=== PATIENT | male | born 1980 | race Caucasian/White ===

== ENCOUNTER 2022-07-28 20:55 | Inpatient (IN) | payer OTHER, SELFPAY ==
[2022-07-28 21:45] VITALS: BMI 32.3
--- NOTE | 2022-07-28 22:37 | PC.ADMIT ---
Pt is a 42years old male admitted from [facility] for IPLOC after a pt was seen for SI with a plan to cut his wrist. Pt is alert and oriented x4, VSS, covid negative, tox screen positive for THC and methadone. Pt is homeless, depressed and hopeless. He has a history of poly substance use. Pt appears disheveled, calm and cooperative, quite but pleasant. Pt reports that he has been sober for the last six months. impulse, insight and judgment is poor. Speech is normal with regular rhythm, tone and corwin. Pt is able to make needs known and reports that he needs help with residential placement and further care. Pt has no established PCP, no therapist on file. Pt explains he has not been able to connect to providers and is fighting the urge to remain sober. Admission orders obtained.
[2022-07-28] MEDS: OLANZapine 5 MG TABLET PO (23:30)
[2022-07-28] MEDS: Nicotine Polacrilex 2 MG GUM 4 MG BUCCAL (23:30)
[2022-07-28] MEDS: QUEtiapine Fumarate 200 MG TABLET PO (23:31)
[2022-07-28] MEDS: hydrOXYzine HCL 50 MG TABLET PO (23:31)
[2022-07-29 07:00] VITALS: BMI 32.5
[2022-07-29 09:15] VITALS: BP 123/68; PULSE 88; RESP 16; TEMP 36.5; O2SAT 97
[2022-07-29 09:30] LABS: Estimated Average Glucose 117 mg/dL; Hemoglobin A1c % 5.7 %
[2022-07-29] MEDS: Gabapentin 300 MG CAPSULE PO ×2 (09:37→10:14)
[2022-07-29] MEDS: Sertraline HCL 100 MG TABLET PO (09:38)
[2022-07-29] MEDS: Magnesium Hydrox/Alum Hydrox 30 ML ORAL.SUSP PO (09:58)
[2022-07-29 10:04] LABS: Alanine Aminotransferase 79 U/L (0-40); Albumin Level 3.7 g/dL (3.5-5.0); Alkaline Phosphatase 96 U/L (39-117); Aspartate Amino Transferase 47 U/L (5-37); Bilirubin Direct 0.2 mg/dL (0.0-0.5); Bilirubin Total 0.9 mg/dL (0.0-1.0); Cholesterol 193 mg/dL; HDL Cholesterol 41 mg/dL; LDL Cholesterol Calculated 110 mg/dl; Total Protein 6.3 g/dL (6.5-8.0); Triglycerides 214 mg/dL
[2022-07-29] MEDS: methADONE HCl 20 MG/2 ML ORAL.CONC 110 MG PO (10:14)
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
[2022-07-29] MEDS: Calcium Carbonate 750 MG TAB.CHEW PO ×2 (12:30→19:42)
--- NOTE | 2022-07-29 12:56 | PC.NURSE ---
Pt signed 3 day up on Thursday 08/03. , DEJA, UR aware.
[2022-07-29] MEDS: Gabapentin 300 MG CAPSULE 600 MG PO ×2 (14:46→19:42)
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
[2022-07-29] MEDS: hydrOXYzine HCL 50 MG TABLET PO (16:11)
[2022-07-29] MEDS: QUEtiapine Fumarate 25 MG TABLET PO (16:11)
[2022-07-29 19:40] VITALS: BP 136/87; PULSE 103
[2022-07-29] MEDS: QUEtiapine Fumarate 200 MG TABLET PO (19:42)
[2022-07-29] MEDS: Melatonin 3 MG TABLET 9 MG PO (19:43)
[2022-07-30] MEDS: Gabapentin 300 MG CAPSULE 600 MG PO ×3 (08:43→19:05)
[2022-07-30] MEDS: Sertraline HCL 100 MG TABLET PO (08:43)
[2022-07-30] MEDS: methADONE HCl 20 MG/2 ML ORAL.CONC 110 MG PO (08:43)
[2022-07-30 09:14] VITALS: BP 134/71; PULSE 63; RESP 16; TEMP 36; O2SAT 92
[2022-07-30] MEDS: hydrOXYzine HCL 50 MG TABLET PO ×3 (09:22→19:06)
[2022-07-30] MEDS: QUEtiapine Fumarate 25 MG TABLET PO (09:22)
--- NOTE | 2022-07-30 09:50 | P.PNPSI_ITS ---
Subjective Subjective Date of Service: 07/30/22 Reason For Visit: Depressive Disorder Interim History: Patient; discussed in teams Patient reports ?that he is? good? and does not need anything; feels medications are good.? He put in a 3 day and is looking to discharge but wants to get miguel ointment on the books which team agrees is important given his history of limited follow-up. Attending Groups: No Mental Status Exam Mental Status Exam Narrative: Pt is alert and oriented; behavior is cooperative, friendly and calm; patient is not in distress; dressed in casual attire with unkempt hair but adequate hygiene; mood is described as good and affect congruent; eye contact appropriate; Speech is normal rate, volume and prosody and not pressured; no psychomotor agitation/retardation present; thought process is organized and goal directed; Thought content is on tx; otherwise pertinent to relevant topics and without any delusional content, paranoid ideations or grandiosity; denies any SI/HI. There is no evidence of perceptual disturbance. Patients insight and judgment are intact. Diagnostics Vital Signs (24Hr): Vital Signs - 24 hr 07/29/22 19:40 07/30/22 09:14 Temperature 96.8 F Pulse Rate 103 H 63 Respiratory Rate 16 Blood Pressure 136/87 134/71 Pulse Oximetry 92 Oxygen Delivery Method Room Air BMI result Body Mass Index 32.5 Labs Labs: Laboratory Results - last 48 hr 07/29/22 07/29/22 08:38 08:38 Estimat Average Glucose 117 Hemoglobin A1c % 5.7 Total Bilirubin 0.9 Direct Bilirubin 0.2 AST 47 H ALT 79 H Alkaline Phosphatase 96 Total Protein 6.3 L Albumin 3.7 Triglycerides 214 Cholesterol 193 LDL Cholesterol, Calc 110 HDL Cholesterol 41 Medications Medications Current Medications Acetaminophen (Acetaminophen 325 Mg Tablet) 650 mg PO Q6H PRN PRN Reason: Headache/Pain Mild Scale (1-3) Al Hydroxide/Mg Hydroxide (Magnesium Hydrox/Alum Hydrox 30 Ml Oral.Susp) 30 ml PO Q6H PRN PRN Reason: Heartburn/Nausea Last Admin: 07/29/22 09:58 Dose: 30 ml Calcium Carbonate (Calcium Carbonate 750 Mg Tab.Chew) 750 mg PO Q6H PRN PRN Reason: Heartburn Last Admin: 07/29/22 19:42 Dose: 750 mg Gabapentin (Gabapentin 300 Mg Capsule) 600 mg PO TID JOANA Last Admin: 07/30/22 08:43 Dose: 600 mg Hydroxyzine HCl (Hydroxyzine Hcl 50 Mg Tablet) 50 mg PO Q6H PRN PRN Reason: Anxiety Last Admin: 07/30/22 09:22 Dose: 50 mg Magnesium Hydroxide (Milk Of Magnesia 30 Ml Oral.Susp) 30 ml PO DAILY PRN PRN Reason: Constipation Melatonin (Melatonin 3 Mg Tablet) 9 mg PO BEDTIME [facility] Last Admin: 07/29/22 19:43 Dose: 9 mg Methadone HCl (Methadone Hcl 20 Mg/2 Ml Oral.Conc) 110 mg PO DAILY [facility] Last Admin: 07/30/22 08:43 Dose: 110 mg Nicotine Polacrilex (Nicotine Polacrilex 2 Mg Gum) 4 mg BUCCAL Q2H PRN PRN Reason: Nicotine Cravings Last Admin: 07/28/22 23:30 Dose: 4 mg Olanzapine (Olanzapine 5 Mg Tablet) 5 mg PO TID PRN PRN Reason: agitation Last Admin: 07/28/22 23:30 Dose: 5 mg Quetiapine Fumarate (Quetiapine Fumarate 200 Mg Tablet) 200 mg PO BEDTIME [facility] Last Admin: 07/29/22 19:42 Dose: 200 mg Quetiapine Fumarate (Quetiapine Fumarate 25 Mg Tablet) 25 mg PO DAILY PRN PRN Reason: Agitation Last Admin: 07/30/22 09:22 Dose: 25 mg Sertraline HCl (Sertraline Hcl 100 Mg Tablet) 100 mg PO DAILY [facility] Last Admin: 07/30/22 08:43 Dose: 100 mg Trazodone HCl (Trazodone Hcl 50 Mg Tablet) 50 mg PO BEDTIME MRX1 PRN PRN Reason: Insomnia Allergies Allergies Allergy/AdvReac Type Severity Reaction Status Date / Time tramadol [TRAMADOL] Allergy Unknown HIVES, Unverified 03/13/20 15:32 ITCHY ibuprofen [From MOTRIN] AdvReac Unknown STOMACH Unverified 03/13/20 15:32 UPSET, ITCHY,DIFFICULTY BREATHING. Assessment & Plan Assessment & Plan (1) MDD (major depressive disorder), recurrent episode, moderate: Status: Acute Code(s): F33.1 - Major depressive disorder, recurrent, moderate (2) PTSD (post-traumatic stress disorder): Status: Acute Code(s): F43.10 - Post-traumatic stress disorder, unspecified (3) Cocaine use disorder in remission: Status: Acute Code(s): F14.91 - Cocaine use, unspecified, in remission Plan Pt is a 42 yo male w/ hx of MDD, ptsd, substance abuse who presents for SI after being discharged from [facility] Jun/Jul 2022 for being irritable. He says day he was discharged he had thoughts which just came on, but denies intent/plans.? -pt says he's feeling better; feels Zoloft 100mg has worked well and does not feel need to increase; wants to remain on home regimen; says he will follow up with outpt services this time 2/3 Patient mood remains improved and no SI.? Does not want medication changes feeling there adequate doses.? Three day notice placed.? Given his history of poor follow-up which results in frequent admissions, will remain to get appointments in place plan: 3day q15min checks continue home med regimen Patient educated on: diagnosis and medication risk/benefits Informed Consent: understands Reason for contiued inpatient stay Substantial Risk for: stable for discharge Time Spent With Patient Time: Total time managing care of this patient today ____ minutes.
[2022-07-30] MEDS: Calcium Carbonate 750 MG TAB.CHEW PO (12:30)
[2022-07-30] MEDS: QUEtiapine Fumarate 200 MG TABLET PO (19:06)
[2022-07-30] MEDS: Melatonin 3 MG TABLET 9 MG PO (19:18)
[2022-07-30 19:56] VITALS: BP 118/84; PULSE 96; RESP 16; TEMP 35.9; O2SAT 98
[2022-07-31] MEDS: Sertraline HCL 100 MG TABLET PO (08:26)
[2022-07-31] MEDS: methADONE HCl 20 MG/2 ML ORAL.CONC 110 MG PO (08:26)
[2022-07-31] MEDS: Gabapentin 300 MG CAPSULE 600 MG PO ×3 (08:26→19:04)
[2022-07-31] MEDS: Calcium Carbonate 750 MG TAB.CHEW PO ×2 (08:52→13:41)
[2022-07-31 08:56] VITALS: BP 129/70; PULSE 62; RESP 16; TEMP 36.2; O2SAT 90
[2022-07-31] MEDS: hydrOXYzine HCL 50 MG TABLET PO ×2 (11:29→19:05)
[2022-07-31] MEDS: QUEtiapine Fumarate 25 MG TABLET PO (11:29)
--- NOTE | 2022-07-31 16:59 | HO.PSYCHPN ---
Subjective Subjective Date of Service: 07/31/22 Reason For Visit: Depressive Disorder Subjective Notes: 3 Day Interim History: met with patient. Chart reviewed. Discussed with Nursing. Three-day notice in place. Adherent with medications. Overall patient reports feeling improved mood being back on medications. Has been living with his sister and niece and reports his environment as being challenging at times as he believes his niece is disrespectful. Talked at length about his 6 children that range in age from 6 years old through 25 and lack of relationships with them. Reported wanting to focus on himself and his own well-being. Sleep energy and appetite okay. No medication concerns. Medication Compliance: Yes Side effects from medications: No Attending Groups: Yes Review of Systems Acute medical concerns: No Review of Systems Review of Systems Yes all other systems are reviewed and are negative Mental Status Exam Mental Status Exam Narrative: Pleasant. Engaged. Organized. Euthymic. No SI. No HI. No agitation. No psychosis. Insight and judgment okay Diagnostics Vital Signs (24Hr): Vital Signs - 24 hr 07/30/22 19:56 07/31/22 08:56 Temperature 96.7 F L 97.2 F Pulse Rate 96 62 Respiratory Rate 16 16 Blood Pressure 118/84 129/70 Pulse Oximetry 98 90 L Oxygen Delivery Method Room Air Room Air BMI result Body Mass Index 32.5 Medications Medications Current Medications Acetaminophen (Acetaminophen 325 Mg Tablet) 650 mg PO Q6H PRN PRN Reason: Headache/Pain Mild Scale (1-3) Al Hydroxide/Mg Hydroxide (Magnesium Hydrox/Alum Hydrox 30 Ml Oral.Susp) 30 ml PO Q6H PRN PRN Reason: Heartburn/Nausea Calcium Carbonate (Calcium Carbonate 750 Mg Tab.Chew) 750 mg PO Q2H PRN PRN Reason: Heartburn Last Admin: 07/31/22 13:41 Dose: 750 mg Gabapentin (Gabapentin 300 Mg Capsule) 600 mg PO TID JOANA Last Admin: 07/31/22 14:13 Dose: 600 mg Hydroxyzine HCl (Hydroxyzine Hcl 50 Mg Tablet) 50 mg PO Q6H PRN PRN Reason: Anxiety Last Admin: 07/31/22 11:29 Dose: 50 mg Magnesium Hydroxide (Milk Of Magnesia 30 Ml Oral.Susp) 30 ml PO DAILY PRN PRN Reason: Constipation Melatonin (Melatonin 3 Mg Tablet) 9 mg PO BEDTIME [facility] Last Admin: 07/30/22 19:18 Dose: 9 mg Methadone HCl (Methadone Hcl 20 Mg/2 Ml Oral.Conc) 110 mg PO DAILY [facility] Last Admin: 07/31/22 08:26 Dose: 110 mg Nicotine Polacrilex (Nicotine Polacrilex 2 Mg Gum) 4 mg BUCCAL Q2H PRN PRN Reason: Nicotine Cravings Last Admin: 07/28/22 23:30 Dose: 4 mg Olanzapine (Olanzapine 5 Mg Tablet) 5 mg PO TID PRN PRN Reason: agitation Last Admin: 07/28/22 23:30 Dose: 5 mg Quetiapine Fumarate (Quetiapine Fumarate 200 Mg Tablet) 200 mg PO BEDTIME JOANA Last Admin: 07/30/22 19:06 Dose: 200 mg Quetiapine Fumarate (Quetiapine Fumarate 25 Mg Tablet) 25 mg PO DAILY PRN PRN Reason: Agitation Last Admin: 07/31/22 11:29 Dose: 25 mg Sertraline HCl (Sertraline Hcl 100 Mg Tablet) 100 mg PO DAILY [facility] Last Admin: 07/31/22 08:26 Dose: 100 mg Trazodone HCl (Trazodone Hcl 50 Mg Tablet) 50 mg PO BEDTIME MRX1 PRN PRN Reason: Insomnia Allergies Allergies Allergy/AdvReac Type Severity Reaction Status Date / Time tramadol [TRAMADOL] Allergy Unknown HIVES, Unverified 03/13/20 15:32 ITCHY ibuprofen [From MOTRIN] AdvReac Unknown STOMACH Unverified 03/13/20 15:32 UPSET, ITCHY,DIFFICULTY BREATHING. Assessment & Plan Assessment & Plan (1) MDD (major depressive disorder), recurrent episode, moderate: Status: Acute Code(s): F33.1 - Major depressive disorder, recurrent, moderate (2) PTSD (post-traumatic stress disorder): Status: Acute Code(s): F43.10 - Post-traumatic stress disorder, unspecified (3) Cocaine use disorder in remission: Status: Acute Code(s): F14.91 - Cocaine use, unspecified, in remission Plan Pt is a 42 yo male w/ hx of MDD, ptsd, substance abuse who presents for SI after being discharged from [facility] Jun/Jul 2022 for being irritable. He says day he was discharged he had thoughts which just came on, but denies intent/plans.? -pt says he's feeling better; feels Zoloft 100mg has worked well and does not feel need to increase; wants to remain on home regimen; says he will follow up with outpt services this time 2/ Patient mood remains improved and no SI.? Does not want medication changes feeling there adequate doses.? Three day notice placed.? Given his history of poor follow-up which results in frequent admissions, will remain to get appointments in place 07/31/2022: No changes to current treatment plan. Three-day notice in place which expires 08/03/2022 plan: 3day q15min checks continue home med regimen Reason for contiued inpatient stay Substantial Risk for: harm to self Time Spent With Patient Time: Total time managing care of this patient today ____ minutes.
[2022-07-31 19:00] VITALS: BP 152/89; PULSE 101; TEMP 36.2
[2022-07-31] MEDS: QUEtiapine Fumarate 200 MG TABLET PO (19:05)
[2022-07-31] MEDS: Melatonin 3 MG TABLET 9 MG PO (19:05)
[2022-08-01] MEDS: methADONE HCl 20 MG/2 ML ORAL.CONC 110 MG PO (08:41)
[2022-08-01] MEDS: Gabapentin 300 MG CAPSULE 600 MG PO ×3 (08:41→19:09)
[2022-08-01] MEDS: Sertraline HCL 100 MG TABLET PO (08:41)
[2022-08-01 08:46] VITALS: BP 123/71; PULSE 77; RESP 16; TEMP 37.1; O2SAT 94
[2022-08-01] MEDS: hydrOXYzine HCL 50 MG TABLET PO ×2 (08:49→17:32)
[2022-08-01] MEDS: QUEtiapine Fumarate 25 MG TABLET PO (08:49)
[2022-08-01] MEDS: Acetaminophen 325 MG TABLET 650 MG PO ×2 (08:49→17:32)
--- NOTE | 2022-08-01 13:05 | HO.PSYCHPN ---
Subjective Subjective Date of Service: 08/01/22 Reason For Visit: Depressive Disorder Interim History: Three-day notice in place. Adherent with medications. Continues to report feeling positive. No depression. Sleep good. No medication concerns. Does report having hand and feet swelling. Reports this has been present for a long time and will follow up with primary care provider after discharge. Reports there has been no acute changes or worsening. No shortness of breath. Reports previously being with [facility] and looks forward to returning there. Otherwise remains eager for discharge. Wants to continue with mental health follow-up care in the community. Reports he will stay with his sister. Feels well cared for here. Medication Compliance: Yes Side effects from medications: No Attending Groups: Intermittent Review of Systems Acute medical concerns: No Review of Systems Review of Systems Nothing acute Mental Status Exam Mental Status Exam Narrative: Pleasant. Engaged. Organized. Euthymic. No SI. No HI. No agitation. No psychosis. Insight and judgment okay Diagnostics Vital Signs (24Hr): Vital Signs - 24 hr 07/31/22 19:00 08/01/22 08:46 Temperature 97.2 F 98.7 F Pulse Rate 101 H 77 Respiratory Rate 16 Blood Pressure 152/89 H 123/71 Pulse Oximetry 94 Oxygen Delivery Method Room Air BMI result Body Mass Index 32.5 Medications Medications Current Medications Acetaminophen (Acetaminophen 325 Mg Tablet) 650 mg PO Q6H PRN PRN Reason: Headache/Pain Mild Scale (1-3) Last Admin: 08/01/22 08:49 Dose: 650 mg Al Hydroxide/Mg Hydroxide (Magnesium Hydrox/Alum Hydrox 30 Ml Oral.Susp) 30 ml PO Q6H PRN PRN Reason: Heartburn/Nausea Calcium Carbonate (Calcium Carbonate 750 Mg Tab.Chew) 750 mg PO Q2H PRN PRN Reason: Heartburn Last Admin: 07/31/22 13:41 Dose: 750 mg Gabapentin (Gabapentin 300 Mg Capsule) 600 mg PO TID JOANA Last Admin: 08/01/22 08:41 Dose: 600 mg Hydroxyzine HCl (Hydroxyzine Hcl 50 Mg Tablet) 50 mg PO Q6H PRN PRN Reason: Anxiety Last Admin: 08/01/22 08:49 Dose: 50 mg Magnesium Hydroxide (Milk Of Magnesia 30 Ml Oral.Susp) 30 ml PO DAILY PRN PRN Reason: Constipation Melatonin (Melatonin 3 Mg Tablet) 9 mg PO BEDTIME JOANA Last Admin: 07/31/22 19:05 Dose: 9 mg Methadone HCl (Methadone Hcl 20 Mg/2 Ml Oral.Conc) 110 mg PO DAILY [facility] Last Admin: 08/01/22 08:41 Dose: 110 mg Nicotine Polacrilex (Nicotine Polacrilex 2 Mg Gum) 4 mg BUCCAL Q2H PRN PRN Reason: Nicotine Cravings Last Admin: 07/28/22 23:30 Dose: 4 mg Olanzapine (Olanzapine 5 Mg Tablet) 5 mg PO TID PRN PRN Reason: agitation Last Admin: 07/28/22 23:30 Dose: 5 mg Quetiapine Fumarate (Quetiapine Fumarate 200 Mg Tablet) 200 mg PO BEDTIME [facility] Last Admin: 07/31/22 19:05 Dose: 200 mg Quetiapine Fumarate (Quetiapine Fumarate 25 Mg Tablet) 25 mg PO DAILY PRN PRN Reason: Agitation Last Admin: 08/01/22 08:49 Dose: 25 mg Sertraline HCl (Sertraline Hcl 100 Mg Tablet) 100 mg PO DAILY [facility] Last Admin: 08/01/22 08:41 Dose: 100 mg Trazodone HCl (Trazodone Hcl 50 Mg Tablet) 50 mg PO BEDTIME MRX1 PRN PRN Reason: Insomnia Allergies Allergies Allergy/AdvReac Type Severity Reaction Status Date / Time tramadol [TRAMADOL] Allergy Unknown HIVES, Unverified 03/13/20 15:32 ITCHY ibuprofen [From MOTRIN] AdvReac Unknown STOMACH Unverified 03/13/20 15:32 UPSET, ITCHY,DIFFICULTY BREATHING. Assessment & Plan Assessment & Plan (1) MDD (major depressive disorder), recurrent episode, moderate: Status: Acute Code(s): F33.1 - Major depressive disorder, recurrent, moderate (2) PTSD (post-traumatic stress disorder): Status: Acute Code(s): F43.10 - Post-traumatic stress disorder, unspecified (3) Cocaine use disorder in remission: Status: Acute Code(s): F14.91 - Cocaine use, unspecified, in remission Plan Pt is a 42 yo male w/ hx of MDD, ptsd, substance abuse who presents for SI after being discharged from [facility] Jun/Jul 2022 for being irritable. He says day he was discharged he had thoughts which just came on, but denies intent/plans.? -pt says he's feeling better; feels Zoloft 100mg has worked well and does not feel need to increase; wants to remain on home regimen; says he will follow up with outpt services this time 2/3 Patient mood remains improved and no SI.? Does not want medication changes feeling there adequate doses.? Three day notice placed.? Given his history of poor follow-up which results in frequent admissions, will remain to get appointments in place 08/01/2022: No changes to current treatment plan. Three-day notice in place which expires 08/03/2022 plan: 3day q15min checks continue home med regimen Reason for contiued inpatient stay Substantial Risk for: harm to self Time Spent With Patient Time: Total time managing care of this patient today ____ minutes.
[2022-08-01] MEDS: OLANZapine 5 MG TABLET PO (17:32)
[2022-08-01 17:35] VITALS: BP 147/89; PULSE 83; TEMP 35.7
[2022-08-01] MEDS: Melatonin 3 MG TABLET 9 MG PO (19:08)
[2022-08-01] MEDS: QUEtiapine Fumarate 200 MG TABLET PO (19:09)
[2022-08-01] MEDS: Nicotine Polacrilex 2 MG GUM 4 MG BUCCAL (19:10)
[2022-08-02 08:37] LABS: Lithium < 0.10 mmol/L (0.60-1.20)
[2022-08-02 08:55] LABS: TSH reflex Free T4 3.35 uIU/mL (0.32-4.0)
[2022-08-02] MEDS: Gabapentin 300 MG CAPSULE 600 MG PO (09:09)
[2022-08-02] MEDS: Sertraline HCL 100 MG TABLET PO (09:10)
[2022-08-02] MEDS: methADONE HCl 20 MG/2 ML ORAL.CONC 110 MG PO (09:13)
[2022-08-02 09:14] VITALS: BP 119/67; PULSE 88; RESP 18; TEMP 36.4; O2SAT 93
[2022-08-02] MEDS: hydrOXYzine HCL 50 MG TABLET PO (09:39)
[2022-08-02] MEDS: QUEtiapine Fumarate 25 MG TABLET PO (09:39)
--- NOTE | 2022-08-02 10:13 | PM.PSYDC ---
DS: Providers Provider Date of Service: 08/02/22 Date of admission: 07/28/22 20:55 Date of discharge: 08/02/22 Primary care physician: Unknown Physician Attending physician on admission: Steve Cobb Consults: 07/28/22 21:50 Consult to Hospitalist Routine Consulting Provider: Hospitalist Reason For Exam: admission physical Attending physician on discharge: Steve Cobb DS: Diagnosis Discharge Diagnosis (1) MDD (major depressive disorder), recurrent episode, moderate: Status: Acute (2) PTSD (post-traumatic stress disorder): Status: Acute (3) Cocaine use disorder in remission: Status: Acute DS: Medications Discharge Medications Home Medications: Home Medications Medication Instructions Recorded Confirmed melatonin 3 mg tablet 1 tab PO BEDTIME 07/28/22 07/28/22 gabapentin 600 mg tablet 600 mg PO TID 07/29/22 07/29/22 hydroxyzine HCl 50 mg tablet 50 mg PO TID PRN Anxiety 07/29/22 07/29/22 methadone 10 mg/5 mL oral solution 111 mg PO DAILY 07/29/22 07/29/22 quetiapine 200 mg tablet (Seroquel) 200 mg PO BEDTIME 07/29/22 07/29/22 quetiapine 25 mg tablet (Seroquel) 25 mg PO DAILY PRN Agitation 07/29/22 07/29/22 sertraline 100 mg tablet 100 mg PO DAILY 07/29/22 07/29/22 Mental Status Exam Mental Status Exam Narrative: Pt is alert and oriented; behavior is cooperative, friendly and calm; patient is not in distress; dressed in casual attire with unkempt hair but adequate hygiene; mood is described as good and affect congruent; eye contact appropriate; Speech is normal rate, volume and prosody and not pressured; no psychomotor agitation/retardation present; thought process is organized and goal directed; Thought content is on tx; otherwise pertinent to relevant topics and without any delusional content, paranoid ideations or grandiosity; denies any SI/HI. There is no evidence of perceptual disturbance. Patients insight and judgment are intact. Data Data Completed and Pending Completed studies during hospitalization [Text1]: 07/29/22 07/29/22 08/02/22 08:38 08:38 07:46 Estimat Average Glucose 117 Hemoglobin A1c % 5.7 Total Bilirubin 0.9 Direct Bilirubin 0.2 AST 47 H ALT 79 H Alkaline Phosphatase 96 Total Protein 6.3 L Albumin 3.7 Triglycerides 214 Cholesterol 193 LDL Cholesterol, Calc 110 HDL Cholesterol 41 TSH 3.35 [place] 08/02/22 07:46 Estimat Average Glucose Hemoglobin A1c % Total Bilirubin Direct Bilirubin AST ALT Alkaline Phosphatase Total Protein Albumin Triglycerides Cholesterol LDL Cholesterol, Calc HDL Cholesterol TSH [place] < 0.10 L DS: Summary Hospital Course Hospital Course: Pt is a 42 yo male w/ hx of MDD, ptsd, substance abuse who presents for SI after being discharged from [facility] Jun/Jul 2022 for being irritable. He says day he was discharged he had thoughts which just came on, but denies intent/plans.? On admission, pt says he's feeling better and that the suicidal thought was just a brief thought and has since resolved. He feels Zoloft 100mg has worked well and does not feel need to increase; wants to remain on home regimen. Patient shared that he has poor follow-up with outpatient providers any knows that is a problem for him; happens as he runs out of medications and then gets depressed and ends up going to an inpatient unit where he gets a refill and and repeats the same cycle. Patient reflects and he says for poor follow-up is due to a combination of troubles with transportation, feeling better at the time and not wanting to be inconvenienced. Patient says that he knows this needs to stop and does not want to keep coming to the hospital so is grateful that team will help set up with aftercare. Patient remained in good behavioral and impulse control throughout his time in the unit. He did not attend groups, though socialized with select peers. Continued to deny any SI and reported good mood, feeling stable and ready for discharge. Patient placed a 3 day notice. He was not in imminent risk for harm to self or others and request for discharge honored. Patient has appointments set up and he was discharged home to his sister's. Time spent discussing smoking cessation with patient: 3 to 10 minutes Status at Discharge Functional status at discharge: independent ambulation Overall status at discharge: patient is back to baseline Time Spent with Patient Time attestation: Total time managing care of this patient today ____ minutes. Time spent: Less than 30 minutes Discharge Plan Discharge Anticipated Discharge Date/Time: 08/02/22 13:00 Patient Disposition: Home, Self-Care Discharge Diagnosis: MDD, recurrent, moderate, in full remission Referrals: [facility] [Other] - 1 Week (Referred to [facility] ) Therapy Intake: Sharmaine Talavera ([facility]) [Other] - 08/06/22 11:00 am (Appointment is at the office; please arrive 15 minutes early to complete paperwork. ) Psychiatrist: Leatha Everett ([facility]) [Other] - 08/30/22 10:00 am (Telehealth- Dr. Fish will call your phone at the time of appointment ) Psychiatrist: Leatha Everett ([facility]) [Other] - 09/27/22 9:00 am (Telehealth- Dr. Fish will call your phone at the time of appointment ) Physician,Josesito Cao [Primary Care Provider] - 1 Week Discharge Medications: Continued melatonin 3 mg tablet 1 tab PO BEDTIME methadone 10 mg/5 mL Solution 111 mg PO DAILY hydroxyzine HCl 50 mg Tablet 50 mg PO TID PRN (Reason: Anxiety) quetiapine [Seroquel] 25 mg Tablet 25 mg PO DAILY PRN (Reason: Agitation) gabapentin 600 mg Tablet 600 mg PO TID sertraline 100 mg Tablet 100 mg PO DAILY quetiapine [Seroquel] 200 mg Tablet 200 mg PO BEDTIME Discharge Orders: Discharge Order (Routine); Ordered 08/02/22 Ordered By: Steve Cobb Diet: Regular diet Activity on Discharge: As tolerated Stand Alone Forms: Patient Portal Discharge page, Community Support Care Plan Goals: Maintain mood and safe behaviors Take medications as prescribed Continue to pursue sobriety Practice coping skills Continue with outpatient providers and reach out to them as needed Health Concerns: Mood stability and behaviors Plan of Treatment: Follow up with your PCP, psychiatric provider and other outpatient providers regarding above concerns Take medications as prescribed Assessment: Risk assessment at time of discharge:? Patient was interviewed prior to discharge and found to be fully oriented and without any SI or HI. Patient has insight and demonstrates good judgment in terms of wanting to pursue treatment. Patient is not in imminent risk of harm to self or others and has a safety plan that includes presenting to the closest ER or calling 911 if feeling unsafe.? Patient has been observed closely by nursing and unit staff throughout admission; patient has not engaged in any behaviors that suggest dangerousness to self or others and has demonstrated appropriate behaviors and impulse control Discharge Date/Time: 08/02/22 14:00
[2022-08-02] MEDS: Naloxone HCl Nasal TAKE HOME 4 MG SPRAY NOSTRILALT (13:02)
== END 2022-08-02 14:00 | disposition home or self-care (01) | DRG 751 ==
PROVIDERS: Admitting Provider Psychiatry & Neurology Psychiatry; Visit Provider Psychiatry & Neurology Psychiatry
DX: F33.1 Major depressive disorder, recurrent, moderate (principal); R45.851 Suicidal ideations; F43.10 Post-traumatic stress disorder, unspecified; F17.210 Nicotine dependence, cigarettes, uncomplicated; F11.20 Opioid dependence, uncomplicated; F14.10 Cocaine abuse, uncomplicated; Z71.6 Tobacco abuse counseling; Z88.5 Allergy status to narcotic agent; Z88.6 Allergy status to analgesic agent; Z79.899 Other long term (current) drug therapy
CPT/HCPCS: 36415; 80061; 80076; 80178; 83036; 84443

== ENCOUNTER 2022-12-28 13:22 | Inpatient (IN) | payer OTHER, SELFPAY ==
[2022-12-28] MEDS: hydrOXYzine HCL 50 MG TABLET PO (14:51)
[2022-12-28] MEDS: Gabapentin 400 MG CAPSULE 800 MG PO ×2 (14:51→21:10)
[2022-12-28 15:06] VITALS: BP 161/88; PULSE 71; RESP 18; TEMP 36.4; O2SAT 96
--- NOTE | 2022-12-28 15:19 | PC.ADMIT ---
Nursing admission note: 42 year old male DX: Unspecified depressive disorder, opiate use disorder, Stimulant use disorder. Patient referred for admission by CARE team. Patient presented to [facility] ED with compliant of suicidal ideation, recent use of opiate and self harming behavior (cutting). Patient signed conditional voluntary for admission. Engaged easily with fair eye contact. Calm and cooperative with admission process. Speech normal rate, tone, corwin. Patient reports depressed mood, affect congruent. Continues with intermittent suicidal ideation, denies at this time, reports he will inform staff if feelings intensify. Patient reports precipitant is being kicked out of sisters home. Patients thoughts were clear, relevant and organized. Denies perceptual disturbances at this time. Denies A/V hallucinations, no overt psychosis or expressed delusions. Reports weight loss of approx 20 lbs in 4-6 weeks. States sleep is poor without medications, gets approx 3 hours/night. Denies acute medical problems, wears reading glasses, not with patient. COVID negative. Superficial cuts to R arm, no sx of infection. Allergy to Tramadol, IBU. TOX screen positive for opiate, methadone, Fentanyl, amphetamine, benzo, cocaine and cannabis. Reports last use of heroin approx 2-3 days ago. No reported withdrawal sx. Patient oriented to unit, placed on unit safety checks. See nursing assessment/crisis eval for complete details.
[2022-12-28 15:36] VITALS: BMI 31.0
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
[2022-12-28] MEDS: Prazosin HCL 1 MG CAPSULE 3 MG PO (21:10)
[2022-12-28] MEDS: QUEtiapine Fumarate 200 MG TABLET PO (21:11)
[2022-12-28] MEDS: Mirtazapine 15 MG TABLET PO (21:11)
[2022-12-28 22:38] VITALS: BP 155/92; PULSE 74; RESP 16; TEMP 36.8; O2SAT 99
--- NOTE | 2022-12-29 06:39 | HE.PHANOTE ---
Re: methadone verification last dose 120 mg, 12/26/22 at [facility] verified by [facility]
[2022-12-29 08:50] VITALS: BP 134/82; PULSE 54; RESP 16; TEMP 36.6; O2SAT 97
[2022-12-29] MEDS: Gabapentin 400 MG CAPSULE 800 MG PO ×3 (08:51→19:53)
[2022-12-29] MEDS: methADONE HCl 20 MG/2 ML ORAL.CONC 120 MG PO (08:52)
[2022-12-29 09:21] LABS: Alanine Aminotransferase 40 U/L (0-40); Albumin Level 3.8 g/dL (3.5-5.0); Alkaline Phosphatase 96 U/L (39-117); Anion Gap 11 (12-20); Aspartate Amino Transferase 27 U/L (5-37); Bilirubin Total 0.6 mg/dL (0.0-1.0); Blood Urea Nitrogen 7 mg/dL (9-16); Calcium 9.6 mg/dL (8.4-10.2); Carbon Dioxide 31 mmol/L (22-29); Chloride 106 mmol/L (96-108); Cholesterol 131 mg/dL; Estimated Glomerular Filt Rate > 60; Glucose Fasting 95 mg/dL (60-99); HDL Cholesterol 34 mg/dL; LDL Cholesterol Calculated 69 mg/dl; Sodium 144 mmol/L (135-145); Triglycerides 140 mg/dL
[2022-12-29 09:41] LABS: Free T4 (Free Thyroxine) 0.81 ng/dL (0.71-1.85); Thyroid Stimulating Hormone 1.79 uIU/mL (0.32-4.0)
[2022-12-29] MEDS: Nicotine Polacrilex 2 MG GUM 4 MG BUCCAL ×2 (13:20→18:01)
[2022-12-29] MEDS: hydrOXYzine HCL 50 MG TABLET PO (18:02)
--- NOTE | 2022-12-29 18:15 | HO.PSYADMNOT ---
HPI Date of Service: 12/29/22 Chief Complaint: Unspec Depressive D/O Opioid Use D/O Severe Etc Sources of Information: patient interviewed, chart reviewed and crisis/core team assessment reviewed HPI Subjective Notes: Chávez Warning and Conditional Voluntary Narrative: Patient is a 42-year-old male with history of depression, PTSD, opioid dependence on methadone who presents for depression with SI and the face of recent homelessness. Patient said he was doing fairly well for the past 4 months, sober and in a good mood, working. However, he lives with his sister who was not satisfied with the amount of rent to his pain and demanded more and subsequently kicked him out for not pain. Patient was homeless, got depressed and felt emotionally wounded that his own sister would for some onto the streets. Patient felt suicidal, vaguely reports he intentionally tried to overdose with very substances and subsequently self presented for help. Patient reports he has continued with his medications except has been off to the both Zoloft and Seroquel which were restarted. Past Psychiatric History: multiple psych admissions Medical Evaluation Reviewed: Yes FORMERLY [facility], 1928–1983 Medical History (Updated 12/29/22 @ 18:21 by Steve Cobb MD) Cigarette smoker Cocaine use disorder in remission MDD (major depressive disorder), recurrent episode, moderate Opioid dependence Polysubstance abuse PTSD (post-traumatic stress disorder) Family History: deferred Social History: Currently homeless; was living with sister Substance History: Opioid dependence; polysubstance abuse Trauma History: +hx for trauma; does not disclose Diagnostics Vital Signs (24Hr): Vital Signs - 24 hr 12/28/22 22:38 12/29/22 08:50 Temperature 98.2 F 97.8 F Pulse Rate 74 54 Respiratory Rate 16 16 Blood Pressure 155/92 H 134/82 Pulse Oximetry 99 97 Oxygen Delivery Method Room Air Room Air BMI result Body Mass Index 31.0 Labs 12/29/22 08:34 Labs: Laboratory Results - last 48 hr 12/29/22 12/29/22 12/29/22 08:34 08:34 08:34 Sodium 144 Potassium 4.0 Chloride 106 Carbon Dioxide 31 H Anion Gap 11 L BUN 7 L Creatinine 1.08 Estim Creat Clear Calc 89.0 Estimated GFR > 60 Fasting Glucose 95 Calcium 9.6 Total Bilirubin 0.6 AST 27 ALT 40 Alkaline Phosphatase 96 Total Protein 7.0 Albumin 3.8 Triglycerides 140 Cholesterol 131 LDL Cholesterol, Calc 69 HDL Cholesterol 34 Vitamin B12 469 Folate 15.3 TSH 1.79 Free T4 0.81 Hep Bs Antigen Negative Hep Bs Antibody NONREACTIVE Hep B Core Total Ab Nonreactive Hepatitis C Ab (EIA) Reactive H Meds/Allergies Meds Home Medications Medication Instructions Recorded Confirmed Type melatonin 3 mg tablet 3 tab PO BEDTIME 07/28/22 12/28/22 History gabapentin 600 mg tablet 600 mg PO TID 07/29/22 12/28/22 History hydroxyzine HCl 50 mg tablet 50 mg PO TID PRN Anxiety 07/29/22 12/28/22 History methadone 10 mg/5 mL oral solution 120 mg PO DAILY 07/29/22 12/29/22 History quetiapine 25 mg tablet (Seroquel) 25 mg PO DAILY PRN Agitation 07/29/22 12/28/22 History sertraline 100 mg tablet 100 mg PO DAILY 07/29/22 12/28/22 History mirtazapine 15 mg tablet 15 mg PO BEDTIME 12/28/22 12/28/22 History quetiapine 200 mg tablet 200 mg PO BEDTIME 12/28/22 12/28/22 History Allergies Allergies Allergy/AdvReac Type Severity Reaction Status Date / Time tramadol [TRAMADOL] Allergy Intermediate HIVES, Verified 12/29/22 11:26 ITCHY ibuprofen [From MOTRIN] AdvReac Intermediate STOMACH Verified 12/29/22 11:26 UPSET, ITCHY,DIFFICULTY BREATHING. Mental Status Exam Mental Status Exam Narrative: Pt is alert and oriented; behavior is cooperative, calm; patient is not in distress; dressed in casual attire with, disheveled; mood is described as depressed and affect congruent; eye contact appropriate; Speech is normal rate, volume and prosody and not pressured; psychomotor retardation present; thought process is organized and goal directed; Thought content is on being emotionally hurt by sister; otherwise pertinent to relevant topics and without any delusional content, paranoid ideations or grandiosity; denies any SI/HI. There is no evidence of perceptual disturbance. Patients insight and judgment impaired Assessment & Plan Assessment & Plan (1) MDD (major depressive disorder), recurrent episode, moderate: Status: Acute Code(s): F33.1 - Major depressive disorder, recurrent, moderate (2) PTSD (post-traumatic stress disorder): Status: Acute Code(s): F43.10 - Post-traumatic stress disorder, unspecified (3) Opioid dependence: Status: Acute Code(s): F11.20 - Opioid dependence, uncomplicated (4) Polysubstance abuse: Status: Acute Code(s): F19.10 - Other psychoactive substance abuse, uncomplicated Plan Patient is a 42-year-old male with history of depression, PTSD, opioid dependence on methadone who presents for depression with SI and the face of recent homelessness. Patient said he was doing fairly well for the past 4 months, sober and in a good mood, working and doing overall well on current regimen. Patient's return or depression seems to be situational so will continue medication regimen Plan: CV Q 15 minute checks Continue home medication regimen; will restart Zoloft and Seroquel Labs: Hep C ab positive. Viral Load ordered If positive, will need outpt GI referral for treatment. Patient educated on: diagnosis and medication risk/benefits Informed Consent: understands Reason for continued inpatient stay Substantial Risk for: rapid decompensation Statement Statement: I have reviewed the history and physical and performed a pertinent examination on my patient. No changes have occurred unless specified. If the History and Physical was not performed prior to admission, the Hospitalist's service will be consulted for completing the admission physical. Time Spent With Patient Time: Total time managing care of this patient today ____ minutes.
[2022-12-29 19:50] VITALS: BP 146/81; PULSE 52; TEMP 36.5
[2022-12-29] MEDS: QUEtiapine Fumarate 200 MG TABLET PO (19:53)
[2022-12-29] MEDS: Prazosin HCL 1 MG CAPSULE 3 MG PO (19:54)
[2022-12-29] MEDS: Mirtazapine 15 MG TABLET PO (19:54)
[2022-12-29] MEDS: Melatonin 3 MG TABLET 9 MG PO (19:59)
[2022-12-30] MEDS: methADONE HCl 20 MG/2 ML ORAL.CONC 120 MG PO (08:24)
[2022-12-30] MEDS: Gabapentin 400 MG CAPSULE 800 MG PO ×3 (08:24→20:14)
[2022-12-30 08:33] VITALS: BP 152/92; PULSE 52; RESP 14; TEMP 36.1; O2SAT 98
--- NOTE | 2022-12-30 10:12 | HO.PSYCHPN ---
Subjective Subjective Date of Service: 12/30/22 Reason For Visit: Unspec Depressive D/O Opioid Use D/O Severe Etc Interim History: Met with patient; discussed with team Patient remains mostly isolating staying in bed. He says he still depressed and still has suicidal thoughts. Patient is not uncooperative but not really engaged. Discussed behavioral activation and patient agrees that he needs to attend to ADLs better. No medication side effects. Patient talked about aftercare possibly a sober house or program and will discuss with social work. Mental Status Exam Mental Status Exam Narrative: Pt is alert and oriented; behavior is isolative, not un-cooperative but not really engaged, calm; patient is not in distress; dressed in hospital attire with, disheveled, malodorous; mood is described as depressed and affect congruent; eye contact appropriate; Speech is normal rate, volume and prosody and not pressured; psychomotor retardation present; thought process is organized and goal directed; Thought content is on being emotionally hurt by sister; otherwise pertinent to relevant topics and without any delusional content, paranoid ideations or grandiosity; intermittent SI/no HI. There is no evidence of perceptual disturbance. Patients insight and judgment impaired Diagnostics Vital Signs (24Hr): Vital Signs - 24 hr 12/29/22 19:50 12/30/22 08:33 Temperature 97.7 F 96.9 F Pulse Rate 52 52 Respiratory Rate 14 Blood Pressure 146/81 H 152/92 H Pulse Oximetry 98 Oxygen Delivery Method Room Air BMI result Body Mass Index 31.0 Labs 12/29/22 08:34 Labs: Laboratory Results - last 48 hr 12/29/22 12/29/22 12/29/22 08:34 08:34 08:34 Sodium 144 Potassium 4.0 Chloride 106 Carbon Dioxide 31 H Anion Gap 11 L BUN 7 L Creatinine 1.08 Estim Creat Clear Calc 89.0 Estimated GFR > 60 Fasting Glucose 95 Calcium 9.6 Total Bilirubin 0.6 AST 27 ALT 40 Alkaline Phosphatase 96 Total Protein 7.0 Albumin 3.8 Triglycerides 140 Cholesterol 131 LDL Cholesterol, Calc 69 HDL Cholesterol 34 Vitamin B12 469 Folate 15.3 TSH 1.79 Free T4 0.81 Hep Bs Antigen Negative Hep Bs Antibody NONREACTIVE Hep B Core Total Ab Nonreactive Hepatitis C Ab (EIA) Reactive H Medications Medications Current Medications Acetaminophen (Acetaminophen 325 Mg Tablet) 650 mg PO Q6H PRN PRN Reason: Headache/Pain Mild Scale (1-3) Last Admin: 12/29/22 18:02 Dose: 650 mg Al Hydroxide/Mg Hydroxide (Magnesium Hydrox/Alum Hydrox 30 Ml Oral.Susp) 30 ml PO Q6H PRN PRN Reason: Heartburn/Nausea Gabapentin (Gabapentin 400 Mg Capsule) 800 mg PO TID JOANA Last Admin: 12/30/22 08:24 Dose: 800 mg Hydroxyzine HCl (Hydroxyzine Hcl 50 Mg Tablet) 50 mg PO Q6H PRN PRN Reason: Anxiety Last Admin: 12/29/22 18:02 Dose: 50 mg Magnesium Hydroxide (Milk Of Magnesia 30 Ml Oral.Susp) 30 ml PO DAILY PRN PRN Reason: Constipation Melatonin (Melatonin 3 Mg Tablet) 9 mg PO BEDTIME PRN PRN Reason: Insomnia Last Admin: 12/29/22 19:59 Dose: 9 mg Methadone HCl (Methadone Hcl 20 Mg/2 Ml Oral.Conc) 120 mg PO DAILY JOANA Last Admin: 12/30/22 08:24 Dose: 120 mg Mirtazapine (Mirtazapine 15 Mg Tablet) 15 mg PO BEDTIME JOANA Last Admin: 12/29/22 19:54 Dose: 15 mg Nicotine Polacrilex (Nicotine Polacrilex 2 Mg Gum) 4 mg BUCCAL Q2H PRN PRN Reason: Nicotine Cravings Last Admin: 12/29/22 18:01 Dose: 4 mg Prazosin HCl (Prazosin Hcl 1 Mg Capsule) 3 mg PO BEDTIME JOANA; Protocol Last Admin: 12/29/22 19:54 Dose: 3 mg Propranolol HCl (Propranolol Hcl 10 Mg Tablet) 10 mg PO DAILY [facility]; Protocol Last Admin: 12/30/22 08:23 Dose: Not Given Quetiapine Fumarate (Quetiapine Fumarate 200 Mg Tablet) 200 mg PO BEDTIME JOANA Last Admin: 12/29/22 19:53 Dose: 200 mg Sertraline HCl (Sertraline Hcl 25 Mg Tablet) 75 mg PO DAILY JOANA Last Admin: 12/30/22 08:23 Dose: 75 mg Trazodone HCl (Trazodone Hcl 50 Mg Tablet) 50 mg PO BEDTIME MRX1 PRN PRN Reason: Insomnia Allergies Allergies Allergy/AdvReac Type Severity Reaction Status Date / Time tramadol [TRAMADOL] Allergy Intermediate HIVES, Verified 12/29/22 11:26 ITCHY ibuprofen [From MOTRIN] AdvReac Intermediate STOMACH Verified 12/29/22 11:26 UPSET, ITCHY,DIFFICULTY BREATHING. Assessment & Plan Assessment & Plan (1) MDD (major depressive disorder), recurrent episode, moderate: Status: Acute Code(s): F33.1 - Major depressive disorder, recurrent, moderate (2) PTSD (post-traumatic stress disorder): Status: Acute Code(s): F43.10 - Post-traumatic stress disorder, unspecified (3) Opioid dependence: Status: Acute Code(s): F11.20 - Opioid dependence, uncomplicated (4) Polysubstance abuse: Status: Acute Code(s): F19.10 - Other psychoactive substance abuse, uncomplicated Plan Patient is a 42-year-old male with history of depression, PTSD, opioid dependence on methadone who presents for depression with SI and the face of recent homelessness. Patient said he was doing fairly well for the past 4 months, sober and in a good mood, working and doing overall well on current regimen. Patient's return or depression seems to be situational so will continue medication regimen Hospital course: 12/30 patient remains depressed with intermittent SI. Mostly isolating. Agrees to start attending to ADLs and trying to interact. Continue treatment plan; will titrate Zoloft soon Plan: CV Q 15 minute checks Continue home medication regimen; continue Zoloft 75 mg daily Continue Seroquel 200 mg q.h.s. Labs: Hep C ab positive. Viral Load ordered If positive, will need outpt GI referral for treatment. Patient educated on: diagnosis, medication risk/benefits and therapeutic strategies Informed Consent: understands Reason for continued inpatient stay Substantial Risk for: rapid decompensation Time Spent With Patient Time: Total time managing care of this patient today ____ minutes.
[2022-12-30 13:01] VITALS: BP 141/79; PULSE 72
[2022-12-30] MEDS: Propranolol HCL 10 MG TABLET PO (13:02)
[2022-12-30 14:48] LABS: HCV Log PCR 6.68 Log IU/mL (NOT DETECTED)
[2022-12-30 19:45] VITALS: BP 174/91; PULSE 52; RESP 18; TEMP 36.9; O2SAT 97
[2022-12-30] MEDS: Prazosin HCL 1 MG CAPSULE 3 MG PO (20:14)
[2022-12-30] MEDS: QUEtiapine Fumarate 200 MG TABLET PO (20:16)
[2022-12-30] MEDS: Melatonin 3 MG TABLET 9 MG PO (20:16)
[2022-12-30] MEDS: Mirtazapine 15 MG TABLET PO (20:17)
[2022-12-30 21:36] VITALS: BP 139/86; PULSE 64; RESP 17
[2022-12-31 08:15] VITALS: BP 146/90; PULSE 63; RESP 16; TEMP 36.2; O2SAT 94
[2022-12-31] MEDS: Propranolol HCL 10 MG TABLET PO (08:26)
[2022-12-31] MEDS: Gabapentin 400 MG CAPSULE 800 MG PO ×3 (08:26→19:50)
[2022-12-31] MEDS: methADONE HCl 20 MG/2 ML ORAL.CONC 120 MG PO (08:26)
--- NOTE | 2022-12-31 09:34 | HO.PSYCHPN ---
Subjective Subjective Date of Service: 12/31/22 Reason For Visit: Unspec Depressive D/O Opioid Use D/O Severe Etc Interim History: met with patient; discussed with team Patient reports he is feeling in a better mood today. No SI. Says I am not suicidal... Sometimes if I have thoughts of will think about suicide but it goes away.. Patient still angry at sister but looking forward to getting into a program. Had intake today which he is feeling good about. Agrees to increase Zoloft. Patient dressed in casual clothes and interacting in the milieu with brighter affect. Patient talked about the need to remain stable so he can get back into his kids life Mental Status Exam Mental Status Exam Narrative: Pt is alert and oriented; behavior is calm, friendly and cooperative: patient is not in distress; dressed in casual attire with, unkempt but adequate hygiene; mood is described as little better and affect congruent; eye contact appropriate; Speech is normal rate, volume and prosody and not pressured; no psychomotor retardation present; thought process is organized and goal directed; Thought content is on being emotionally hurt by sister but also on future plans and staying stable; otherwise pertinent to relevant topics and without any delusional content, paranoid ideations or grandiosity; intermittent SI/no HI. There is no evidence of perceptual disturbance. Patients insight and judgment fair Diagnostics Vital Signs (24Hr): Vital Signs - 24 hr 12/30/22 13:01 12/30/22 19:45 12/30/22 21:36 Temperature 98.5 F Pulse Rate 72 52 64 Respiratory Rate 18 17 Blood Pressure 141/79 H 174/91 H 139/86 Pulse Oximetry 97 Oxygen Delivery Method Room Air 12/31/22 08:15 Temperature 97.2 F Pulse Rate 63 Respiratory Rate 16 Blood Pressure 146/90 H Pulse Oximetry 94 Oxygen Delivery Method Room Air BMI result Body Mass Index 31.0 Labs 12/29/22 08:34 Labs: Laboratory Results - last 48 hr 12/29/22 12/29/22 12/29/22 08:34 08:34 08:34 Vitamin B12 469 Folate 15.3 TSH 1.79 Free T4 0.81 Hep Bs Antigen Negative Hep Bs Antibody NONREACTIVE Hep B Core Total Ab Nonreactive Hepatitis C Ab (EIA) Reactive H Hep C Viral Load Hep C Viral Load Log 12/29/22 11:37 Vitamin B12 Folate TSH Free T4 Hep Bs Antigen Hep Bs Antibody Hep B Core Total Ab Hepatitis C Ab (EIA) Hep C Viral Load [id number] H Hep C Viral Load Log 6.68 H Medications Medications Current Medications Acetaminophen (Acetaminophen 325 Mg Tablet) 650 mg PO Q6H PRN PRN Reason: Headache/Pain Mild Scale (1-3) Last Admin: 12/30/22 20:17 Dose: 650 mg Al Hydroxide/Mg Hydroxide (Magnesium Hydrox/Alum Hydrox 30 Ml Oral.Susp) 30 ml PO Q6H PRN PRN Reason: Heartburn/Nausea Gabapentin (Gabapentin 400 Mg Capsule) 800 mg PO TID JOANA Last Admin: 12/31/22 08:26 Dose: 800 mg Hydroxyzine HCl (Hydroxyzine Hcl 50 Mg Tablet) 50 mg PO Q6H PRN PRN Reason: Anxiety Last Admin: 12/29/22 18:02 Dose: 50 mg Magnesium Hydroxide (Milk Of Magnesia 30 Ml Oral.Susp) 30 ml PO DAILY PRN PRN Reason: Constipation Melatonin (Melatonin 3 Mg Tablet) 9 mg PO BEDTIME PRN PRN Reason: Insomnia Last Admin: 12/30/22 20:16 Dose: 9 mg Methadone HCl (Methadone Hcl 20 Mg/2 Ml Oral.Conc) 120 mg PO DAILY JOANA Last Admin: 12/31/22 08:26 Dose: 120 mg Mirtazapine (Mirtazapine 15 Mg Tablet) 15 mg PO BEDTIME JOANA Last Admin: 12/30/22 20:17 Dose: 15 mg Nicotine Polacrilex (Nicotine Polacrilex 2 Mg Gum) 4 mg BUCCAL Q2H PRN PRN Reason: Nicotine Cravings Last Admin: 12/29/22 18:01 Dose: 4 mg Prazosin HCl (Prazosin Hcl 1 Mg Capsule) 3 mg PO BEDTIME JOANA; Protocol Last Admin: 12/30/22 20:14 Dose: 3 mg Propranolol HCl (Propranolol Hcl 10 Mg Tablet) 10 mg PO DAILY JOANA; Protocol Last Admin: 12/31/22 08:26 Dose: 10 mg Quetiapine Fumarate (Quetiapine Fumarate 200 Mg Tablet) 200 mg PO BEDTIME JOANA Last Admin: 12/30/22 20:16 Dose: 200 mg Sertraline HCl (Sertraline Hcl 25 Mg Tablet) 75 mg PO DAILY JOANA Last Admin: 12/31/22 09:05 Dose: 75 mg Trazodone HCl (Trazodone Hcl 50 Mg Tablet) 50 mg PO BEDTIME MRX1 PRN PRN Reason: Insomnia Allergies Allergies Allergy/AdvReac Type Severity Reaction Status Date / Time tramadol [TRAMADOL] Allergy Intermediate HIVES, Verified 12/29/22 11:26 ITCHY ibuprofen [From MOTRIN] AdvReac Intermediate STOMACH Verified 12/29/22 11:26 UPSET, ITCHY,DIFFICULTY BREATHING. Assessment & Plan Assessment & Plan (1) MDD (major depressive disorder), recurrent episode, moderate: Status: Acute Code(s): F33.1 - Major depressive disorder, recurrent, moderate (2) PTSD (post-traumatic stress disorder): Status: Acute Code(s): F43.10 - Post-traumatic stress disorder, unspecified (3) Opioid dependence: Status: Acute Code(s): F11.20 - Opioid dependence, uncomplicated (4) Polysubstance abuse: Status: Acute Code(s): F19.10 - Other psychoactive substance abuse, uncomplicated Plan Patient is a 42-year-old male with history of depression, PTSD, opioid dependence on methadone who presents for depression with SI and the face of recent homelessness. Patient said he was doing fairly well for the past 4 months, sober and in a good mood, working and doing overall well on current regimen. Patient's return or depression seems to be situational so will continue medication regimen Hospital course: 12/30 patient remains depressed with intermittent SI. Mostly isolating. Agrees to start attending to ADLs and trying to interact. Continue treatment plan; will titrate Zoloft soon 12/31 mood improved and affect brighter. Future oriented and had intake today for program. Agrees to increase Zoloft. No SI Plan: CV Q 15 minute checks Continue home medication regimen; Will increase to Zoloft 100 mg daily Continue Seroquel 200 mg q.h.s. Labs: Hep C ab positive. Viral Load ordered If positive, will need outpt GI referral for treatment. Patient educated on: diagnosis, medication risk/benefits, substance abuse and therapeutic strategies Informed Consent: understands Reason for continued inpatient stay Substantial Risk for: stable for discharge Time Spent With Patient Time: Total time managing care of this patient today ____ minutes.
[2022-12-31] MEDS: Nicotine Polacrilex 2 MG GUM 4 MG BUCCAL ×2 (14:35→19:53)
[2022-12-31 18:00] VITALS: BP 157/84; PULSE 72; RESP 18; TEMP 37.1; O2SAT 98
[2022-12-31] MEDS: Prazosin HCL 1 MG CAPSULE 3 MG PO (19:49)
[2022-12-31] MEDS: QUEtiapine Fumarate 200 MG TABLET PO (19:50)
[2022-12-31] MEDS: hydrOXYzine HCL 50 MG TABLET PO (19:50)
[2022-12-31] MEDS: Melatonin 3 MG TABLET 9 MG PO (19:50)
[2022-12-31] MEDS: Mirtazapine 15 MG TABLET PO (19:50)
[2023-01-01] MEDS: methADONE HCl 20 MG/2 ML ORAL.CONC 120 MG PO (08:58)
[2023-01-01] MEDS: Gabapentin 400 MG CAPSULE 800 MG PO ×3 (08:59→20:44)
[2023-01-01 09:00] VITALS: BP 142/84; PULSE 66; RESP 16; TEMP 35.8; O2SAT 100
[2023-01-01] MEDS: Propranolol HCL 10 MG TABLET PO (09:00)
--- NOTE | 2023-01-01 10:09 | HO.PSYCHPN ---
Subjective Subjective Date of Service: 01/01/23 Reason For Visit: Unspec Depressive D/O Opioid Use D/O Severe Etc Subjective Notes: Conditional Voluntary Healthcare Proxy: No Guardianship: No Medical Problems Affecting Mental Status: No Interim History: Pt seen in his room, co depressed, anxious mood , but seems irritable and angry to staff- feels antidepressant is not working- denies further HI at this time= but would be suicidal if dc to no program he reports- night meds help him sleep but hard to get up in am- discussed this as typical s/e of night medications but did sleep better Medication Compliance: Yes Side effects from medications: Yes (am struggle to wake up , feels a bit like hangover by pt report) Attending Groups: Intermittent Review of Systems Acute medical concerns: No Medical Review of Systems: unchanged Mental Status Exam Mental Status Exam Patient Appearance: Disheveled and Unkempt Patient Orientation: Person, Place, Time and Situation Level of Consciousness: Awake Patient Behavior: Passive and Poor Eye Contact Mood Description: Depressed Affect Description: Labile Patient Cognition Impaired: No Ability to Follow Directions: Fair Speech Pattern: Clear Delusions: Not Present Thought Process: Intact Thought Content: negative for Evasive Depressive Symptoms: Increased Anxiety, Increased Irritability and Loss of Energy Abnormal Motor Activity Signs and Symptoms: Restlessness Judgement: Fair Diagnostics Vital Signs (24Hr): Vital Signs - 24 hr 12/31/22 18:00 01/01/23 09:00 Temperature 98.7 F 96.4 F L Pulse Rate 72 66 Respiratory Rate 18 16 Blood Pressure 157/84 H 142/84 H Pulse Oximetry 98 100 Oxygen Delivery Method Room Air Room Air BMI result Body Mass Index 31.0 Labs 12/29/22 08:34 Labs: Laboratory Results - last 48 hr 12/29/22 11:37 Hep C Viral Load [id number] H Hep C Viral Load Log 6.68 H Medications Medications Current Medications Acetaminophen (Acetaminophen 325 Mg Tablet) 650 mg PO Q6H PRN PRN Reason: Headache/Pain Mild Scale (1-3) Last Admin: 12/30/22 20:17 Dose: 650 mg Al Hydroxide/Mg Hydroxide (Magnesium Hydrox/Alum Hydrox 30 Ml Oral.Susp) 30 ml PO Q6H PRN PRN Reason: Heartburn/Nausea Gabapentin (Gabapentin 400 Mg Capsule) 800 mg PO TID [facility] Last Admin: 01/01/23 08:59 Dose: 800 mg Hydroxyzine HCl (Hydroxyzine Hcl 50 Mg Tablet) 50 mg PO Q6H PRN PRN Reason: Anxiety Last Admin: 12/31/22 19:50 Dose: 50 mg Magnesium Hydroxide (Milk Of Magnesia 30 Ml Oral.Susp) 30 ml PO DAILY PRN PRN Reason: Constipation Melatonin (Melatonin 3 Mg Tablet) 9 mg PO BEDTIME PRN PRN Reason: Insomnia Last Admin: 12/31/22 19:50 Dose: 9 mg Methadone HCl (Methadone Hcl 20 Mg/2 Ml Oral.Conc) 120 mg PO DAILY JOANA Last Admin: 01/01/23 08:58 Dose: 120 mg Mirtazapine (Mirtazapine 15 Mg Tablet) 15 mg PO BEDTIME JOANA Last Admin: 12/31/22 19:50 Dose: 15 mg Nicotine Polacrilex (Nicotine Polacrilex 2 Mg Gum) 4 mg BUCCAL Q2H PRN PRN Reason: Nicotine Cravings Last Admin: 12/31/22 19:53 Dose: 4 mg Prazosin HCl (Prazosin Hcl 1 Mg Capsule) 3 mg PO BEDTIME JOANA; Protocol Last Admin: 12/31/22 19:49 Dose: 3 mg Propranolol HCl (Propranolol Hcl 10 Mg Tablet) 10 mg PO DAILY JOANA; Protocol Last Admin: 01/01/23 09:00 Dose: 10 mg Quetiapine Fumarate (Quetiapine Fumarate 200 Mg Tablet) 200 mg PO BEDTIME JOANA Last Admin: 12/31/22 19:50 Dose: 200 mg Sertraline HCl (Sertraline Hcl 100 Mg Tablet) 100 mg PO DAILY JOANA Last Admin: 01/01/23 08:59 Dose: 100 mg Trazodone HCl (Trazodone Hcl 50 Mg Tablet) 50 mg PO BEDTIME MRX1 PRN PRN Reason: Insomnia Allergies Allergies Allergy/AdvReac Type Severity Reaction Status Date / Time tramadol [TRAMADOL] Allergy Intermediate HIVES, Verified 12/29/22 11:26 ITCHY ibuprofen [From MOTRIN] AdvReac Intermediate STOMACH Verified 12/29/22 11:26 UPSET, ITCHY,DIFFICULTY BREATHING. Assessment & Plan Assessment & Plan (1) MDD (major depressive disorder), recurrent episode, moderate: Status: Acute Code(s): F33.1 - Major depressive disorder, recurrent, moderate Assessment and Plan: 01/01 inc dat - (2) PTSD (post-traumatic stress disorder): Status: Acute Code(s): F43.10 - Post-traumatic stress disorder, unspecified (3) Opioid dependence: Status: Acute Code(s): F11.20 - Opioid dependence, uncomplicated (4) Polysubstance abuse: Status: Acute Code(s): F19.10 - Other psychoactive substance abuse, uncomplicated Plan Patient is a 42-year-old male with history of depression, PTSD, opioid dependence on methadone who presents for depression with SI and the face of recent homelessness. Patient said he was doing fairly well for the past 4 months, sober and in a good mood, working and doing overall well on current regimen. Patient's return or depression seems to be situational so will continue medication regimen Hospital course: 12/30 patient remains depressed with intermittent SI. Mostly isolating. Agrees to start attending to ADLs and trying to interact. Continue treatment plan; will titrate Zoloft soon 12/31 mood improved and affect brighter. Future oriented and had intake today for program. Agrees to increase Zoloft. No SI Plan: CV Q 15 minute checks Continue home medication regimen; Will increase to Zoloft 100 mg daily Continue Seroquel 200 mg q.h.s. Labs: Hep C ab positive. Viral Load ordered If positive, will need outpt GI referral for treatment. Patient educated on: medication risk/benefits Informed Consent: understands Reason for continued inpatient stay Substantial Risk for: harm to self and rapid decompensation Time Spent With Patient Time: Total time managing care of this patient today ____ minutes.
[2023-01-01] MEDS: Nicotine Polacrilex 2 MG GUM 4 MG BUCCAL ×2 (12:16→20:45)
[2023-01-01 18:00] VITALS: BP 155/89; PULSE 66; TEMP 36.1
[2023-01-01] MEDS: Melatonin 3 MG TABLET 9 MG PO (20:43)
[2023-01-01] MEDS: QUEtiapine Fumarate 200 MG TABLET PO (20:44)
[2023-01-01] MEDS: Mirtazapine 15 MG TABLET PO (20:44)
[2023-01-01] MEDS: hydrOXYzine HCL 50 MG TABLET PO (20:45)
[2023-01-01] MEDS: Prazosin HCL 1 MG CAPSULE 3 MG PO (20:46)
[2023-01-02 08:00] VITALS: BP 133/85; PULSE 73; RESP 16; TEMP 36.2; O2SAT 97
[2023-01-02] MEDS: methADONE HCl 20 MG/2 ML ORAL.CONC 120 MG PO (08:48)
[2023-01-02] MEDS: Propranolol HCL 10 MG TABLET PO (08:49)
[2023-01-02] MEDS: Sertraline HCL 50 MG TABLET 150 MG PO (08:49)
[2023-01-02] MEDS: Gabapentin 400 MG CAPSULE 800 MG PO ×3 (08:49→19:33)
--- NOTE | 2023-01-02 10:28 | HO.PSYCHPN ---
Subjective Subjective Date of Service: 01/02/23 Reason For Visit: Unspec Depressive D/O Opioid Use D/O Severe Etc Subjective Notes: Conditional Voluntary Healthcare Proxy: No Guardianship: No Medical Problems Affecting Mental Status: No Interim History: Pt reporting he is going to kill himself if he is discarged, not feeling ready to leave - Medication Compliance: Yes Side effects from medications: No Attending Groups: Intermittent Review of Systems Acute medical concerns: No Medical Review of Systems: unchanged Mental Status Exam Mental Status Exam Patient Appearance: Unkempt Patient Orientation: Person, Place, Time and Situation Level of Consciousness: Awake Patient Behavior: Talkative Behavior Comments: provokative re discharge saying he will kill himself if discharged - Mood Description: Calm Patient Cognition Impaired: No Ability to Follow Directions: Fair Speech Pattern: Clear Thought Process: Intact and Goal Oriented Thought Content: positive for Suicidal Ideation Depressive Symptoms: Thoughts of /Suicide Judgement: Fair (seems manipulative about saying something to not be discharged) Diagnostics Vital Signs (24Hr): Vital Signs - 24 hr 01/01/23 18:00 Temperature 97.0 F Pulse Rate 66 Blood Pressure 155/89 H BMI result Body Mass Index 31.0 Labs 12/29/22 08:34 Medications Medications Current Medications Acetaminophen (Acetaminophen 325 Mg Tablet) 650 mg PO Q6H PRN PRN Reason: Headache/Pain Mild Scale (1-3) Last Admin: 12/30/22 20:17 Dose: 650 mg Al Hydroxide/Mg Hydroxide (Magnesium Hydrox/Alum Hydrox 30 Ml Oral.Susp) 30 ml PO Q6H PRN PRN Reason: Heartburn/Nausea Gabapentin (Gabapentin 400 Mg Capsule) 800 mg PO TID [facility] Last Admin: 01/02/23 08:49 Dose: 800 mg Hydroxyzine HCl (Hydroxyzine Hcl 50 Mg Tablet) 50 mg PO Q6H PRN PRN Reason: Anxiety Last Admin: 01/01/23 20:45 Dose: 50 mg Magnesium Hydroxide (Milk Of Magnesia 30 Ml Oral.Susp) 30 ml PO DAILY PRN PRN Reason: Constipation Melatonin (Melatonin 3 Mg Tablet) 9 mg PO BEDTIME PRN PRN Reason: Insomnia Last Admin: 01/01/23 20:43 Dose: 9 mg Methadone HCl (Methadone Hcl 20 Mg/2 Ml Oral.Conc) 120 mg PO DAILY [facility] Last Admin: 01/02/23 08:48 Dose: 120 mg Mirtazapine (Mirtazapine 15 Mg Tablet) 15 mg PO BEDTIME [facility] Last Admin: 01/01/23 20:44 Dose: 15 mg Nicotine Polacrilex (Nicotine Polacrilex 2 Mg Gum) 4 mg BUCCAL Q2H PRN PRN Reason: Nicotine Cravings Last Admin: 01/01/23 20:45 Dose: 4 mg Prazosin HCl (Prazosin Hcl 1 Mg Capsule) 3 mg PO BEDTIME [facility]; Protocol Last Admin: 01/01/23 20:46 Dose: 3 mg Propranolol HCl (Propranolol Hcl 10 Mg Tablet) 10 mg PO DAILY [facility]; Protocol Last Admin: 01/02/23 08:49 Dose: 10 mg Quetiapine Fumarate (Quetiapine Fumarate 200 Mg Tablet) 200 mg PO BEDTIME [facility] Last Admin: 01/01/23 20:44 Dose: 200 mg Sertraline HCl (Sertraline Hcl 50 Mg Tablet) 150 mg PO DAILY [facility] Last Admin: 01/02/23 08:49 Dose: 150 mg Trazodone HCl (Trazodone Hcl 50 Mg Tablet) 50 mg PO BEDTIME MRX1 PRN PRN Reason: Insomnia Allergies Allergies Allergy/AdvReac Type Severity Reaction Status Date / Time tramadol [TRAMADOL] Allergy Intermediate HIVES, Verified 12/29/22 11:26 ITCHY ibuprofen [From MOTRIN] AdvReac Intermediate STOMACH Verified 12/29/22 11:26 UPSET, ITCHY,DIFFICULTY BREATHING. Assessment & Plan Assessment & Plan (1) MDD (major depressive disorder), recurrent episode, moderate: Status: Acute Code(s): F33.1 - Major depressive disorder, recurrent, moderate Assessment and Plan: 01/01 inc meghanoft - (2) PTSD (post-traumatic stress disorder): Status: Acute Code(s): F43.10 - Post-traumatic stress disorder, unspecified (3) Opioid dependence: Status: Acute Code(s): F11.20 - Opioid dependence, uncomplicated (4) Polysubstance abuse: Status: Acute Code(s): F19.10 - Other psychoactive substance abuse, uncomplicated Plan Patient is a 42-year-old male with history of depression, PTSD, opioid dependence on methadone who presents for depression with SI and the face of recent homelessness. Patient said he was doing fairly well for the past 4 months, sober and in a good mood, working and doing overall well on current regimen. Patient's return or depression seems to be situational so will continue medication regimen Hospital course: 12/30 patient remains depressed with intermittent SI. Mostly isolating. Agrees to start attending to ADLs and trying to interact. Continue treatment plan; will titrate Zoloft soon 12/31 mood improved and affect brighter. Future oriented and had intake today for program. Agrees to increase Zoloft. No SI Plan: CV Q 15 minute checks Continue home medication regimen; Will increase to Zoloft 100 mg daily Continue Seroquel 200 mg q.h.s. Labs: Hep C ab positive. Viral Load ordered If positive, will need outpt GI referral for treatment. Patient educated on: other Informed Consent: further education needed Reason for continued inpatient stay Substantial Risk for: harm to self and inability to function Time Spent With Patient Time: Total time managing care of this patient today ____ minutes.
[2023-01-02] MEDS: Nicotine Polacrilex 2 MG GUM 4 MG BUCCAL ×2 (11:26→14:27)
[2023-01-02 17:19] VITALS: BP 132/75; PULSE 66; RESP 16; TEMP 36.1; O2SAT 97
[2023-01-02] MEDS: Melatonin 3 MG TABLET 9 MG PO (19:29)
[2023-01-02] MEDS: QUEtiapine Fumarate 200 MG TABLET PO (19:31)
[2023-01-02] MEDS: hydrOXYzine HCL 50 MG TABLET PO (19:31)
[2023-01-02] MEDS: Prazosin HCL 1 MG CAPSULE 3 MG PO (19:32)
[2023-01-02] MEDS: Mirtazapine 15 MG TABLET PO (19:34)
[2023-01-03 09:00] VITALS: BP 119/69; PULSE 60; RESP 18; TEMP 36; O2SAT 98
[2023-01-03] MEDS: methADONE HCl 20 MG/2 ML ORAL.CONC 120 MG PO (09:54)
[2023-01-03] MEDS: Gabapentin 400 MG CAPSULE 800 MG PO ×3 (09:55→20:15)
[2023-01-03] MEDS: Sertraline HCL 50 MG TABLET 150 MG PO (09:56)
[2023-01-03] MEDS: Propranolol HCL 10 MG TABLET PO (09:56)
--- NOTE | 2023-01-03 10:41 | P.PNPSI_ITS ---
Subjective Subjective Date of Service: 01/03/23 Reason For Visit: Unspec Depressive D/O Opioid Use D/O Severe Etc Interim History: Met with patient; discussed with team; reviewed week and progress notes Patient said that he is doing well and mood is good. Denies any SI at all. He is looking for to discharge to a program which he is waiting for. Feels that medications are working well and helping. Denies any auditory hallucinations since coming to the hospital and getting on medication. Patient reports he is sleeping. Mental Status Exam Mental Status Exam Narrative: Pt is alert and oriented; behavior is calm, friendly and cooperative: patient is not in distress; dressed in casual attire with, unkempt but adequate hygiene; mood is described as good and affect congruent; eye contact appropriate; Speech is normal rate, volume and prosody and not pressured; no psychomotor retardation present; thought process is organized and goal directed; Thought content is on aftercare plans; otherwise pertinent to relevant topics and without any delusional content, paranoid ideations or grandiosity; no SI/no HI. There is no evidence of perceptual disturbance. Patients insight and judgment fair Diagnostics Vital Signs (24Hr): Vital Signs - 24 hr 01/02/23 17:19 01/03/23 09:00 Temperature 97.0 F 96.8 F Pulse Rate 66 60 Respiratory Rate 16 18 Blood Pressure 132/75 119/69 Pulse Oximetry 97 98 Oxygen Delivery Method Room Air Room Air BMI result Body Mass Index 31.0 Labs 12/29/22 08:34 Medications Medications Current Medications Acetaminophen (Acetaminophen 325 Mg Tablet) 650 mg PO Q6H PRN PRN Reason: Headache/Pain Mild Scale (1-3) Last Admin: 12/30/22 20:17 Dose: 650 mg Al Hydroxide/Mg Hydroxide (Magnesium Hydrox/Alum Hydrox 30 Ml Oral.Susp) 30 ml PO Q6H PRN PRN Reason: Heartburn/Nausea Gabapentin (Gabapentin 400 Mg Capsule) 800 mg PO TID [facility] Last Admin: 01/03/23 09:55 Dose: 800 mg Hydroxyzine HCl (Hydroxyzine Hcl 50 Mg Tablet) 50 mg PO Q6H PRN PRN Reason: Anxiety Last Admin: 01/02/23 19:31 Dose: 50 mg Magnesium Hydroxide (Milk Of Magnesia 30 Ml Oral.Susp) 30 ml PO DAILY PRN PRN Reason: Constipation Melatonin (Melatonin 3 Mg Tablet) 9 mg PO BEDTIME PRN PRN Reason: Insomnia Last Admin: 01/02/23 19:29 Dose: 9 mg Methadone HCl (Methadone Hcl 20 Mg/2 Ml Oral.Conc) 120 mg PO DAILY [facility] Last Admin: 01/03/23 09:54 Dose: 120 mg Mirtazapine (Mirtazapine 15 Mg Tablet) 15 mg PO BEDTIME [facility] Last Admin: 01/02/23 19:34 Dose: 15 mg Nicotine Polacrilex (Nicotine Polacrilex 2 Mg Gum) 4 mg BUCCAL Q2H PRN PRN Reason: Nicotine Cravings Last Admin: 01/02/23 14:27 Dose: 4 mg Prazosin HCl (Prazosin Hcl 1 Mg Capsule) 3 mg PO BEDTIME [facility]; Protocol Last Admin: 01/02/23 19:32 Dose: 3 mg Propranolol HCl (Propranolol Hcl 10 Mg Tablet) 10 mg PO DAILY [facility]; Protocol Last Admin: 01/03/23 09:56 Dose: 10 mg Quetiapine Fumarate (Quetiapine Fumarate 200 Mg Tablet) 200 mg PO BEDTIME [facility] Last Admin: 01/02/23 19:31 Dose: 200 mg Sertraline HCl (Sertraline Hcl 50 Mg Tablet) 150 mg PO DAILY [facility] Last Admin: 01/03/23 09:56 Dose: 150 mg Trazodone HCl (Trazodone Hcl 50 Mg Tablet) 50 mg PO BEDTIME MRX1 PRN PRN Reason: Insomnia Allergies Allergies Allergy/AdvReac Type Severity Reaction Status Date / Time tramadol [TRAMADOL] Allergy Intermediate HIVES, Verified 12/29/22 11:26 ITCHY ibuprofen [From MOTRIN] AdvReac Intermediate STOMACH Verified 12/29/22 11:26 UPSET, ITCHY,DIFFICULTY BREATHING. Assessment & Plan Assessment & Plan (1) MDD (major depressive disorder), recurrent episode, moderate: Status: Acute Code(s): F33.1 - Major depressive disorder, recurrent, moderate Assessment and Plan: 01/01 inc zoloft - (2) PTSD (post-traumatic stress disorder): Status: Acute Code(s): F43.10 - Post-traumatic stress disorder, unspecified (3) Opioid dependence: Status: Acute Code(s): F11.20 - Opioid dependence, uncomplicated (4) Polysubstance abuse: Status: Acute Code(s): F19.10 - Other psychoactive substance abuse, uncomplicated Plan Patient is a 42-year-old male with history of depression, PTSD, opioid dependence on methadone who presents for depression with SI and the face of recent homelessness. Patient said he was doing fairly well for the past 4 months, sober and in a good mood, working and doing overall well on current regimen. Patient's return or depression seems to be situational so will continue medication regimen Hospital course: 12/30 patient remains depressed with intermittent SI. Mostly isolating. Agrees to start attending to ADLs and trying to interact. Continue treatment plan; will titrate Zoloft soon 12/31 mood improved and affect brighter. Future oriented and had intake today for program. Agrees to increase Zoloft. No SI 01/03 patient reports doing well come mood is good and denies any SI; AH remains resolved. Patient is future oriented waiting to get into a program. NEEDS ID appt on discharge Plan: CV Q 15 minute checks Continue home medication regimen; Will increase to Zoloft 100 mg daily Continue Seroquel 200 mg q.h.s. Labs: Hep C ab positive. Viral Load positive, will need outpt GI referral for tr jasmyn. Patient educated on: diagnosis and medication risk/benefits Informed Consent: understands Reason for continued inpatient stay Substantial Risk for: stable for discharge Time Spent With Patient Time: Total time managing care of this patient today ____ minutes.
[2023-01-03] MEDS: Nicotine Polacrilex 2 MG GUM 4 MG BUCCAL (14:11)
[2023-01-03] MEDS: hydrOXYzine HCL 50 MG TABLET PO (17:09)
[2023-01-03 17:10] VITALS: BP 156/98; PULSE 79; RESP 16; TEMP 36.2; O2SAT 96
[2023-01-03] MEDS: QUEtiapine Fumarate 200 MG TABLET PO (20:14)
[2023-01-03] MEDS: Prazosin HCL 1 MG CAPSULE 3 MG PO (20:15)
[2023-01-03] MEDS: Mirtazapine 15 MG TABLET PO (20:15)
[2023-01-03] MEDS: Melatonin 3 MG TABLET 9 MG PO (20:16)
[2023-01-04 09:50] VITALS: BP 143/91; PULSE 73; RESP 18; TEMP 36.3; O2SAT 97
[2023-01-04] MEDS: methADONE HCl 20 MG/2 ML ORAL.CONC 120 MG PO (09:54)
[2023-01-04] MEDS: Sertraline HCL 50 MG TABLET 150 MG PO (09:56)
[2023-01-04] MEDS: Propranolol HCL 10 MG TABLET PO (09:56)
[2023-01-04] MEDS: Gabapentin 400 MG CAPSULE 800 MG PO ×3 (09:57→20:07)
--- NOTE | 2023-01-04 09:59 | P.PNPSI_ITS ---
Subjective Subjective Date of Service: 01/04/23 Reason For Visit: Unspec Depressive D/O Opioid Use D/O Severe Etc Interim History: briefly met with pt; discussed with team reports good mood, sleeping well; denies anxiety, depression, SI Mental Status Exam Mental Status Exam Narrative: Pt is alert and oriented; behavior is calm, friendly and cooperative: patient is not in distress; dressed in casual attire with, unkempt but adequate hygiene; mood is described as good and affect congruent; eye contact appropriate; Speech is normal rate, volume and prosody and not pressured; no psychomotor retardation present; thought process is organized and goal directed; Thought co ntent is on aftercare plans; otherwise pertinent to relevant topics and without any delusional content, paranoid ideations or grandiosity; no SI/no HI. There is no evidence of perceptual disturbance. Patients insight and judgment fair Diagnostics Vital Signs (24Hr): Vital Signs - 24 hr 01/03/23 17:10 Temperature 97.1 F Pulse Rate 79 Respiratory Rate 16 Blood Pressure 156/98 H Pulse Oximetry 96 Oxygen Delivery Method Room Air BMI result Body Mass Index 31.0 Labs 12/29/22 08:34 Medications Medications Current Medications Acetaminophen (Acetaminophen 325 Mg Tablet) 650 mg PO Q6H PRN PRN Reason: Headache/Pain Mild Scale (1-3) Last Admin: 12/30/22 20:17 Dose: 650 mg Al Hydroxide/Mg Hydroxide (Magnesium Hydrox/Alum Hydrox 30 Ml Oral.Susp) 30 ml PO Q6H PRN PRN Reason: Heartburn/Nausea Gabapentin (Gabapentin 400 Mg Capsule) 800 mg PO TID [facility] Last Admin: 01/04/23 09:57 Dose: 800 mg Hydroxyzine HCl (Hydroxyzine Hcl 50 Mg Tablet) 50 mg PO Q6H PRN PRN Reason: Anxiety Last Admin: 01/03/23 17:09 Dose: 50 mg Magnesium Hydroxide (Milk Of Magnesia 30 Ml Oral.Susp) 30 ml PO DAILY PRN PRN Reason: Constipation Melatonin (Melatonin 3 Mg Tablet) 9 mg PO BEDTIME PRN PRN Reason: Insomnia Last Admin: 01/03/23 20:16 Dose: 9 mg Methadone HCl (Methadone Hcl 20 Mg/2 Ml Oral.Conc) 120 mg PO DAILY [facility] Last Admin: 01/04/23 09:54 Dose: 120 mg Mirtazapine (Mirtazapine 15 Mg Tablet) 15 mg PO BEDTIME [facility] Last Admin: 01/03/23 20:15 Dose: 15 mg Nicotine Polacrilex (Nicotine Polacrilex 2 Mg Gum) 4 mg BUCCAL Q2H PRN PRN Reason: Nicotine Cravings Last Admin: 01/03/23 14:11 Dose: 4 mg Prazosin HCl (Prazosin Hcl 1 Mg Capsule) 3 mg PO BEDTIME [facility]; Protocol Last Admin: 01/03/23 20:15 Dose: 3 mg Propranolol HCl (Propranolol Hcl La 60 Mg Cap.Sa.24h) 60 mg PO DAILY [facility]; Protocol Quetiapine Fumarate (Quetiapine Fumarate 200 Mg Tablet) 200 mg PO BEDTIME [facility] Last Admin: 01/03/23 20:14 Dose: 200 mg Sertraline HCl (Sertraline Hcl 50 Mg Tablet) 150 mg PO DAILY [facility] Last Admin: 01/04/23 09:56 Dose: 150 mg Trazodone HCl (Trazodone Hcl 50 Mg Tablet) 50 mg PO BEDTIME MRX1 PRN PRN Reason: Insomnia Allergies Allergies Allergy/AdvReac Type Severity Reaction Status Date / Time tramadol [TRAMADOL] Allergy Intermediate HIVES, Verified 12/29/22 11:26 ITCHY ibuprofen [From MOTRIN] AdvReac Intermediate STOMACH Verified 12/29/22 11:26 UPSET, ITCHY,DIFFICULTY BREATHING. Assessment & Plan Assessment & Plan (1) MDD (major depressive disorder), recurrent episode, moderate: Status: Acute Code(s): F33.1 - Major depressive disorder, recurrent, moderate Assessment and Plan: 01/01 inc zoloft - (2) PTSD (post-traumatic stress disorder): Status: Acute Code(s): F43.10 - Post-traumatic stress disorder, unspecified (3) Opioid dependence: Status: Acute Code(s): F11.20 - Opioid dependence, uncomplicated (4) Polysubstance abuse: Status: Acute Code(s): F19.10 - Other psychoactive substance abuse, uncomplicated Plan Patient is a 42-year-old male with history of depression, PTSD, opioid dependence on methadone who presents for depression with SI and the face of recent homelessness. Patient said he was doing fairly well for the past 4 months, sober and in a good mood, working and doing overall well on current regimen. Patient's return or depression seems to be situational so will continue medication regimen Hospital course: 12/30 patient remains depressed with intermittent SI. Mostly isolating. Agrees to start attending to ADLs and trying to interact. Continue treatment plan; will titrate Zoloft soon 12/31 mood improved and affect brighter. Future oriented and had intake today for program. Agrees to increase Zoloft. No SI 01/03 patient reports doing well come mood is good and denies any SI; AH remains resolved. Patient is future oriented waiting to get into a program. 01/04 remains stable; Continue current tx plan NEEDS ID appt on discharge Plan: CV Q 15 minute checks Continue home medication regimen; Will increase to Zoloft 100 mg daily Continue Seroquel 200 mg q.h.s. Labs: Hep C ab positive. Viral Load positive, will need outpt GI referral for treatment. Patient educated on: diagnosis Informed Consent: understands Reason for continued inpatient stay Substantial Risk for: stable for discharge Time Spent With Patient Time: Total time managing care of this patient today ____ minutes.
[2023-01-04] MEDS: Propranolol HCL LA 60 MG CAP.SA.24H PO (10:01)
[2023-01-04] MEDS: Nicotine Polacrilex 2 MG GUM 4 MG BUCCAL ×2 (14:01→20:12)
[2023-01-04 18:00] VITALS: BP 136/77; PULSE 63; TEMP 36.2; O2SAT 96
[2023-01-04] MEDS: QUEtiapine Fumarate 200 MG TABLET PO (20:07)
[2023-01-04] MEDS: Prazosin HCL 1 MG CAPSULE 3 MG PO (20:08)
[2023-01-04] MEDS: Mirtazapine 15 MG TABLET PO (20:08)
[2023-01-04] MEDS: Melatonin 3 MG TABLET 9 MG PO (20:12)
[2023-01-05 09:00] VITALS: BP 141/87; PULSE 63; RESP 18; TEMP 36; O2SAT 100
[2023-01-05] MEDS: methADONE HCl 20 MG/2 ML ORAL.CONC 120 MG PO (09:01)
[2023-01-05] MEDS: Gabapentin 400 MG CAPSULE 800 MG PO ×3 (09:02→19:30)
[2023-01-05] MEDS: Sertraline HCL 50 MG TABLET 150 MG PO (09:02)
[2023-01-05] MEDS: Propranolol HCL LA 60 MG CAP.SA.24H PO (09:03)
--- NOTE | 2023-01-05 10:52 | HO.PSYCHPN ---
Subjective Subjective Date of Service: 01/05/23 Reason For Visit: Unspec Depressive D/O Opioid Use D/O Severe Etc Interim History: Met with patient discussed with team Patient last night feeling emotional and said he felt suicidal however it resolved on its own. Patient today discussed with verse writer and said he was just stressed out for the moment that he is doing better and that he is still feeling ready for discharge. Discussed medication management and patient was wondering if Wellbutrin would be a good medication for him, since another patient was talking about it; verse writer agreed to review med management and discuss further Mental Status Exam Mental Status Exam Narrative: Pt is alert and oriented; behavior is calm, friendly and cooperative: patient is not in distress; dressed in casual attire with, unkempt but adequate hygiene; mood is described as good and affect congruent; eye contact appropriate; Speech is normal rate, volume and prosody and not pressured; no psychomotor retardation present; thought process is organized and goal directed; Thought content is on aftercare plans; otherwise pertinent to relevant topics and without any delusional content, paranoid ideations or grandiosity; intermittent passive SI that quickly resolves on it's own; no HI. There is no evidence of perceptual disturbance. Patients insight and judgment fair Diagnostics Vital Signs (24Hr): Vital Signs - 24 hr 01/04/23 18:00 01/05/23 09:00 Temperature 97.2 F 96.8 F Pulse Rate 63 63 Respiratory Rate 18 Blood Pressure 136/77 141/87 H Pulse Oximetry 96 100 Oxygen Delivery Method Room Air Room Air BMI result Body Mass Index 31.0 Labs 12/29/22 08:34 Medications Medications Current Medications Acetaminophen (Acetaminophen 325 Mg Tablet) 650 mg PO Q6H PRN PRN Reason: Headache/Pain Mild Scale (1-3) Last Admin: 12/30/22 20:17 Dose: 650 mg Al Hydroxide/Mg Hydroxide (Magnesium Hydrox/Alum Hydrox 30 Ml Oral.Susp) 30 ml PO Q6H PRN PRN Reason: Heartburn/Nausea Gabapentin (Gabapentin 400 Mg Capsule) 800 mg PO TID [facility] Last Admin: 01/05/23 09:02 Dose: 800 mg Hydroxyzine HCl (Hydroxyzine Hcl 50 Mg Tablet) 50 mg PO Q6H PRN PRN Reason: Anxiety Last Admin: 01/03/23 17:09 Dose: 50 mg Magnesium Hydroxide (Milk Of Magnesia 30 Ml Oral.Susp) 30 ml PO DAILY PRN PRN Reason: Constipation Melatonin (Melatonin 3 Mg Tablet) 9 mg PO BEDTIME PRN PRN Reason: Insomnia Last Admin: 01/04/23 20:12 Dose: 9 mg Methadone HCl (Methadone Hcl 20 Mg/2 Ml Oral.Conc) 120 mg PO DAILY [facility] Last Admin: 01/05/23 09:01 Dose: 120 mg Mirtazapine (Mirtazapine 15 Mg Tablet) 15 mg PO BEDTIME [facility] Last Admin: 01/04/23 20:08 Dose: 15 mg Nicotine Polacrilex (Nicotine Polacrilex 2 Mg Gum) 4 mg BUCCAL Q2H PRN PRN Reason: Nicotine Cravings Last Admin: 01/04/23 20:12 Dose: 4 mg Prazosin HCl (Prazosin Hcl 1 Mg Capsule) 3 mg PO BEDTIME [facility]ANA; Protocol Last Admin: 01/04/23 20:08 Dose: 3 mg Propranolol HCl (Propranolol Hcl La 60 Mg Cap.Sa.24h) 60 mg PO DAILY [facility]; Protocol Last Admin: 01/05/23 09:03 Dose: 60 mg Quetiapine Fumarate (Quetiapine Fumarate 200 Mg Tablet) 200 mg PO BEDTIME [facility] Last Admin: 01/04/23 20:07 Dose: 200 mg Sertraline HCl (Sertraline Hcl 50 Mg Tablet) 150 mg PO DAILY [facility] Last Admin: 01/05/23 09:02 Dose: 150 mg Trazodone HCl (Trazodone Hcl 50 Mg Tablet) 50 mg PO BEDTIME MRX1 PRN PRN Reason: Insomnia Allergies Allergies Allergy/AdvReac Type Severity Reaction Status Date / Time tramadol [TRAMADOL] Allergy Intermediate HIVES, Verified 12/29/22 11:26 ITCHY ibuprofen [From MOTRIN] AdvReac Intermediate STOMACH Verified 12/29/22 11:26 UPSET, ITCHY,DIFFICULTY BREATHING. Assessment & Plan Assessment & Plan (1) MDD (major depressive disorder), recurrent episode, moderate: Status: Acute Code(s): F33.1 - Major depressive disorder, recurrent, moderate Assessment and Plan: 01/01 inc zoloft - (2) PTSD (post-traumatic stress disorder): Status: Acute Code(s): F43.10 - Post-traumatic stress disorder, unspecified (3) Opioid dependence: Status: Acute Code(s): F11.20 - Opioid dependence, uncomplicated (4) Polysubstance abuse: Status: Acute Code(s): F19.10 - Other psychoactive substance abuse, uncomplicated Plan Patient is a 42-year-old male with history of depression, PTSD, opioid dependence on methadone who presents for depression with SI and the face of recent homelessness. Patient said he was doing fairly well for the past 4 months, sober and in a good mood, working and doing overall well on current regimen. Patient's return or depression seems to be situational so will continue medication regimen Hospital course: 12/30 patient remains depressed with intermittent SI. Mostly isolating. Agrees to start attending to ADLs and trying to interact. Continue treatment plan; will titrate Zoloft soon 12/31 mood improved and affect brighter. Future oriented and had intake today for program. Agrees to increase Zoloft. No SI 01/03 patient reports doing well come mood is good and denies any SI; AH remains resolved. Patient is future oriented waiting to get into a program. 01/04 remains stable; Continue current tx plan 01/05 intermittently emotionally reactive however this is chronic for patient; momentary bouts of SI which quickly passed on its own also chronic. Patient says he has overall good and feeling ready for discharge. Asked about Wellbutrin; on further review seems that this medication could be too activating however patient might benefit from increase dose and Seroquel; will discuss; discussed Hep C results and pt appreciative of possibility of treatment. Plan: CV Q 15 minute checks Continue home medication regimen; Increased zoloft to 150mg daily Continue Seroquel 200 mg q.h.s. Labs: Hep C ab positive. Viral Load positive, will need outpt GI referral for treatment. Patient educated on: diagnosis and medication risk/benefits Informed Consent: understands Reason for continued inpatient stay Substantial Risk for: stable for discharge and med/psych decompensation Time Spent With Patient Time: Total time managing care of this patient today ____ minutes.
[2023-01-05] MEDS: hydrOXYzine HCL 50 MG TABLET PO (13:25)
[2023-01-05] MEDS: Nicotine Polacrilex 2 MG GUM 4 MG BUCCAL ×2 (13:26→19:33)
[2023-01-05] MEDS: QUEtiapine Fumarate 25 MG TABLET PO (17:46)
[2023-01-05 19:25] VITALS: BP 144/86; PULSE 65; TEMP 35.9
[2023-01-05] MEDS: Mirtazapine 15 MG TABLET PO (19:30)
[2023-01-05] MEDS: Prazosin HCL 1 MG CAPSULE 3 MG PO (19:30)
[2023-01-05] MEDS: Melatonin 3 MG TABLET 9 MG PO (19:32)
[2023-01-05] MEDS: QUEtiapine Fumarate 200 MG TABLET PO (19:32)
[2023-01-06 06:00] VITALS: BP 113/59; PULSE 61; RESP 18; O2SAT 96
[2023-01-06 07:00] VITALS: BMI 32.6
[2023-01-06] MEDS: Sertraline HCL 50 MG TABLET 150 MG PO (08:35)
[2023-01-06] MEDS: Propranolol HCL LA 60 MG CAP.SA.24H PO (08:35)
[2023-01-06] MEDS: methADONE HCl 20 MG/2 ML ORAL.CONC 120 MG PO (08:35)
[2023-01-06] MEDS: Gabapentin 400 MG CAPSULE 800 MG PO ×3 (08:35→20:12)
[2023-01-06] MEDS: QUEtiapine Fumarate 25 MG TABLET PO ×2 (09:10→14:04)
[2023-01-06] MEDS: Nicotine Polacrilex 2 MG GUM 4 MG BUCCAL ×2 (12:37→20:15)
[2023-01-06] MEDS: hydrOXYzine HCL 50 MG TABLET PO (12:37)
--- NOTE | 2023-01-06 17:15 | P.PNPSI_ITS ---
Subjective Subjective Date of Service: 01/06/23 Reason For Visit: Unspec Depressive D/O Opioid Use D/O Severe Etc Interim History: Met with patient; discussed with team Patient reports he is doing well says he is good and feeling ready for discharge. Patient was able to discuss his situation with his sister and is going to return living there. Discussed medication and patient feels that it would be helpful if Seroquel was increased at bedtime. No SI, no AVH Mental Status Exam Mental Status Exam Narrative: Pt is alert and oriented; behavior is calm, friendly and cooperative: patient is not in distress; dressed in casual attire with, unkempt but adequate hygiene; m ood is described as good and affect congruent; eye contact appropriate; Speech is normal rate, volume and prosody and not pressured; no psychomotor retardation present; thought process is organized and goal directed; Thought content is on aftercare plans; otherwise pertinent to relevant topics and without any delusional content, paranoid ideations or grandiosity; no SI; no HI. There is no evidence of perceptual disturbance denies any AVH. Patients insight and judgment fair Diagnostics Vital Signs (24Hr): Vital Signs - 24 hr 01/05/23 19:25 01/06/23 06:00 Temperature 96.6 F L Pulse Rate 65 61 Respiratory Rate 18 Blood Pressure 144/86 H 113/59 L Pulse Oximetry 96 Oxygen Delivery Method Room Air BMI result Body Mass Index 32.6 Labs 12/29/22 08:34 Medications Medications Current Medications Acetaminophen (Acetaminophen 325 Mg Tablet) 650 mg PO Q6H PRN PRN Reason: Headache/Pain Mild Scale (1-3) Last Admin: 12/30/22 20:17 Dose: 650 mg Al Hydroxide/Mg Hydroxide (Magnesium Hydrox/Alum Hydrox 30 Ml Oral.Susp) 30 ml PO Q6H PRN PRN Reason: Heartburn/Nausea Gabapentin (Gabapentin 400 Mg Capsule) 800 mg PO TID JOANA Last Admin: 01/06/23 14:04 Dose: 800 mg Hydroxyzine HCl (Hydroxyzine Hcl 50 Mg Tablet) 50 mg PO Q6H PRN PRN Reason: Anxiety Last Admin: 01/06/23 12:37 Dose: 50 mg Magnesium Hydroxide (Milk Of Magnesia 30 Ml Oral.Susp) 30 ml PO DAILY PRN PRN Reason: Constipation Melatonin (Melatonin 3 Mg Tablet) 9 mg PO BEDTIME PRN PRN Reason: Insomnia Last Admin: 01/05/23 19:32 Dose: 9 mg Methadone HCl (Methadone Hcl 20 Mg/2 Ml Oral.Conc) 120 mg PO DAILY JOANA Last Admin: 01/06/23 08:35 Dose: 120 mg Mirtazapine (Mirtazapine 15 Mg Tablet) 15 mg PO BEDTIME JOANA Last Admin: 01/05/23 19:30 Dose: 15 mg Nicotine Polacrilex (Nicotine Polacrilex 2 Mg Gum) 4 mg BUCCAL Q2H PRN PRN Reason: Nicotine Cravings Last Admin: 01/06/23 12:37 Dose: 4 mg Prazosin HCl (Prazosin Hcl 1 Mg Capsule) 3 mg PO BEDTIME JOANA; Protocol Last Admin: 01/05/23 19:30 Dose: 3 mg Propranolol HCl (Propranolol Hcl La 60 Mg Cap.Sa.24h) 60 mg PO DAILY JOANA; Protocol Last Admin: 01/06/23 08:35 Dose: 60 mg Quetiapine Fumarate (Quetiapine Fumarate 200 Mg Tablet) 200 mg PO BEDTIME JOANA Last Admin: 01/05/23 19:32 Dose: 200 mg Quetiapine Fumarate (Quetiapine Fumarate 25 Mg Tablet) 25 mg PO TID PRN PRN Reason: anxiety Last Admin: 01/06/23 14:04 Dose: 25 mg Sertraline HCl (Sertraline Hcl 50 Mg Tablet) 150 mg PO DAILY JOANA Last Admin: 01/06/23 08:35 Dose: 150 mg Trazodone HCl (Trazodone Hcl 50 Mg Tablet) 50 mg PO BEDTIME MRX1 PRN PRN Reason: Insomnia Allergies Allergies Allergy/AdvReac Type Severity Reaction Status Date / Time tramadol [TRAMADOL] Allergy Intermediate HIVES, Verified 12/29/22 11:26 ITCHY ibuprofen [From MOTRIN] AdvReac Intermediate STOMACH Verified 12/29/22 11:26 UPSET, ITCHY,DIFFICULTY BREATHING. Assessment & Plan Assessment & Plan (1) MDD (major depressive disorder), recurrent episode, moderate: Status: Acute Code(s): F33.1 - Major depressive disorder, recurrent, moderate Assessment and Plan: rule out Schizoaffective disorder (2) PTSD (post-traumatic stress disorder): Status: Acute Code(s): F43.10 - Post-traumatic stress disorder, unspecified (3) Opioid dependence: Status: Acute Code(s): F11.20 - Opioid dependence, uncomplicated (4) Polysubstance abuse: Status: Acute Code(s): F19.10 - Other psychoactive substance abuse, uncomplicated Plan Patient is a 42-year-old male with history of depression, PTSD, opioid dependence on methadone who presents for depression with SI and the face of recent homelessness. Patient said he was doing fairly well for the past 4 months, sober and in a good mood, working and doing overall well on current reg imen. Patient's return or depression seems to be situational so will continue medication regimen Hospital course: 12/30 patient remains depressed with intermittent SI. Mostly isolating. Agrees to start attending to ADLs and trying to interact. Continue treatment plan; will titrate Zoloft soon 12/31 mood improved and affect brighter. Future oriented and had intake today for program. Agrees to increase Zoloft. No SI 01/03 patient reports doing well come mood is good and denies any SI; AH remains resolved. Patient is future oriented waiting to get into a program. 01/04 remains stable; Continue current tx plan 01/05 intermittently emotionally reactive however this is chronic for patient; momentary bouts of SI which quickly passed on its own also chronic. Patient says he has overall good and feeling ready for discharge. Asked about Wellbutrin; on further review seems that this medication could be too activating however patient might benefit from increase dose and Seroquel; will discuss; discussed Hep C results and pt appreciative of possibility of treatment. 01/06 patient remains stable and appropriate for discharge to the community for continued treatment. Going back to live with this sisters. Asks for increase in Seroquel to which short story writer agrees. Patient is not in imminent risk for harm to self or others and request for discharge honored. Plan: CV Q 15 minute checks Continue home medication regimen; continue zoloft to 150mg daily Increase to Seroquel 300 mg q.h.s. Labs: Hep C ab positive. Viral Load positive, will need outpt GI referral for treatment. Patient educated on: diagnosis and medication risk/benefits Informed Consent: understands Reason for continued inpatient stay Substantial Risk for: stable for discharge Time Spent With Patient Time: Total time managing care of this patient today ____ minutes.
[2023-01-06 18:00] VITALS: BP 132/72; PULSE 69; TEMP 36.4; O2SAT 96
[2023-01-06] MEDS: Mirtazapine 15 MG TABLET PO (20:12)
[2023-01-06] MEDS: QUEtiapine Fumarate 300 MG TABLET PO (20:12)
[2023-01-06] MEDS: Prazosin HCL 1 MG CAPSULE 3 MG PO (20:13)
[2023-01-06] MEDS: Melatonin 3 MG TABLET 9 MG PO (20:15)
[2023-01-07 06:00] VITALS: BP 127/67; PULSE 60; RESP 18
[2023-01-07] MEDS: Gabapentin 400 MG CAPSULE 800 MG PO (08:26)
[2023-01-07] MEDS: Sertraline HCL 50 MG TABLET 150 MG PO (08:26)
[2023-01-07] MEDS: methADONE HCl 20 MG/2 ML ORAL.CONC 120 MG PO (08:26)
[2023-01-07] MEDS: Propranolol HCL LA 60 MG CAP.SA.24H PO (08:27)
--- NOTE | 2023-01-07 10:05 | P.DS_ITS ---
DS: Providers Provider Date of Service: 01/07/23 Date of admission: 12/28/22 13:22 Date of discharge: 01/07/23 Primary care physician: Denise Bueno NP Attending physician on admission: Steve Cobb Consults: 12/28/22 13:41 Consult to Hospitalist Routine Comment: Consulting Provider: Hospitalist Reason For Exam: OSH admission to Attending physician on discharge: Steve Cobb DS: Diagnosis Discharge Diagnosis (1) MDD (major depressive disorder), recurrent episode, moderate: Status: Acute (2) PTSD (post-traumatic stress disorder): Status: Acute (3) Opioid dependence: Status: Acute (4) Polysubstance abuse: Status: Resolved DS: Medications Discharge Medications Home Medications: Home Medications Medication Instructions Recorded Confirmed methadone 10 mg/5 mL oral solution 120 mg PO DAILY 07/29/22 12/29/22 Previous Rx's Medication Instructions Recorded gabapentin 400 mg capsule 800 mg PO TID 30 days #180 caps 01/07/23 hydroxyzine HCl 50 mg tablet 50 mg PO TID PRN Anxiety 30 days 01/07/23 #90 tabs melatonin 3 mg tablet 9 mg PO BEDTIME PRN sleep 30 days 01/07/23 #90 tabs mirtazapine 15 mg tablet 15 mg PO BEDTIME 30 days #30 tabs 01/07/23 nicotine (polacrilex) 4 mg gum 4 mg buccal Q2H 30 days #100 ea 01/07/23 prazosin 1 mg capsule 3 mg PO BEDTIME 30 days #90 caps 01/07/23 propranolol 60 mg capsule,24 60 mg PO DAILY 30 days #30 caps 01/07/23 hr,extended release quetiapine 25 mg tablet (Seroquel) 25 mg PO DAILY PRN Agitation 30 01/07/23 days #30 tabs quetiapine 300 mg tablet 300 mg PO BEDTIME 30 days #30 tabs 01/07/23 sertraline 100 mg tablet 150 mg PO DAILY 30 days #45 tabs 01/07/23 Mental Status Exam Mental Status Exam Narrative: Pt is alert and oriented; behavior is calm, friendly and cooperative: patient is not in distress; dressed in casual attire with, unkempt but adequate hygiene; mood is described as good and affect congruent; eye contact appropriate; Speech is normal rate, volume and prosody and not pressured; no psychomotor retardation present; thought process is organized and goal directed; Thought content is on aftercare plans; otherwise pertinent to relevant topics and without any delusional content, paranoid ideations or grandiosity; no SI; no HI. There is no evidence of perceptual disturbance denies any AVH. Patients insight and judgment fair DS: Summary Hospital Course Hospital Course: Patient is a 42-year-old male with history of depression, PTSD, opioid dependence on methadone who presents for depression with SI and the face of r ecent homelessness.? Patient said he was doing fairly well for the past 4 months, sober and in a good mood, working and doing overall well on current regimen.? Patient's return or depression seems to be situational so will continue medication regimen Hospital course: 12/30 patient remains depressed with intermittent SI.? Mostly isolating.? Agrees to start attending to ADLs and trying to interact.? Continue treatment plan; will titrate Zoloft soon 12/31 mood improved and affect brighter.? Future oriented and had intake today for program.? Agrees to increase Zoloft.? No SI 01/03 patient reports doing well come mood is good and denies any SI; AH remains resolved.? Patient is future oriented waiting to get into a program. 01/04 remains stable; Continue current tx plan 01/05 intermittently emotionally reactive however this is chronic for patient; momentary bouts of SI which quickly passed on its own also chronic.? Patient says he has overall good and feeling ready for discharge.? Asked about Well butrin; on further review seems that this medication could be too activating however patient might benefit from increase dose and Seroquel; discussed Hep C results and pt appreciative of possibility of treatment and agrees to follow-up with outpatient provider.. 01/06 patient remains stable and appropriate for discharge to the community for continued treatment. He reconciled with his sister and is going back to live with her.? Patient is at baseline. While he remains vulnerable to mood decompensation and relapse, this is a chronic struggle for patient which will not resolve with longer stay on inpatient unit. Patient is not in imminent risk for harm to self or others and request for discharge honored. Time spent discussing smoking cessation with patient: 3 to 10 minutes Status at Discharge Functional status at discharge: independent ambulation Overall status at discharge: patient is back to baseline Time Spent with Patient Time attestation: Total time managing care of this patient today ____ minutes. Time spent: Less than 30 minutes Discharge Plan Discharge Anticipated Discharge Date/Time: 01/07/23 11:30 Patient Disposition: Home, Self-Care Discharge Diagnosis: MDD, recurrent, severe with psychotic features, in full remission Referrals: [facility] Intake Stephanie Aponte [Other] - 01/10/23 9:30 am [facility] PCP dada Rosado [Other] - 01/28/23 2:00 pm [facility] [Other] - 3-5 Days (Stay in contact with [facility] for support with accessing social media campaign manager. ) [facility] [Other] - 3-5 Days [facility] Counselor Sydney [Other] - 01/10/23 Denise Bueno NP [Primary Care Provider] - 01/14/23 2:00 pm Yari Lora MD [Physician] - 01/10/23 11:30 am Discharge Medications: New nicotine (polacrilex) 4 mg gum 4 mg buccal Q2H 30 Days Qty: 100 0RF prazosin 1 mg Capsule 3 mg PO BEDTIME 30 Days Qty: 90 0RF Protocol: Hold for SBP< HOLD for SBP < : 90 propranolol 60 mg Capsule,Extended Release 24 Hr 60 mg PO DAILY 30 Days Qty: 30 0RF Protocol: Hold for SBP/HR < HOLD for SBP < : 90 HOLD for HR < : 60 gabapentin 400 mg Capsule 800 mg PO TID 30 Days Qty: 180 0RF Continued methadone 10 mg/5 mL Solution 120 mg PO DAILY quetiapine [Seroquel] 25 mg Tablet 25 mg PO DAILY PRN (Reason: Agitation) 30 Days Qty: 30 0RF hydroxyzine HCl 50 mg Tablet 50 mg PO TID PRN (Reason: Anxiety) 30 Days Qty: 90 0RF mirtazapine 15 mg tablet 15 mg PO BEDTIME 30 Days Qty: 30 0RF Changed quetiapine 300 mg tablet 300 mg PO BEDTIME 30 Days Qty: 30 0RF sertraline 100 mg Tablet 150 mg PO DAILY 30 Days Qty: 45 0RF melatonin 3 mg tablet 9 mg PO BEDTIME PRN (Reason: sleep) 30 Days Qty: 90 0RF Discontinued gabapentin 600 mg Tablet 600 mg PO TID Discharge Orders: Discharge Order (Routine); Ordered 01/07/23 Ordered By: Steve Cobb Diet: Regular diet Activity on Discharge: As tolerated Stand Alone Forms: Patient Portal Discharge page, Community Support Care Plan Goals: Maintain mood and safe behaviors Take medications as prescribed Continue to pursue sobriety Practice coping skills Continue with outpatient providers and reach out to them as needed Health Concerns: Mood stability and behaviors Sobriety Plan of Treatment: Follow up with your PCP, psychiatric provider and other outpatient providers regarding above concerns Take medications as prescribed Assessment: Risk assessment at time of discharge:? Patient was interviewed prior to d ischarge and found to be fully oriented and without any SI or HI. Patient has insight and demonstrates good judgment in terms of wanting to pursue treatment. Patient is not in imminent risk of harm to self or others and has a safety plan that includes presenting to the closest ER or calling 911 if feeling unsafe.? Patient has been observed closely by nursing and unit staff throughout admission; patient has not engaged in any behaviors that suggest dangerousness to self or others and has demonstrated appropriate behaviors and impulse control Discharge Date/Time: 01/07/23 11:37
[2023-01-07] MEDS: Naloxone HCl Nasal TAKE HOME 4 MG SPRAY 8 MG NOSTRILALT (10:08)
== END 2023-01-07 11:37 | disposition home or self-care (01) | DRG 751 ==
PROVIDERS: Physician Assistant; Psychiatry & Neurology Psychiatry; Admitting Provider Psychiatry & Neurology Psychiatry; PCP Nurse Practitioner Family; Visit Provider Psychiatry & Neurology Psychiatry
DX: F33.1 Major depressive disorder, recurrent, moderate (principal); R45.851 Suicidal ideations; F11.20 Opioid dependence, uncomplicated; F17.210 Nicotine dependence, cigarettes, uncomplicated; F43.10 Post-traumatic stress disorder, unspecified; F19.10 Other psychoactive substance abuse, uncomplicated; Z59.02 Unsheltered homelessness; Z71.6 Tobacco abuse counseling; Z79.899 Other long term (current) drug therapy
CPT/HCPCS: 36415; 80053; 80061; 82607; 82746; 84439; 84443; 86704; 86706; 86803; 87340; 87522

== ENCOUNTER → 2022-12-28 13:22 | Outpatient (BNV) | payer OTHER, SELFPAY | PROVIDERS: Admitting Provider Psychiatry & Neurology Psychiatry; PCP Nurse Practitioner Family; Visit Provider Psychiatry & Neurology Psychiatry | DX: F33.1 Major depressive disorder, recurrent, moderate (principal); F43.11 Post-traumatic stress disorder, acute; F11.20 Opioid dependence, uncomplicated; F19.10 Other psychoactive substance abuse, uncomplicated | CPT/HCPCS: 99232; 99233 ==

== ENCOUNTER 2023-12-08 20:29 | Outpatient (BNV) | payer OTHER, SELFPAY | END 2023-12-12 15:53 | PROVIDERS: Admitting Provider Psychiatry & Neurology Psychiatry; Visit Provider Internal Medicine Cardiovascular Disease | DX: I45.81 Long QT syndrome (principal) | CPT/HCPCS: 93010 ==

== ENCOUNTER 2023-12-08 20:29 | Inpatient (IN) | payer OTHER, SELFPAY ==
--- NOTE | ~2023-12-08 | XR_ITS ---
EXAMINATION: XR CHEST CLINICAL INFORMATION: Fever COMPARISON: Previous chest x-ray January 2019 TECHNIQUE: Frontal view of the chest was obtained. FINDINGS: The cardiac and mediastinal contours are stable. There is bronchial wall thickening and nodular opacities at the left lung base suggestive of bronchopneumonia. The right lung is clear. No pleural effusion or pneumothorax. XR/XR chest 1V IMPRESSION: Left base bronchopneumonia.
--- NOTE | ~2023-12-08 | CT_ITS ---
EXAMINATION: CT ABDOMEN AND PELVIS WITHOUT CONTRAST CLINICAL INFORMATION: Fever and abdominal pain. COMPARISON: CXR from 12/16/2023. TECHNIQUE: Multidetector volumetric imaging was performed from the superior aspect of the liver through the pubic symphysis. Sagittal and coronal reformatted images were obtained on the technologist's workstation. This CT examination was performed using dose optimization techniques as appropriate, variously including the following: *Automated exposure control *Adjustment of mA and/or kV according to patient size (this includes techniques or standardized protocols for targeted exams where dose is matched to indication/reason for exam; i.e. extremities or head) *Use of iterative reconstruction technique DLP: 574 mGy-cm FINDINGS: LUNG BASES: The patchy airspace and nodular opacities in the left lower lobe are consistent with bronchopneumonia. No pleural effusion. HEPATOBILIARY: Liver has normal size, shape, and attenuation. Gallbladder has a normal appearance. No dilated bile ducts. PANCREAS: No edema, pancreatic ductal dilatation or mass. SPLEEN: Normal. ADRENAL GLANDS: Normal. KIDNEYS AND URETERS: Kidneys have normal size and cortical thickness. No perinephric fluid collection, urolithiasis or hydroureteronephrosis. BLADDER: Normal. BOWEL AND PERITONEUM: Stomach and small bowel are unremarkable. No dilated loops. The appendix is normal. No overt colonic wall thickening or mesenteric fat stranding. No free fluid or pneumoperitoneum. ABDOMINAL WALL: Unremarkable. VASCULATURE: Normal for noncontrast examination. LYMPH NODES: No pathologic sized lymph nodes in the abdomen or pelvis. No inguinal lymphadenopathy. PELVIC VISCERA: Normal. MUSCULOSKELETAL: No acute or suspicious osseous abnormality. Mild narrowing of disc space and vacuum disc phenomenon at L5-S1. The somewhat serpiginous line of sclerosis in the right femoral head appears to demarcate a zone of osteonecrosis. No articular surface collapse. CT/CT abdomen pelvis wo IV con IMPRESSION: * Left lower lobe bronchopneumonia without pleural effusion. * No evidence of an infectious or inflammatory process in the abdomen or pelvis. 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 Query if there is any history of significant steroid use or other risk factor for development of osteonecrosis.
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
[2023-12-08 21:10] VITALS: BP 133/75; PULSE 68; TEMP 36.8
[2023-12-08] MEDS: Acetaminophen 325 MG TABLET 650 MG PO (23:24)
[2023-12-08] MEDS: traZODone HCL 50 MG TABLET PO (23:24)
[2023-12-08] MEDS: clonazePAM 0.5 MG TABLET PO (23:40)
[2023-12-08] MEDS: QUEtiapine Fumarate 100 MG TABLET PO (23:40)
[2023-12-08] MEDS: Gabapentin 300 MG CAPSULE 600 MG PO (23:40)
--- NOTE | 2023-12-09 04:18 | PC.ADMIT ---
A single, [place]araguan-speaking, male, aged 43 years was [facility] 12[facility] at 2100, after seeking help at [facility] on 12/06/23 for SI with plan to O/D on medications. Pt is known to [facility], and said was last admitted here about one year ago. UTOX was positive at [facility] for cocaine, opiates, fentanyl, and THC. Skin check done upon arrival with superficial healing lesions noted on abdomen. Pt stated I pick when I'm hot . Pt was cooperative with admission process. Pt expressed current SI w/o plan. Pt states can seek help from staff if needed. SI. Pt reports 10 or more previous attempts over years via O/D, jumping in front of vehicle and choking self. Pt says can seek out staff for help if needed. Pt rates anxiety 02/03, depression 04/05. Pt denies HI, AVH. Pt reports sleeping well with medications. Pt reports chronic lower back pain. Pt has no providers, reporting he did not follow up with referrals to [facility] after most recent discharge from [facility]. Pt is homeless. Pt uses [facility], [facility] and [facility], [facility] for Methadone. Pt has history of admissions for substance use. Pt reports he would like to discharge to sober house in [place] called [facility] . Pt was isolative to self during shift and went to bed after getting medications at . [id number] done, admission orders obtained. Treatment plan done, but needs to be signed. Pt resting in room on 15 minute safety checks.
[2023-12-09 08:00] VITALS: BP 109/71; PULSE 58; RESP 19; TEMP 36.9; O2SAT 95
[2023-12-09] MEDS: cloNIDine HCL 0.1 MG TABLET PO ×2 (09:29→17:00)
[2023-12-09] MEDS: Gabapentin 400 MG CAPSULE 800 MG PO ×3 (09:30→21:29)
[2023-12-09] MEDS: Cyclobenzaprine HCl 10 MG TABLET PO ×3 (09:30→21:29)
[2023-12-09] MEDS: Nicotine 21 MG PATCH.TD24 TRANSDERMA (09:30)
[2023-12-09] MEDS: DULoxetine HCl 20 MG CAPSULE.DR 40 MG PO (09:30)
[2023-12-09 10:04] LABS: Estimated Average Glucose 117 mg/dL; Hemoglobin A1c % 5.7 % (<6.0)
[2023-12-09 10:26] LABS: Cholesterol 154 mg/dL (<200); HDL Cholesterol 43 mg/dL (>40); LDL Cholesterol Calculated 72 mg/dL (<100); Triglycerides 196 mg/dL (<150)
--- NOTE | 2023-12-09 10:27 | HE.PHANOTE ---
[facility] called medical center to confirm methadone dosing, pt recieved 135 mg on 12/[address] [facility].
[2023-12-09 10:28] LABS: Free T4 (Free Thyroxine) 0.79 ng/dL (0.71-1.85); Thyroid Stimulating Hormone 4.71 uIU/mL (0.32-4.0)
[2023-12-09 10:43] LABS: Folate 12.6 ng/mL (> or = 4.0); Vitamin B12 345 pg/mL (200-900)
[2023-12-09] MEDS: methADONE HCl 20 MG/2 ML ORAL.CONC 135 MG PO (10:50)
[2023-12-09] MEDS: clonazePAM 0.5 MG TABLET PO ×2 (11:52→21:29)
--- NOTE | 2023-12-09 12:20 | HE.PHANOTE ---
METHADONE Methadone Dose verified at 135 mg per [facility] (Godwin FOSTER).. Last dosed on 12/08/23 at [facility] @8am.
--- NOTE | 2023-12-09 14:33 | P.CONHOSP_ITS ---
History of Present Illness Data of Consult Service Date: 12/09/23 Primary Care Provider: None Physician HPI Reason for consult: Admission H&P Pt is a 43-year-old male with a PMH significant for?polysubstance use disorder, untreated hepatitis-C, PTSD, and depression SI who is admitted to M3 psychiatry unit for increasing depression with SI with plan to overdose on medications. Patient has been feeling increasingly depressed secondary to homelessness, living in a halfway, and problems with and children. Medical consult for admission H&P. ?Patient is somnolent but arousabe, though declines a physical examination and full interview. Denies any acute medical complaints at this time. Reports has not sought outpatient treatment for hepatitis-C yet. Denies any other acute medical concerns. Review of [facility] ED documents reveals patient complained of having his foreskin stuck in front of head of his penis for the past year, though does not report any pain or difficulty with urination or sexual activity. Declined examination or treatment and [facility] ED. patient otherwise had no acute or chronic medical complaints while there. Labs reviewed, grossly unremarkable. Tox screen positive for methadone, fentanyl, and opiates. Review of Systems Review of Systems: Denies any acute medical complaints at this time [facility] Medical History Cigarette smoker Opioid dependence Polysubstance abuse Cocaine use disorder in remission PTSD (post-traumatic stress disorder) MDD (major depressive disorder), recurrent episode, moderate Social History Household Members: None Housing: Homeless Do you presently have visiting nurse or other home services: No Patient Tobacco Use Status: Current everyday Tobacco user Tobacco use type: Cigarette Cigarette Packs Per Day: 1 Cigarettes Per Day: 20.0 Years Smoked: 26 Smoked in Last 30 Days: Yes e-Cigarette/Vaping Use: Currently Using Frequency of e-Cigarette/Vaping Use: sometimes Patient Interested in Nicotine Replacement: Yes (Pt requests) Patient Given Instructions on How to Stop Smoking: Yes (Pt is considering quitting at this time) Date Education Initiated: 12/08/23 Second Hand Smoke Exposure: Yes Substance Use Type: Crack/Cocaine, Marijuana and Opiates Substance Use Frequency: Recent Binge Last Used Substance: Just Prior to Admission Currently Displaying Signs/Symptoms of Drug Intoxication Withdrawal: No Any prior treatment program specific to substance use: Yes (multiple) Have you been hit, kicked, punched, or otherwise hurt by someone within the past year? If so, by whom?: No Do you feel safe in your current relationship?: No Current Relationship Is there a partner from a previous relationship who is making you feel unsafe now?: No Are you made to feel afraid or neglected: No Spiritual Healthcare Practices: Worship Christianity Healthcare Practices: Worship Cultural Healthcare Practices: None Advance Directives: No Advance Directives Information Provided: No Do you have thoughts of harming others: None Do you have a plan to hurt others: No Plan Recently lost weight without trying: No Eating poorly because of decreased appetite: No Nutrition Risks: No Nutritional Risk and Difficulty chewing Poor oral hygiene: No (Pt has no teeth; no dentures) service: No Sexual orientation: Straight/Heterosexual Meds Allergies Allergy/AdvReac Type Severity Reaction Status Date / Time tramadol [TRAMADOL] Allergy Intermediate HIVES, Verified 12/29/22 11:26 ITCHY lactose Allergy Unknown Unknown Verified 12/08/23 16:22 ibuprofen [From MOTRIN] AdvReac Intermediate STOMACH Verified 12/29/22 11:26 UPSET, ITCHY,DIFFICULTY BREATHING. valium Allergy Severe pruritus Uncoded 12/08/23 16:22 Active Medications: Current Medications Acetaminophen (Acetaminophen 325 Mg Tablet) 650 mg PO Q6H PRN PRN Reason: Headache/Pain Mild Scale (1-3) Last Admin: 12/08/23 23:24 Dose: 650 mg Al Hydroxide/Mg Hydroxide (Magnesium Hydrox/Alum Hydrox 30 Ml Oral.Susp) 30 ml PO Q6H PRN PRN Reason: Heartburn/Nausea Clonazepam (Clonazepam 0.5 Mg Tablet) 0.5 mg PO BID PRN PRN Reason: Anxiety Last Admin: 12/09/23 11:52 Dose: 0.5 mg Clonidine HCl (Clonidine Hcl 0.1 Mg Tablet) 0.1 mg PO BID PRN; Protocol PRN Reason: anxiety Last Admin: 12/09/23 09:29 Dose: 0.1 mg Cyclobenzaprine HCl (Cyclobenzaprine Hcl 10 Mg Tablet) 10 mg PO TID JOANA Last Admin: 12/09/23 09:30 Dose: 10 mg Duloxetine HCl (Duloxetine Hcl 20 Mg Capsule.Dr) 40 mg PO DAILY [facility] Last Admin: 12/09/23 09:30 Dose: 40 mg Gabapentin (Gabapentin 400 Mg Capsule) 800 mg PO TID [facility] Last Admin: 12/09/23 09:30 Dose: 800 mg Hydroxyzine HCl (Hydroxyzine Hcl 50 Mg Tablet) 50 mg PO Q6H PRN PRN Reason: Anxiety Magnesium Hydroxide (Milk Of Magnesia 30 Ml Oral.Susp) 30 ml PO DAILY PRN PRN Reason: Constipation Methadone HCl (Methadone Hcl 20 Mg/2 Ml Oral.Conc) 135 mg PO DAILY [facility] Nicotine (Nicotine 21 Mg Patch.Td24) 21 mg TRANSDERMA DAILY [facility] Last Admin: 12/09/23 09:30 Dose: 21 mg Nicotine Polacrilex (Nicotine Polacrilex Lozenge 4 Mg Lozenge) 4 mg BUCCAL Q2H PRN PRN Reason: Nicotine Cravings Quetiapine Fumarate (Quetiapine Fumarate 50 Mg Tablet) 50 mg PO TID PRN PRN Reason: agitation Trazodone HCl (Trazodone Hcl 50 Mg Tablet) 50 mg PO BEDTIME MRX1 PRN PRN Reason: Insomnia Last Admin: 12/08/23 23:24 Dose: 50 mg Home Medications ?Medication ?Instructions ?Recorded ?Confirmed ?Last Taken ?Type methadone 10 mg/5 mL oral solution 135 mg PO DAILY 07/29/22 12/09/23 12/08/23 History clonidine 0.1 mg PO BID PRN Anxiety 12/09/23 12/09/23 Unknown History cyclobenzaprine 10 mg PO TID 12/09/23 12/09/23 Unknown History duloxetine 40 mg PO DAILY 12/09/23 12/09/23 Unknown History hydroxyzine pamoate 50 mg PO Q6H PRN Anxiety 12/09/23 12/09/23 Unknown History quetiapine 50 mg PO TID PRN Agitation 12/09/23 12/09/23 Unknown History trazodone 50 mg PO BEDTIME PRN Insomnia 12/09/23 12/09/23 Unknown History Physical Exam Vital Signs and Narrative: Vital Signs: Last Vital Signs Temp 98.4 F 12/09/23 08:00 Pulse 58 12/09/23 08:00 Resp 19 12/09/23 08:00 BP 109/71 12/09/23 08:00 Pulse Ox 95 12/09/23 08:00 O2 Del Method Room Air 12/09/23 08:00 BMI result Body Mass Index 30.0 Patient declines physical examination Results Labs Labs: Laboratory Results - last 24 hr 12/09/23 09:35 Estimat Average Glucose 117 Hemoglobin A1c % 5.7 Magnesium 2.0 Triglycerides 196 H Cholesterol 154 LDL Cholesterol, Calc 72 HDL Cholesterol 43 Vitamin B12 345 Folate 12.6 TSH 4.71 H Free T4 0.79 Assessment and Plan (1) Medical clearance for psychiatric admission: Status: Acute Plan Pt is a 43-year-old male with a PMH significant for?polysubstance use disorder, untreated hepatitis-C, PTSD, and depression SI who is admitted to M3 psychiatry unit for increasing depression with SI with plan to overdose on medications. Patient has been feeling increasingly depressed secondary to homelessness, julita ing in a halfway, and problems with and children. Medical consult for admission H&P. Mood disorder Plan as per Psychiatry Hepatitis-C Patient tested positive for hep C with a high viral load during last admission on 12/29/2022 Reports has not sought treatment Should follow-up outpatient for treatment which can last 8-12 weeks Patient should be reminded he can transmit this to anyone he has sexual relations or shares needles with Subclinical hypothyroidism TSH mildly elevated 4.71 with T4 WNL at 0.79 Outpatient follow-up for repeat labs in 3-6 months Polysubstance use disorder Plan as per Psychiatry Thank you for allowing us to participate in the care of this patient. Signing off at this time. Please re-consult if any acute complaints or issues arise.
[2023-12-09 16:59] VITALS: BP 136/75; PULSE 73; RESP 18
[2023-12-09] MEDS: hydrOXYzine HCL 50 MG TABLET PO (17:00)
--- NOTE | 2023-12-09 17:41 | P.HPPS_ITS ---
HPI Date of Service: 12/09/23 Chief Complaint: depression, si, opiate use d/o, cocaine use d/o Sources of Information: patient interviewed, chart reviewed and crisis/core team assessment reviewed HPI Subjective Notes: Chávez Warning and Conditional Voluntary Healthcare Proxy: No Guardianship: No Medical Problems Affecting Mental Status: No Narrative: 43 yo male, history of depression, anxiety, polysubstance use disorder, transfer from [facility] for SI with plan to overdose on medications. Hx of past attempts. Reports relapse on crack, heroin and increase in depressive sx due to homelessness. Currently living in [facility]. Denies current supports of family and friends, although sister is reachable and concerned. Pt reports being estranged from his family and having no supports, not wanting to interact with others. Reports sisters children broke his phone, were disrespectful, took his medications and kicked him out of the family home in October 2023. He reports he was told he was kicked out due to DCF telling sister he had to leave or the children would be taken, however, other siblings remain in the home. Pt would like a referral to [facility] in [place] as he has had success there and feels that it is best for him to leave the area and begin where he has had success in the past. Reports sleep is improved in hospital, appetite is variable, denies SI in hospital, feels safe here and no current AH/VH. Reports sx exacerbation when on the street. Past Psychiatric History: IP: Many he reports OP: N Methadone program Trials: several SA: hx Medical Evaluation Reviewed: Yes [facility] Medical History Cigarette smoker Opioid dependence Polysubstance abuse Cocaine use disorder in remission PTSD (post-traumatic stress disorder) MDD (major depressive disorder), recurrent episode, moderate Family History: deferred Social History: Currently homeless; was living with sister Born in [place], to in 1983. 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 in [facility]-their mother left him for his best friend SSI 7 years incarcerated Homeless x 3 years Substance History: Cocaine, heroin Trauma History: +hx for trauma; does not disclose Diagnostics Vital Signs (24Hr): Vital Signs - 24 hr 12/08/23 21:10 12/09/23 08:00 12/09/23 16:59 Temperature 98.3 F 98.4 F Pulse Rate 68 58 73 Respiratory Rate 19 18 Blood Pressure 133/75 109/71 136/75 Pulse Oximetry 95 Oxygen Delivery Method Room Air BMI result Body Mass Index 30.0 Labs Labs: Laboratory Results - last 48 hr 12/09/23 09:35 Estimat Average Glucose 117 Hemoglobin A1c % 5.7 Magnesium 2.0 Triglycerides 196 H Cholesterol 154 LDL Cholesterol, Calc 72 HDL Cholesterol 43 Vitamin B12 345 Folate 12.6 TSH 4.71 H Free T4 0.79 Toxicology-opiates,methadone,fentanyl,cocaine, cannabis Meds/Allergies Meds Home Medications ?Medication ?Instructions ?Recorded ?Confirmed ?Type methadone 10 mg/5 mL oral solution 135 mg PO DAILY 07/29/22 12/09/23 History clonidine 0.1 mg PO BID PRN Anxiety 12/09/23 12/09/23 History cyclobenzaprine 10 mg PO TID 12/09/23 12/09/23 History duloxetine 40 mg PO DAILY 12/09/23 12/09/23 History hydroxyzine pamoate 50 mg PO Q6H PRN Anxiety 12/09/23 12/09/23 History quetiapine 50 mg PO TID PRN Agitation 12/09/23 12/09/23 History trazodone 50 mg PO BEDTIME PRN Insomnia 12/09/23 12/09/23 History Allergies Allergies Allergy/AdvReac Type Severity Reaction Status Date / Time tramadol [TRAMADOL] Allergy Intermediate HIVES, Verified 12/29/22 11:26 ITCHY lactose Allergy Unknown Unknown Verified 12/08/23 16:22 ibuprofen [From MOTRIN] AdvReac Intermediate STOMACH Verified 12/29/22 11:26 UPSET, ITCHY,DIFFICULTY BREATHING. valium Allergy Severe pruritus Uncoded 12/08/23 16:22 Mental Status Exam Mental Status Exam Patient Appearance: Fatigued Patient Orientation: Person, Place, Time and Situation Level of Consciousness: Alert Patient Behavior: Appropriate, Talkative, Cooperative and Good Eye Contact Mood Description: Depressed Affect Description: Flat Patient Cognition Impaired: No Ability to Follow Directions: Good Speech Pattern: Spontaneous Speech Memory Description: Intact Hallucinations: None Delusions: Not Present Thought Process: Rumination Thought Content: positive for Circumstantial, positive for Perseveration and positive for Suicidal Ideation (denies) Depressive Symptoms: Increased Irritability, Hopelessness, Unhappiness, Increased Fatigue and Thoughts of /Suicide (denies) Judgement: Fair Assessment & Plan Assessment & Plan (1) MDD (major depressive disorder), recurrent episode, moderate: Status: Acute Code(s): F33.1 - Major depressive disorder, recurrent, moderate (2) PTSD (post-traumatic stress disorder): Status: Acute Code(s): F43.10 - Post-traumatic stress disorder, unspecified (3) Cocaine use disorder in remission: Status: Acute Code(s): F14.91 - Cocaine use, unspecified, in remission (4) Opioid dependence: Status: Acute Code(s): F11.20 - Opioid dependence, uncomplicated Plan 43 yo male, history of PTSD, major depression, polysubstance use disorder reporting SI with plan to overdose on medications. Plan: Pt asks for no medication changes at this time CSS referrals Diagnostics as needed. Collateral contacts Diagnostics Patient educated on: therapeutic strategies Informed Consent: understands Reason for continued inpatient stay Substantial Risk for: rapid decompensation Statement Statement: I have reviewed the history and physical and performed a pertinent examination on my patient. No changes have occurred unless specified. If the History and Physical was not performed prior to admission, the Hospitalist's service will be consulted for completing the admission physical. Time Spent With Patient Time: Total time managing care of this patient today ____ minutes.
[2023-12-09 21:22] VITALS: BP 113/74; PULSE 68; RESP 16; TEMP 36.8; O2SAT 100
[2023-12-09] MEDS: QUEtiapine Fumarate 50 MG TABLET PO (21:30)
[2023-12-10 08:00] VITALS: BP 132/75; PULSE 81; RESP 16; TEMP 36.4; O2SAT 96
[2023-12-10 08:31] LABS: Estimated Average Glucose 114 mg/dL; Hemoglobin A1c % 5.6 % (<6.0)
[2023-12-10 08:37] LABS: Cholesterol 148 mg/dL (<200); HDL Cholesterol 33 mg/dL (>40); LDL Cholesterol Calculated 61 mg/dL (<100); Triglycerides 270 mg/dL (<150)
[2023-12-10] MEDS: methADONE HCl 20 MG/2 ML ORAL.CONC 135 MG PO (08:40)
[2023-12-10] MEDS: Cyclobenzaprine HCl 10 MG TABLET PO ×3 (08:43→21:16)
[2023-12-10] MEDS: Gabapentin 400 MG CAPSULE 800 MG PO ×3 (08:43→21:16)
[2023-12-10] MEDS: DULoxetine HCl 20 MG CAPSULE.DR 40 MG PO (08:43)
[2023-12-10] MEDS: clonazePAM 0.5 MG TABLET PO ×2 (08:49→18:21)
[2023-12-10 08:52] LABS: Thyroid Stimulating Hormone 3.21 uIU/mL (0.32-4.0)
[2023-12-10 09:04] LABS: Folate 9.4 ng/mL (> or = 4.0); Vitamin B12 329 pg/mL (200-900)
--- NOTE | 2023-12-10 09:46 | HO.PSYCHPN ---
Subjective Subjective Date of Service: 12/10/23 Reason For Visit: depression, si, opiate use d/o, cocaine use d/o Interim History: met with patient; discussed with team pt says he's still depressed and with SI; he reports depression despite taking cymbalta as an outpt and agrees to having dose increased Mental Status Exam Mental Status Exam Narrative: Pt is alert and oriented; behavior is tired, cooperative, and calm; patient is not in distress; dressed in casual attire, tatooed arms, long hair, disheveled; mood is described as depressed and affect congruent; eye contact appropriate; Speech is normal rate, volume and prosody and not pressured; psychomotor retardation present; thought process is goal directed; Thought content is on depression; otherwise pertinent to relevant topics and without any delusional content, paranoid ideations or grandiosity; + for sI; no HI; There is no evidence of perceptual disturbance. Patients insight and judgment impaired. Diagnostics Vital Signs (24Hr): Vital Signs - 24 hr 12/09/23 16:59 12/09/23 21:22 12/10/23 08:00 Temperature 98.2 F 97.6 F Pulse Rate 73 68 81 Respiratory Rate 18 16 16 Blood Pressure 136/75 113/74 132/75 Pulse Oximetry 100 96 Oxygen Delivery Method Room Air Room Air BMI result Body Mass Index 30.0 Labs Labs: Laboratory Results - last 48 hr 12/09/23 12/10/23 09:35 07:57 Estimat Average Glucose 117 114 Hemoglobin A1c % 5.7 5.6 Magnesium 2.0 Triglycerides 196 H 270 H Cholesterol 154 148 LDL Cholesterol, Calc 72 61 HDL Cholesterol 43 33 L Vitamin B12 345 329 Folate 12.6 9.4 TSH 4.71 H 3.21 Free T4 0.79 Medications Medications Current Medications Acetaminophen (Acetaminophen 325 Mg Tablet) 650 mg PO Q6H PRN PRN Reason: Headache/Pain Mild Scale (1-3) Last Admin: 12/08/23 23:24 Dose: 650 mg Al Hydroxide/Mg Hydroxide (Magnesium Hydrox/Alum Hydrox 30 Ml Oral.Susp) 30 ml PO Q6H PRN PRN Reason: Heartburn/Nausea Clonazepam (Clonazepam 0.5 Mg Tablet) 0.5 mg PO BID PRN PRN Reason: Anxiety Last Admin: 12/10/23 08:49 Dose: 0.5 mg Clonidine HCl (Clonidine Hcl 0.1 Mg Tablet) 0.1 mg PO BID PRN; Protocol PRN Reason: anxiety Last Admin: 12/09/23 17:00 Dose: 0.1 mg Cyclobenzaprine HCl (Cyclobenzaprine Hcl 10 Mg Tablet) 10 mg PO TID [facility] Last Admin: 12/10/23 08:43 Dose: 10 mg Duloxetine HCl (Duloxetine Hcl 20 Mg Capsule.Dr) 40 mg PO DAILY [facility] Last Admin: 12/10/23 08:43 Dose: 40 mg Gabapentin (Gabapentin 400 Mg Capsule) 800 mg PO TID [facility] Last Admin: 12/10/23 08:43 Dose: 800 mg Hydroxyzine HCl (Hydroxyzine Hcl 50 Mg Tablet) 50 mg PO Q6H PRN PRN Reason: Anxiety Last Admin: 12/09/23 17:00 Dose: 50 mg Magnesium Hydroxide (Milk Of Magnesia 30 Ml Oral.Susp) 30 ml PO DAILY PRN PRN Reason: Constipation Methadone HCl (Methadone Hcl 20 Mg/2 Ml Oral.Conc) 135 mg PO DAILY [facility] Last Admin: 12/10/23 08:40 Dose: 135 mg Nicotine (Nicotine 21 Mg Patch.Td24) 21 mg TRANSDERMA DAILY [facility] Last Admin: 12/10/23 08:43 Dose: Not Given Nicotine Polacrilex (Nicotine Polacrilex Lozenge 4 Mg Lozenge) 4 mg BUCCAL Q2H PRN PRN Reason: Nicotine Cravings Quetiapine Fumarate (Quetiapine Fumarate 50 Mg Tablet) 50 mg PO TID PRN PRN Reason: agitation Last Admin: 12/09/23 21:30 Dose: 50 mg Trazodone HCl (Trazodone Hcl 50 Mg Tablet) 50 mg PO BEDTIME MRX1 PRN PRN Reason: Insomnia Last Admin: 12/08/23 23:24 Dose: 50 mg Allergies Allergies Allergy/AdvReac Type Severity Reaction Status Date / Time tramadol [TRAMADOL] Allergy Intermediate HIVES, Verified 12/29/22 11:26 ITCHY lactose Allergy Unknown Unknown Verified 12/08/23 16:22 ibuprofen [From MOTRIN] AdvReac Intermediate STOMACH Verified 12/29/22 11:26 UPSET, ITCHY,DIFFICULTY BREATHING. valium Allergy Severe pruritus Uncoded 12/08/23 16:22 Assessment & Plan Assessment & Plan (1) MDD (major depressive disorder), recurrent episode, moderate: Status: Acute Code(s): F33.1 - Major depressive disorder, recurrent, moderate (2) PTSD (post-traumatic stress disorder): Status: Acute Code(s): F43.10 - Post-traumatic stress disorder, unspecified (3) Cocaine use disorder in remission: Status: Acute Code(s): F14.91 - Cocaine use, unspecified, in remission (4) Opioid dependence: Status: Acute Code(s): F11.20 - Opioid dependence, uncomplicated Plan 43 yo male, history of PTSD, major depression, polysubstance use disorder reporting SI with plan to overdose on medications. Hospital course: 12/09 continued depression; agrees to increase Cymbalta which he taks as outpt Plan: CV q15min Increase Cymbalta to 60mg (was on 40mg but remained depressed) CSS referrals Diagnostics as needed. Collateral contacts Diagnostics Patient educated on: diagnosis and medication risk/benefits Informed Consent: understands Reason for continued inpatient stay Substantial Risk for: rapid decompensation Time Spent With Patient Time: Total time managing care of this patient today ____ minutes.
[2023-12-10 16:06] VITALS: BP 135/80; PULSE 90; RESP 16; TEMP 36; O2SAT 95
[2023-12-10] MEDS: Nicotine Polacrilex Lozenge 4 MG LOZENGE BUCCAL (18:23)
[2023-12-10 20:00] VITALS: BP 134/69; PULSE 82; RESP 18; TEMP 36.4; O2SAT 97
[2023-12-10] MEDS: hydrOXYzine HCL 50 MG TABLET PO (21:16)
[2023-12-10] MEDS: QUEtiapine Fumarate 50 MG TABLET PO (21:17)
[2023-12-11 08:00] VITALS: BP 158/92; PULSE 66; RESP 16; TEMP 36.7; O2SAT 98
[2023-12-11] MEDS: methADONE HCl 20 MG/2 ML ORAL.CONC 135 MG PO (08:11)
[2023-12-11] MEDS: DULoxetine HCl 60 MG CAPSULE.DR PO (08:14)
[2023-12-11] MEDS: Gabapentin 400 MG CAPSULE 800 MG PO ×3 (08:14→21:07)
[2023-12-11] MEDS: Cyclobenzaprine HCl 10 MG TABLET PO ×3 (08:14→21:08)
[2023-12-11] MEDS: Nicotine 21 MG PATCH.TD24 TRANSDERMA (08:15)
[2023-12-11] MEDS: clonazePAM 0.5 MG TABLET PO ×2 (08:21→13:50)
--- NOTE | 2023-12-11 10:28 | P.PNPSI_ITS ---
Subjective Subjective Date of Service: 12/11/23 Reason For Visit: depression, si, opiate use d/o, cocaine use d/o Interim History: met with patient; discussed with team pt says he's still suicidal, but remains vague. However, he is social in [place], talking, joking around with peers. No other complaints; tolerating increased Cymbalta Mental Status Exam Mental Status Exam Narrative: Pt is alert and oriented; behavior cooperative, and calm, friendly, jovial at times; patient is not in distress; dressed in casual attire, tatooed arms, long hair, disheveled; mood is described as depressed but affect bright, happy; eye contact appropriate; Speech is normal rate, volume and prosody and not pressured; psychomotor retardation present; thought process is goal directed; Thought content is on depression; otherwise pertinent to relevant topics and without any delusional content, paranoid ideations or grandiosity; reports + for sI; no HI; There is no evidence of perceptual disturbance. Patients insight and judgment impaired. Diagnostics Vital Signs (24Hr): Vital Signs - 24 hr 12/10/23 16:06 12/10/23 20:00 12/11/23 08:00 Temperature 96.8 F 97.5 F 98.1 F Pulse Rate 90 82 66 Respiratory Rate 16 18 16 Blood Pressure 135/80 134/69 158/92 H Pulse Oximetry 95 97 98 Oxygen Delivery Method Room Air Room Air Room Air BMI result Body Mass Index 30.0 Labs Labs: Laboratory Results - last 48 hr 12/09/23 12/10/23 09:35 07:57 Estimat Average Glucose 114 Hemoglobin A1c % 5.6 Triglycerides 270 H Cholesterol 148 LDL Cholesterol, Calc 61 HDL Cholesterol 33 L Vitamin B12 345 329 Folate 12.6 9.4 TSH 4.71 H 3.21 Free T4 0.79 Medications Medications Current Medications Acetaminophen (Acetaminophen 325 Mg Tablet) 650 mg PO Q6H PRN PRN Reason: Headache/Pain Mild Scale (1-3) Last Admin: 12/08/23 23:24 Dose: 650 mg Al Hydroxide/Mg Hydroxide (Magnesium Hydrox/Alum Hydrox 30 Ml Oral.Susp) 30 ml PO Q6H PRN PRN Reason: Heartburn/Nausea Clonazepam (Clonazepam 0.5 Mg Tablet) 0.5 mg PO BID PRN PRN Reason: Anxiety Last Admin: 12/11/23 08:21 Dose: 0.5 mg Clonidine HCl (Clonidine Hcl 0.1 Mg Tablet) 0.1 mg PO BID PRN; Protocol PRN Reason: anxiety Last Admin: 12/09/23 17:00 Dose: 0.1 mg Cyclobenzaprine HCl (Cyclobenzaprine Hcl 10 Mg Tablet) 10 mg PO TID [facility] Last Admin: 12/11/23 08:14 Dose: 10 mg Duloxetine HCl (Duloxetine Hcl 60 Mg Capsule.Dr) 60 mg PO DAILY [facility] Last Admin: 12/11/23 08:14 Dose: 60 mg Gabapentin (Gabapentin 400 Mg Capsule) 800 mg PO TID [facility] Last Admin: 12/11/23 08:14 Dose: 800 mg Hydroxyzine HCl (Hydroxyzine Hcl 50 Mg Tablet) 50 mg PO Q6H PRN PRN Reason: Anxiety Last Admin: 12/10/23 21:16 Dose: 50 mg Magnesium Hydroxide (Milk Of Magnesia 30 Ml Oral.Susp) 30 ml PO DAILY PRN PRN Reason: Constipation Methadone HCl (Methadone Hcl 20 Mg/2 Ml Oral.Conc) 135 mg PO DAILY [facility] Last Admin: 12/11/23 08:11 Dose: 135 mg Nicotine (Nicotine 21 Mg Patch.Td24) 21 mg TRANSDERMA DAILY [facility] Last Admin: 12/11/23 08:15 Dose: 21 mg Nicotine Polacrilex (Nicotine Polacrilex Lozenge 4 Mg Lozenge) 4 mg BUCCAL Q2H PRN PRN Reason: Nicotine Cravings Last Admin: 12/10/23 18:23 Dose: 4 mg Quetiapine Fumarate (Quetiapine Fumarate 50 Mg Tablet) 50 mg PO TID PRN PRN Reason: agitation Last Admin: 12/10/23 21:17 Dose: 50 mg Trazodone HCl (Trazodone Hcl 50 Mg Tablet) 50 mg PO BEDTIME MRX1 PRN PRN Reason: Insomnia Last Admin: 12/08/23 23:24 Dose: 50 mg Allergies Allergies Allergy/AdvReac Type Severity Reaction Status Date / Time tramadol [TRAMADOL] Allergy Intermediate HIVES, Verified 12/29/22 11:26 ITCHY ibuprofen [From MOTRIN] AdvReac Intermediate STOMACH Verified 12/29/22 11:26 UPSET, ITCHY,DIFFICULTY BREATHING. valium Allergy Severe pruritus Uncoded 12/08/23 16:22 Assessment & Plan Assessment & Plan (1) MDD (major depressive disorder), recurrent episode, moderate: Status: Acute Code(s): F33.1 - Major depressive disorder, recurrent, moderate (2) PTSD (post-traumatic stress disorder): Status: Acute Code(s): F43.10 - Post-traumatic stress disorder, unspecified (3) Cocaine use disorder in remission: Status: Acute Code(s): F14.91 - Cocaine use, unspecified, in remission (4) Opioid dependence: Status: Acute Code(s): F11.20 - Opioid dependence, uncomplicated Plan 43 yo male, history of PTSD, major depression, polysubstance use disorder reporting SI with plan to overdose on medications. Hospital course: 12/09 continued depression; agrees to increase Cymbalta which he taks as outpt 12/10 reports depression and SI but with incongruent presentation as he's pleasant, jovial, joking around with peers in [place] Plan: CV q15min Increase Cymbalta to 60mg (was on 40mg but remained depressed) CSS referrals Diagnostics as needed. Collateral contacts Diagnostics Patient educated on: diagnosis and medication risk/benefits Informed Consent: understands, does not understand and further education needed Reason for continued inpatient stay Substantial Risk for: rapid decompensation Time Spent With Patient Time: Total time managing care of this patient today ____ minutes.
[2023-12-11] MEDS: Nicotine Polacrilex 2 MG GUM 4 MG BUCCAL ×2 (16:30→21:14)
[2023-12-11 20:00] VITALS: BP 157/86; PULSE 72; RESP 17; TEMP 36.7; O2SAT 98
[2023-12-11] MEDS: QUEtiapine Fumarate 50 MG TABLET PO (21:07)
[2023-12-11] MEDS: cloNIDine HCL 0.1 MG TABLET PO (21:07)
[2023-12-11] MEDS: hydrOXYzine HCL 50 MG TABLET PO (21:08)
--- NOTE | 2023-12-12 | ECG_ITS ---
Test Reason : QTC Blood Pressure : / mmHG Vent. Rate : 058 BPM Atrial Rate : 058 BPM P-R Int : 124 ms QRS Dur : 088 ms QT Int : 458 ms P-R-T Axes : 049 065 057 degrees QTc Int : 449 ms Sinus bradycardia Otherwise normal ECG When compared with ECG of 24-MAY-2017 12:33, No significant change was found Referred By: Fang Arnold Electronically Signed By:Rodger Rivera
[2023-12-12 08:00] VITALS: BP 147/75; PULSE 61; RESP 18; TEMP 36.6; O2SAT 98
[2023-12-12] MEDS: clonazePAM 0.5 MG TABLET PO ×2 (08:59→16:37)
[2023-12-12] MEDS: Gabapentin 400 MG CAPSULE 800 MG PO ×3 (08:59→22:07)
[2023-12-12] MEDS: Cyclobenzaprine HCl 10 MG TABLET PO ×3 (08:59→22:07)
[2023-12-12] MEDS: DULoxetine HCl 60 MG CAPSULE.DR PO (08:59)
[2023-12-12] MEDS: Nicotine 21 MG PATCH.TD24 TRANSDERMA (09:00)
[2023-12-12] MEDS: methADONE HCl 20 MG/2 ML ORAL.CONC 135 MG PO (09:00)
[2023-12-12] MEDS: QUEtiapine Fumarate 50 MG TABLET PO ×2 (10:33→22:13)
[2023-12-12 11:15] VITALS: BP 116/67; PULSE 96; RESP 18; TEMP 36.9; O2SAT 95
--- NOTE | 2023-12-12 14:49 | HO.PSYCHPN ---
Subjective Subjective Date of Service: 12/12/23 Reason For Visit: depression, si, opiate use d/o, cocaine use d/o Subjective Notes: Conditional Voluntary Healthcare Proxy: No Guardianship: No Medical Problems Affecting Mental Status: No Interim History: Section 12 B to 12/13/23. Pt reports he continues to want to participate in treatment and signed a CV as a result. Team reports he is fixated on Klonopin dosing. They also report participation in an argument with peers over the weekend which turned into a fight with no contact made regarding cultural issues with one male and one female peer. Cymbalta increased over the weekend to 60 mg to address ongoing depression. EKG will be repeated as [facility] EKG indicated QTc 489 with prolongation. Pt continues with depressive sx, SI. Tolerating increase dosage of Cymbalta. Medication Compliance: Yes Side effects from medications: Yes (sedated today-?methadone, ?klonopin) Attending Groups: No Review of Systems Acute medical concerns: No Medical Review of Systems: unchanged Review of Systems Review of Systems Yes all other systems are reviewed and are negative (denies) Mental Status Exam Mental Status Exam Patient Appearance: Fatigued Patient Orientation: Person, Place, Time and Situation Level of Consciousness: Alert Patient Behavior: Talkative, Cooperative, Asleep, Sedated, Fatigued and Isolative Mood Description: Withdrawn and Flat Affect Description: Flat Patient Cognition Impaired: No Ability to Follow Directions: Good Speech Pattern: Appropriate, Spontaneous Speech, Coherent and Soft-Spoken Memory Description: Intact Hallucinations: None Delusions: Not Present Thought Process: Distracted Thought Content: positive for Suicidal Ideation Depressive Symptoms: Increased Fatigue and Thoughts of /Suicide Judgement: Good Diagnostics Vital Signs (24Hr): Vital Signs - 24 hr 12/11/23 20:00 12/12/23 08:00 Temperature 98.0 F 97.9 F Pulse Rate 72 61 Respiratory Rate 17 18 Blood Pressure 157/86 H 147/75 H Pulse Oximetry 98 98 Oxygen Delivery Method Room Air Room Air BMI result Body Mass Index 30.0 Medications Medications Current Medications Acetaminophen (Acetaminophen 325 Mg Tablet) 650 mg PO Q6H PRN PRN Reason: Headache/Pain Mild Scale (1-3) Last Admin: 12/08/23 23:24 Dose: 650 mg Al Hydroxide/Mg Hydroxide (Magnesium Hydrox/Alum Hydrox 30 Ml Oral.Susp) 30 ml PO Q6H PRN PRN Reason: Heartburn/Nausea Clonazepam (Clonazepam 0.5 Mg Tablet) 0.5 mg PO BID PRN PRN Reason: Anxiety Last Admin: 12/12/23 08:59 Dose: 0.5 mg Clonidine HCl (Clonidine Hcl 0.1 Mg Tablet) 0.1 mg PO BID PRN; Protocol PRN Reason: anxiety Last Admin: 12/11/23 21:07 Dose: 0.1 mg Cyclobenzaprine HCl (Cyclobenzaprine Hcl 10 Mg Tablet) 10 mg PO TID [facility] Last Admin: 12/12/23 08:59 Dose: 10 mg Duloxetine HCl (Duloxetine Hcl 60 Mg Capsule.Dr) 60 mg PO DAILY [facility] Last Admin: 12/12/23 08:59 Dose: 60 mg Gabapentin (Gabapentin 400 Mg Capsule) 800 mg PO TID [facility] Last Admin: 12/12/23 08:59 Dose: 800 mg Hydroxyzine HCl (Hydroxyzine Hcl 50 Mg Tablet) 50 mg PO Q6H PRN PRN Reason: Anxiety Last Admin: 12/11/23 21:08 Dose: 50 mg Magnesium Hydroxide (Milk Of Magnesia 30 Ml Oral.Susp) 30 ml PO DAILY PRN PRN Reason: Constipation Methadone HCl (Methadone Hcl 20 Mg/2 Ml Oral.Conc) 135 mg PO DAILY [facility] Last Admin: 12/12/23 09:00 Dose: 135 mg Nicotine (Nicotine 21 Mg Patch.Td24) 21 mg TRANSDERMA DAILY [facility] Last Admin: 12/12/23 09:00 Dose: 21 mg Nicotine Polacrilex (Nicotine Polacrilex 2 Mg Gum) 4 mg BUCCAL Q2H PRN PRN Reason: nicotine cravings Last Admin: 12/11/23 21:14 Dose: 4 mg Quetiapine Fumarate (Quetiapine Fumarate 50 Mg Tablet) 50 mg PO TID PRN PRN Reason: agitation Last Admin: 12/12/23 10:33 Dose: 50 mg Trazodone HCl (Trazodone Hcl 50 Mg Tablet) 50 mg PO BEDTIME MRX1 PRN PRN Reason: Insomnia Last Admin: 12/08/23 23:24 Dose: 50 mg Allergies Allergies Allergy/AdvReac Type Severity Reaction Status Date / Time tramadol [TRAMADOL] Allergy Intermediate HIVES, Verified 12/29/22 11:26 ITCHY ibuprofen [From MOTRIN] AdvReac Intermediate STOMACH Verified 12/29/22 11:26 UPSET, ITCHY,DIFFICULTY BREATHING. valium Allergy Severe pruritus Uncoded 12/08/23 16:22 Assessment & Plan Assessment & Plan (1) MDD (major depressive disorder), recurrent episode, moderate: Status: Acute Code(s): F33.1 - Major depressive disorder, recurrent, moderate (2) PTSD (post-traumatic stress disorder): Status: Acute Code(s): F43.10 - Post-traumatic stress disorder, unspecified (3) Cocaine use disorder in remission: Status: Acute Code(s): F14.91 - Cocaine use, unspecified, in remission (4) Opioid dependence: Status: Acute Code(s): F11.20 - Opioid dependence, uncomplicated Plan 43 yo male, history of PTSD, major depression, polysubstance use disorder reporting SI with plan to overdose on medications. Hospital course: 12/09 continued depression; agrees to increase Cymbalta which he taks as outpt 12/10 reports depression and SI but with incongruent presentation as he's pleasant, jovial, joking around with peers in [place] 12/11 repeat EKG, [employer] AP[employer]ICE QTc 489 with prolongation continue regime Plan: CV q15min Increase Cymbalta to 60mg (was on 40mg but remained depressed) [facility] referrals Diagnostics as needed. Collateral contacts Diagnostics Reason for continued inpatient stay Substantial Risk for: rapid decompensation Time Spent With Patient Time: Total time managing care of this patient today ____ minutes.
[2023-12-12] MEDS: Acetaminophen 325 MG TABLET 650 MG PO (16:37)
[2023-12-12] MEDS: Nicotine Polacrilex 2 MG GUM 4 MG BUCCAL (18:11)
[2023-12-12 20:00] VITALS: BP 117/63; PULSE 83; RESP 14; TEMP 37.1; O2SAT 95
[2023-12-12] MEDS: hydrOXYzine HCL 50 MG TABLET PO (23:25)
[2023-12-13 08:00] VITALS: BP 134/84; PULSE 99; RESP 18; TEMP 36.7; O2SAT 96
[2023-12-13] MEDS: Nicotine 21 MG PATCH.TD24 TRANSDERMA (08:26)
[2023-12-13] MEDS: clonazePAM 0.5 MG TABLET PO ×3 (08:26→21:09)
[2023-12-13] MEDS: Cyclobenzaprine HCl 10 MG TABLET PO ×3 (08:26→21:05)
[2023-12-13] MEDS: DULoxetine HCl 60 MG CAPSULE.DR PO (08:26)
[2023-12-13] MEDS: Gabapentin 400 MG CAPSULE 800 MG PO ×3 (08:26→21:05)
[2023-12-13] MEDS: methADONE HCl 20 MG/2 ML ORAL.CONC 135 MG PO (08:27)
[2023-12-13] MEDS: Nicotine Polacrilex 2 MG GUM 4 MG BUCCAL (08:31)
[2023-12-13 13:40] VITALS: BP 142/87; PULSE 73; RESP 18
[2023-12-13] MEDS: cloNIDine HCL 0.1 MG TABLET PO (13:41)
[2023-12-13] MEDS: hydrOXYzine HCL 50 MG TABLET PO (13:41)
[2023-12-13] MEDS: Divalproex Sodium 250 MG TABLET.DR PO ×2 (17:44→21:05)
--- NOTE | 2023-12-13 19:49 | HO.PSYCHPN ---
Subjective Subjective Date of Service: 12/13/23 Reason For Visit: depression, si, opiate use d/o, cocaine use d/o Subjective Notes: Conditional Voluntary Healthcare Proxy: No Guardianship: No Medical Problems Affecting Mental Status: No Interim History: Discussed anxiety mgt with pt. He is asking to increase Klonopin. Team reports an increase in prn usage. Discussed a trial of Valproate, low dose, tid to help with sx mgt. He agrees. Pt continues to ask for referral to CSS. Medication Compliance: Yes Side effects from medications: No Attending Groups: Intermittent Review of Systems Acute medical concerns: No Medical Review of Systems: unchanged Review of Systems Review of Systems chronic back pain from disc rupture. Mental Status Exam Mental Status Exam Patient Appearance: Fatigued Patient Orientation: Person, Place, Time and Situation Level of Consciousness: Alert Patient Behavior: Talkative, Cooperative, Asleep, Sedated, Fatigued and Isolative Mood Description: Withdrawn and Flat Affect Description: Flat Patient Cognition Impaired: No Ability to Follow Directions: Good Speech Pattern: Appropriate, Spontaneous Speech, Coherent and Soft-Spoken Memory Description: Intact Hallucinations: None Delusions: Not Present Thought Process: Distracted Thought Content: positive for Suicidal Ideation Depressive Symptoms: Increased Fatigue and Thoughts of /Suicide Judgement: Good Diagnostics Vital Signs (24Hr): Vital Signs - 24 hr 12/12/23 20:00 12/13/23 08:00 12/13/23 13:40 Temperature 98.7 F 98.0 F Pulse Rate 83 99 73 Respiratory Rate 14 18 18 Blood Pressure 117/63 134/84 142/87 H Pulse Oximetry 95 96 Oxygen Delivery Method Room Air Room Air BMI result Body Mass Index 30.0 Medications Medications Current Medications Acetaminophen (Acetaminophen 325 Mg Tablet) 650 mg PO Q6H PRN PRN Reason: Headache/Pain Mild Scale (1-3) Last Admin: 12/12/23 16:37 Dose: 650 mg Al Hydroxide/Mg Hydroxide (Magnesium Hydrox/Alum Hydrox 30 Ml Oral.Susp) 30 ml PO Q6H PRN PRN Reason: Heartburn/Nausea Clonazepam (Clonazepam 0.5 Mg Tablet) 0.5 mg PO BID PRN PRN Reason: Anxiety Last Admin: 12/13/23 15:08 Dose: 0.5 mg Clonidine HCl (Clonidine Hcl 0.1 Mg Tablet) 0.1 mg PO BID PRN; Protocol PRN Reason: anxiety Last Admin: 12/13/23 13:41 Dose: 0.1 mg Cyclobenzaprine HCl (Cyclobenzaprine Hcl 10 Mg Tablet) 10 mg PO TID [facility] Last Admin: 12/13/23 15:05 Dose: 10 mg Divalproex Sodium (Divalproex Sodium 250 Mg Tablet.Dr) 250 mg PO TID [facility] Last Admin: 12/13/23 17:44 Dose: 250 mg Duloxetine HCl (Duloxetine Hcl 60 Mg Capsule.Dr) 60 mg PO DAILY [facility] Last Admin: 12/13/23 08:26 Dose: 60 mg Gabapentin (Gabapentin 400 Mg Capsule) 800 mg PO TID [facility] Last Admin: 12/13/23 15:05 Dose: 800 mg Hydroxyzine HCl (Hydroxyzine Hcl 50 Mg Tablet) 50 mg PO Q6H PRN PRN Reason: Anxiety Last Admin: 12/13/23 13:41 Dose: 50 mg Magnesium Hydroxide (Milk Of Magnesia 30 Ml Oral.Susp) 30 ml PO DAILY PRN PRN Reason: Constipation Methadone HCl (Methadone Hcl 20 Mg/2 Ml Oral.Conc) 135 mg PO DAILY [facility] Last Admin: 12/13/23 08:27 Dose: 135 mg Nicotine (Nicotine 21 Mg Patch.Td24) 21 mg TRANSDERMA DAILY [facility] Last Admin: 12/13/23 08:26 Dose: 21 mg Nicotine Polacrilex (Nicotine Polacrilex 2 Mg Gum) 4 mg BUCCAL Q2H PRN PRN Reason: nicotine cravings Last Admin: 12/13/23 08:31 Dose: 4 mg Quetiapine Fumarate (Quetiapine Fumarate 50 Mg Tablet) 50 mg PO TID PRN PRN Reason: agitation Last Admin: 12/12/23 22:13 Dose: 50 mg Trazodone HCl (Trazodone Hcl 50 Mg Tablet) 50 mg PO BEDTIME MRX1 PRN PRN Reason: Insomnia Last Admin: 12/08/23 23:24 Dose: 50 mg Allergies Allergies Allergy/AdvReac Type Severity Reaction Status Date / Time tramadol [TRAMADOL] Allergy Intermediate HIVES, Verified 12/29/22 11:26 ITCHY ibuprofen [From MOTRIN] AdvReac Intermediate STOMACH Verified 12/29/22 11:26 UPSET, ITCHY,DIFFICULTY BREATHING. valium Allergy Severe pruritus Uncoded 12/08/23 16:22 Assessment & Plan Assessment & Plan (1) MDD (major depressive disorder), recurrent episode, moderate: Status: Acute Code(s): F33.1 - Major depressive disorder, recurrent, moderate (2) PTSD (post-traumatic stress disorder): Status: Acute Code(s): F43.10 - Post-traumatic stress disorder, unspecified (3) Cocaine use disorder in remission: Status: Acute Code(s): F14.91 - Cocaine use, unspecified, in remission (4) Opioid dependence: Status: Acute Code(s): F11.20 - Opioid dependence, uncomplicated Plan 43 yo male, history of PTSD, major depression, polysubstance use disorder reporting SI with plan to overdose on medications. Hospital course: 12/09 continued depression; agrees to increase Cymbalta which he taks as outpt 12/10 reports depression and SI but with incongruent presentation as he's pleasant, jovial, joking around with peers in [place] 12/11 repeat EKG, [employer] QTc 489 with prolongation continue regime 12/12 EKG QTc 449 Depakote 250 mg tid Plan: CV q15min Increase Cymbalta to 60mg (was on 40mg but remained depressed) [facility] referrals Diagnostics as needed. Collateral contacts Diagnostics Reason for continued inpatient stay Substantial Risk for: rapid decompensation and med/psych decompensation Time Spent With Patient Time: Total time managing care of this patient today ____ minutes.
[2023-12-13 20:00] VITALS: BP 133/79; PULSE 92; RESP 16; TEMP 36.6; O2SAT 98
[2023-12-13] MEDS: Acetaminophen 325 MG TABLET 650 MG PO (21:08)
[2023-12-13] MEDS: traZODone HCL 50 MG TABLET PO (21:12)
[2023-12-14 08:35] VITALS: BP 134/81; PULSE 75; RESP 18; TEMP 36.4; O2SAT 98
[2023-12-14] MEDS: methADONE HCl 20 MG/2 ML ORAL.CONC 135 MG PO (08:37)
[2023-12-14] MEDS: Gabapentin 400 MG CAPSULE 800 MG PO ×3 (08:38→20:30)
[2023-12-14] MEDS: DULoxetine HCl 60 MG CAPSULE.DR PO (08:38)
[2023-12-14] MEDS: Cyclobenzaprine HCl 10 MG TABLET PO ×3 (08:38→20:30)
[2023-12-14] MEDS: Divalproex Sodium 250 MG TABLET.DR PO ×3 (08:38→20:30)
[2023-12-14] MEDS: Nicotine 21 MG PATCH.TD24 TRANSDERMA (08:38)
[2023-12-14] MEDS: clonazePAM 0.5 MG TABLET PO ×2 (08:49→13:50)
--- NOTE | 2023-12-14 12:18 | P.PNPSI_ITS ---
Subjective Subjective Date of Service: 12/14/23 Reason For Visit: depression, si, opiate use d/o, cocaine use d/o Subjective Notes: Conditional Voluntary Healthcare Proxy: No Guardianship: No Medical Problems Affecting Mental Status: No Interim History: Reports ongoing anxiety/depression with initiation of Depakote. Will increase Klonopin from 0.5 mg bid to 1 mg bid. Continues to request help in [facility] placement in the [facility]. Believes he needs to leave the local area as it is not helpful in maintaining sobriety. Visable in milieu, engaged with peers. Medication Compliance: Yes Side effects from medications: No Attending Groups: Intermittent Review of Systems Acute medical concerns: No Medical Review of Systems: unchanged Review of Systems Review of Systems Chronic back pain secondary to disc rupture. Mental Status Exam Mental Status Exam Patient Appearance: Fatigued Patient Orientation: Person, Place, Time and Situation Level of Consciousness: Alert Patient Behavior: Talkative, Cooperative, Asleep, Sedated, Fatigued and Isolative Mood Description: Withdrawn and Flat Affect Description: Flat Patient Cognition Impaired: No Ability to Follow Directions: Good Speech Pattern: Appropriate, Spontaneous Speech, Coherent and Soft-Spoken Memory Description: Intact Hallucinations: None Delusions: Not Present Thought Process: Distracted Thought Content: positive for Suicidal Ideation Depressive Symptoms: Increased Fatigue and Thoughts of /Suicide Judgement: Good Diagnostics Vital Signs (24Hr): Vital Signs - 24 hr 12/13/23 13:40 12/13/23 20:00 12/14/23 08:35 Temperature 97.9 F 97.6 F Pulse Rate 73 92 75 Respiratory Rate 18 16 18 Blood Pressure 142/87 H 133/79 134/81 Pulse Oximetry 98 98 Oxygen Delivery Method Room Air Room Air BMI result Body Mass Index 30.0 Medications Medications Current Medications Acetaminophen (Acetaminophen 325 Mg Tablet) 650 mg PO Q6H PRN PRN Reason: Headache/Pain Mild Scale (1-3) Last Admin: 12/13/23 21:08 Dose: 650 mg Al Hydroxide/Mg Hydroxide (Magnesium Hydrox/Alum Hydrox 30 Ml Oral.Susp) 30 ml PO Q6H PRN PRN Reason: Heartburn/Nausea Clonazepam (Clonazepam 0.5 Mg Tablet) 0.5 mg PO BID PRN PRN Reason: Anxiety Last Admin: 12/14/23 08:49 Dose: 0.5 mg Clonidine HCl (Clonidine Hcl 0.1 Mg Tablet) 0.1 mg PO BID PRN; Protocol PRN Reason: anxiety Last Admin: 12/13/23 13:41 Dose: 0.1 mg Cyclobenzaprine HCl (Cyclobenzaprine Hcl 10 Mg Tablet) 10 mg PO TID [facility] Last Admin: 12/14/23 08:38 Dose: 10 mg Divalproex Sodium (Divalproex Sodium 250 Mg Tablet.Dr) 250 mg PO TID [facility] Last Admin: 12/14/23 08:38 Dose: 250 mg Duloxetine HCl (Duloxetine Hcl 60 Mg Capsule.Dr) 60 mg PO DAILY [facility] Last Admin: 12/14/23 08:38 Dose: 60 mg Gabapentin (Gabapentin 400 Mg Capsule) 800 mg PO TID [facility] Last Admin: 12/14/23 08:38 Dose: 800 mg Hydroxyzine HCl (Hydroxyzine Hcl 50 Mg Tablet) 50 mg PO Q6H PRN PRN Reason: Anxiety Last Admin: 12/13/23 13:41 Dose: 50 mg Magnesium Hydroxide (Milk Of Magnesia 30 Ml Oral.Susp) 30 ml PO DAILY PRN PRN Reason: Constipation Methadone HCl (Methadone Hcl 20 Mg/2 Ml Oral.Conc) 135 mg PO DAILY [facility] Last Admin: 12/14/23 08:37 Dose: 135 mg Nicotine (Nicotine 21 Mg Patch.Td24) 21 mg TRANSDERMA DAILY [facility] Last Admin: 12/14/23 08:38 Dose: 21 mg Nicotine Polacrilex (Nicotine Polacrilex 2 Mg Gum) 4 mg BUCCAL Q2H PRN PRN Reason: nicotine cravings Last Admin: 12/13/23 08:31 Dose: 4 mg Quetiapine Fumarate (Quetiapine Fumarate 50 Mg Tablet) 50 mg PO TID PRN PRN Reason: agitation Last Admin: 12/12/23 22:13 Dose: 50 mg Trazodone HCl (Trazodone Hcl 50 Mg Tablet) 50 mg PO BEDTIME MRX1 PRN PRN Reason: Insomnia Last Admin: 12/13/23 21:12 Dose: 50 mg Allergies Allergies Allergy/AdvReac Type Severity Reaction Status Date / Time tramadol [TRAMADOL] Allergy Intermediate HIVES, Verified 12/29/22 11:26 ITCHY ibuprofen [From MOTRIN] AdvReac Intermediate STOMACH Verified 12/29/22 11:26 UPSET, ITCHY,DIFFICULTY BREATHING. valium Allergy Severe pruritus Uncoded 12/08/23 16:22 Assessment & Plan Assessment & Plan (1) MDD (major depressive disorder), recurrent episode, moderate: Status: Acute Code(s): F33.1 - Major depressive disorder, recurrent, moderate (2) PTSD (post-traumatic stress disorder): Status: Acute Code(s): F43.10 - Post-traumatic stress disorder, unspecified (3) Cocaine use disorder in remission: Status: Acute Code(s): F14.91 - Cocaine use, unspecified, in remission (4) Opioid dependence: Status: Acute Code(s): F11.20 - Opioid dependence, uncomplicated Plan 43 yo male, history of PTSD, major depression, polysubstance use disorder reporting SI with plan to overdose on medications. Hospital course: 12/09 continued depression; agrees to increase Cymbalta which he taks as outpt 12/10 reports depression and SI but with incongruent presentation as he's pleasant, jovial, joking around with peers in [place] 12/11 repeat EKG, [employer] QTc 489 with prolongation continue regime 12/13 Increase Klonopin to 1 mg bid from 0.5 mg bid Plan: CV q15min Increase Cymbalta to 60mg (was on 40mg but remained depressed) [facility] referrals Diagnostics as needed. Collateral contacts Diagnostics Reason for continued inpatient stay Substantial Risk for: rapid decompensation Time Spent With Patient Time: Total time managing care of this patient today ____ minutes.
[2023-12-14 20:00] VITALS: BP 152/78; PULSE 86; RESP 18; TEMP 36.4; O2SAT 96
[2023-12-14] MEDS: clonazePAM 1 MG TABLET PO (20:36)
[2023-12-14] MEDS: Acetaminophen 325 MG TABLET 650 MG PO (20:36)
[2023-12-15 08:00] VITALS: BP 153/74; PULSE 106; RESP 16; TEMP 36.4; O2SAT 97
[2023-12-15] MEDS: Cyclobenzaprine HCl 10 MG TABLET PO ×3 (08:29→20:32)
[2023-12-15] MEDS: DULoxetine HCl 60 MG CAPSULE.DR PO (08:29)
[2023-12-15] MEDS: Divalproex Sodium 250 MG TABLET.DR PO ×3 (08:30→20:33)
[2023-12-15] MEDS: Gabapentin 400 MG CAPSULE 800 MG PO ×3 (08:30→20:33)
[2023-12-15] MEDS: clonazePAM 1 MG TABLET PO ×2 (08:34→15:21)
[2023-12-15] MEDS: methADONE HCl 20 MG/2 ML ORAL.CONC 135 MG PO (08:35)
[2023-12-15] MEDS: Nicotine 21 MG PATCH.TD24 TRANSDERMA (08:55)
[2023-12-15] MEDS: Nicotine Polacrilex 2 MG GUM 4 MG BUCCAL (08:57)
--- NOTE | 2023-12-15 09:51 | P.PNPSI_ITS ---
Subjective Subjective Date of Service: 12/15/23 Reason For Visit: depression, si, opiate use d/o, cocaine use d/o Subjective Notes: Conditional Voluntary Healthcare Proxy: No Guardianship: No Medical Problems Affecting Mental Status: No Interim History: Tolerating regime changes. Today, pt is on the phone, calling programs to apply for admission. Team has applications out as well for pt. Denies current SE or questions regarding his regime. Medication Compliance: Yes Side effects from medications: No Attending Groups: Intermittent Review of Systems Acute medical concerns: No Medical Review of Systems: unchanged Review of Systems Review of Systems Chronic back pain secondary to disc rupture. Mental Status Exam Mental Status Exam Patient Appearance: Appropriate Patient Orientation: Person, Place, Time and Situation Level of Consciousness: Alert Patient Behavior: Talkative and Cooperative Mood Description: Constricted and Anxious Affect Description: Flat Patient Cognition Impaired: No Ability to Follow Directions: Good Speech Pattern: Appropriate, Spontaneous Speech, Coherent and Soft-Spoken Memory Description: Intact Hallucinations: None Delusions: Not Present Thought Process: Rumination Thought Content: positive for Circumstantial and positive for Perseveration Depressive Symptoms: Increased Anxiety Judgement: Good Diagnostics Vital Signs (24Hr): Vital Signs - 24 hr 12/14/23 20:00 Temperature 97.5 F Pulse Rate 86 Respiratory Rate 18 Blood Pressure 152/78 H Pulse Oximetry 96 Oxygen Delivery Method Room Air BMI result Body Mass Index 30.0 Medications Medications Current Medications Acetaminophen (Acetaminophen 325 Mg Tablet) 650 mg PO Q6H PRN PRN Reason: Headache/Pain Mild Scale (1-3) Last Admin: 12/14/23 20:36 Dose: 650 mg Al Hydroxide/Mg Hydroxide (Magnesium Hydrox/Alum Hydrox 30 Ml Oral.Susp) 30 ml PO Q6H PRN PRN Reason: Heartburn/Nausea Clonazepam (Clonazepam 1 Mg Tablet) 1 mg PO BID PRN PRN Reason: Anxiety Last Admin: 12/15/23 08:34 Dose: 1 mg Clonidine HCl (Clonidine Hcl 0.1 Mg Tablet) 0.1 mg PO BID PRN; Protocol PRN Reason: anxiety Last Admin: 12/13/23 13:41 Dose: 0.1 mg Cyclobenzaprine HCl (Cyclobenzaprine Hcl 10 Mg Tablet) 10 mg PO TID JOANA Last Admin: 12/15/23 08:29 Dose: 10 mg Divalproex Sodium (Divalproex Sodium 250 Mg Tablet.Dr) 250 mg PO TID [facility] Last Admin: 12/15/23 08:30 Dose: 250 mg Duloxetine HCl (Duloxetine Hcl 60 Mg Capsule.Dr) 60 mg PO DAILY [facility] Last Admin: 12/15/23 08:29 Dose: 60 mg Gabapentin (Gabapentin 400 Mg Capsule) 800 mg PO TID [facility] Last Admin: 12/15/23 08:30 Dose: 800 mg Hydroxyzine HCl (Hydroxyzine Hcl 50 Mg Tablet) 50 mg PO Q6H PRN PRN Reason: Anxiety Last Admin: 12/13/23 13:41 Dose: 50 mg Magnesium Hydroxide (Milk Of Magnesia 30 Ml Oral.Susp) 30 ml PO DAILY PRN PRN Reason: Constipation Methadone HCl (Methadone Hcl 20 Mg/2 Ml Oral.Conc) 135 mg PO DAILY [facility] Last Admin: 12/15/23 08:35 Dose: 135 mg Nicotine (Nicotine 21 Mg Patch.Td24) 21 mg TRANSDERMA DAILY [facility] Last Admin: 12/15/23 08:55 Dose: 21 mg Nicotine Polacrilex (Nicotine Polacrilex 2 Mg Gum) 4 mg BUCCAL Q2H PRN PRN Reason: nicotine cravings Last Admin: 12/15/23 08:57 Dose: 4 mg Quetiapine Fumarate (Quetiapine Fumarate 50 Mg Tablet) 50 mg PO TID PRN PRN Reason: agitation Last Admin: 12/12/23 22:13 Dose: 50 mg Trazodone HCl (Trazodone Hcl 50 Mg Tablet) 50 mg PO BEDTIME MRX1 PRN PRN Reason: Insomnia Last Admin: 12/13/23 21:12 Dose: 50 mg Allergies Allergies Allergy/AdvReac Type Severity Reaction Status Date / Time tramadol [TRAMADOL] Allergy Intermediate HIVES, Verified 12/29/22 11:26 ITCHY ibuprofen [From MOTRIN] AdvReac Intermediate STOMACH Verified 12/29/22 11:26 UPSET, ITCHY,DIFFICULTY BREATHING. valium Allergy Severe pruritus Uncoded 12/08/23 16:22 Assessment & Plan Assessment & Plan (1) MDD (major depressive disorder), recurrent episode, moderate: Status: Acute Code(s): F33.1 - Major depressive disorder, recurrent, moderate (2) PTSD (post-traumatic stress disorder): Status: Acute Code(s): F43.10 - Post-traumatic stress disorder, unspecified (3) Cocaine use disorder in remission: Status: Acute Code(s): F14.91 - Cocaine use, unspecified, in remission (4) Opioid dependence: Status: Acute Code(s): F11.20 - Opioid dependence, uncomplicated Plan 43 yo male, history of PTSD, major depression, polysubstance use disorder reporting SI with plan to overdose on medications. Hospital course: 12/09 continued depression; agrees to increase Cymbalta which he taks as outpt 12/10 reports depression and SI but with incongruent presentation as he's pleasant, jovial, joking around with peers in [place] 12/11 repeat EKG, DEBIT [employer]ENT QTc 489 with prolongation continue regime 12/12 EKG QTc 449 Depakote 250 mg tid 12/14 Continue current regime Plan: CV q15min Increase Cymbalta to 60mg (was on 40mg but remained depressed) [facility] referrals Diagnostics as needed. Collateral contacts Diagnostics Informed Consent: understands Reason for continued inpatient stay Substantial Risk for: rapid decompensation Time Spent With Patient Time: Total time managing care of this patient today ____ minutes.
[2023-12-15 20:00] VITALS: BP 136/69; PULSE 71; RESP 16; TEMP 36.9; O2SAT 95
[2023-12-15] MEDS: QUEtiapine Fumarate 50 MG TABLET PO (20:37)
[2023-12-15] MEDS: traZODone HCL 50 MG TABLET PO (20:37)
[2023-12-16 08:00] VITALS: BP 148/93; PULSE 144; RESP 16; TEMP 40.3; O2SAT 88
[2023-12-16] MEDS: Acetaminophen 325 MG TABLET PO (08:29)
[2023-12-16 08:30] VITALS: BP 175/69; PULSE 153; RESP 16; TEMP 40.3
[2023-12-16 08:46] VITALS: TEMP 40.2
[2023-12-16 09:10] LABS: MANUAL DIFF FLAG NO
[2023-12-16 09:13] LABS: Basophils Percent Auto 0.3 % (0-2); Eosinophils Percent Auto 0.8 % (0-4); Hematocrit 36.9 % (42.0-52.0); Hemoglobin 12.1 g/dl (14.0-18.0); Imm Gran Abs Auto 0.01 X10*3/uL (0.00-0.03); Imm Gran Pct Auto 0.3 % (0.0-0.4); Lymphocytes Absolute Auto 0.6 X10*3/uL (1.2-4.9); Lymphocytes Percent Auto 15.6 % (20-40); Mean Corpuscular HGB Conc 32.8 g/dl (31.0-36.0); Mean Corpuscular Hemoglobin 27.9 pg (27.0-33.0); Mean Platelet Volume 10.3 fL (9.4-12.4); Monocytes Absolute Auto 0.1 X10*3/uL (0.1-1.2); Monocytes Percent Auto 2.6 % (2-11); Neutrophils Absolute Auto 3.2 x10*3/uL (2.0-8.3); Neutrophils Percent Auto 80.4 % (45-73); Platelet Count 157 X10*3/uL (160-400); Red Blood Count 4.34 X10*6/uL (4.60-5.80); Red Cell Distribution Width 13.4 % (11.0-16.0); White Blood Count 3.9 X10*3/uL (4.8-10.8)
[2023-12-16 09:15] LABS: Appearance Urine Clear; Color Urine Yellow; Glucose Urine UA Negative (Negative); Leukocyte Esterase Urine Large (3+) (Negative); Nitrite Urine Negative (Negative); PH 7.5 (5.0-9.0); UMIC TRIGGER UACC YES; Urine Blood Negative (Negative); Urine Ketones Negative (Negative); Urine Protein Negative (Neg-Trace)
[2023-12-16 09:17] LABS: Bacteria Urine None Seen (None Seen); Hyaline Casts Urine 0-2 /LPF (0-2); RBC Urine 0-2 /HPF (0-2); Squamous Epithelial Cell Urine 0-2 /HPF (0-2); UACC Culture Trigger YES
[2023-12-16 09:46] LABS: Alanine Aminotransferase 50 U/L (0-40); Albumin Level 3.9 g/dL (3.5-5.0); Alkaline Phosphatase 87 U/L (39-117); Anion Gap 15 (12-20); Aspartate Amino Transferase 35 U/L (5-37); Bilirubin Total 0.6 mg/dL (0.0-1.0); Blood Urea Nitrogen 10 mg/dL (9-16); Calcium 9.5 mg/dL (8.4-10.2); Carbon Dioxide 28 mmol/L (22-29); Chloride 101 mmol/L (96-108); Creatinine Clr Calc Pharmacy 95.7; Estimated Glomerular Filt Rate > 60; Glucose Random 116 mg/dL (60-115); Potassium 4.1 mmol/L (3.3-5.1); Sodium 140 mmol/L (135-145); Total Protein 7.1 g/dL (6.5-8.0)
[2023-12-16 10:39] LABS: Lactic Acid 4.8 mmol/L (0.5-2.0)
--- NOTE | 2023-12-16 11:20 | P.DS_ITS ---
DS: Providers Provider Date of Service: 12/16/23 Date of admission: 12/08/23 20:29 Date of discharge: 12/16/23 Primary care physician: Roberto Physician Admitting clinician: Fang Arnold Attending physician on admission: Grey Medina Consults: 12/09/23 08:32 Consult to Hospitalist Routine Comment: Consulting Provider: Hospitalist Reason For Exam: Transfer pt Attending physician on discharge: Grey Medina Discharging clinician: Fang Arnold DS: Diagnosis Discharge Diagnosis (1) MDD (major depressive disorder), recurrent episode, moderate: Status: Acute (2) PTSD (post-traumatic stress disorder): Status: Acute (3) Cocaine use disorder in remission: Status: Acute (4) Opioid dependence: Status: Acute DS: Medications Discharge Medications Home Medications: Previous Rx's ?Medication ?Instructions ?Recorded acetaminophen 325 mg tablet 650 mg (2 x 325 mg) PO Q6H PRN 12/16/23 Headache/Pain Mild Scale (1-3) #0 tabs azithromycin 500 mg intravenous 500 mg IV Q24H #10 ea 12/16/23 solution ceftriaxone 1 gram solution for 1 g IV Q24H #0 ea 12/16/23 injection clonazepam 1 mg tablet 1 mg PO BID PRN Anxiety #0 tabs 12/16/23 clonidine HCl 0.1 mg tablet 0.1 mg PO BID PRN anxiety #0 tabs 12/16/23 cyclobenzaprine 10 mg tablet 10 mg PO TID #0 tabs 12/16/23 duloxetine 60 mg capsule,delayed 60 mg PO DAILY #0 caps 12/16/23 release gabapentin 400 mg capsule 800 mg (2 x 400 mg) PO TID #0 caps 12/16/23 methadone 10 mg/mL oral 135 mg (13.5 mL) PO DAILY #30 mL 12/16/23 concentrate (Methadose) nicotine (polacrilex) 2 mg gum 4 mg buccal Q2H PRN nicotine 12/16/23 cravings #0 ea nicotine 21 mg/24 hr daily 21 mg transdermal DAILY #0 ea 12/16/23 transdermal patch trazodone 50 mg tablet 50 mg PO BEDTIME MRX1 PRN Insomnia 12/16/23 #0 tabs Mental Status Exam Mental Status Exam Patient Appearance: Fatigued Patient Orientation: Person, Place, Time and Situation Patient Behavior: Cooperative Mood Description: Withdrawn Affect Description: Withdrawn Patient Cognition Impaired: No Ability to Follow Directions: Fair Speech Pattern: Spontaneous Speech Memory Description: Episodic Impaired Depressive Symptoms: Increased Fatigue and Loss of Energy Judgement: Fair Data Data Completed and Pending Completed studies during hospitalization [Text1]: 12/10/23 12/16/23 12/16/23 07:57 08:25 08:54 WBC 3.9 L RBC 4.34 L Hgb 12.1 L Hct 36.9 L MCV 85.0 MCH 27.9 MCHC 32.8 RDW 13.4 Plt Count 157 L MPV 10.3 Immature Gran % (Auto) 0.3 Neut % (Auto) 80.4 H Lymph % (Auto) 15.6 L [place] % (Auto) 2.6 Eos % (Auto) 0.8 Baso % (Auto) 0.3 Lymph # (Auto) 0.6 L [place] # (Auto) 0.1 Eos # (Auto) 0.0 Baso # (Auto) 0.0 Abs Immat Gran (auto) 0.01 Absolute Neuts (auto) 3.2 Absolute Nucleated RBC 0.000 Nucleated RBC % (auto) 0.0 Sodium 140 Potassium 4.1 Chloride 101 Carbon Dioxide 28 Anion Gap 15 BUN 10 Creatinine 0.98 Estim Creat Clear Calc 95.7 Estimated GFR > 60 Random Glucose 116 H Estimat Average Glucose 114 Hemoglobin A1c % 5.6 Lactic Acid Calcium 9.5 Total Bilirubin 0.6 AST 35 ALT 50 H Alkaline Phosphatase 87 Total Protein 7.1 Albumin 3.9 Triglycerides 270 H Cholesterol 148 LDL Cholesterol, Calc 61 HDL Cholesterol 33 L Vitamin B12 329 Folate 9.4 TSH 3.21 Urine Color Urine Appearance Urine pH Ur Specific [place] Urine Protein Urine Glucose (UA) Urine Ketones Urine Blood Urine Nitrite Ur Leukocyte Esterase Urine RBC Urine WBC Ur Squamous Epith Cells Urine Bacteria Hyaline Casts Respiratory Panel [place] Pending Adenovirus (Rapid PCR) Pending B.pert (TEM-PCR) Pending B.parapertussis DNA PCR Pending C. pneumoniae DNA (PCR) Pending Coronavirus OC43 (PCR) Pending Coronavirus HKU1 (PCR) Pending Coronavirus 229E (PCR) Pending Coronavirus NL63 (PCR) Pending Human Metapneumovir PCR Pending Influenza A (RT-PCR) Pending Influenza B (RT-PCR) Pending M. pneumoniae (PCR) Pending Parainfluenza 1 (PCR) Pending Parainfluenza 2 (PCR) Pending Parainfluenza 3 (PCR) Pending Parainfluenza 4 (PCR) Pending RSV (PCR) Pending Entero/Rhino (PCR) Pending SARS-CoV-2 RNA (RT-PCR) Pending 12/16/23 12/16/23 12/16/23 09:01 10:09 10:09 WBC RBC Hgb Hct MCV MCH MCHC RDW Plt Count MPV Immature Gran % (Auto) Neut % (Auto) Lymph % (Auto) [place] % (Auto) Eos % (Auto) Baso % (Auto) Lymph # (Auto) [place] # (Auto) Eos # (Auto) Baso # (Auto) Abs Immat Gran (auto) Absolute Neuts (auto) Absolute Nucleated RBC Nucleated RBC % (auto) Sodium Potassium Chloride Carbon Dioxide Anion Gap BUN Creatinine Estim Creat Clear Calc Estimated GFR Random Glucose Estimat Average Glucose Hemoglobin A1c % Lactic Acid 4.8 H* Cancelled Calcium Total Bilirubin AST ALT Alkaline Phosphatase Total Protein Albumin Triglycerides Cholesterol LDL Cholesterol, Calc HDL Cholesterol Vitamin B12 Folate TSH Urine Color Yellow Urine Appearance Clear Urine pH 7.5 Ur Specific [place] 1.010 Urine Protein Negative Urine Glucose (UA) Negative Urine Ketones Negative Urine Blood Negative Urine Nitrite Negative Ur Leukocyte Esterase Large (3+) H Urine RBC 0-2 Urine WBC 11-20 H Ur Squamous Epith Cells 0-2 Urine Bacteria None Seen Hyaline Casts 0-2 Respiratory Panel [place] Adenovirus (Rapid PCR) B.pert (TEM-PCR) B.parapertussis DNA PCR C. pneumoniae DNA (PCR) Coronavirus OC43 (PCR) Coronavirus HKU1 (PCR) Coronavirus 229E (PCR) Coronavirus NL63 (PCR) Human Metapneumovir PCR Influenza A (RT-PCR) Influenza B (RT-PCR) M. pneumoniae (PCR) Parainfluenza 1 (PCR) Parainfluenza 2 (PCR) Parainfluenza 3 (PCR) Parainfluenza 4 (PCR) RSV (PCR) Entero/Rhino (PCR) SARS-CoV-2 RNA (RT-PCR) 12/16/23 Unknown Urine clean catch - Urine umanzor top Urine Culture - Pending 12/16/23 10:09 Blood - Venous Blood Culture - Pending 12/16/23 10:09 Blood - Venous Blood Culture - Pending Imaging Diagnostic Imaging Impressions Chest X-Ray 12/16/23 09:31 IMPRESSION: Left base bronchopneumonia. Abdomen/Pelvis CT 12/16/23 09:39 IMPRESSION: * Left lower lobe bronchopneumonia without pleural effusion. * No evidence of an infectious or inflammatory process in the abdomen or pelvis. 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 Query if there is any history of significant steroid use or other risk factor for development of osteonecrosis. DS: Summary Hospital Course Hospital Course: Admission to adult psychiatry for exacerbation of depression, SI, polysubstance use disorder. Pt in process with team of applications to CSS programs for ongoing care. Pt developed high fever, diagnosed with pneumonia, sepsis. He will discharge from psychiatry today and admit to medicine for further care. Time spent discussing smoking cessation with patient: 3 to 10 minutes Status at Discharge Functional status at discharge: wheelchair bound Overall status at discharge: patient is not back to baseline Time Spent with Patient Time attestation: Total time managing care of this patient today ____ minutes. Time spent: Greater than 30 minutes Discharge Plan Discharge Anticipated Discharge Date/Time: 12/16/23 11:10 Patient Disposition: Xfer Acute Care Hospital Discharge Diagnosis: PTSD Recurrent Major Depression Opiate Use Disorder Cocaine Use Disorder Referrals: [facility] [Other] - 1 Week (Referral to CSS program for substance use treatment ) [facility] [Other] - 1 Week (Referral to [facility] Program for substance use treatment ) [facility] [Other] - 1 Week (Referral to CSS Program for substance abuse treatment ) Physician,None [Primary Care Provider] - 1 Week Discharge Medications: New cyclobenzaprine 10 mg Tablet 10 mg PO TID Qty: 0 0RF clonidine HCl 0.1 mg Tablet 0.1 mg PO BID PRN (Reason: anxiety) Qty: 0 0RF Protocol: Hold for SBP< HOLD for SBP < : 90 acetaminophen 325 mg Tablet 650 mg PO Q6H PRN (Reason: Headache/Pain Mild Scale (1-3)) Qty: 0 0RF trazodone 50 mg Tablet 50 mg PO BEDTIME MRX1 PRN (Reason: Insomnia) Qty: 0 0RF nicotine (polacrilex) 2 mg Gum 4 mg buccal Q2H PRN (Reason: nicotine cravings) Qty: 0 0RF gabapentin 400 mg Capsule 800 mg PO TID Qty: 0 0RF clonazepam 1 mg Tablet 1 mg PO BID PRN (Reason: Anxiety) Qty: 0 0RF ceftriaxone 1 gram Recon Soln 1 g IV Q24H Qty: 0 0RF nicotine 21 mg/24 hr Patch 24 Hour 21 mg transdermal DAILY Qty: 0 0RF azithromycin 500 mg Recon Soln 500 mg IV Q24H Qty: 10 0RF methadone [Methadose] 10 mg/mL Concentrate 135 mg PO DAILY Qty: 30 0RF Rx Instructions: Partial Fill upon patient request. duloxetine 60 mg Capsule,Delayed Release(Dr/Ec) 60 mg PO DAILY Qty: 0 0RF Discontinued methadone 10 mg/5 mL Solution 135 mg PO DAILY Patient Comments: [address] [address] Verified with [employer] 12/09/23 AY 0816 nicotine (polacrilex) 4 mg gum 4 mg buccal Q2H 30 Days Qty: 100 0RF gabapentin 400 mg Capsule 800 mg PO TID 30 Days Qty: 180 0RF clonidine tablet 0.1 mg PO BID PRN (Reason: Anxiety) cyclobenzaprine tablet 10 mg PO TID duloxetine 40 mg PO DAILY hydroxyzine pamoate tablet 50 mg PO Q6H PRN (Reason: Anxiety) quetiapine tablet 50 mg PO TID PRN (Reason: Agitation) trazodone tablet 50 mg PO BEDTIME PRN (Reason: Insomnia) Rx Instructions: Maximum repeat X 1, 50 mg Discharge Orders: Discharge Order (Routine); Ordered 12/16/23 Ordered By: Fang Arnold Diet: Advance to usual diet Activity on Discharge: As tolerated Stand Alone Forms: Patient Portal Discharge page Print Language: Norwegian Care Plan Goals: Discharge from Psychiatry Admit to medicine Health Concerns: Sepsis Pneumonia Plan of Treatment: Discharge Assessment: Discharge from Psychiatry Admit to medicine
[2023-12-16 12:20] LABS: Reflex Lactate? Lactic Acid Added
[2023-12-16] MEDS: cefTRIAXone sodium 1 GM in 0.9 % Sodium Chloride 50 ML IV (12:36)
[2023-12-16] MEDS: Azithromycin 500 MG in 0.9 % Sodium Chloride 250 ML 125 MG IV (13:09)
[2023-12-16 13:38] VITALS: BP 115/61; PULSE 114; RESP 16; TEMP 38.8; O2SAT 94
[2023-12-16 13:45] LABS: ~Lactic Acid-LAB USE ONLY 4.5 mmol/L (0.5-2.0)
[2023-12-16 15:29] LABS: Reflex Lactate? 2 Y
[2023-12-16 15:34] LABS: COVID-19 Test Negative (Negative); IDNOW Serial# 08D9AD1C
--- NOTE | 2023-12-16 15:35 | PC.NURSE ---
per charge nurse, IV fluids stopped running at 3:35pm.
[2023-12-16 15:38] VITALS: BP 137/80; PULSE 99; RESP 20; TEMP 38.4; O2SAT 96
[2023-12-16 15:49] LABS: Adenovirus PCR Not Detected (Not Detect.); Bordetella parapertussis PCR Not Detected (Not Detect.); Bordetella pertussis PCR Not Detected (Not Detect.); Chlamydia pneumoniae PCR Not Detected (Not Detect.); Coronavirus 229E PCR Not Detected (Not Detect.); Coronavirus HKU1 PCR Not Detected (Not Detect.); Coronavirus NL63 PCR Not Detected (Not Detect.); Coronavirus OC43 PCR Not Detected (Not Detect.); Human metapneumovirus PCR Not Detected (Not Detect.); Influenza A PCR Not Detected (Not Detect.); Influenza B PCR Not Detected (Not Detect.); Mycoplasma pneumoniae PCR Not Detected (Not Detect.); Parainfluenza 1 PCR Not Detected (Not Detect.); Parainfluenza 2 PCR Not Detected (Not Detect.); Parainfluenza 3 PCR Not Detected (Not Detect.); Parainfluenza 4 PCR Not Detected (Not Detect.); RSV PCR Not Detected (Not Detect.); Rhino/Enterovirus PCR Not Detected (Not Detect.)
[2023-12-16 15:54] LABS: SARS-CoV-2 PCR Not Detected (Not Detect.)
[2023-12-16] MEDS: Cyclobenzaprine HCl 10 MG TABLET PO (16:06)
[2023-12-16] MEDS: Gabapentin 400 MG CAPSULE 800 MG PO (16:10)
[2023-12-16 16:16] LABS: ~Lactic Acid-LAB USE ONLY 3.7 mmol/L (0.5-2.0)
[2023-12-16 16:21] VITALS: BP 130/78; PULSE 119; RESP 16; TEMP 37.9; O2SAT 94
== END 2023-12-16 16:04 | disposition short-term general hospital (02) | DRG 751 ==
PROVIDERS: Hospitalist; Student in an Organized Health Care Education/Training Program; Admitting Provider Psychiatry & Neurology Psychiatry; Visit Provider Clinical Nurse Specialist Psychiatric/Mental Health, Adult
DX: F33.1 Major depressive disorder, recurrent, moderate (principal); J18.9 Pneumonia, unspecified organism; R45.851 Suicidal ideations; F43.10 Post-traumatic stress disorder, unspecified; F14.91 Cocaine use, unspecified, in remission; F11.20 Opioid dependence, uncomplicated; F17.210 Nicotine dependence, cigarettes, uncomplicated; B19.20 Unspecified viral hepatitis C without hepatic coma; Z71.6 Tobacco abuse counseling; F19.90 Other psychoactive substance use, unspecified, uncomplicated; E03.8 Other specified hypothyroidism; Z20.822 Contact with and (suspected) exposure to COVID-19; Z59.02 Unsheltered homelessness; Z79.899 Other long term (current) drug therapy
CPT/HCPCS: 36415; 71045; 74176; 80053; 80061; 81001; 82607; 82746; 83036; 83605; 83735; 84439; 84443; 85025; 87040; 87086; 87633; 87635; 93005; J0456; J0696

== ENCOUNTER → 2023-12-08 20:29 | Outpatient (BNV) | payer OTHER, SELFPAY | PROVIDERS: Admitting Provider Psychiatry & Neurology Psychiatry; Visit Provider Student in an Organized Health Care Education/Training Program | DX: Z00.8 Encounter for other general examination (principal) | CPT/HCPCS: 99222 ==

== ENCOUNTER → 2023-12-08 20:29 | Outpatient (BNV) | payer OTHER, SELFPAY | PROVIDERS: Admitting Provider Psychiatry & Neurology Psychiatry; Visit Provider Psychiatry & Neurology Psychiatry | DX: F33.1 Major depressive disorder, recurrent, moderate (principal); F11.20 Opioid dependence, uncomplicated; F43.11 Post-traumatic stress disorder, acute; F14.91 Cocaine use, unspecified, in remission | CPT/HCPCS: 90792; 99231; 99232; 99238 ==

== ENCOUNTER 2023-12-16 16:06 | Outpatient (BNV) | payer OTHER, SELFPAY | END 2023-12-16 18:42 | PROVIDERS: Admitting Provider Student in an Organized Health Care Education/Training Program; Visit Provider Internal Medicine Cardiovascular Disease | DX: I45.81 Long QT syndrome (principal) | CPT/HCPCS: 93010 ==

== ENCOUNTER 2023-12-16 16:06 | Inpatient (IN) | payer OTHER, SELFPAY ==
--- NOTE | 2023-12-16 | ECG_ITS ---
Test Reason : Baseline, sepsis, palpitations Blood Pressure : / mmHG Vent. Rate : 103 BPM Atrial Rate : 103 BPM P-R Int : 112 ms QRS Dur : 084 ms QT Int : 394 ms P-R-T Axes : 046 070 032 degrees QTc Int : 516 ms Sinus tachycardia Otherwise normal ECG When compared with ECG of 12-DEC-2023 15:53, Vent. rate has increased BY 45 BPM QT has lengthened Referred By: Josette Cedeno Electronically Signed By:Rodger Rivera
--- NOTE | 2023-12-16 12:27 | P.HPHOSP_ITS ---
History of Present Illness Date of Service: 12/16/23 Chief Complaint: Fever, weakness A 43 years old male with PMH of substance use disorder, untreated hepatitis-C, PTSD among others who preseted with depression with SI requring admitting to M3 for management. He has been doing fairly ok, still has a sitter in his room for suicidal risk. He has been feeling increasingly depressed secondary to homelessness, living in a care home, and problems with and children. Today a consult was called for fever of 105. the patient was sitting at the edge of his bed on room air looking mildly anxious. reported few episodes of cough but No chest pain, palpitations, SOB, nausea, vomiting, diarrhea or urinary symptoms. Blood, chemistry, UA and CXR, CT Abdomen were ordered. blood work showed LA of 4.7. Found to have RLL Pneumonia with blood work showing signs of severe sepsis. admitted to medical floor for further management. Review of Systems Review of Systems: having fever, chills or weakness No chest pain, palpitation No shortness of breath but has some coughing No abdominal pain, nausea or vomiting No urinary symptoms No any rash or wounds PMFSH Medical History Cigarette smoker Opioid dependence Polysubstance abuse Cocaine use disorder in remission PTSD (post-traumatic stress disorder) MDD (major depressive disorder), recurrent episode, moderate Social History Household Members: None Housing: Homeless Do you presently have visiting nurse or other home services: No Patient Tobacco Use Status: Current everyday Tobacco user Tobacco use type: Cigarette Cigarette Packs Per Day: 1 Cigarettes Per Day: 20.0 Years Smoked: 26 e-Cigarette/Vaping Use: Currently Using Second Hand Smoke Exposure: Yes Substance Use Type: Crack/Cocaine, Marijuana and Opiates Advance Directives: No Advance Directives on File: Yes service: No Sexual orientation: Straight/Heterosexual Meds Allergies Allergy/AdvReac Type Severity Reaction Status Date / Time tramadol [TRAMADOL] Allergy Intermediate HIVES, Verified 12/29/22 11:26 ITCHY ibuprofen [From MOTRIN] AdvReac Intermediate STOMACH Verified 12/29/22 11:26 UPSET, ITCHY,DIFFICULTY BREATHING. valium Allergy Severe pruritus Uncoded 12/08/23 16:22 Active Medications: Current Medications Acetaminophen (Acetaminophen 325 Mg Tablet) 650 mg PO Q6H PRN PRN Reason: Pain, Mild (Pain Scale 1-3), fever or headache Calcium Carbonate (Calcium Carbonate 750 Mg Tab.Chew) 750 mg PO Q4H PRN PRN Reason: Heartburn Enoxaparin Sodium (Enoxaparin Sodium 40 Mg/0.4 Ml Syringe) 40 mg SUBCUT Q24H [facility] Azithromycin 500 mg/ Sodium (Chloride) 250 mls @ 125 mls/hr IV Q24H JOANA Ceftriaxone Sodium 1 gm/ (Sodium Chloride) 50 mls @ 100 mls/hr IV Q24H JOANA Ibuprofen (Ibuprofen 400 Mg Tablet) 400 mg PO Q6H PRN PRN Reason: Fever or Pain, Mild (Pain Scale 1-3) Magnesium Hydroxide (Milk Of Magnesia 30 Ml Oral.Susp) 30 ml PO DAILY PRN PRN Reason: Constipation Melatonin (Melatonin 3 Mg Tablet) 6 mg PO BEDTIME PRN PRN Reason: Insomnia Nicotine Polacrilex (Nicotine Polacrilex 2 Mg Gum) 2 mg BUCCAL Q2H PRN PRN Reason: Nicotine Cravings Ondansetron HCl (Ondansetron Hcl 4 Mg/2 Ml Vial) 4 mg IVPUSH Q8H PRN PRN Reason: Nausea and Vomiting Sodium Chloride (0.9 % Sodium Chloride Flush 3 Ml Syringe) 3 ml IVFLUSH QSHIFT [facility] Physical Exam Const: Other: Constitutional : Awake, interactive, not in distress Neck : Normal inspection, Supple Cardiovascular : RRR, no JVP, no lower extremity edema Respiratory : good bilateral air entry, no crackles, wheezes or rhonchi Gastrointestinal: soft, lax, Normal bowel sounds, Non tender Skin : Warm, Dry Neurological : Alert & oriented x3, No focal deficit Assessment and Plan (1) Opioid dependence: Status: Acute (2) MDD (major depressive disorder), recurrent episode, moderate: Status: Acute (3) Severe sepsis: Status: Acute (4) Pneumonia: Status: Acute Plan A 43 years old male with PMH of substance use disorder, untreated hepatitis-C, PTSD among others who preseted with depression with SI requring admitting to M3 for management. Severe sepsis secondary to LLL Pneumonia sepsis focused exam done around 1530 Pending blood cultures Start IV Abx 12/15 Resp panel Lactic acidosis likely related to severe sepsis 30 cc\kg given NS repeat and keep on IVF Depression with SI keep sitter bedside continue Cymbalta , Gabapentin Psych team consult Hepatitis C, untreated chronic infection, will need outpatient follow up Subclinical hypothyroidism TSH mildly elevated 4.71 with T4 WNL at 0.79 Outpatient follow-up for repeat labs in 3-6 months Polysubstance use disorder Plan as per Psychiatry DVT PPx Lovenox The patient will likely need 2 overnight hospital stay for treatment of Quality Stroke Does the patient have a stroke diagnosis?: No VTE Prior VTE?: No VTE Risk Level:: Medical - moderate - high VTE Device Contraindication: Treatment Not Indicated VTE Drug Contraindication: N/A - Med Ordered
--- NOTE | 2023-12-16 12:58 | PHA.MEDREC ---
Pharmacy Consult ? Medication Reconciliation Pharmacy has completed the medication reconciliation. Confirmed meds with discharge packet list from Psych Unit.
--- NOTE | 2023-12-16 15:07 | HE.PHANOTE ---
Re Methadone Pt transferred from M[facility]
[2023-12-16 16:43] VITALS: BP 131/64; PULSE 108; RESP 14; TEMP 37.5; O2SAT 97
[2023-12-16 16:51] VITALS: BMI 34.1
[2023-12-16] MEDS: methADONE HCl 20 MG/2 ML ORAL.CONC 135 MG PO (17:20)
[2023-12-16] MEDS: clonazePAM 1 MG TABLET PO (17:20)
[2023-12-16] MEDS: 0.9 % Sodium Chloride Flush 3 ML SYRINGE IVFLUSH (17:21)
[2023-12-16] MEDS: Lactated Ringers 1,000 ML 100 ML IVCONT (17:28)
--- NOTE | 2023-12-16 18:42 | ECG_ITS ---
Test Reason : F U QTc prolongation Blood Pressure : / mmHG Vent. Rate : 072 BPM Atrial Rate : 072 BPM P-R Int : 112 ms QRS Dur : 082 ms QT Int : 424 ms P-R-T Axes : 028 060 025 degrees QTc Int : 464 ms Normal sinus rhythm Normal ECG When compared with ECG of 16-DEC-2023 18:42, QT has shortened Referred By: Josette Cedeno Electronically Signed By:Rodger Rivera
[2023-12-16 19:50] VITALS: BP 122/69; PULSE 94; RESP 15; TEMP 36.6; O2SAT 93
[2023-12-16] MEDS: Cyclobenzaprine HCl 10 MG TABLET PO (21:09)
[2023-12-16] MEDS: Gabapentin 400 MG CAPSULE 800 MG PO (21:10)
[2023-12-17] MEDS: traZODone HCL 50 MG TABLET PO (00:10)
[2023-12-17] MEDS: Lactated Ringers 1,000 ML 100 ML IVCONT ×2 (02:40→13:55)
[2023-12-17 04:00] VITALS: BP 109/60; PULSE 77; RESP 18; TEMP 36.2; O2SAT 95
[2023-12-17] MEDS: Ketorolac Tromethamine 15 MG/ML VIAL IVPUSH (05:20)
--- NOTE | 2023-12-17 05:23 | PC.NURSE ---
pt c/o of 10/10 back and lung pain.states tylenol does not help and he is allergic to motrin. notified and toradol 15mg IV x1 ordered.
[2023-12-17 06:57] VITALS: BP 108/62; PULSE 78; RESP 16; TEMP 36.6; O2SAT 94
[2023-12-17 06:57] LABS: MANUAL DIFF FLAG NO
[2023-12-17 07:01] LABS: Basophils Percent Auto 0.3 % (0-2); Eosinophils Absolute Auto 0.1 X10*3/uL (0.0-0.4); Eosinophils Percent Auto 1.1 % (0-4); Hematocrit 29.7 % (42.0-52.0); Hemoglobin 9.4 g/dl (14.0-18.0); Imm Gran Abs Auto 0.05 X10*3/uL (0.00-0.03); Imm Gran Pct Auto 0.6 % (0.0-0.4); Lymphocytes Absolute Auto 1.8 X10*3/uL (1.2-4.9); Lymphocytes Percent Auto 20.3 % (20-40); Mean Corpuscular HGB Conc 31.6 g/dl (31.0-36.0); Mean Corpuscular Hemoglobin 27.3 pg (27.0-33.0); Mean Corpuscular Volume 86.3 fL (80.0-98.0); Mean Platelet Volume 10.5 fL (9.4-12.4); Monocytes Absolute Auto 0.5 X10*3/uL (0.1-1.2); Monocytes Percent Auto 5.8 % (2-11); Neutrophils Absolute Auto 6.5 x10*3/uL (2.0-8.3); Neutrophils Percent Auto 71.9 % (45-73); Platelet Count 146 X10*3/uL (160-400); Red Blood Count 3.44 X10*6/uL (4.60-5.80); Red Cell Distribution Width 14.2 % (11.0-16.0)
[2023-12-17 07:38] LABS: Anion Gap 12 (12-20); Blood Urea Nitrogen 9 mg/dL (9-16); Calcium 8.5 mg/dL (8.4-10.2); Carbon Dioxide 27 mmol/L (22-29); Chloride 104 mmol/L (96-108); Creatinine Clr Calc Pharmacy 117.4; Estimated Glomerular Filt Rate > 60; Glucose Random 142 mg/dL (60-115); Potassium 3.3 mmol/L (3.3-5.1); Sodium 140 mmol/L (135-145)
[2023-12-17] MEDS: Cyclobenzaprine HCl 10 MG TABLET PO ×2 (08:26→14:40)
[2023-12-17] MEDS: DULoxetine HCl 60 MG CAPSULE.DR PO (08:27)
[2023-12-17] MEDS: clonazePAM 1 MG TABLET PO ×2 (08:27→21:15)
[2023-12-17] MEDS: Gabapentin 400 MG CAPSULE 800 MG PO ×3 (08:27→21:15)
[2023-12-17] MEDS: Nicotine 21 MG PATCH.TD24 TRANSDERMA (08:28)
[2023-12-17] MEDS: methADONE HCl 20 MG/2 ML ORAL.CONC 135 MG PO (08:31)
[2023-12-17 08:41] LABS: Lactic Acid 2.3 mmol/L (0.5-2.0)
[2023-12-17 10:23] LABS: Reflex Lactate? Lactic Acid Added
[2023-12-17] MEDS: 0.9 % Sodium Chloride 1,000 ML 999 ML IV (10:23)
[2023-12-17] MEDS: cefTRIAXone sodium 1 GM in 0.9 % Sodium Chloride 50 ML IV (11:17)
--- NOTE | 2023-12-17 11:27 | HO.PM.IMPN ---
Subjective Subjective Date of Service: 12/17/23 Interval History: Seen and evaluated this morning Still feeling weak and fatigued denies fever or chills no other events Review of Systems Review of Systems: Yes all other systems are reviewed and are negative Physical Exam Vital Signs: Vital Signs: Last Vital Signs Temp 98 F 12/17/23 06:57 Pulse 78 12/17/23 06:57 Resp 16 12/17/23 06:57 BP 108/62 12/17/23 06:57 Pulse Ox 94 12/17/23 06:57 O2 Del Method Room Air 12/17/23 06:57 BMI result Body Mass Index 34.1 Const: Other: Constitutional : Awake, interactive, not in distress Neck : Normal inspection, Supple Cardiovascular : RRR, no JVP, no lower extremity edema Respiratory : good bilateral air entry, basal fine crackles LLL, wheezes or rhonchi Gastrointestinal: soft, lax, Normal bowel sounds, Non tender Skin : Warm, Dry Neurological : Alert & oriented x3, No focal deficit Objective Data Active Medications Acetaminophen (Acetaminophen 325 Mg Tablet) 650 mg PO Q6H PRN PRN Reason: Pain, Mild (Pain Scale 1-3), fever or headache Calcium Carbonate (Calcium Carbonate 750 Mg Tab.Chew) 750 mg PO Q4H PRN PRN Reason: Heartburn Clonazepam (Clonazepam 1 Mg Tablet) 1 mg PO BID PRN PRN Reason: Anxiety Last Admin: 12/17/23 08:27 Dose: 1 mg Documented By: ANITA Clonidine HCl (Clonidine Hcl 0.1 Mg Tablet) 0.1 mg PO BID PRN; Protocol PRN Reason: anxiety Cyclobenzaprine HCl (Cyclobenzaprine Hcl 10 Mg Tablet) 10 mg PO TID [facility] Last Admin: 12/17/23 08:26 Dose: 10 mg Documented By: ANITA Duloxetine HCl (Duloxetine Hcl 60 Mg Capsule.) 60 mg PO DAILY [facility] Last Admin: 12/17/23 08:27 Dose: 60 mg Documented By: ANITA Enoxaparin Sodium (Enoxaparin Sodium 40 Mg/0.4 Ml Syringe) 40 mg SUBCUT Q24H [facility] Last Admin: 12/16/23 17:46 Dose: Not Given Documented By: ANITA Non-Admin Reason: Patient Refused Gabapentin (Gabapentin 400 Mg Capsule) 800 mg PO TID [facility] Last Admin: 12/17/23 08:27 Dose: 800 mg Documented By: ANITA Azithromycin 500 mg/ Sodium (Chloride) 250 mls @ 125 mls/hr IV Q24H [facility] Ceftriaxone Sodium 1 gm/ (Sodium Chloride) 50 mls @ 100 mls/hr IV Q24H [facility] Last Admin: 12/17/23 11:17 Dose: 100 mls/hr Documented By: ANITA Lactated Ringer's (Lr) 1,000 mls @ 100 mls/hr IVCONT .Q10H [facility] Last Admin: 12/17/23 02:40 Dose: 100 mls/hr Documented By: ADELINA Ibuprofen (Ibuprofen 400 Mg Tablet) 400 mg PO Q6H PRN PRN Reason: Fever or Pain, Mild (Pain Scale 1-3) Magnesium Hydroxide (Milk Of Magnesia 30 Ml Oral.Susp) 30 ml PO DAILY PRN PRN Reason: Constipation Melatonin (Melatonin 3 Mg Tablet) 6 mg PO BEDTIME PRN PRN Reason: Insomnia Methadone HCl (Methadone Hcl 20 Mg/2 Ml Oral.Conc) 135 mg PO DAILY [facility] Last Admin: 12/17/23 08:31 Dose: 135 mg Documented By: ANITA Nicotine (Nicotine 21 Mg Patch.Td24) 21 mg TRANSDERMA DAILY [facility] Last Admin: 12/17/23 08:28 Dose: 21 mg Documented By: ANITA Nicotine Polacrilex (Nicotine Polacrilex 2 Mg Gum) 2 mg BUCCAL Q2H PRN PRN Reason: Nicotine Cravings Nicotine Polacrilex (Nicotine Polacrilex 2 Mg Gum) 4 mg BUCCAL Q2H PRN PRN Reason: nicotine cravings Ondansetron HCl (Ondansetron Hcl 4 Mg/2 Ml Vial) 4 mg IVPUSH Q8H PRN PRN Reason: Nausea and Vomiting Sodium Chloride (0.9 % Sodium Chloride Flush 3 Ml Syringe) 3 ml IVFLUSH QSHIFT [facility] Last Admin: 12/17/23 08:32 Dose: Not Given Documented By: ANITA Non-Admin Reason: IV Running Trazodone HCl (Trazodone Hcl 50 Mg Tablet) 50 mg PO BEDTIME MRX1 PRN PRN Reason: Insomnia Last Admin: 12/17/23 00:10 Dose: 50 mg Documented By: IZABELM Labs 12/17/23 05:57 12/17/23 05:57 Labs: Laboratory Results - last 24 hr 12/17/23 12/17/23 05:57 08:20 MCV 86.3 MCH 27.3 MCHC 31.6 RDW 14.2 Plt Count 146 L MPV 10.5 Immature Gran % (Auto) 0.6 H Neut % (Auto) 71.9 Lymph % (Auto) 20.3 [place] % (Auto) 5.8 Eos % (Auto) 1.1 Baso % (Auto) 0.3 Lymph # (Auto) 1.8 [place] # (Auto) 0.5 Eos # (Auto) 0.1 Baso # (Auto) 0.0 Abs Immat Gran (auto) 0.05 H Absolute Neuts (auto) 6.5 Absolute Nucleated RBC 0.000 Nucleated RBC % (auto) 0.0 Anion Gap 12 Estim Creat Clear Calc 117.4 Estimated GFR > 60 Random Glucose 142 H Lactic Acid 2.3 H* Calcium 8.5 D Assessment and Plan (1) Pneumonia: Status: Acute (2) Severe sepsis: Status: Acute (3) Lactic acidosis: Status: Acute Plan A 43 years old male with PMH of substance use disorder, untreated hepatitis-C, PTSD among others who preseted with depression with SI requring admitting to [facility] for management. Severe sepsis secondary to LLL Pneumonia improving Resp panel negative Pending blood cultures Start IV Abx 12/15 acute Lactic acidosis likely related to severe sepsis remains elevated today at 2.3 30 cc\kg given NS, to give extra Bolus keep on IVF and recheck Depression with SI keep sitter bedside continue Cymbalta , Gabapentin Psych team consult Hepatitis C, untreated chronic infection, will need outpatient follow up Subclinical hypothyroidism TSH mildly elevated 4.71 with T4 WNL at 0.79 Outpatient follow-up for repeat labs in 3-6 months Polysubstance use disorder Plan as per Psychiatry DVT PPx Lovenox The patient will likely need overnight hospital stay for treatment of severe sepsis 2/2 pneumonia pending final blood cultures Quality Stroke Does the patient have a stroke diagnosis?: No VTE Prior VTE?: No VTE Risk Level:: Medical - moderate - high VTE Device Contraindication: Treatment Not Indicated VTE Drug Contraindication: N/A - Med Ordered
[2023-12-17 11:36] LABS: ~Lactic Acid-LAB USE ONLY 1.7 mmol/L (0.5-2.0)
[2023-12-17] MEDS: Azithromycin 500 MG in 0.9 % Sodium Chloride 250 ML 125 MG IV (11:51)
[2023-12-17 14:46] VITALS: BP 128/74
--- NOTE | 2023-12-17 14:56 | PM.PSYCN ---
History of Present Illness Date of Service: 12/17/23 Chief Complaint: sepsis,Pneumonia Reason for Consult: ? need for sitter and continued psych treatment Requesting physician: Josette Cedeno Discussed with referring provider: Yes Sources of Information: patient interviewed and chart reviewed HPI Past Psychiatric History: IP: Many he reports OP: N Methadone program Trials: several SA: hx sepsis and pneumonia prolonged qtc Personal & Social History: Pt hoping his mom comes to visi t plans to go back to [facility] when he is done with medical care- [facility] Medical History Cigarette smoker Opioid dependence Polysubstance abuse Cocaine use disorder in remission PTSD (post-traumatic stress disorder) MDD (major depressive disorder), recurrent episode, moderate Family History: deferred Social History: Currently homeless; was living with sister Born in [place], to in 1983. 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 in [facility]-their mother left him for his best friend SSI 7 years incarcerated Homeless x 3 years Trauma History: +hx for trauma; does not disclose Diagnostics Vital Signs (24Hr): Vital Signs - 24 hr 12/16/23 16:43 12/16/23 19:50 12/17/23 04:00 Temperature 99.5 F 98 F 97.2 F Pulse Rate 108 H 94 77 Respiratory Rate 14 15 18 Blood Pressure 131/64 122/69 109/60 Pulse Oximetry 97 93 95 Oxygen Delivery Method Room Air Room Air Room Air 12/17/23 06:57 12/17/23 14:46 Temperature 98 F Pulse Rate 78 Respiratory Rate 16 Blood Pressure 108/62 128/74 Pulse Oximetry 94 Oxygen Delivery Method Room Air BMI result Body Mass Index 34.1 Labs 12/17/23 05:57 12/17/23 05:57 Labs: Laboratory Results - last 48 hr 12/17/23 12/17/23 12/17/23 05:57 08:20 11:10 WBC 9.0 RBC 3.44 L D Hgb 9.4 L D Hct 29.7 L MCV 86.3 MCH 27.3 MCHC 31.6 RDW 14.2 Plt Count 146 L MPV 10.5 Immature Gran % (Auto) 0.6 H Neut % (Auto) 71.9 Lymph % (Auto) 20.3 [place] % (Auto) 5.8 Eos % (Auto) 1.1 Baso % (Auto) 0.3 Lymph # (Auto) 1.8 [place] # (Auto) 0.5 Eos # (Auto) 0.1 Baso # (Auto) 0.0 Abs Immat Gran (auto) 0.05 H Absolute Neuts (auto) 6.5 Absolute Nucleated RBC 0.000 Nucleated RBC % (auto) 0.0 Sodium 140 Potassium 3.3 Chloride 104 Carbon Dioxide 27 Anion Gap 12 BUN 9 Creatinine 0.85 Estim Creat Clear Calc 117.4 Estimated GFR > 60 Random Glucose 142 H Lactic Acid 2.3 H* Lactic Acid F/U @ 2Hr 1.7 Calcium 8.5 D Mental Status Exam Mental Status Exam Patient Appearance: Unkempt Patient Orientation: Person, Place, Time and Situation Level of Consciousness: Awake Patient Behavior: Appropriate and Passive Mood Description: Apprehensive Affect Description: Labile (mild) Patient Cognition Impaired: No Ability to Follow Directions: Fair Speech Pattern: Clear Hallucinations: None Thought Process: Intact Thought Content: positive for Goal Oriented Depressive Symptoms: Increased Anxiety, Muscle Tension, Increased Irritability and Thoughts of /Suicide Judgement: Fair Medications Medications Current Medications Acetaminophen (Acetaminophen 325 Mg Tablet) 650 mg PO Q6H PRN PRN Reason: Pain, Mild (Pain Scale 1-3), fever or headache Calcium Carbonate (Calcium Carbonate 750 Mg Tab.Chew) 750 mg PO Q4H PRN PRN Reason: Heartburn Clonazepam (Clonazepam 1 Mg Tablet) 1 mg PO BID PRN PRN Reason: Anxiety Last Admin: 12/17/23 08:27 Dose: 1 mg Clonidine HCl (Clonidine Hcl 0.1 Mg Tablet) 0.1 mg PO BID PRN; Protocol PRN Reason: anxiety Cyclobenzaprine HCl (Cyclobenzaprine Hcl 10 Mg Tablet) 10 mg PO TID [facility] Last Admin: 12/17/23 14:40 Dose: 10 mg Duloxetine HCl (Duloxetine Hcl 60 Mg Capsule.) 60 mg PO DAILY [facility] Last Admin: 12/17/23 08:27 Dose: 60 mg Enoxaparin Sodium (Enoxaparin Sodium 40 Mg/0.4 Ml Syringe) 40 mg SUBCUT Q24H [facility] Last Admin: 12/17/23 13:56 Dose: Not Given Gabapentin (Gabapentin 400 Mg Capsule) 800 mg PO TID [facility] Last Admin: 12/17/23 14:41 Dose: 800 mg Azithromycin 500 mg/ Sodium (Chloride) 250 mls @ 125 mls/hr IV Q24H [facility] Last Infusion: 12/17/23 13:51 Dose: Infused Ceftriaxone Sodium 1 gm/ (Sodium Chloride) 50 mls @ 100 mls/hr IV Q24H [facility] Last Infusion: 12/17/23 11:49 Dose: Infused Lactated Ringer's (Lr) 1,000 mls @ 100 mls/hr IVCONT .Q10H [facility] Last Admin: 12/17/23 13:55 Dose: 100 mls/hr Ibuprofen (Ibuprofen 400 Mg Tablet) 400 mg PO Q6H PRN PRN Reason: Fever or Pain, Mild (Pain Scale 1-3) Magnesium Hydroxide (Milk Of Magnesia 30 Ml Oral.Susp) 30 ml PO DAILY PRN PRN Reason: Constipation Melatonin (Melatonin 3 Mg Tablet) 6 mg PO BEDTIME PRN PRN Reason: Insomnia Methadone HCl (Methadone Hcl 20 Mg/2 Ml Oral.Conc) 135 mg PO DAILY [facility] Last Admin: 12/17/23 08:31 Dose: 135 mg Nicotine (Nicotine 21 Mg Patch.Td24) 21 mg TRANSDERMA DAILY [facility] Last Admin: 12/17/23 08:28 Dose: 21 mg Nicotine Polacrilex (Nicotine Polacrilex 2 Mg Gum) 2 mg BUCCAL Q2H PRN PRN Reason: Nicotine Cravings Nicotine Polacrilex (Nicotine Polacrilex 2 Mg Gum) 4 mg BUCCAL Q2H PRN PRN Reason: nicotine cravings Ondansetron HCl (Ondansetron Hcl 4 Mg/2 Ml Vial) 4 mg IVPUSH Q8H PRN PRN Reason: Nausea and Vomiting Sodium Chloride (0.9 % Sodium Chloride Flush 3 Ml Syringe) 3 ml IVFLUSH QSHIFT [facility] Last Admin: 12/17/23 08:32 Dose: Not Given Trazodone HCl (Trazodone Hcl 50 Mg Tablet) 50 mg PO BEDTIME MRX1 PRN PRN Reason: Insomnia Last Admin: 12/17/23 00:10 Dose: 50 mg Allergies Allergies Allergy/AdvReac Type Severity Reaction Status Date / Time tramadol [TRAMADOL] Allergy Intermediate HIVES, Verified 12/29/22 11:26 ITCHY ibuprofen [From MOTRIN] AdvReac Intermediate STOMACH Verified 12/29/22 11:26 UPSET, ITCHY,DIFFICULTY BREATHING. valium Allergy Severe pruritus Uncoded 12/08/23 16:22 Assessment & Plan Assessment & Plan (1) Pneumonia: Status: Acute Code(s): J18.9 - Pneumonia, unspecified organism (2) Severe sepsis: Status: Acute Code(s): A41.9 - Sepsis, unspecified organism; R65.20 - Severe sepsis without septic shock (3) Opioid dependence: Status: Acute Code(s): F11.20 - Opioid dependence, uncomplicated (4) MDD (major depressive disorder), recurrent episode, moderate: Status: Acute Code(s): F33.1 - Major depressive disorder, recurrent, moderate Plan continue psych meds that don't affect qtc evaluate other meds that might prolong it- asked Carrie Kimball about ? methadone dose and qtc though patient is also asking for pain meds for his side back pain from pneumonia?! Total time managing care of this patient today ____ minutes. Patient educated on: medication risk/benefits and medical condition Informed Consent: understands and further education needed (re pain meds)
[2023-12-17 15:53] VITALS: BP 121/74; PULSE 70; RESP 18; TEMP 36.2; O2SAT 93
[2023-12-17 20:49] VITALS: BP 139/86; PULSE 70; RESP 18; TEMP 36.3; O2SAT 95
[2023-12-17] MEDS: Morphine Sulfate 4 MG/ML CARTRIDGE 3 MG IVPUSH (22:03)
[2023-12-18] MEDS: Melatonin 3 MG TABLET 6 MG PO (01:21)
[2023-12-18 04:00] VITALS: BP 139/86; PULSE 70; RESP 18; TEMP 36.3; O2SAT 95
[2023-12-18 06:03] LABS: Hematocrit 31.2 % (42.0-52.0); Mean Corpuscular HGB Conc 32.1 g/dl (31.0-36.0); Mean Corpuscular Hemoglobin 27.8 pg (27.0-33.0); Mean Corpuscular Volume 86.7 fL (80.0-98.0); Platelet Count 159 X10*3/uL (160-400); White Blood Count 5.9 X10*3/uL (4.8-10.8)
[2023-12-18 06:24] LABS: Anion Gap 11 (12-20); Blood Urea Nitrogen 9 mg/dL (9-16); Calcium 8.7 mg/dL (8.4-10.2); Carbon Dioxide 29 mmol/L (22-29); Chloride 106 mmol/L (96-108); Creatinine Clr Calc Pharmacy 118.8; Estimated Glomerular Filt Rate > 60; Glucose Random 91 mg/dL (60-115); Potassium 4.1 mmol/L (3.3-5.1); Sodium 142 mmol/L (135-145)
[2023-12-18 07:36] VITALS: BP 146/74; PULSE 90; RESP 14; TEMP 36; O2SAT 94
[2023-12-18] MEDS: Nicotine 21 MG PATCH.TD24 TRANSDERMA ×2 (08:36→08:37)
[2023-12-18] MEDS: 0.9 % Sodium Chloride Flush 3 ML SYRINGE IVFLUSH ×3 (08:37→19:54)
[2023-12-18] MEDS: Gabapentin 400 MG CAPSULE 800 MG PO ×3 (08:38→19:50)
[2023-12-18] MEDS: DULoxetine HCl 60 MG CAPSULE.DR PO (08:38)
[2023-12-18] MEDS: methADONE HCl 20 MG/2 ML ORAL.CONC 135 MG PO (08:44)
[2023-12-18] MEDS: clonazePAM 1 MG TABLET PO ×2 (08:45→19:50)
[2023-12-18] MEDS: Lactulose 20 GM/30 ML SOLUTION 30 GM PO ×3 (10:44→19:50)
[2023-12-18] MEDS: Ibuprofen 400 MG TABLET PO (10:44)
[2023-12-18] MEDS: Docusate Sodium 100 MG CAPSULE PO ×2 (10:44→14:33)
--- NOTE | 2023-12-18 10:45 | HO.PM.IMPN ---
Subjective Subjective Date of Service: 12/18/23 Interval History: Seen and evaluated this morning Still feeling weak Constipated denies fever or chills no other events Review of Systems Review of Systems: Yes all other systems are reviewed and are negative Physical Exam Vital Signs: Vital Signs: Last Vital Signs Temp 96.8 F 12/18/23 07:36 Pulse 90 12/18/23 07:36 Resp 14 12/18/23 07:36 BP 146/74 H 12/18/23 07:36 Pulse Ox 94 12/18/23 07:36 O2 Del Method Room Air 12/18/23 07:36 BMI result Body Mass Index 34.1 Const: Other: Constitutional : Awake, interactive, not in distress Neck : Normal inspection, Supple Cardiovascular : RRR, no JVP, no lower extremity edema Respiratory : good bilateral air entry, basal fine crackles LLL, no wheezes or rhonchi Gastrointestinal: soft, lax, Normal bowel sounds, Non tender Skin : Warm, Dry Neurological : Alert & oriented x3, No focal deficit Objective Data Active Medications Acetaminophen (Acetaminophen 325 Mg Tablet) 650 mg PO Q6H PRN PRN Reason: Pain, Mild (Pain Scale 1-3), fever or headache Calcium Carbonate (Calcium Carbonate 750 Mg Tab.Chew) 750 mg PO Q4H PRN PRN Reason: Heartburn Clonazepam (Clonazepam 1 Mg Tablet) 1 mg PO BID PRN PRN Reason: Anxiety Last Admin: 12/18/23 08:45 Dose: 1 mg Documented By: ANITA Clonidine HCl (Clonidine Hcl 0.1 Mg Tablet) 0.1 mg PO BID PRN; Protocol PRN Reason: anxiety Docusate Sodium (Docusate Sodium 100 Mg Capsule) 100 mg PO BID [facility] Last Admin: 12/18/23 10:44 Dose: 100 mg Documented By: ANITA Duloxetine HCl (Duloxetine Hcl 60 Mg Capsule.Dr) 60 mg PO DAILY [facility] Last Admin: 12/18/23 08:38 Dose: 60 mg Documented By: ANITA Enoxaparin Sodium (Enoxaparin Sodium 40 Mg/0.4 Ml Syringe) 40 mg SUBCUT Q24H [facility] Last Admin: 12/17/23 13:56 Dose: Not Given Documented By: ANITA Non-Admin Reason: Patient Refused Gabapentin (Gabapentin 400 Mg Capsule) 800 mg PO TID [facility] Last Admin: 12/18/23 08:38 Dose: 800 mg Documented By: ANITA Ceftriaxone Sodium 1 gm/ (Sodium Chloride) 50 mls @ 100 mls/hr IV Q24H [facility] Last Infusion: 12/17/23 11:49 Dose: Infused Documented By: ANITA Doxycycline Hyclate 100 mg/ (Sodium Chloride) 250 mls @ 166.67 mls/hr IV Q12H [facility] Ibuprofen (Ibuprofen 400 Mg Tablet) 400 mg PO Q6H PRN PRN Reason: Fever or Pain, Mild (Pain Scale 1-3) Last Admin: 12/18/23 10:44 Dose: 400 mg Documented By: ANITA Lactulose (Lactulose 20 Gm/30 Ml Solution) 30 gm PO TID [facility] Last Admin: 12/18/23 10:44 Dose: 30 gm Documented By: ANITA Magnesium Hydroxide (Milk Of Magnesia 30 Ml Oral.Susp) 30 ml PO DAILY PRN PRN Reason: Constipation Melatonin (Melatonin 3 Mg Tablet) 6 mg PO BEDTIME PRN PRN Reason: Insomnia Last Admin: 12/18/23 01:21 Dose: 6 mg Documented By: KARIS Methadone HCl (Methadone Hcl 20 Mg/2 Ml Oral.Conc) 135 mg PO DAILY [facility] Last Admin: 12/18/23 08:44 Dose: 135 mg Documented By: ANITA Nicotine (Nicotine 21 Mg Patch.Td24) 21 mg TRANSDERMA DAILY [facility] Last Admin: 12/18/23 08:37 Dose: 21 mg Documented By: ANITA Nicotine Polacrilex (Nicotine Polacrilex 2 Mg Gum) 2 mg BUCCAL Q2H PRN PRN Reason: Nicotine Cravings Nicotine Polacrilex (Nicotine Polacrilex 2 Mg Gum) 4 mg BUCCAL Q2H PRN PRN Reason: nicotine cravings Ondansetron HCl (Ondansetron Hcl 4 Mg/2 Ml Vial) 4 mg IVPUSH Q8H PRN PRN Reason: Nausea and Vomiting Sodium Chloride (0.9 % Sodium Chloride Flush 3 Ml Syringe) 3 ml IVFLUSH QSHIFT [facility] Last Admin: 12/18/23 08:37 Dose: 3 ml Documented By: ANITA Labs 12/18/23 05:43 12/18/23 05:43 Labs: Laboratory Results - last 24 hr 12/17/23 12/18/23 11:10 05:43 MCV 86.7 MCH 27.8 MCHC 32.1 RDW 14.0 Plt Count 159 L MPV 10.0 Absolute Nucleated RBC 0.000 Nucleated RBC % (auto) 0.0 Anion Gap 11 L Estim Creat Clear Calc 118.8 Estimated GFR > 60 Random Glucose 91 Lactic Acid F/U @ 2Hr 1.7 Calcium 8.7 Assessment and Plan (1) Lactic acidosis: Status: Acute (2) Pneumonia: Status: Acute (3) Severe sepsis: Status: Acute (4) Opioid dependence: Status: Acute Plan A 43 years old male with PMH of substance use disorder, untreated hepatitis-C, PTSD among others who preseted with depression with SI requring admitting to [facility] for management. Severe sepsis secondary to LLL Pneumonia improving Resp panel negative Pending blood cultures continue IV Doxycycline and Ceftriaxone 12/15 Prolonged QTc avoid meds that might prolong it repeat EKG looks better acute Lactic acidosis resolved Depression with SI keep sitter bedside continue Cymbalta , Gabapentin Psych team input appreciated Hepatitis C, untreated chronic infection, will need outpatient follow up Subclinical hypothyroidism TSH mildly elevated 4.71 with T4 WNL at 0.79 Outpatient follow-up for repeat labs in 3-6 months Polysubstance use disorder continue Methadone DVT PPx Lovenox The patient will likely need overnight hospital stay for treatment of severe sepsis 2/2 pneumonia pending final blood cultures Quality Stroke Does the patient have a stroke diagnosis?: No VTE Prior VTE?: No VTE Risk Level:: Medical - moderate - high VTE Device Contraindication: Treatment Not Indicated VTE Drug Contraindication: N/A - Med Ordered
[2023-12-18] MEDS: cefTRIAXone sodium 1 GM in 0.9 % Sodium Chloride 50 ML IV (10:48)
[2023-12-18] MEDS: Doxycycline Hyclate 100 MG in 0.9 % Sodium Chloride 250 ML 166.67 MG IV ×2 (11:15→22:59)
--- NOTE | 2023-12-18 14:25 | MHC.CM.PN ---
CM ATTEMPTED TO SEE PT YESTERDAY AND AGAIN TODAY, PT TOO LETHARGIC TO PARTICIPATE IN ASSESSMENT CM WILL REVISIT
[2023-12-18 15:48] VITALS: BP 148/91; PULSE 85; RESP 20; TEMP 36.6; O2SAT 94
[2023-12-18 19:36] VITALS: BP 137/82; PULSE 87; RESP 14; TEMP 37.2; O2SAT 94
[2023-12-19] MEDS: Acetaminophen 325 MG TABLET 975 MG PO
[2023-12-19 00:01] VITALS: BP 140/94
[2023-12-19] MEDS: cloNIDine HCL 0.1 MG TABLET PO ×2 (00:01→15:33)
[2023-12-19 03:04] VITALS: BP 130/62; PULSE 70; RESP 18; TEMP 36.5; O2SAT 97
--- NOTE | 2023-12-19 03:07 | PC.NURSE ---
Pt seen on bed alert and oriented, c/o lower back pain, offered Tylenol and refused at first, family came to visit, became more anxious after family left and asked for med for his back pain, Dr. Ocampo was notified, prn Clonidine given, prn Tylenol dose was increased to 975 mg po, offered and given to pt, pt slept after, woke up and went to the bathroom later and resumed sleep.
[2023-12-19 07:13] VITALS: BP 160/95; PULSE 70; RESP 18; TEMP 36.3; O2SAT 95
[2023-12-19] MEDS: Gabapentin 400 MG CAPSULE 800 MG PO ×3 (08:22→20:05)
[2023-12-19] MEDS: DULoxetine HCl 60 MG CAPSULE.DR PO (08:22)
[2023-12-19] MEDS: Nicotine 21 MG PATCH.TD24 TRANSDERMA (08:23)
[2023-12-19] MEDS: 0.9 % Sodium Chloride Flush 3 ML SYRINGE IVFLUSH (08:24)
[2023-12-19] MEDS: methADONE HCl 20 MG/2 ML ORAL.CONC 135 MG PO (08:24)
[2023-12-19] MEDS: clonazePAM 1 MG TABLET PO ×2 (08:31→20:10)
--- NOTE | 2023-12-19 09:33 | MHC.CM.PN ---
Addendum entered by Nathaly Jay RN 12/19/23 09:37: No PCP. G brochure provided. Patient completed HCP naming HCA's: 1) sister Erin, 2) mother Shoshana. Original Note: Patient currently homeless and [facility]. Functionally independent [employer], now using a cane. Methadone through [facility] in [place]. Was admitted to I/P psych for SI. Still endorsing SI w/ 1:1 sitter @ bedside. DP: Patient's goal is to return to I/P psych when medically cleared, will need CARE team eval.
[2023-12-19] MEDS: cefuroxime axetiL 500 MG TABLET PO ×2 (12:26→20:05)
[2023-12-19] MEDS: Doxycycline Monohydrate 100 MG CAPSULE PO ×2 (12:26→20:05)
--- NOTE | 2023-12-19 12:29 | PC.NURSE ---
Pt IV leaking. Dr Dean notified, antibiotics changed to po.
--- NOTE | 2023-12-19 14:08 | P.DS_ITS ---
DS: Providers Provider Date of admission: 12/16/23 16:06 Primary care physician: Unknown Physician Consults: 12/16/23 14:57 Consult for Sitter Routine Reason for consultation: suicidal risk Consult to Psychiatry Routine Consulting Provider: Psych Covering Reason for consultation: continue management for depression and SI. 12/19/23 11:19 Consult to Care Team Routine Comment: Reason for consultation: SI, medically ready for discharge DS: Diagnosis Discharge Diagnosis (1) Lactic acidosis: Status: Acute (2) Pneumonia: Status: Acute (3) Severe sepsis: Status: Acute (4) Opioid dependence: Status: Acute Physical Exam Vital Signs: Vital Signs: Last Vital Signs Temp 97.3 F 12/19/23 07:13 Pulse 70 12/19/23 07:13 Resp 18 12/19/23 07:13 BP 160/95 H 12/19/23 07:13 Pulse Ox 95 12/19/23 07:13 O2 Del Method Room Air 12/19/23 07:13 BMI result Body Mass Index 34.1 Discharge Plan Discharge Referrals: Physician,Unknown J [Primary Care Provider] - 1 Week Discharge Medications: No Action cyclobenzaprine 10 mg Tablet 10 mg PO TID Qty: 0 0RF clonidine HCl 0.1 mg Tablet 0.1 mg PO BID PRN (Reason: anxiety) Qty: 0 0RF Protocol: Hold for SBP< HOLD for SBP < : 90 acetaminophen 325 mg Tablet 650 mg PO Q6H PRN (Reason: Headache/Pain Mild Scale (1-3)) Qty: 0 0RF trazodone 50 mg Tablet 50 mg PO BEDTIME MRX1 PRN (Reason: Insomnia) Qty: 0 0RF nicotine (polacrilex) 2 mg Gum 4 mg buccal Q2H PRN (Reason: nicotine cravings) Qty: 0 0RF gabapentin 400 mg Capsule 800 mg PO TID Qty: 0 0RF clonazepam 1 mg Tablet 1 mg PO BID PRN (Reason: Anxiety) Qty: 0 0RF ceftriaxone 1 gram Recon Soln 1 g IV Q24H Qty: 0 0RF nicotine 21 mg/24 hr Patch 24 Hour 21 mg transdermal DAILY Qty: 0 0RF azithromycin 500 mg Recon Soln 500 mg IV Q24H Qty: 10 0RF methadone [Methadose] 10 mg/mL Concentrate 135 mg PO DAILY Qty: 30 0RF Rx Instructions: Partial Fill upon patient request. duloxetine 60 mg Capsule,Delayed Release(Dr/Ec) 60 mg PO DAILY Qty: 0 0RF Print Language: Bengali
--- NOTE | 2023-12-19 14:13 | HO.PM.IMPN ---
Subjective Subjective Date of Service: 12/19/23 Interval History: Has no sob, +SI Physical Exam Vital Signs: Vital Signs: Last Vital Signs Temp 97.3 F 12/19/23 07:13 Pulse 70 12/19/23 07:13 Resp 18 12/19/23 07:13 BP 160/95 H 12/19/23 07:13 Pulse Ox 95 12/19/23 07:13 O2 Del Method Room Air 12/19/23 07:13 BMI result Body Mass Index 34.1 Const: Other: Constitutional : Awake, interactive, not in distress Neck : Normal inspection, Supple Cardiovascular : RRR, no JVP, no lower extremity edema Respiratory : good bilateral air entry, basal fine crackles LLL, no wheezes or rhonchi Gastrointestinal: soft, lax, Normal bowel sounds, Non tender Skin : Warm, Dry Neurological : Alert & oriented x3, No focal deficit Objective Data Active Medications Acetaminophen (Acetaminophen 325 Mg Tablet) 975 mg PO Q6H PRN PRN Reason: Pain, Mild (Pain Scale 1-3), fever or headache Last Admin: 12/19/23 00:00 Dose: 975 mg Documented By: LESLIE Calcium Carbonate (Calcium Carbonate 750 Mg Tab.Chew) 750 mg PO Q4H PRN PRN Reason: Heartburn Cefuroxime Axetil (Cefuroxime Axetil 500 Mg Tablet) 500 mg PO BID [facility] Last Admin: 12/19/23 12:26 Dose: 500 mg Documented By: SOLO Clonazepam (Clonazepam 1 Mg Tablet) 1 mg PO BID PRN PRN Reason: Anxiety Last Admin: 12/19/23 08:31 Dose: 1 mg Documented By: SOLO Clonidine HCl (Clonidine Hcl 0.1 Mg Tablet) 0.1 mg PO BID PRN; Protocol PRN Reason: anxiety Last Admin: 12/19/23 00:01 Dose: 0.1 mg Documented By: LESLIE Docusate Sodium (Docusate Sodium 100 Mg Capsule) 100 mg PO BID [facility] Last Admin: 12/19/23 08:26 Dose: Not Given Documented By: SOLO Non-Admin Reason: multiple loose stools Doxycycline Monohydrate (Doxycycline Monohydrate 100 Mg Capsule) 100 mg PO BID [facility] Last Admin: 12/19/23 12:26 Dose: 100 mg Documented By: SOLO Duloxetine HCl (Duloxetine Hcl 60 Mg Capsule.Dr) 60 mg PO DAILY [facility] Last Admin: 12/19/23 08:22 Dose: 60 mg Documented By: SOLO Enoxaparin Sodium (Enoxaparin Sodium 40 Mg/0.4 Ml Syringe) 40 mg SUBCUT Q24H [facility] Last Admin: 12/19/23 12:29 Dose: Not Given Documented By: SOLO Non-Admin Reason: Patient Refused Gabapentin (Gabapentin 400 Mg Capsule) 800 mg PO TID [facility] Last Admin: 12/19/23 08:22 Dose: 800 mg Documented By: SOLO Ibuprofen (Ibuprofen 400 Mg Tablet) 400 mg PO Q6H PRN PRN Reason: Fever or Pain, Mild (Pain Scale 1-3) Last Admin: 12/18/23 10:44 Dose: 400 mg Documented By: ANITA Lactulose (Lactulose 20 Gm/30 Ml Solution) 30 gm PO TID [facility] Last Admin: 12/19/23 08:25 Dose: Not Given Documented By: SOLO Non-Admin Reason: multiple loose stools Magnesium Hydroxide (Milk Of Magnesia 30 Ml Oral.Susp) 30 ml PO DAILY PRN PRN Reason: Constipation Melatonin (Melatonin 3 Mg Tablet) 6 mg PO BEDTIME PRN PRN Reason: Insomnia Last Admin: 12/18/23 01:21 Dose: 6 mg Documented By: KARIS Methadone HCl (Methadone Hcl 20 Mg/2 Ml Oral.Conc) 135 mg PO DAILY [facility] Last Admin: 12/19/23 08:24 Dose: 135 mg Documented By: SOLO Nicotine (Nicotine 21 Mg Patch.Td24) 21 mg TRANSDERMA DAILY [facility] Last Admin: 12/18/23 08:37 Dose: 21 mg Documented By: ANITA Nicotine Polacrilex (Nicotine Polacrilex 2 Mg Gum) 2 mg BUCCAL Q2H PRN PRN Reason: Nicotine Cravings Nicotine Polacrilex (Nicotine Polacrilex 2 Mg Gum) 4 mg BUCCAL Q2H PRN PRN Reason: nicotine cravings Ondansetron HCl (Ondansetron Hcl 4 Mg/2 Ml Vial) 4 mg IVPUSH Q8H PRN PRN Reason: Nausea and Vomiting Sodium Chloride (0.9 % Sodium Chloride Flush 3 Ml Syringe) 3 ml IVFLUSH QSHIFT [facility] Last Admin: 12/19/23 08:24 Dose: 3 ml Documented By: SOLO Labs 12/18/23 05:43 12/18/23 05:43 Assessment and Plan (1) Lactic acidosis: Status: Acute (2) Pneumonia: Status: Acute (3) Severe sepsis: Status: Acute (4) Opioid dependence: Status: Acute Plan A 43 years old male with PMH of substance use disorder, untreated hepatitis-C, PTSD among others who preseted with depression with SI requring admitting to [facility] for management. Severe sepsis secondary to LLL Pneumonia improving Resp panel negative Pending blood cultures Change to PO Ceftin and Doxycyline Prolonged QTc avoid meds that might prolong it repeat EKG looks better acute Lactic acidosis resolved Depression with SI keep sitter bedside continue Cymbalta , Gabapentin CARE recommends inpatient Psych upon discharge Hepatitis C, untreated chronic infection, will need outpatient follow up Subclinical hypothyroidism TSH mildly elevated 4.71 with T4 WNL at 0.79 Outpatient follow-up for repeat labs in 3-6 months Polysubstance use disorder continue Methadone Paraphymosis--urology follow up DVT PPx Lovenox The patient will likely need overnight hospital stay for treatment of severe sepsis 2/2 pneumonia pending final blood cultures Quality Stroke Does the patient have a stroke diagnosis?: No VTE Prior VTE?: No VTE Risk Level:: Medical - moderate - high VTE Device Contraindication: Treatment Not Indicated VTE Drug Contraindication: N/A - Med Ordered
[2023-12-19 15:10] VITALS: BP 141/89; PULSE 80; RESP 18; TEMP 36.2; O2SAT 93
[2023-12-19 20:00] VITALS: BP 136/79; PULSE 77; RESP 18; TEMP 36.4; O2SAT 95
[2023-12-19] MEDS: Docusate Sodium 100 MG CAPSULE PO (20:05)
[2023-12-19] MEDS: Lactulose 20 GM/30 ML SOLUTION 30 GM PO (20:06)
[2023-12-19] MEDS: Melatonin 3 MG TABLET 6 MG PO (20:13)
[2023-12-20 03:49] VITALS: BP 120/76; PULSE 75; RESP 18; TEMP 36.3; O2SAT 93
[2023-12-20 07:16] VITALS: BP 158/96; PULSE 66; RESP 16; TEMP 36.4; O2SAT 93
[2023-12-20] MEDS: Doxycycline Monohydrate 100 MG CAPSULE PO (07:51)
[2023-12-20] MEDS: cefuroxime axetiL 500 MG TABLET PO (07:51)
[2023-12-20] MEDS: DULoxetine HCl 60 MG CAPSULE.DR PO (07:51)
[2023-12-20] MEDS: clonazePAM 1 MG TABLET PO (07:51)
[2023-12-20] MEDS: methADONE HCl 20 MG/2 ML ORAL.CONC 135 MG PO (07:51)
[2023-12-20] MEDS: Nicotine 21 MG PATCH.TD24 TRANSDERMA (07:51)
[2023-12-20] MEDS: Gabapentin 400 MG CAPSULE 800 MG PO ×2 (07:51→13:48)
--- NOTE | 2023-12-20 11:47 | P.PNIM_ITS ---
Subjective Subjective Date of Service: 12/20/23 Interval History: No SOB, still has SI Physical Exam 2 Vital Signs: Vital Signs: Last Vital Signs Temp 97.6 F 12/20/23 07:16 Pulse 66 12/20/23 07:16 Resp 16 12/20/23 07:16 BP 158/96 H 12/20/23 07:16 Pulse Ox 93 12/20/23 07:16 O2 Del Method Room Air 12/20/23 07:16 BMI result Body Mass Index 34.1 Objective Data Active Medications Acetaminophen (Acetaminophen 325 Mg Tablet) 975 mg PO Q6H PRN PRN Reason: Pain, Mild (Pain Scale 1-3), fever or headache Last Admin: 12/19/23 00:00 Dose: 975 mg Documented By: CASTILM Calcium Carbonate (Calcium Carbonate 750 Mg Tab.Chew) 750 mg PO Q4H PRN PRN Reason: Heartburn Cefuroxime Axetil (Cefuroxime Axetil 500 Mg Tablet) 500 mg PO BID [facility] Last Admin: 12/20/23 07:51 Dose: 500 mg Documented By: AAMIR Clonazepam (Clonazepam 1 Mg Tablet) 1 mg PO BID PRN PRN Reason: Anxiety Last Admin: 12/20/23 07:51 Dose: 1 mg Documented By: AAMIR Clonidine HCl (Clonidine Hcl 0.1 Mg Tablet) 0.1 mg PO BID PRN; Protocol PRN Reason: anxiety Last Admin: 12/19/23 15:33 Dose: 0.1 mg Documented By: SOLO Docusate Sodium (Docusate Sodium 100 Mg Capsule) 100 mg PO BID [facility] Last Admin: 12/20/23 07:43 Dose: Not Given Documented By: COTEMA Non-Admin Reason: Patient Refused Doxycycline Monohydrate (Doxycycline Monohydrate 100 Mg Capsule) 100 mg PO BID [facility] Last Admin: 12/20/23 07:51 Dose: 100 mg Documented By: AAMIR Duloxetine HCl (Duloxetine Hcl 60 Mg Capsule.) 60 mg PO DAILY [facility] Last Admin: 12/20/23 07:51 Dose: 60 mg Documented By: AAMIR Enoxaparin Sodium (Enoxaparin Sodium 40 Mg/0.4 Ml Syringe) 40 mg SUBCUT Q24H [facility] Last Admin: 12/20/23 11:09 Dose: Not Given Documented By: HO.COTEMA Non-Admin Reason: Patient Refused Gabapentin (Gabapentin 400 Mg Capsule) 800 mg PO TID [facility] Last Admin: 12/20/23 07:51 Dose: 800 mg Documented By: COTEMA Ibuprofen (Ibuprofen 400 Mg Tablet) 400 mg PO Q6H PRN PRN Reason: Fever or Pain, Mild (Pain Scale 1-3) Last Admin: 12/18/23 10:44 Dose: 400 mg Documented By: GRAZIC Lactulose (Lactulose 20 Gm/30 Ml Solution) 30 gm PO TID [facility] Last Admin: 12/20/23 07:44 Dose: Not Given Documented By: COTEMA Non-Admin Reason: Patient Refused Magnesium Hydroxide (Milk Of Magnesia 30 Ml Oral.Susp) 30 ml PO DAILY PRN PRN Reason: Constipation Melatonin (Melatonin 3 Mg Tablet) 6 mg PO BEDTIME PRN PRN Reason: Insomnia Last Admin: 12/19/23 20:13 Dose: 6 mg Documented By: VAISHALI Methadone HCl (Methadone Hcl 20 Mg/2 Ml Oral.Conc) 135 mg PO DAILY [facility] Last Admin: 12/20/23 07:51 Dose: 135 mg Documented By: COTEMA Nicotine (Nicotine 21 Mg Patch.Td24) 21 mg TRANSDERMA DAILY [facility] Last Admin: 12/20/23 07:51 Dose: 21 mg Documented By: COTEMA Nicotine Polacrilex (Nicotine Polacrilex 2 Mg Gum) 2 mg BUCCAL Q2H PRN PRN Reason: Nicotine Cravings Nicotine Polacrilex (Nicotine Polacrilex 2 Mg Gum) 4 mg BUCCAL Q2H PRN PRN Reason: nicotine cravings Ondansetron HCl (Ondansetron Hcl 4 Mg/2 Ml Vial) 4 mg IVPUSH Q8H PRN PRN Reason: Nausea and Vomiting Sodium Chloride (0.9 % Sodium Chloride Flush 3 Ml Syringe) 3 ml IVFLUSH QSHIFT [facility] Last Admin: 12/20/23 07:44 Dose: Not Given Documented By: COTEMA Non-Admin Reason: No Access Labs 12/18/23 05:43 12/18/23 05:43 Assessment and Plan (1) Lactic acidosis: Status: Acute (2) Pneumonia: Status: Acute (3) Severe sepsis: Status: Acute (4) Opioid dependence: Status: Acute Plan 43 years old male with PMH of substance use disorder, untreated hepatitis-C, PTSD among others who preseted with depression with SI requring admitting to [facility] for management. Severe sepsis secondary to LLL Pneumonia, sepsis resolved. Complete PO antibiotics Prolonged QTc avoid meds that might prolong it repeat EKG looks better acute Lactic acidosis resolved Depression with SI keep sitter bedside continue Cymbalta , Gabapentin CARE recommends inpatient Psych upon discharge Hepatitis C, untreated chronic infection, will need outpatient follow up Subclinical hypothyroidism TSH mildly elevated 4.71 with T4 WNL at 0.79 Outpatient follow-up for repeat labs in 3-6 months Polysubstance use disorder continue Methadone Paraphymosis--urology follow up DVT PPx Lovenox need for inpatient: SI needs inpatient Psych Quality Stroke Does the patient have a stroke diagnosis?: No VTE Prior VTE?: No VTE Risk Level:: Medical - moderate - high VTE Device Contraindication: Treatment Not Indicated VTE Drug Contraindication: N/A - Med Ordered
--- NOTE | 2023-12-20 12:30 | P.DS_ITS ---
DS: Providers Provider Date of Service: 12/20/23 Date of admission: 12/16/23 16:06 Primary care physician: None Physician Consults: 12/16/23 14:57 Consult for Sitter Routine Reason for consultation: suicidal risk Consult to Psychiatry Routine Consulting Provider: Venecia Covering Reason for consultation: continue management for depression and SI. 12/19/23 11:19 Consult to Care Team Routine Comment: Reason for consultation: SI, medically ready for discharge DS: Diagnosis Discharge Diagnosis (1) Lactic acidosis: Status: Acute (2) Pneumonia: Status: Acute (3) Severe sepsis: Status: Acute (4) Opioid dependence: Status: Acute DS: Summary Hospital Course Hospital Course: admission hpi Chief Complaint: Fever, weakness A 43 years old male with PMH of substance use disorder, untreated hepatitis-C, PTSD among others who preseted with depression with SI requring admitting to for management. He has been doing fairly ok, still has a sitter in his room for suicidal risk. He has been feeling increasingly depressed secondary to homelessness, living in a skilled nursing, and problems with and children. Today a consult was called for fever of 105. the patient was sitting at the edge of his bed on room air looking mildly anxious. reported few episodes of cough but No chest pain, palpitations, SOB, nausea, vomiting, diarrhea or urinary symptoms. Blood, chemistry, UA and CXR, CT Abdomen were ordered. blood work showed LA of 4.7. Found to have RLL Pneumonia with blood work showing signs of severe sepsis. admitted to medical floor for further management. Hospital course: Patient was been treated on Psych chamorro for depression with suicidal thought and developped fever weakness and work up revealed sepsis due to pneumonia and as such he was transfered to medical surgical floor for IV antibiotics. He was treated with IV ceftriaxone and Doxycline and with good response and after 3 days, the antibiotics changed to oral Doxycyline and Cefuroxime and will treat him for a total of 7 days. He is now afebrile, breathing comfortably on room air. He has no fever and WBC is within normal. He still endorses suicidal ideation and therefore he will return to the Psych chamorro to complete treatment for depression with SI. hospital course: The patient was being treated on the psych chamorro for depression with suicidal thoughts and developed fever and weakness. A workup revealed sepsis due to pneumonia, leading to his transfer to the medical-surgical floor for IV antibiotics. He received IV ceftriaxone and doxycycline with a good response. After 3 days, the antibiotics were switched to oral doxycycline and cefuroxime f or a total of 7 days of treatment. He is now afebrile, breathing comfortably on room air, with no fever and a normal WBC count. He still endorses suicidal ideation and will return to the psych [facility] to continue treatment for depression with suicidal ideation. Time Attestation Discharge Coordination Time (in mins): 45 Quality: Safe Use of Opioids Does Pt have an Active Cancer Diagnosis on the Problem List?: No Quality: Stroke Does the patient have a stroke diagnosis?: No Physical Exam Vital Signs: Vital Signs: Last Vital Signs Temp 97.6 F 12/20/23 07:16 Pulse 66 12/20/23 07:16 Resp 16 12/20/23 07:16 BP 158/96 H 12/20/23 07:16 Pulse Ox 93 12/20/23 07:16 O2 Del Method Room Air 12/20/23 07:16 BMI result Body Mass Index 34.1 General: AO X 3, no acute distress Resp: CTA bilateral CVS: S1,S2,RRR GI: +BS, NT, no distention Skin: No rash Neuro: motor grossly intact Psych: appropriate affect Discharge Plan Discharge Anticipated Discharge Date/Time: 12/20/23 12:23 Patient Disposition: Xfer Psychiatric Hosp Discharge Diagnosis: Sepsis due to pneumonia Referrals: Physician,Unknown J [Physician] - 1 Week Discharge Medications: New doxycycline monohydrate 100 mg Capsule 100 mg PO BID Qty: 6 0RF cefuroxime axetil 500 mg Tablet 500 mg PO BID Qty: 6 0RF Continued clonidine HCl 0.1 mg Tablet 0.1 mg PO BID PRN (Reason: anxiety) Qty: 0 0RF Protocol: Hold for SBP< HOLD for SBP < : 90 acetaminophen 325 mg Tablet 650 mg PO Q6H PRN (Reason: Headache/Pain Mild Scale (1-3)) Qty: 0 0RF trazodone 50 mg Tablet 50 mg PO BEDTIME MRX1 PRN (Reason: Insomnia) Qty: 0 0RF nicotine (polacrilex) 2 mg Gum 4 mg buccal Q2H PRN (Reason: nicotine cravings) Qty: 0 0RF gabapentin 400 mg Capsule 800 mg PO TID Qty: 0 0RF clonazepam 1 mg Tablet 1 mg PO BID PRN (Reason: Anxiety) Qty: 0 0RF nicotine 21 mg/24 hr Patch 24 Hour 21 mg transdermal DAILY Qty: 0 0RF methadone [Methadose] 10 mg/mL Concentrate 135 mg PO DAILY Qty: 30 0RF Rx Instructions: Partial Fill upon patient request. duloxetine 60 mg Capsule,Delayed Release(Dr/Ec) 60 mg PO DAILY Qty: 0 0RF Discontinued cyclobenzaprine 10 mg Tablet 10 mg PO TID Qty: 0 0RF ceftriaxone 1 gram Recon Soln 1 g IV Q24H Qty: 0 0RF azithromycin 500 mg Recon Soln 500 mg IV Q24H Qty: 10 0RF Discharge Orders: Discharge Order (Routine); Ordered 12/20/23 Ordered By: Yvan Dean Diet: Advance to usual diet Activity on Discharge: As tolerated Stand Alone Forms: Patient Portal Discharge page Print Language: Guinean Care Plan Goals: Recovery from pneumonia and treatment for depression and prevent self harm Health Concerns: Depression with suicidal ideation Sepsis with pneumonia Plan of Treatment: To inpatient Psych treatment for depression with suicidal ideation complete antibiotics therapy for pneumonia Discharge Date/Time: 12/20/23 15:39
--- NOTE | 2023-12-20 12:37 | MHC.CM.PN ---
Per MD patient medically cleared for dc to inpatient psych and will transfer to [facility] today. RN aware.
[2023-12-20 13:43] VITALS: BP 158/96
[2023-12-20] MEDS: cloNIDine HCL 0.1 MG TABLET PO (13:43)
[2023-12-20] MEDS: Ibuprofen 400 MG TABLET PO (13:47)
[2023-12-20 15:40] VITALS: BP 153/70; PULSE 71; RESP 18; TEMP 36; O2SAT 96
== END 2023-12-20 15:39 | DRG 720 ==
PROVIDERS: Admitting Provider Student in an Organized Health Care Education/Training Program; Visit Provider Internal Medicine
DX: A41.9 Sepsis, unspecified organism (principal); J18.9 Pneumonia, unspecified organism; R45.851 Suicidal ideations; F33.1 Major depressive disorder, recurrent, moderate; F17.210 Nicotine dependence, cigarettes, uncomplicated; R94.31 Abnormal electrocardiogram [ECG] [EKG]; N47.2 Paraphimosis; R65.20 Severe sepsis without septic shock; F19.10 Other psychoactive substance abuse, uncomplicated; E03.8 Other specified hypothyroidism; B19.20 Unspecified viral hepatitis C without hepatic coma; F43.10 Post-traumatic stress disorder, unspecified; F11.20 Opioid dependence, uncomplicated; Z71.6 Tobacco abuse counseling; Z59.02 Unsheltered homelessness; Z79.899 Other long term (current) drug therapy
CPT/HCPCS: 36415; 80048; 83605; 85025; 85027; 93005; J0456; J0696; J1885; J2270; J7120; S9485

== ENCOUNTER → 2023-12-16 16:06 | Outpatient (BNV) | payer OTHER, SELFPAY | PROVIDERS: Admitting Provider Student in an Organized Health Care Education/Training Program; Visit Provider Student in an Organized Health Care Education/Training Program | DX: J18.9 Pneumonia, unspecified organism (principal); A41.9 Sepsis, unspecified organism; R65.20 Severe sepsis without septic shock; E87.20 Acidosis, unspecified; F11.20 Opioid dependence, uncomplicated | CPT/HCPCS: 99223; 99232; 99239 ==

== ENCOUNTER 2023-12-20 16:12 | Inpatient (IN) | payer OTHER, SELFPAY ==
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
--- NOTE | 2023-12-20 16:28 | HE.PHANOTE ---
RE: methadone patient transferred from [facility]; 135mg daily
[2023-12-20 17:26] VITALS: BP 120/75; PULSE 103; RESP 18; TEMP 36.4; O2SAT 95
[2023-12-20 17:27] VITALS: BMI 32.3
[2023-12-20] MEDS: clonazePAM 1 MG TABLET PO ×2 (17:30→20:50)
--- NOTE | 2023-12-20 17:32 | PC.ADMIT ---
Riccardo arrived to the unit at [address], [place] [employer] met with him, he signed Conditional Voluntary. Sharps check done by communications writer and male MHC, skin appears intact. Riccardo had been transferred from to [address] for sepsis and pneumonia. Upon approach Riccardo is calm and pleasant, reports feeling A little dizzy and unsteady, currently utilizing walker, considered a high fall risk. Riccardo reports endorsing 7/10 anxiety, 10/10 depression, he reports visual hallucinations stated Last night in the bathroom I saw my father, he reports I feel like he's watching me or looking for food, and smiled, he reports getting goosebumps. When asked if he had any thoughts of wanting to hurt self stated Yes, when asked if he had a plan stated No, they're just thoughts, when asked if he would seek out staff if urge to hurt self occurred stated Yes. VS obtained, he states I just want to feel better. Riccardo is currently on 15 minute checks.
[2023-12-20 20:00] VITALS: BP 128/63; PULSE 88; RESP 16; TEMP 36.1; O2SAT 96
[2023-12-20] MEDS: Gabapentin 400 MG CAPSULE 800 MG PO (20:48)
[2023-12-20] MEDS: Doxycycline Monohydrate 100 MG CAPSULE PO (20:48)
[2023-12-20] MEDS: cefuroxime axetiL 500 MG TABLET PO (20:49)
[2023-12-20] MEDS: traZODone HCL 50 MG TABLET PO (22:49)
[2023-12-21] MEDS: Acetaminophen 325 MG TABLET 650 MG PO (02:25)
[2023-12-21] MEDS: traZODone HCL 50 MG TABLET PO ×2 (02:25→20:04)
[2023-12-21] MEDS: hydrOXYzine HCL 25 MG TABLET PO ×2 (02:25→19:06)
[2023-12-21] MEDS: clonazePAM 1 MG TABLET PO ×4 (02:29→19:05)
[2023-12-21 07:45] VITALS: BP 138/85; PULSE 119; RESP 16; TEMP 36.4; O2SAT 94
[2023-12-21] MEDS: methADONE HCl 20 MG/2 ML ORAL.CONC 135 MG PO (08:09)
[2023-12-21] MEDS: cefuroxime axetiL 500 MG TABLET PO ×2 (08:10→20:04)
[2023-12-21] MEDS: Nicotine 21 MG PATCH.TD24 TRANSDERMA (08:10)
[2023-12-21] MEDS: Gabapentin 400 MG CAPSULE 800 MG PO ×3 (08:10→20:04)
[2023-12-21] MEDS: Doxycycline Monohydrate 100 MG CAPSULE PO ×2 (08:10→20:04)
[2023-12-21] MEDS: DULoxetine HCl 60 MG CAPSULE.DR PO (08:10)
--- NOTE | 2023-12-21 09:37 | PC.NURSE ---
Pt reported to this resume writer that he is feeling dizzy, nausea, seeing stars . VSS. Reported to Dr. Cobb via [facility]. He stated to keep an eye on the patient and see if he continues to complain of these ailments.
--- NOTE | 2023-12-21 15:39 | HO.PSYADMNOT ---
HPI Date of Service: 12/21/23 Chief Complaint: depression Sources of Information: patient interviewed, chart reviewed and crisis/core team assessment reviewed HPI Subjective Notes: Chávez Warning and Conditional Voluntary Healthcare Proxy: No Guardianship: No Medical Problems Affecting Mental Status: No Narrative: 43 yo male, initially admitted 12/09/23 - 12/16/23 for SI, depression,PTSD, anxiety, cocaine, opiate use disorder. Pt was working with the team on depressive sx, safety planning and transition to CSS with the nursing home goal of admission to [facility] when he developed a high fever and URI sx. Pt was admitted to medicine with pneumonia, sepsis, treated and returned 12/19 to continue psychiatric treatment and addiction referral. Pt reports ongoing SI. He reports wanting to work with the team on CSS placement and work toward his nursing home goal of admission to [facility] in [place]. Past Psychiatric History: IP: Many he reports OP: [facility] Methadone program Trials: several SA: hx Medical Evaluation Reviewed: Yes [facility] Medical History (Updated 12/22/23 @ 16:12 by Fang Arnold APRN) Opioid use disorder, severe, on maintenance therapy Opioid use disorder, moderate, in sustained remission, dependence Cigarette smoker Opioid dependence Polysubstance abuse Cocaine use disorder in remission PTSD (post-traumatic stress disorder) MDD (major depressive disorder), recurrent episode, moderate Family History: deferred Social History: Currently homeless; was living with sister Born in [place], to in 1983. 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 in [facility]-their mother left him for his best friend SSI 7 years incarcerated Homeless x 3 years Substance History: cocaine, heroin prior to admission 12/08 Trauma History: +hx for trauma; does not disclose Diagnostics Vital Signs (24Hr): Vital Signs - 24 hr 12/20/23 17:26 12/20/23 20:00 12/21/23 07:45 Temperature 97.6 F 96.9 F 97.6 F Pulse Rate 103 H 88 119 H Respiratory Rate 18 16 16 Blood Pressure 120/75 128/63 138/85 Pulse Oximetry 95 96 94 Oxygen Delivery Method Room Air Room Air Room Air BMI result Body Mass Index 32.3 Meds/Allergies Allergies Allergies Allergy/AdvReac Type Severity Reaction Status Date / Time tramadol [TRAMADOL] Allergy Intermediate HIVES, Verified 12/29/22 11:26 ITCHY valium Allergy Severe pruritus Uncoded 12/08/23 16:22 Mental Status Exam Mental Status Exam Patient Appearance: Appropriate Patient Orientation: Person, Place, Time and Situation Level of Consciousness: Alert Patient Behavior: Talkative and Good Eye Contact Mood Description: Depressed, Anxious and Apprehensive Affect Description: Anxious Patient Cognition Impaired: No Ability to Follow Directions: Good Speech Pattern: Spontaneous Speech Memory Description: Intact Hallucinations: None Delusions: Not Present Thought Process: Distracted Thought Content: positive for Perseveration and positive for Suicidal Ideation Depressive Symptoms: Increased Anxiety and Thoughts of /Suicide Judgement: Fair Assessment & Plan Assessment & Plan (1) MDD (major depressive disorder), recurrent episode, moderate: Status: Acute Code(s): F33.1 - Major depressive disorder, recurrent, moderate (2) Cocaine use disorder in remission: Status: Acute Code(s): F14.91 - Cocaine use, unspecified, in remission (3) PTSD (post-traumatic stress disorder): Status: Acute Code(s): F43.10 - Post-traumatic stress disorder, unspecified (4) Opioid use disorder, severe, on maintenance therapy: Status: Acute Code(s): F11.20 - Opioid dependence, uncomplicated Plan 43 yo male, history of depression, SI, anxiety, PTSD, cocaine use, opiate use (on Methadone), originally admitted 12/08-12/15 for treatment. 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 He developed URI sx, high fever and was found to have pneumonia with sepsis. He was transferred to medicine and returned 12/19 to continue working on his depression, anxiety, and CSS admission. He continues to report SI upon admission, with plans. Plan: Continue current regime. Klonopin 1 mg tid prn anxiety Continue Methadone, Cymbalta, Gabapentin Continue original treatment plan in search for CSS- Team has applied to [facility] and [facility] Patient educated on: medication risk/benefits and therapeutic strategies Informed Consent: understands Reason for continued inpatient stay Substantial Risk for: rapid decompensation Statement Statement: I have reviewed the history and physical and performed a pertinent examination on my patient. No changes have occurred unless specified. If the History and Physical was not performed prior to admission, the Hospitalist's service will be consulted for completing the admission physical. Time Spent With Patient Time: Total time managing care of this patient today ____ minutes.
[2023-12-21] MEDS: Nicotine Polacrilex 2 MG GUM 4 MG BUCCAL (19:05)
[2023-12-21 20:00] VITALS: BP 152/68; PULSE 94; RESP 18; TEMP 36.9; O2SAT 98
[2023-12-21 20:04] VITALS: BP 130/81
[2023-12-21] MEDS: cloNIDine HCL 0.1 MG TABLET PO (20:04)
[2023-12-22] MEDS: clonazePAM 1 MG TABLET PO ×3 (03:30→13:25)
[2023-12-22 08:19] VITALS: BP 118/73; PULSE 102; RESP 16; TEMP 36.4; O2SAT 96
[2023-12-22] MEDS: Nicotine 21 MG PATCH.TD24 TRANSDERMA (08:22)
[2023-12-22] MEDS: DULoxetine HCl 60 MG CAPSULE.DR PO (08:22)
[2023-12-22] MEDS: Gabapentin 400 MG CAPSULE 800 MG PO ×3 (08:22→20:50)
[2023-12-22] MEDS: cefuroxime axetiL 500 MG TABLET PO ×2 (08:22→20:48)
[2023-12-22] MEDS: Doxycycline Monohydrate 100 MG CAPSULE PO ×2 (08:22→20:49)
[2023-12-22] MEDS: methADONE HCl 20 MG/2 ML ORAL.CONC 135 MG PO (08:23)
--- NOTE | 2023-12-22 15:40 | HO.PSYCHPN ---
Subjective Subjective Date of Service: 12/22/23 Reason For Visit: depression Subjective Notes: Conditional Voluntary Healthcare Proxy: No Guardianship: No Medical Problems Affecting Mental Status: No Interim History: Pt reports he is feeling stronger. Reports sleep is intact He was using a cane, this was transitioned to a walker today per unit policy Reports he is calling for out patient services, states he has a med appt with N on 01/26. Finds klonopin helpful and wants to increase. Discussed klonopin, addictive potential, risk of use with methadone, out pt often declining Rx-he will consider these points and will continue to discuss other options. Medication Compliance: Yes Side effects from medications: No Attending Groups: No Review of Systems Acute medical concerns: No Medical Review of Systems: unchanged Review of Systems Review of Systems Reports feeling improved today. Mental Status Exam Mental Status Exam Patient Appearance: Appropriate Patient Orientation: Person, Place, Time and Situation Level of Consciousness: Alert Patient Behavior: Talkative and Good Eye Contact Mood Description: Depressed, Anxious and Apprehensive Affect Description: Anxious Patient Cognition Impaired: No Ability to Follow Directions: Good Speech Pattern: Spontaneous Speech Memory Description: Intact Hallucinations: None Delusions: Not Present Thought Process: Distracted Thought Content: positive for Perseveration and positive for Suicidal Ideation Depressive Symptoms: Increased Anxiety and Thoughts of /Suicide Judgement: Fair Diagnostics Vital Signs (24Hr): Vital Signs - 24 hr 12/21/23 20:00 12/21/23 20:04 12/22/23 08:19 Temperature 98.4 F 97.5 F Pulse Rate 94 102 H Respiratory Rate 18 16 Blood Pressure 152/68 H 130/81 118/73 Pulse Oximetry 98 96 Oxygen Delivery Method Room Air Room Air BMI result Body Mass Index 32.3 Medications Medications Current Medications Acetaminophen (Acetaminophen 325 Mg Tablet) 650 mg PO Q6H PRN PRN Reason: Headache/Pain Mild Scale (1-3) Last Admin: 12/21/23 02:25 Dose: 650 mg Al Hydroxide/Mg Hydroxide (Magnesium Hydrox/Alum Hydrox 30 Ml Oral.Susp) 30 ml PO Q6H PRN PRN Reason: Heartburn/Nausea Cefuroxime Axetil (Cefuroxime Axetil 500 Mg Tablet) 500 mg PO Q12H JOANA Stop: 12/23/23 20:59 Last Admin: 12/22/23 08:22 Dose: 500 mg Clonazepam (Clonazepam 1 Mg Tablet) 1 mg PO TID PRN PRN Reason: Severe anxiety Last Admin: 12/22/23 13:25 Dose: 1 mg Clonidine HCl (Clonidine Hcl 0.1 Mg Tablet) 0.1 mg PO BID PRN; Protocol PRN Reason: anxiety Last Admin: 12/21/23 20:04 Dose: 0.1 mg Doxycycline Monohydrate (Doxycycline Monohydrate 100 Mg Capsule) 100 mg PO Q12H [facility] Stop: 12/23/23 20:59 Last Admin: 12/22/23 08:22 Dose: 100 mg Duloxetine HCl (Duloxetine Hcl 60 Mg Capsule.Dr) 60 mg PO DAILY [facility] Last Admin: 12/22/23 08:22 Dose: 60 mg Gabapentin (Gabapentin 400 Mg Capsule) 800 mg PO TID [facility] Last Admin: 12/22/23 14:46 Dose: 800 mg Hydroxyzine HCl (Hydroxyzine Hcl 25 Mg Tablet) 25 mg PO Q6H PRN PRN Reason: Anxiety Last Admin: 12/21/23 19:06 Dose: 25 mg Magnesium Hydroxide (Milk Of Magnesia 30 Ml Oral.Susp) 30 ml PO DAILY PRN PRN Reason: Constipation Methadone HCl (Methadone Hcl 20 Mg/2 Ml Oral.Conc) 135 mg PO DAILY [facility] Last Admin: 12/22/23 08:23 Dose: 135 mg Nicotine (Nicotine 21 Mg Patch.Td24) 21 mg TRANSDERMA DAILY [facility] Last Admin: 12/22/23 08:22 Dose: 21 mg Nicotine Polacrilex (Nicotine Polacrilex 2 Mg Gum) 4 mg BUCCAL Q2H PRN PRN Reason: Nicotine Cravings Last Admin: 12/21/23 19:05 Dose: 4 mg Trazodone HCl (Trazodone Hcl 50 Mg Tablet) 50 mg PO BEDTIME MRX1 PRN PRN Reason: Insomnia Last Admin: 12/21/23 20:04 Dose: 50 mg Allergies Allergies Allergy/AdvReac Type Severity Reaction Status Date / Time tramadol [TRAMADOL] Allergy Intermediate HIVES, Verified 12/29/22 11:26 ITCHY valium Allergy Severe pruritus Uncoded 12/08/23 16:22 Assessment & Plan Assessment & Plan (1) Opioid use disorder, severe, on maintenance therapy: Status: Acute Code(s): F11.20 - Opioid dependence, uncomplicated (2) MDD (major depressive disorder), recurrent episode, moderate: Status: Acute Code(s): F33.1 - Major depressive disorder, recurrent, moderate (3) PTSD (post-traumatic stress disorder): Status: Acute Code(s): F43.10 - Post-traumatic stress disorder, unspecified (4) Cocaine use disorder in remission: Status: Acute Code(s): F14.91 - Cocaine use, unspecified, in remission Plan 12/22/23- Continue tx Informed Consent: understands Reason for continued inpatient stay Substantial Risk for: rapid decompensation Time Spent With Patient Time: Total time managing care of this patient today ____ minutes.
[2023-12-22 20:45] VITALS: BP 162/74; PULSE 84; TEMP 36.5; O2SAT 95
[2023-12-22] MEDS: traZODone HCL 50 MG TABLET PO (20:49)
[2023-12-22] MEDS: hydrOXYzine HCL 25 MG TABLET PO (20:49)
[2023-12-22] MEDS: Acetaminophen 325 MG TABLET 650 MG PO (20:49)
[2023-12-22] MEDS: cloNIDine HCL 0.1 MG TABLET PO (20:50)
--- NOTE | 2023-12-23 01:00 | PC.NURSE ---
Pt signed 3-day notice with staff this evening, 12/22/23. 3-day is up Tuesday12/27/23.
[2023-12-23 07:55] VITALS: BP 127/77; PULSE 89; RESP 16; TEMP 36.4; O2SAT 94
[2023-12-23] MEDS: cefuroxime axetiL 500 MG TABLET PO (08:09)
[2023-12-23] MEDS: Gabapentin 400 MG CAPSULE 800 MG PO ×3 (08:09→20:01)
[2023-12-23] MEDS: Nicotine 21 MG PATCH.TD24 TRANSDERMA (08:10)
[2023-12-23] MEDS: DULoxetine HCl 60 MG CAPSULE.DR PO (08:10)
[2023-12-23] MEDS: clonazePAM 1 MG TABLET PO ×4 (08:10→20:02)
[2023-12-23] MEDS: Doxycycline Monohydrate 100 MG CAPSULE PO (08:10)
[2023-12-23] MEDS: methADONE HCl 20 MG/2 ML ORAL.CONC 135 MG PO (08:10)
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
[2023-12-23 20:00] VITALS: BP 140/77; PULSE 86; RESP 18; TEMP 36.3; O2SAT 96
[2023-12-23] MEDS: Acetaminophen 325 MG TABLET 650 MG PO (20:02)
[2023-12-23] MEDS: traZODone HCL 50 MG TABLET PO (20:09)
[2023-12-24] MEDS: clonazePAM 1 MG TABLET PO ×2 (07:00→16:19)
[2023-12-24] MEDS: Acetaminophen 325 MG TABLET 650 MG PO ×2 (07:01→20:14)
[2023-12-24] MEDS: Nicotine Polacrilex 2 MG GUM 4 MG BUCCAL ×2 (07:01→20:13)
[2023-12-24 08:14] VITALS: BP 132/83; PULSE 116; RESP 16; TEMP -12.5; TEMP 9.5; O2SAT 96
[2023-12-24] MEDS: DULoxetine HCl 60 MG CAPSULE.DR PO (08:45)
[2023-12-24] MEDS: Gabapentin 400 MG CAPSULE 800 MG PO ×3 (08:45→20:13)
[2023-12-24] MEDS: methADONE HCl 20 MG/2 ML ORAL.CONC 135 MG PO (08:46)
[2023-12-24] MEDS: Nicotine 21 MG PATCH.TD24 TRANSDERMA (09:17)
--- NOTE | 2023-12-24 10:05 | HO.PSYCHPN ---
Subjective Subjective Date of Service: 12/24/23 Reason For Visit: depression Interim History: Patient reports he is feeling better. He says his stay has been helpful. He denies any side effects with medications. He denies SI/HI/AVH. Review of Systems Review of Systems Reports feeling improved today. Yes all other systems are reviewed and are negative Mental Status Exam Mental Status Exam Patient Appearance: Appropriate Patient Orientation: Person, Place, Time and Situation Level of Consciousness: Alert Patient Behavior: Talkative and Good Eye Contact Mood Description: Depressed, Anxious and Apprehensive Affect Description: Anxious Patient Cognition Impaired: No Ability to Follow Directions: Good Speech Pattern: Spontaneous Speech Memory Description: Intact Judgement: Good Diagnostics Vital Signs (24Hr): Vital Signs - 24 hr 12/23/23 20:00 12/24/23 08:14 Temperature 97.3 F 9.5 F L Pulse Rate 86 116 H Respiratory Rate 18 16 Blood Pressure 140/77 H 132/83 Pulse Oximetry 96 96 Oxygen Delivery Method Room Air Room Air BMI result Body Mass Index 32.3 Medications Medications Current Medications Acetaminophen (Acetaminophen 325 Mg Tablet) 650 mg PO Q6H PRN PRN Reason: Headache/Pain Mild Scale (1-3) Last Admin: 12/24/23 07:01 Dose: 650 mg Al Hydroxide/Mg Hydroxide (Magnesium Hydrox/Alum Hydrox 30 Ml Oral.Susp) 30 ml PO Q6H PRN PRN Reason: Heartburn/Nausea Clonazepam (Clonazepam 1 Mg Tablet) 1 mg PO TID PRN PRN Reason: Severe anxiety Last Admin: 12/24/23 07:00 Dose: 1 mg Clonidine HCl (Clonidine Hcl 0.1 Mg Tablet) 0.1 mg PO BID PRN; Protocol PRN Reason: anxiety Last Admin: 12/22/23 20:50 Dose: 0.1 mg Duloxetine HCl (Duloxetine Hcl 60 Mg Capsule.Dr) 60 mg PO DAILY [facility] Last Admin: 12/24/23 08:45 Dose: 60 mg Gabapentin (Gabapentin 400 Mg Capsule) 800 mg PO TID [facility] Last Admin: 12/24/23 08:45 Dose: 800 mg Hydroxyzine HCl (Hydroxyzine Hcl 25 Mg Tablet) 25 mg PO Q6H PRN PRN Reason: Anxiety Last Admin: 12/22/23 20:49 Dose: 25 mg Magnesium Hydroxide (Milk Of Magnesia 30 Ml Oral.Susp) 30 ml PO DAILY PRN PRN Reason: Constipation Methadone HCl (Methadone Hcl 20 Mg/2 Ml Oral.Conc) 135 mg PO DAILY [facility] Last Admin: 12/24/23 08:46 Dose: 135 mg Nicotine (Nicotine 21 Mg Patch.Td24) 21 mg TRANSDERMA DAILY [facility] Last Admin: 12/24/23 09:17 Dose: 21 mg Nicotine Polacrilex (Nicotine Polacrilex 2 Mg Gum) 4 mg BUCCAL Q2H PRN PRN Reason: Nicotine Cravings Last Admin: 12/24/23 07:01 Dose: 4 mg Trazodone HCl (Trazodone Hcl 50 Mg Tablet) 50 mg PO BEDTIME MRX1 PRN PRN Reason: Insomnia Last Admin: 12/23/23 20:09 Dose: 50 mg Allergies Allergies Allergy/AdvReac Type Severity Reaction Status Date / Time tramadol [TRAMADOL] Allergy Intermediate HIVES, Verified 12/29/22 11:26 ITCHY valium Allergy Severe pruritus Uncoded 12/08/23 16:22 Assessment & Plan Assessment & Plan (1) Opioid use disorder, severe, on maintenance therapy: Status: Acute Code(s): F11.20 - Opioid dependence, uncomplicated (2) MDD (major depressive disorder), recurrent episode, moderate: Status: Acute Code(s): F33.1 - Major depressive disorder, recurrent, moderate (3) PTSD (post-traumatic stress disorder): Status: Acute Code(s): F43.10 - Post-traumatic stress disorder, unspecified (4) Cocaine use disorder in remission: Status: Inactive Code(s): F14.91 - Cocaine use, unspecified, in remission Plan 12/22/23- Continue tx 12/23/23- Continue tx 12/23: continue current management and treatment plan. Reason for continued inpatient stay Substantial Risk for: inability to function and rapid decompensation Time Spent With Patient Time: Total time managing care of this patient today ____ minutes.
[2023-12-24] MEDS: hydrOXYzine HCL 25 MG TABLET PO (19:10)
[2023-12-24] MEDS: cloNIDine HCL 0.1 MG TABLET PO (20:13)
[2023-12-24] MEDS: traZODone HCL 50 MG TABLET PO (20:14)
[2023-12-24 20:30] VITALS: BP 128/84; PULSE 119; RESP 16; TEMP 37.7; O2SAT 93
[2023-12-25] MEDS: clonazePAM 1 MG TABLET PO ×3 (00:17→20:29)
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
[2023-12-25] MEDS: Acetaminophen 325 MG TABLET 975 MG PO (00:58)
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
[2023-12-25] MEDS: oxyCODONE HCl Immed Release 5 MG TABLET PO ×4 (06:24→22:32)
[2023-12-25 08:00] VITALS: BP 121/70; PULSE 91; RESP 18; TEMP 36.4; O2SAT 95
[2023-12-25] MEDS: methADONE HCl 20 MG/2 ML ORAL.CONC 135 MG PO (08:10)
[2023-12-25] MEDS: Gabapentin 400 MG CAPSULE 800 MG PO ×3 (08:10→20:28)
[2023-12-25] MEDS: Acetaminophen 325 MG TABLET 650 MG PO ×2 (08:11→15:03)
[2023-12-25] MEDS: DULoxetine HCl 60 MG CAPSULE.DR PO (08:11)
[2023-12-25] MEDS: Nicotine 21 MG PATCH.TD24 TRANSDERMA (08:13)
--- NOTE | 2023-12-25 08:20 | PC.NURSE ---
Pt reported a pain level of 6. This nurse provided Tylenol and texted Dr Somers/Dr. Floyd via [employer].
[2023-12-25] MEDS: Nicotine Polacrilex 2 MG GUM 4 MG BUCCAL ×2 (09:30→20:28)
[2023-12-25] MEDS: hydrOXYzine HCL 25 MG TABLET PO ×2 (12:46→20:28)
[2023-12-25 15:03] VITALS: BP 117/71
[2023-12-25] MEDS: cloNIDine HCL 0.1 MG TABLET PO (15:03)
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
[2023-12-25 20:15] VITALS: BP 140/98; PULSE 90; RESP 16; TEMP 36.9; O2SAT 98
[2023-12-25] MEDS: traZODone HCL 50 MG TABLET PO (20:28)
[2023-12-25] MEDS: prednisoLONE Acetate 1 % Oph Susp 5 ML DRPBTL 1 DROP EYE-LEFT (20:51)
[2023-12-25] MEDS: Atropine Sulfate 1 % Ophth Sol 2 ML BOTTLE 1 DROP EYE-LEFT (20:55)
[2023-12-25] MEDS: Lidocaine HCl 1 % 20 ML VIAL INTRADERMA (23:15)
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
[2023-12-26] MEDS: oxyCODONE HCl Immed Release 5 MG TABLET PO ×4 (04:46→20:59)
--- NOTE | 2023-12-26 05:38 | PM.EVENT ---
Event Note Date of Service: 12/26/23 Event Note: 10:00 PM - Assisted Dr. Antunez with left earlobe hematoma drainage to avoid cauliflower ear. Riccardo tolerated procedure well and received 1 dose of oxycodone 5 mg PO after the procedure to help with pain. Bandage was placed and will need to be removed in 1 week/7 days. Please note that patient's left eye pupil is dilated because he is receiving atropine ophthalmic drops. Time Spent With Patient Time: Total time managing care of this patient today ____ minutes.
[2023-12-26] MEDS: Acetaminophen 325 MG TABLET 975 MG PO ×2 (06:24→17:20)
[2023-12-26] MEDS: clonazePAM 1 MG TABLET PO ×3 (06:25→21:00)
[2023-12-26 08:00] VITALS: BP 119/71; PULSE 94; RESP 18; TEMP 36.4; O2SAT 94
[2023-12-26] MEDS: Gabapentin 400 MG CAPSULE 800 MG PO ×3 (08:20→20:59)
[2023-12-26] MEDS: DULoxetine HCl 60 MG CAPSULE.DR PO (08:20)
[2023-12-26] MEDS: Nicotine 21 MG PATCH.TD24 TRANSDERMA (08:22)
[2023-12-26] MEDS: methADONE HCl 20 MG/2 ML ORAL.CONC 135 MG PO (08:23)
[2023-12-26] MEDS: Atropine Sulfate 1 % Ophth Sol 2 ML BOTTLE 1 DROP EYE-LEFT ×2 (08:27→21:01)
[2023-12-26] MEDS: prednisoLONE Acetate 1 % Oph Susp 5 ML DRPBTL 1 DROP EYE-LEFT ×4 (08:27→21:01)
[2023-12-26 11:20] VITALS: BP 112/71; PULSE 91; RESP 16; TEMP 36.9; O2SAT 95
--- NOTE | 2023-12-26 11:21 | PC.NURSE ---
At approximately 1115, patient became unsteady on feet and began c/o of head pain. Pt also appeared sedated. VSS. Pt able to express orientation x 4. Pt requested to go to bed at this time. Pt requesting pain medication. notified.
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
[2023-12-26 20:00] VITALS: BP 131/83; PULSE 88; RESP 20; TEMP 36.5; O2SAT 100
[2023-12-26] MEDS: traZODone HCL 50 MG TABLET PO (20:59)
[2023-12-27] MEDS: Acetaminophen 325 MG TABLET 650 MG PO ×2 (01:20→07:27)
[2023-12-27] MEDS: oxyCODONE HCl Immed Release 5 MG TABLET PO ×2 (01:21→07:28)
[2023-12-27] MEDS: traZODone HCL 50 MG TABLET PO (01:23)
[2023-12-27] MEDS: clonazePAM 1 MG TABLET PO (04:32)
[2023-12-27 07:49] VITALS: BP 123/80; PULSE 126; RESP 14; TEMP 36.6; O2SAT 95
[2023-12-27] MEDS: methADONE HCl 20 MG/2 ML ORAL.CONC 135 MG PO (08:35)
[2023-12-27] MEDS: Nicotine 21 MG PATCH.TD24 TRANSDERMA (08:37)
[2023-12-27] MEDS: DULoxetine HCl 60 MG CAPSULE.DR PO (08:38)
[2023-12-27] MEDS: Atropine Sulfate 1 % Ophth Sol 2 ML BOTTLE 1 DROP EYE-LEFT (08:39)
[2023-12-27] MEDS: prednisoLONE Acetate 1 % Oph Susp 5 ML DRPBTL 1 DROP EYE-LEFT (08:39)
[2023-12-27] MEDS: Gabapentin 400 MG CAPSULE 800 MG PO (08:39)
[2023-12-27] MEDS: Nicotine Polacrilex 2 MG GUM 4 MG BUCCAL (09:52)
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
== END 2023-12-27 10:43 | disposition home or self-care (01) | DRG 751 ==
LOC: HO.PM5 12-23 12:06 → HO.PADLT16 12-24 19:31
PROVIDERS: Admitting Provider Clinical Nurse Specialist Psychiatric/Mental Health, Adult; Visit Provider Clinical Nurse Specialist Psychiatric/Mental Health, Adult
DX: F33.1 Major depressive disorder, recurrent, moderate (principal); F11.20 Opioid dependence, uncomplicated; S02.40FA Zygomatic fracture, left side, initial encounter for closed fracture; Y04.2XXA Assault by strike against or bumped into by another person, initial encounter; S00.432A Contusion of left ear, initial encounter; F17.210 Nicotine dependence, cigarettes, uncomplicated; Z71.6 Tobacco abuse counseling; F19.10 Other psychoactive substance abuse, uncomplicated; F43.10 Post-traumatic stress disorder, unspecified; Z79.899 Other long term (current) drug therapy
CPT/HCPCS: 70450; 70480; 70486; 72125

== ENCOUNTER → 2023-12-20 16:12 | Outpatient (BNV) | payer OTHER, SELFPAY | PROVIDERS: Admitting Provider Clinical Nurse Specialist Psychiatric/Mental Health, Adult; Visit Provider Psychiatry & Neurology Psychiatry | DX: F33.1 Major depressive disorder, recurrent, moderate (principal); F11.20 Opioid dependence, uncomplicated; F43.11 Post-traumatic stress disorder, acute | CPT/HCPCS: 99232; 99238 ==

== ENCOUNTER → 2023-12-20 16:12 | Outpatient (BNV) | payer OTHER, SELFPAY | PROVIDERS: Admitting Provider Clinical Nurse Specialist Psychiatric/Mental Health, Adult; Visit Provider Clinical Nurse Specialist Psychiatric/Mental Health, Adult | DX: F33.1 Major depressive disorder, recurrent, moderate (principal); F11.20 Opioid dependence, uncomplicated; F43.11 Post-traumatic stress disorder, acute; F14.91 Cocaine use, unspecified, in remission | CPT/HCPCS: 90792; 99231; 99232 ==

== ENCOUNTER 2025-01-07 04:51 | Inpatient (IN) | payer OTHER, SELFPAY ==
--- OUTSIDE RECORDS SUMMARY | 2025-01-03 19:56 | XMS_ITS | Encounter Summary ---
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 [facility] WBC 4.7(L) 4.8 - 10.8 K/mcL LAB HEMETOLOGY METHOD 01/03/2025 9:07 PM [facility] RBC 4.10(L) 4.50 - 5.50 M/mcL LAB HEMETOLOGY METHOD [facility]/03[facility] Hemoglobin 11.6(L) 13.5 - 17.5 g/dL LAB HEMETOLOGY METHOD 01/03/2025 9:07 PM [facility] Hematocrit 35.4(L) 42.0 - 54.0 % LAB HEMETOLOGY METHOD 01/03/2025 9:07 PM [facility] MCV 86.6 79.0 - 98.0 FL LAB HEMETOLOGY METHOD 01/03/2025 9[facility] MCH 28.4 27.0 - 32.0 pcg LAB HEMETOLOGY METHOD 01/03/2025 9:07 PM [facility] MCHC 32.8 32.0 - 37.0 g/dL LAB HEMETOLOGY METHOD 01/03/2025 9:07 PM [facility] RDW 13.0 11.0 - 15.0 % LAB HEMETOLOGY METHOD 01/03/2025 9:07 PM [facility] Platelets 214 130 - 400 K/mcL LAB HEMETOLOGY METHOD 01/03/2025 9:07 PM [facility] MPV 10.2 7.0 - 11.0 FL LAB HEMETOLOGY METHOD 01/03/2025 9:07 PM [facility] NRBC 0.0 <1.0 % LAB HEMETOLOGY METHOD 01/03/2025 9:07 PM [facility] NRBC Absolute 0.00 <0.10 K/mcL LAB HEMETOLOGY METHOD 01/03/2025 9:07 PM [facility] Neutrophils Relative 48.0 % LAB HEMETOLOGY METHOD 01/03/2025 9:07 PM [facility] Lymphocytes Relative 42.0 % LAB HEMETOLOGY METHOD 01/03/2025 9:07 PM [facility] Monocytes Relative 8.1 % LAB HEMETOLOGY METHOD 01/03/2025 9:07 PM [facility] Eosinophils Relative 1.1 % LAB HEMETOLOGY METHOD 01/03/2025 9:07 PM [facility] Basophils Relative 0.4 % LAB HEMETOLOGY METHOD 01/03/2025 9:07 PM [facility] Immature Granulocytes Relative 0.4 % LAB HEMETOLOGY METHOD 01/03/2025 9:07 PM EDT [facility] Neutrophils Absolute 2.25 1.50 - 7.00 K/mcL LAB HEMETOLOGY METHOD 01/03/2025 9:07 PM EDT [facility] Lymphocytes Absolute 1.97 1.00 - 5.00 K/mcL LAB HEMETOLOGY METHOD 01/03/2025 9:07 PM EDT [facility] Monocytes Absolute 0.38 0.20 - 1.00 K/mcL LAB HEMETOLOGY METHOD 01/03/2025 9:07 PM EDT [facility] Eosinophils Absolute 0.05 0.00 - 0.50 K/mcL LAB HEMETOLOGY METHOD 01/03/2025 9:07 PM EDT [facility] Basophils Absolute 0.02 0.00 - 0.20 K/mcL LAB HEMETOLOGY METHOD 01/03/2025 9:07 PM EDT [facility] Immature Granulocytes Absolute 0.02 0.00 - 0.03 K/mcL LAB HEMETOLOGY METHOD 01/03/2025 9:07 PM EDT [facility] Blood Venous blood specimen / Unknown Venipuncture / Unknown 01/03/2025 8:23 PM EDT 01/03/2025 8:57 PM EDT us Scot Malvin Mao MD LAB BLOOD ORDERABLES Final Resu lt [facility] [address] [place] [address], * (ABNORMAL) Salicylate level (01/03/2025 8:23 PM EDT) Salicylate Level <1.7(L) 2.0 - 29.0 mg/dL LAB CHEMISTRY METHOD 01/03/2025 9:29 PM EDT [facility] Blood Venous blood specimen / Unknown Venipuncture / Unknown 01/03/2025 8:23 PM EDT 01/03/2025 8:57 PM EDT us Yann Mao MD LAB BLOOD ORDERABLES Final Resu lt Performing Organization Address [facility] Co de Phone Number [facility] [address] [place] [address], [place] [phone] * (ABNORMAL) Acetaminophen level (01/03/2025 8:23 PM EDT) Acetaminophen Level <2.0(L) 10.0 - 30.0 mcg/mL LAB CHEMISTRY METHOD 01/03/2025 9:29 PM EDT [facility] Blood Venous blood specimen / Unknown Venipuncture / Unknown 01/03/2025 8:23 PM EDT 01/03/2025 8:57 PM EDT us aYnn Mao MD LAB BLOOD ORDERABLES Final Resu lt Performing Organization Address [facility] Co de Phone Number [facility] [address] [place] [address], [place] [phone] * Ethanol (01/03/2025 8:23 PM EDT) Ethanol Level <3 0 - 10 mg/dL LAB CHEMISTRY METHOD 01/03/2025 9:29 PM EDT [facility] Blood Venous blood specimen / Unknown Venipuncture / Unknown 01/03/2025 8:23 PM EDT 01/03/2025 8:57 PM EDT us Yann Mao MD LAB BLOOD ORDERABLES Final Resu lt Performing Organization Address City/[facility] Co de Phone Number [facility] [address] [place] [address], [place] [phone] * (ABNORMAL) Comprehensive metabolic panel (01/03/2025 8:23 PM EDT) Sodium 142 133 - 145 mmol/L LAB CHEMISTRY METHOD 01/03/2025 9:32 PM [facility] Potassium 3.2(L) 3.5 - 5.5 mmol/L LAB CHEMISTRY METHOD 01/03/2025 9:32 PM [facility] Chloride 108 96 - 110 mmol/L LAB CHEMISTRY METHOD 01/03/2025 9:32 PM [facility] CO2 28 21 - 32 mmol/L LAB CHEMISTRY METHOD 01/03/2025 9:32 PM [facility] Anion Gap 6 3 - 11 LAB CHEMISTRY METHOD 01/03/2025 9:32 PM [facility] Glucose 88 70 - 100 mg/dL LAB CHEMISTRY METHOD 01/03/2025 9:32 PM [facility] BUN 17 5 - 25 mg/dL LAB CHEMISTRY METHOD 01/03/2025 9:32 PM [facility] Creatinine 1.36(H) 0.70 - 1.30 mg/dL LAB CHEMISTRY METHOD 01/03/2025 9:32 PM [facility] eGFR 66 >=60 mL/min/1. 73m2 LAB CHEMISTRY METHOD 01/03/2025 9:32 PM [facility] Comment:Calculation based on the Chronic Kidney Disease Epidemiology Collaboration (CKD-EPI) equation refit without adjustment for race. BUN/Creatinine Ratio 12.5 LAB CHEMISTRY METHOD 01/03/2025 9:32 PM [facility] Calcium 8.9 8.5 - 10.5 mg/dL LAB CHEMISTRY METHOD 01/03/2025 9:32 PM [facility] AST (SGOT) 26 10 - 42 unit/L LAB CHEMISTRY METHOD 01/03/2025 9:32 PM [facility] ALT (SGPT) 30 10 - 60 unit/L LAB CHEMISTRY METHOD 01/03/2025 9:32 PM [facility] Alkaline Phosphatase 72 42 - 121 unit/L LAB CHEMISTRY METHOD 01/03/2025 9:32 PM EDT [facility] Total Protein 7.0 6.0 - 8.0 g/dL LAB CHEMISTRY METHOD 01/03/2025 9:32 PM EDT [facility] Albumin 4.0 3.2 - 5.0 g/dL LAB CHEMISTRY METHOD 01/03/2025 9:32 PM EDT [facility] Total Bilirubin 0.8 0.0 - 1.4 mg/dL LAB CHEMISTRY METHOD 01/03/2025 9:32 PM EDT [facility] Blood Venous blood specimen / Unknown Venipuncture / Unknown 01/03/2025 8:23 PM EDT 01/03/2025 8:57 PM EDT us Yann Mao MD LAB BLOOD ORDERABLES Final Resu lt Performing Organization Address City/[facility]/ZIP Co de Phone Number [facility] [address] [place] [address], [place] [phone] * ECG 12 lead (01/03/2025 8:06 PM EDT) Ventricular Rate ECG 68 BPM GEMUSE Atrial Rate 68 BPM GEMUSE P-R Interval 132 ms GEMUSE QRS Duration 90 ms GEMUSE Q-T Interval 438 ms GEMUSE QTc 465 ms GEMUSE P Wave [place] 52 degrees GEMUSE R [place] 55 degrees GEMUSE T [place] 20 degrees GEMUSE ECG Interpretation Normal sinus rhythm Borderline QT interval When compared with ECG of 10-DEC-2024 15:26, Vent. rate has increased BY 23 BPM Confirmed by Beverley ANTHONY YUFENG ([id number]) on 01/05/2025 9:35:34 AM GEMUSE 01/03/2025 8:06 PM EDT 01/05/2025 9:35 AM EDT us Yann Mao MD ECG ORDERABLES Final Result Performing Organization Address City/[facility]/ZIP Co de Phone Number GEMUSE documented in this encounter Visit Diagnoses Diagnosis Polysubstance abuse ([facility] V24, [facility] V28)- Primary Other, mixed, or unspecified nondependent drug abuse, unspecified Suicide gesture, initial encounter ([facility] V24, [facility] V28) documented in this encounter Administered Medications Inactive Administered Medications - up to 3 most recent administrations Medication Order MAR Action Action Date Dose Rate Site acetaminophen (TYLENOL) tablet 1,000 mg 1,000 mg, oral, Once, On Tue01/04/25 at 0406, For 1 dose Given 01/04/2025 4:27 AM EDT 1,000 mg benztropine (COGENTIN) tablet 0.5 mg 0.5 mg, oral, 2 times daily, First dose on Tue01/04/25 at 09 Given 01/04/2025 10:00 AM EDT 0.5 mg budesonide (PULMICORT) 1 mg/2 mL nebulizer solution 1 mg 1 mg, nebulization, Daily, First dose on Tue01/04/25 at 0907, Rinse mouth with water after use to reduce aftertaste and incidence of candidiasis. Do not swallow. Therapeutic substitution for ADVAIR DISKUS 250/50 is budesonide neb daily and formoterol neb twice daily. formoterol (PERFOROMIST) 20 mcg/2 mL nebulizer solution 20 mcg 20 mcg, nebulization, 2 times daily, First dose on Tue01/04/25 at 0907, Therapeutic substitution for ADVAIR DISKUS 250/50 is budesonide neb daily and formoterol neb twice daily. gabapentin (NEURONTIN) capsule 800 mg 800 mg, oral, 3 times daily, First dose on Tue01/04/25 at 0907 Given 01/04/2025 10:00 AM EDT 800 mg methadone (DOLOPHINE) tablet 20 mg 20 mg, oral, Daily, First dose on Tue01/04/25 at 0912 Given 01/04/2025 9:59 AM EDT 20 mg methadone (METHADOSE) dispersible tablet 160 mg 160 mg, oral, Daily, First dose on Tue01/04/25 at 0912, Disperse total dose in ~120 mL of water, orange juice, or other acidic fruit beverage prior to administration; if insoluble excipients remain and do not entirely dissolve, add a small amount of liquid to cup and administer remaining mixture. Do not chew or swallow tablet before dispersing in liquid. Given 01/04/2025 9:58 AM EDT 160 mg potassium chloride (KLOR-CON M20) CR tablet 40 mEq 40 mEq, oral, Once, On Tue01/04/25 at 0825, For 1 dose, Tablet may be swallowed whole (do not crush/chew/suck on) OR broken in half and each half swallowed separately OR dissolved (whole tablet) in ~4 ounces of water (allow ~2 minutes to dissolve, stir well and administer immediately). Given 01/04/2025 9:06 AM EDT 40 mEq risperiDONE (RisperDAL) tablet 2 mg 2 mg, oral, 2 times daily, First dose on Tue01/04/25 at 0907 Given 01/04/2025 10:00 AM EDT 2 mg sodium chloride 0.9 % bolus 1,000 mL 1,000 mL, intravenous, at 1,000 mL/hr, Administer over 1 Hours, Once, On Tue01/04/25 at 0204, For 1 dose New Bag 01/04/2025 2:08 AM EDT 1,000 mL 1000 mL/hr documented in this encounter Historical Medications * This list may reflect changes made after this encounter. benztropine (COGENTIN) 0.5 mg tablet Take 1 tablet (0.5 mg total) by mouth 2 (two) times a day. mirtazapine (REMERON) 15 mg tablet Take 1 tablet (15 mg total) by mouth at bedtime. gabapentin (NEURONTIN) 400 mg capsule Take 2 capsules (800 mg total) by mouth 3 (three) times a day. potassium chloride (MICRO-K) 10 mEq CR capsule Take 2 capsules (20 mEq total) by mouth 1 (one) time each day. risperiDONE (RisperDAL) 2 mg tablet Take 1 tablet (2 mg total) by mouth 2 (two) times a day. prazosin (MINIPRESS) 2 mg capsule Take 1 capsule (2 mg total) by mouth at bedtime. hydrOXYzine HCL (ATARAX) 50 mg tablet Take 1 tablet (50 mg total) by mouth 3 (three) times a day if needed for itching. added in this encounter Active and Recently Administered Medications Times are shown in EDT. Scheduled Medication Order 01/02/2025 01/03/2025 01/04/2025 acetaminophen (TYLENOL) tablet 1,000 mg (COMPLETED) 1,000 mg, oral, Once, On Tue01/04/25 at 0406, For 1 dose 0427 (Given - Provid er: Oneil Bryant RN) benztropine (COGENTIN) tablet 0.5 mg 0.5 mg, oral, 2 times daily, First dose on Tue01/04/25 at 0907 1000 (Given - Provid er: JOE Harris) budesonide (PULMICORT) 1 mg/2 mL nebulizer solution 1 mg(Linked Group 1) 1 mg, nebulization, Daily, First dose on Tue01/04/25 at 0907, Rinse mouth with water after use to reduce aftertaste and incidence of candidiasis. Do not swallow. Therapeutic substitution for ADVAIR DISKUS 250/50 is budesonide neb daily and formoterol neb twice daily. 1104 (Not Given - Pr ovider: Tomasa Correia, [employer]OUNDATION D[employer]LL OPERATOR HELPER - Reason: Other - Comment: NEXT SCHEDULED) formoterol (PERFOROMIST) 20 mcg/2 mL nebulizer solution 20 mcg(Linked Group 1) 20 mcg, nebulization, 2 times daily, First dose on Tue01/04/25 at 0907, Therapeutic substitution for ADVAIR DISKUS 250/50 is budesonide neb daily and formoterol neb twice daily. 1105 (Not Given - Pr ovider: Tomasa Correia, FOUNDATION DRILL OPERATOR HELPER - Reason: Other - Comment: NEXT SCHEDULED) gabapentin (NEURONTIN) capsule 800 mg 800 mg, oral, 3 times daily, First dose on Tue01/04/25 at 0907 1000 (Given - Provid er: JOE Harris)1400 (Canceled Entry - Provider: Automatic Discharge Provider - Comment: Automatically canceled at discontinue of medication order) methadone (DOLOPHINE) tablet 20 mg(Linked Group 2) 20 mg, oral, Daily, First dose on Tue01/04/25 at 0912 0959 (Given - Provid er: JOE Harris) methadone (METHADOSE) dispersible tablet 160 mg(Linked Group 2) 160 mg, oral, Daily, First dose on Tue01/04/25 at 0912, Disperse total dose in ~120 mL of water, orange juice, or other acidic fruit beverage prior to administration; if insoluble excipients remain and do not entirely dissolve, add a small amount of liquid to cup and administer remaining mixture. Do not chew or swallow tablet before dispersing in liquid. 0958 (Given - Provid er: JOE Harris) mirtazapine (REMERON) tablet 15 mg 15 mg, oral, Nightly, First dose on Tue01/04/25 at 2100 potassium chloride (KLOR-CON M20) CR tablet 40 mEq (CANCELED) 40 mEq, oral, Once, On Tue01/04/25 at 0825, For 1 dose, Tablet may be swallowed whole (do not crush/chew/suck on) OR broken in half and each half swallowed separately OR dissolved (whole tablet) in ~4 ounces of water (allow ~2 minutes to dissolve, stir well and administer immediately). 09 (Given - Provid er: JOE Harris) potassium chloride (KLOR-CON) packet 20 mEq 20 mEq, oral, Daily, First dose on Tue01/04/25 at 0907, Dissolve each packet in 4 ounces of water = 5 mEq per 1 oz fluid. 0955 (Not Given - Pr ovider: JOE Harris - Reason: Other - Comment: Per MD John patient does not need 20 mEq since patient recieved 40 mEq tablets today) prazosin (MINIPRESS) capsule 2 mg 2 mg, oral, Nightly, First dose on Tue01/04/25 at 2100 risperiDONE (RisperDAL) tablet 2 mg 2 mg, oral, 2 times daily, First dose on Tue01/04/25 at 0907 1000 (Given - Provid er: JOE Harris) sodium chloride 0.9 % bolus 1,000 mL (COMPLETED) 1,000 mL, intravenous, at 1,000 mL/hr, Administer over 1 Hours, Once, On Tue01/04/25 at 0204, For 1 dose 0208 (New Bag - Prov ider: Oneil Bryant RN)0336 (Stopped - Provider: Oneil Bryant RN) PRN Medication Order 01/02/2025 01/03/2025 01/04/2025 hydrOXYzine HCL (ATARAX) tablet 50 mg 50 mg, oral, 3 times daily PRN, itching, Starting on Tue01/04/25 at 0906 Linked Groups Order Group 1: budesonide (PULMICORT) 1 mg/2 mL nebulizer solution 1 mgJump to med 1 mg, nebulization, Daily, First dose on Tue01/04/25 at 0907, Rinse mouth with water after use to reduce aftertaste and incidence of candidiasis. Do not swallow. Therapeutic substitution for ADVAIR DISKUS 250/50 is budesonide neb daily and formoterol neb twice daily. And formoterol (PERFOROMIST) 20 mcg/2 mL nebulizer solution 20 mcgJump to med 20 mcg, nebulization, 2 times daily, First dose on Tue01/04/25 at 0907, Therapeutic substitution for ADVAIR DISKUS 250/50 is budesonide neb daily and formoterol neb twice daily. Group 2: methadone (METHADOSE) dispersible tablet 160 mgJump to med 160 mg, oral, Daily, First dose on Tue01/04/25 at 0912, Disperse total dose in ~120 mL of water, orange juice, or other acidic fruit beverage prior to administration; if insoluble excipients remain and do not entirely dissolve, add a small amount of liquid to cup and administer remaining mixture. Do not chew or swallow tablet before dispersing in liquid. And methadone (DOLOPHINE) tablet 20 mgJump to med 20 mg, oral, Daily, First dose on Tue01/04/25 at 0912 documented in this encounter Orders Medications Ordered That David ht Not Have Been Administered Count Last Ordered Date First Ordered Date budesonide (PULMICORT) 1 mg/ 2 mL nebulizer solution 1 mg 1 01/04/2025 formoterol (PERFOROMIST) 20 mcg/2 mL nebulizer solution 20 mcg 1 01/04/2025 hydrOXYzine HCL (ATARAX) tablet 50 mg 1 04/2025 methadone (DOLOPHINE) tablet 180 mg 1 01/04 mirtazapine (REMERON) tablet 15 mg 1 2024 potassium chloride (KLOR-CON ) packet 20 mEq 1 01/04/2025 prazosin (MINIPRESS) capsule 2 mg 1 025 Consult Count Last Ordered Date First Orde red Date IP CONSULT TO BIOCHEMISTRY TEACHER 01/04/2025 documented in this encounter Care Teams Manager Massage Department Relationship Specialty Start Date End Date Physician, No Pcp PCP - General 05/19/24 documented as of this encounter
[2025-01-07] VITALS (10 sets, daily range): BP systolic 91–166; BP diastolic 53–91; PULSE 51–99; RESP 11–18; TEMP 36.3–37.2; O2SAT 4–98; BMI 27.6; BMI 26.4
--- NOTE | ~2025-01-07 | CT_ITS ---
EXAMINATION: CT HEAD WITHOUT IV CONTRAST HISTORY: AMS. TECHNIQUE: Unenhanced helical CT of the head was performed per standard departmental protocol. Coronal and sagittal reformats of the head were also evaluated. One or more of the following techniques was used for dose reduction: Automated exposure control, adjustment of the mA and/or kV according to patient size, use of iterative reconstruction technique. DLP: 1359 mGy-cm COMPARISON: Comparison is made with the prior examination dated 12/24/2023. FINDINGS: BRAIN: The brain parenchyma is unremarkable. There is normal umanzor/white differentiation. The ventricular system is normal in size and configuration. There is no mass effect or midline shift. No intra- or extra-axial fluid collections are identified. SINUSES: There is mild mucosal thickening in the sphenoid and ethmoid sinuses. The mastoid air cells and middle ear cavities are well pneumatized. ORBITS: The visualized orbits are unremarkable. BONES/SOFT TISSUES: The extracranial soft tissues are unremarkable. The calvarium is intact. No suspicious lytic or sclerotic lesions. CT/CT head/brain wo IV con IMPRESSION: No acute intracranial abnormality. Electronically signed by: Tab Berry MD 01/07/2025 09:00 AM EDT RP
--- NOTE | 2025-01-07 05:06 | ECG_ITS ---
Test Reason : ETOH WITHDRAWAL Blood Pressure : */* mmHG Vent. Rate : 85 BPM Atrial Rate : 85 BPM P-R Int : 118 ms QRS Dur : 82 ms QT Int : 388 ms P-R-T Axes : 51 53 32 degrees QTcB Int : 461 ms Normal sinus rhythm Normal ECG When compared with ECG of 17-Dec-2023 15:46, No significant change was found Referred By: Generic ED Physician Electronically Signed By: YVES VELASQUEZ
[2025-01-07 05:25] LABS: Appearance Urine Clear; Glucose Urine UA Negative (Negative); PH 7.0 (5.0-9.0); Specific Gravity - Urine 1.010 (1.005-1.025); UMIC TRIGGER UACC YES
[2025-01-07 05:28] LABS: Hematocrit 36.3 % (42.0-52.0); Hemoglobin 12.2 g/dl (14.0-18.0); Imm Gran Abs Auto 0.01 X10*3/uL (0.00-0.03); Imm Gran Pct Auto 0.3 % (0.0-0.4); Lymphocytes Absolute Auto 1.7 X10*3/uL (1.2-4.9); MANUAL DIFF FLAG NO; Mean Corpuscular HGB Conc 33.6 g/dl (31.0-36.0); Mean Corpuscular Hemoglobin 28.6 pg (27.0-33.0); Mean Corpuscular Volume 85.2 fL (80.0-98.0); NRBC Abs Auto 0.000 X10*3/uL (0.0-0.012); NRBC Pct Auto 0.0 /100WBC (0.0-0.2); Platelet Count 168 X10*3/uL (160-400); Red Blood Count 4.26 X10*6/uL (4.60-5.80); White Blood Count 3.9 X10*3/uL (4.8-10.8)
[2025-01-07 05:30] LABS: UACC Culture Trigger YES
[2025-01-07 05:38] LABS: Cannabinoid Screen Urine Not Detected (Not Detect)
[2025-01-07 05:42] LABS: Alanine Aminotransferase 27 U/L (0-40); Albumin Level 4.3 g/dL (3.5-5.0); Alkaline Phosphatase 78 U/L (39-117); Anion Gap 13 (12-20); Aspartate Amino Transferase 24 U/L (5-37); Blood Urea Nitrogen 13 mg/dL (9-16); Calcium 9.1 mg/dL (8.4-10.2); Carbon Dioxide 28 mmol/L (22-29); Chloride 106 mmol/L (96-108); Creatinine Clr Calc Pharmacy 74.5; Estimated Glomerular Filt Rate > 60; Potassium 4.2 mmol/L (3.3-5.1); Sodium 143 mmol/L (135-145); Total Protein 7.2 g/dL (6.5-8.0)
--- NOTE | 2025-01-07 06:12 | PC.NURSE ---
Pt attempting to leave. Pt confused and having visual hallucinations. it desktop support technician attempted to stop patient from leaving and patient became violent and combative. Security called. Restraints placed per order and medication administered per AUG.
--- NOTE | 2025-01-07 06:41 | ED_ITS ---
HPI - Alcohol General Chief Complaint: ETOH/Substance Use Stated Complaint: ETOH/ HALUCINATIONS Time Seen by Provider: 01/07/25 05:25 Source: EMS, RN notes reviewed and other ([facility] records) Mode of arrival: EMS Limitations: altered mental status History of Present Illness ED Provider: Dr. Thalia Sutton HPI narrative: 44-year-old male with history of polysubstance use, depression and bipolar disorder presenting with reported alcohol withdrawal from [facility] where he is currently being treated for severe depression, decompensated bipolar disorder with psychotic features. Patient was admitted at [facility] on the . Reported last dose of any substance including alcohol was on 01/03/2025. According to his paperwork, he drinks approximately 6 sleeves of nips a day as well as 4 beers a day. Patient is unable to confirm any of this information due to altered mental status. He has been reported to have visual and auditory hallucinations, responding to internal stimuli throughout his hospitalization at [facility]. No response to oral Ativan which has been given throughout the last 24 hours. Patient now becoming more combative and altered. Upon arrival to the ER, patient is calm but extremely altered. Unable to really give me any information. MD complaint: alcohol withdrawal Last drink: Days (ago) (3) Related Data Previous Rx's ?Medication ?Instructions ?Recorded methadone 10 mg/mL oral 135 mg (13.5 mL) PO DAILY #3 0 mL 12/16/23 concentrate (Methadose) acetaminophen 325 mg tablet 650 mg (2 x 325 mg) PO Q6H PRN 12/27/23 Headache/Pain Mild Scale (1-3) #120 tabs atropine 1 % eye drops 1 drp ophthalmic-Left BID #2 0 mL 12/27/23 clonazepam 1 mg tablet 1 mg PO BID PRN Anxiety #14 tabs 12/27/23 clonidine HCl 0.1 mg tablet 0.1 mg PO BID PRN anxiety #15 tabs 12/27/23 duloxetine 60 mg capsule,delayed 60 mg PO DAILY #30 ca ps 12/27/23 release gabapentin 400 mg capsule 800 mg (2 x 400 mg) PO TID # 90 caps 12/27/23 naloxone 4 mg/actuation nasal 4 mg intranasal Q2M PRN opioid 12/27/23 spray (Narcan) overdose #2 ea nicotine (polacrilex) 2 mg gum 4 mg buccal Q2H PRN Vincent otine 12/27/23 Cravings #30 ea nicotine 21 mg/24 hr daily 21 mg transdermal DAILY #30 ea 12/27/23 transdermal patch oxycodone 5 mg tablet 5 mg PO Q4H PRN Pain, Severe (Pain 12/27/23 Scale 7-10) #10 tabs prednisolone acetate 1 % eye 1 drp ophthalmic-Left QID #20 mL 12/27/23 drops,suspension Allergies Allergy/AdvReac Type Severity Reaction Status Date / Time tramadol (TRAMADOL) Allergy Intermediate HIVES, Verified 01/07/25 04:57 ITCHY ibuprofen Allergy Unknown Verified 01/07/25 04:57 valium Allergy Severe pruritus Uncoded 01/07/25 04:57 Review of Systems 2 Review of Systems: Yes Unobtainable due to mental status PMFSH Past Medical History Source: unable to obtain (Altered mental status), old records reviewed, nursing notes reviewed and other ([facility] records reviewed) Medical History Medical clearance for psychiatric admission Opioid use disorder, severe, on maintenance therapy Opioid use disorder, moderate, in sustained remission, dependence Cigarette smoker Opioid dependence Polysubstance abuse Cocaine use disorder in remission PTSD (post-traumatic stress disorder) MDD (major depressive disorder), recurrent episode, moderate Social History Social History Household Members: None Household Members Other:: [facility] Housing: Homeless Do you presently have visiting nurse or other home services: No Alcohol intake: former Comment: 1:1 sitter Patient Tobacco Use Status: Current everyday Tobacco user Tobacco use type: Cigarette Cigarette Packs Per Day: 1 Cigarettes Per Day: 20.0 Years Smoked: Many Smoked in Last 30 Days: Yes e-Cigarette/Vaping Use: Currently Using Second Hand Smoke Exposure: Yes Use of substances other than those prescribed or required for medical reasons: Unknown Substance Use Type: Crack/Cocaine and Heroin Do you have a plan to hurt others: No Plan service: No Sexual orientation: Straight/Heterosexual Physical Exam ED Vital Signs: Vital Signs - 24 hr 01/07/25 04:54 01/07/25 06:35 Temperature 98.3 F Pulse Rate 90 85 Respiratory Rate 18 12 Blood Pressure 132/91 H 118/73 Pulse Oximetry 96 96 Oxygen Delivery Method Room Air Room Air BMI result Body Mass Index 27.6 GENERAL: Anxious, agitated, confused, GCS 14. SKIN: Normal skin color for ethnicity, warm, dry, no rash, no crepitus, no petechiae, no blistering. HEENT: Normocephalic, atraumatic, no stridor, posterior oropharynx nonerythematous, poor quileute dentition, dry mucous membranes, EOMI. NECK: Soft, supple, full ROM, midline structures nontender, no step-offs, no deformities, no lymphadenopathy. CHEST: Heart regular rhythm, no murmurs, symmetric chest rise and fall, no crepitus. PULMONARY: Clear to auscultation bilaterally, no labored breathing, no wheezes/rhales/rhonchi. ABDOMINAL: Soft, nondistended, nontender, positive bowel sounds in all quadrants. : Deferred. MUSCULOSKELETAL: Normal tone, full range of motion, no deformities, no peripheral edema. NEURO: Alert and oriented to person, CN II through XII intact, no ophthalmoplegia, equal strength and sensation bilateral upper and lower extremities, no focal neurologic deficits. PSYCHIATRIC: Anxious affect, agitated, tangential speech, responding to internal stimuli, poor eye contact and psychomotor agitation. Medical Decision Making Medical Decision Making MDM Narrative: Patient presents today with a chief complaint of altered mental status. Differential diagnosis for AMS is incredibly broad and includes infection, intracranial process such as hemorrhage, stroke or mass, electrolyte abnormality, hypercarbia, hypoxia, toxic encephalopathy, alcohol withdrawal including Wernicke's encephalopathy/DTs, among many others. Broad-based workup was initiated to further evaluate the etiology of patient's symptoms based on the above exam and history. 05:25 informed by RN that the patient is starting to go into withdrawal, CIWA of 12. Medicated with Ativan IV. 5:45 a.m. patient is becoming agitated, requiring chemical and physical restraints at this time. He aggressively attacked nursing when they attempted to redirect him. Was placed in four-point restraints, given intravenous Versed. 7:00 a.m. He is still unable to talk to me. He is responding to internal stimuli and unable to make eye contact. I do not see any evidence of ophthalmoplegia however, concern for DTs at this point. We will initiate phenobarbital protocol, head CT to evaluate for intracranial process and admit for alcohol withdrawal. He has been medicated with thiamine 200 mg IV. Remains hemodynamically stable. No seizure activity. Admitted in guarded condition. Differential Diagnosis Differential Diagnoses: The differential diagnosis associated with the presentation includes (As above) Admission/Observation Consideration of admission/observation: Escalation of care including admission/observation considered Consult Healthcare Provider Management of the patient was discussed with: Hospitalist Lab Data [facility] Lab Attestation statement: I reviewed the patient's lab results. 01/07/25 05:20 01/07/25 05:20 Labs: Lab Results 01/07/25 01/07/25 Range/Units 05:18 05:20 WBC 3.9 L (4.8-10.8) X10*3/uL RBC 4.26 L (4.60-5.80) X10*6/uL Hgb 12.2 L D (14.0-18.0) g/dl Hct 36.3 L (42.0-52.0) % MCV 85.2 (80.0-98.0) fL MCH 28.6 (27.0-33.0) pg MCHC 33.6 (31.0-36.0) g/dl RDW 12.7 (11.0-16.0) % Plt Count 168 (160-400) X10*3/uL MPV 9.4 (9.4-12.4) fL Immature Gran % (Auto) 0.3 (0.0-0.4) % Neut % (Auto) 46.3 (45-73) % Lymph % (Auto) 43.6 H (20-40) % [place] % (Auto) 7.0 (2-11) % Eos % (Auto) 2.3 (0-4) % Baso % (Auto) 0.5 (0-2) % Lymph # (Auto) 1.7 (1.2-4.9) X10*3/uL [place] # (Auto) 0.3 (0.1-1.2) X10*3/uL Eos # (Auto) 0.1 (0.0-0.4) X10*3/uL Baso # (Auto) 0.0 (0.0-0.2) X10*3/uL Abs Immat Gran (auto) 0.01 (0.00-0.03) X10*3/uL Absolute Neuts (auto) 1.8 L (2.0-8.3) x10*3/uL Absolute Nucleated RBC 0.000 (0.0-0.012) X10*3/uL Nucleated RBC % (auto) 0.0 (0.0-0.2) /100WBC Sodium 143 (135-145) mmol/L Potassium 4.2 (3.3-5.1) mmol/L Chloride 106 (96-108) mmol/L Carbon Dioxide 28 (22-29) mmol/L Anion Gap 13 (12-20) BUN 13 (9-16) mg/dL Creatinine 1.24 (0.5-1.4) mg/dL Estim Creat Clear Calc 74.5 Estimated GFR > 60 Random Glucose 113 (60-115) mg/dL Calcium 9.1 (8.4-10.2) mg/dL Total Bilirubin 0.4 (0.0-1.0) mg/dL AST 24 (5-37) U/L ALT 27 (0-40) U/L Alkaline Phosphatase 78 (39-117) U/L Total Protein 7.2 (6.5-8.0) g/dL Albumin 4.3 (3.5-5.0) g/dL Urine Color Yellow Urine Appearance Clear Urine pH 7.0 (5.0-9.0) Ur Specific [place] 1.010 (1.005-1.025) Urine Protein Negative (Neg-Trace) mg/dL Urine Glucose (UA) Negative (Negative) mg/dL Urine Ketones Negative (Negative) mg/dL Urine Blood Negative (Negative) Urine Nitrite Negative (Negative) Ur Leukocyte Esterase Small (1+) H (Negative) Urine RBC 0-2 (0-2) /HPF Urine WBC 6-10 H (0-5) /HPF Ur Squamous Epith Cells 0-2 (0-2) /HPF Urine Bacteria None Seen (None Seen) Hyaline Casts 0-2 (0-2) /LPF Urine Opiates Screen Not Detected (Not Detect) Ur Buprenorphine Scrn Not Detected (Not Detect) ng/mL Ur Oxycodone Screen Not Detected (Not Detect) ng/mL Urine Methadone Screen Positive H (Not Detect) ng/mL Urine Fentanyl Screen Not Detected (Not Detect) Ur Barbiturates Screen Not Detected (Not Detect) Ur Phencyclidine Scrn Not Detected (Not Detect) Ur Amphetamines Screen Not Detected (Not Detect) U Benzodiazepines Scrn Not Detected (Not Detect) Urine Cocaine Screen Not Detected (Not Detect) U Marijuana (THC) Screen Not Detected (Not Detect) Ethyl Alcohol < 10 mg/dL Independent Interpretation I performed an independent interpretation of an: EKG Interpretation: My independent interpretation of the ECG reveals normal sinus rhythm with rate of 85, normal axis, normal intervals, no ST elevations or depressions to suggest ischemic changes, no previous for comparison Independent Historian Clinical information obtained from an independent historian. History obtained from or confirmed by: EMS and Other ([facility] paperwork) External Record Review External record reviewed: Outpatient record and Prior outpatient labs Chronic Conditions Patient?s care impacted by: Other (Polysubstance use, alcohol abuse, bipolar disorder with psychotic features) Social Determinants Patient?s care significantly limited by Social Determinants of Health including: Inadequate housing, Problems related to primary support group and Problems related to employment Medications Administered Discontinued Medications Generic Name Dose Route Start Last Admin Trade Name Freq PRN Reason Stop Dose Admin Lorazepam 2 mg 01/07/25 05:25 01/07/25 05:58 Lorazepam 2 Mg/Ml Vial IVPUSH 01/07/25 05:26 Not Given ONCE ONE Midazolam HCl 5 mg 01/07/25 05:44 01/07/25 05:47 Midazolam Hcl 5 Mg/Ml Vial IVPUSH 01/07/25 05:45 5 mg ONCE ONE Administration Discharge Plan Discharge Clinical Impression: Alcohol withdrawal delirium, Bipolar disorder with psychotic features Patient Disposition: Admitted As Inpatient Print Language: Occitan
[2025-01-07 07:30] LABS: Magnesium 2.0 mg/dL (1.6-2.6)
[2025-01-07] MEDS: PHENobarbitaL sodium 130 MG/ML IM ONCE 306 MG IM (07:45)
--- NOTE | 2025-01-07 07:53 | PC.NURSE ---
Phenobarb. IM admin. per orders; pt tolerated well; pt slightly restless but directible; vss; both leg restraints removed as a trial; pt remaining calm currently; sitter in place for pt and staff safety
--- NOTE | 2025-01-07 08:31 | PC.NURSE ---
All restraints are off at this time; pt gv IM Haldol per orders for residual agitation and pt now sleeping; vss; SR per tele; sitter in place
--- NOTE | 2025-01-07 09:28 | PM.IMHP ---
History of Present Illness Date of Service: 01/07/25 Chief Complaint: ams 44M PMH bipolar disorder with psychosis, polysubstance dependence (opiate, cocaine, etoh) presented from [facility] inpatient psychiatry with AMS. patient was admitted to [facility] 01/04/25 for suicide attempt on gabapentin followed by manic behaviour/psychosis. on 01/07/25 behvious and mental status worsened, felt to be component of etoh withdrawal as patient reported to drink 6 sleeves of nips daily and had some response to benzodiazepenes. in ED CIWA 22, patient is aware of the agitated confused, eventually responded well to phenobarbital, Ativan, Versed, Haldol. CT head negative, no significant lab abnormalities, EKG unremarkable. Review of Systems Review of Systems: Yes all other systems are reviewed and are negative [facility] Medical History Medical clearance for psychiatric admission Opioid use disorder, severe, on maintenance therapy Opioid use disorder, moderate, in sustained remission, dependence Cigarette smoker Opioid dependence Polysubstance abuse Cocaine use disorder in remission PTSD (post-traumatic stress disorder) MDD (major depressive disorder), recurrent episode, moderate Social History Household Members: None Household Members Other:: [facility] Housing: Homeless Do you presently have visiting nurse or other home services: No Alcohol intake: former Comment: 1:1 sitter Patient Tobacco Use Status: Current everyday Tobacco user Tobacco use type: Cigarette Cigarette Packs Per Day: 1 Cigarettes Per Day: 20.0 Years Smoked: Many Smoked in Last 30 Days: Yes e-Cigarette/Vaping Use: Currently Using Second Hand Smoke Exposure: Yes Use of substances other than those prescribed or required for medical reasons: Unknown Substance Use Type: Crack/Cocaine and Heroin Advance Directives: Yes Advance Directives on File: Yes Advance Directives Date on File: 12/28/23 Do you have a plan to hurt others: No Plan service: No Sexual orientation: Straight/Heterosexual Meds Allergies Allergy/AdvReac Type Severity Reaction Status Date / Time tramadol (TRAMADOL) Allergy Intermediate HIVES, Verified 01/07/25 04:57 ITCHY ibuprofen Allergy Unknown Verified 01/07/25 04:57 valium Allergy Severe pruritus Uncoded 01/07/25 04:57 Active Medications: Current Medications Acetaminophen (Acetaminophen 325 Mg Tablet) 650 mg PO Q6H PRN PRN Reason: Pain, Mild 1-3,fever,headache Calcium Carbonate (Calcium Carbonate 750 Mg Tab.Chew) 750 mg PO Q4H PRN PRN Reason: Heartburn Magnesium Hydroxide (Milk Of Magnesia 30 Ml Oral.Susp) 30 ml PO DAILY PRN PRN Reason: Constipation Melatonin (Melatonin 3 Mg Tablet) 6 mg PO BEDTIME PRN PRN Reason: Insomnia Pharmacy Consult (Consult Rx Etoh Phenob Im/Po) 1 each MISCELLANE ONCE PRN; Protocol PRN Reason: Consult order Phenobarbital (Phenobarbital 15 Mg Tablet) 45 mg PO BID [facility] Stop: 01/09/25 09:01 Phenobarbital (Phenobarbital 30 Mg Tablet) 30 mg PO BID [facility] Stop: 01/11/25 09:01 Phenobarbital (Phenobarbital 30 Mg Tablet) 30 mg PO BEDTIME JOANA Stop: 01/12/25 21:01 Phenobarbital Sodium (Phenobarbital Sodium 130 Mg/Ml Vial Im Q3hx2) 230 mg IM Q3H JOANA Stop: 01/07/25 13:31 Sodium Chloride (0.9 % Sodium Chloride Flush 3 Ml Syringe) 3 ml IVFLUSH QSHIFT [facility] Home Medications ?Medication ?Instructions ?Recorded ?Confirmed ?Last Taken ?Type benztropine 0.5 mg tablet 0.5 mg PO Q12H 01/07/25 Unknown History hydroxyzine pamoate 50 mg capsule 50 mg PO TID PRN Anxiety/Itching 01/07/25 01/07/25 Unknown History mirtazapine 15 mg tablet 15 mg PO BEDTIME 01/07/25 Unknown History potassium chloride 10 mEq 20 meq PO DAILY 01/07/25 Unknown History tablet,extended release Physical Exam Vital Signs and Narrative: Vital Signs: Last Vital Signs Temp 99.0 F 01/07/25 08:28 Pulse 79 01/07/25 08:28 Resp 15 01/07/25 08:28 BP 139/91 H 01/07/25 08:28 Pulse Ox 95 01/07/25 08:28 O2 Del Method Room Air 01/07/25 08:28 BMI result Body Mass Index 27.6 General: Obtunded (post sedatives) Resp: CTA bilateral, no accessory muscles used CVS: S1,S2,RRR GI: soft, non tender, non distended Results Labs 01/07/25 05:20 01/07/25 05:20 Labs: Laboratory Results - last 24 hr 01/07/25 01/07/25 05:18 05:20 MCV 85.2 MCH 28.6 MCHC 33.6 RDW 12.7 Plt Count 168 MPV 9.4 Immature Gran % (Auto) 0.3 Neut % (Auto) 46.3 Lymph % (Auto) 43.[address] [place] % (Auto) 7.0 Eos % (Auto) 2.3 Baso % (Auto) 0.5 Lymph # (Auto) 1.7 [place] # (Auto) 0.3 Eos # (Auto) 0.1 Baso # (Auto) 0.0 Abs Immat Gran (auto) 0.01 Absolute Neuts (auto) 1.8 L Absolute Nucleated RBC 0.000 Nucleated RBC % (auto) 0.0 Anion Gap 13 Estim Creat Clear Calc 74.5 Estimated GFR > 60 Random Glucose 113 Calcium 9.1 Magnesium 2.0 Total Bilirubin 0.4 AST 24 ALT 27 Alkaline Phosphatase 78 Total Protein 7.2 Albumin 4.3 Urine Color Yellow Urine Appearance Clear Urine pH 7.0 Ur Specific [place] 1.010 Urine Protein Negative Urine Glucose (UA) Negative Urine Ketones Negative Urine Blood Negative Urine Nitrite Negative Ur Leukocyte Esterase Small (1+) H Urine RBC 0-2 Urine WBC 6-10 H Ur Squamous Epith Cells 0-2 Urine Bacteria None Seen Hyaline Casts 0-2 Urine Opiates Screen Not Detected Ur Buprenorphine Scrn Not Detected Ur Oxycodone Screen Not Detected Urine Methadone Screen Positive H Urine Fentanyl Screen Not Detected Ur Barbiturates Screen Not Detected Ur Phencyclidine Scrn Not Detected Ur Amphetamines Screen Not Detected U Benzodiazepines Scrn Not Detected Urine Cocaine Screen Not Detected U Marijuana (THC) Screen Not Detected Ethyl Alcohol < 10 Imaging Radiologist's Impressions: Impressions Head CT 01/07/25 07:14 IMPRESSION: No acute intracranial abnormality. Electronically signed by: Tab Berry MD 01/07/2025 09:00 AM EDT RP Assessment and Plan (1) Alcohol withdrawal delirium: Status: Acute Plan 44M PMH bipolar disorder with psychosis, polysubstance dependence (opiate, cocaine, etoh) presented from [facility] inpatient psychiatry with AMS Acute metabolic encephalopathy due to alcohol dependence with withdrawal and withdrawal delirium Phenobarb, CIWA, addiction eval, monitor LFTs and electrolytes Bipolar disorder with acute psychosis Restart antipsychotics If no improvement may need psychiatry input Polysubstance dependence Uses opiates-has been on methadone Cocaine Alcohol Addiction eval DVT prophylaxis Lovenox Full Code Quality Stroke Does the patient have a stroke diagnosis?: No VTE Prior VTE?: No VTE Risk Level:: Medical - moderate - high VTE Device Contraindication: Treatment Not Indicated VTE Drug Contraindication: N/A - Med Ordered
--- OUTSIDE RECORDS SUMMARY | 2025-01-07 09:44 | XMS_ITS | Clinical Summary ---
Author Organization [employer] Address [address] [place] [address] [address] [place] [address] Care Team Providers Care Hot Dip Galvanizer Name Role Phone Unavailable Primary Care Provider Unavailabl e Allergies Active Allergy Reactions Criticality Noted Date Comments Ibuprofen Shortness of breath,Itching High 01/14/20 23 + stomach upset Tramadol Hives 01/13/2023 Medications gabapentin (Neurontin) 400 MG capsule Take 2 capsules by mouth 3 times daily Active nicotine polacrilex (Nicorette) 4 MG gum Chew 1 piece of gum every 2 hours as needed Active prazosin (Minipress) 1 MG capsule Take 3 capsules by mouth every day at bedtime Active propranolol (Inderal) 60 MG tablet Take 1 tablet by mouth daily Active hydrOXYzine HCl (Atarax) 50 MG tablet Take 1 tablet by mouth 3 times daily as needed Active mirtazapine (Remeron) 15 MG tablet Take 1 tablet by mouth every day at bedtime Active QUEtiapine (SEROquel) 25 MG tablet Take 1 tablet by mouth daily as needed for agitation Active melatonin 3 MG tablet Take 1 tablet by mouth every day at bedtime Active QUEtiapine (SEROquel) 300 MG tablet Take 1 tablet by mouth every day at bedtime Active sertraline (Zoloft) 100 MG tablet Take 1 & 1/2 tablets (150mg) by mouth daily Active methadone (Dolophine) 10 MG/5ML solution Take 120mg by mouth daily Active Immunizations Immunization Administration Dates Next Due TD (adult), 2 Lf tetanus tox oid, preservative free, adsorbed 01/30/2020 Social History Tobacco Use Types Packs/Day Years Used Date Smoking Tobacco: Never Assessed Sex and Gender Information Value Date Recorded Sex Assigned at Male 01/11/2023 4:10 PM EDT Legal Sex Male 9:45 AM EDT Gender Identity Male 01/11/2023 4:10 PM EDT Sexual Orientation Not on file Plan of Treatment Health Maintenance Due Date Last Done Comments Depression Screening 1980 HIV Screening 1980 Lipid Panel 1980 SDOH Screening 1980 Disability Screening 1980 Alcohol/Substance Use Screening 1992 Tobacco Screening 1992 Family Planning (PISQ) 1995 HPV Vaccines (1 - Male 3-dos e series) 1995 Hepatitis C Screening 1998 Hepatitis B Vaccines (1 of 3 - 19+ 3-dose series) 1999 Pneumococcal Vaccine: Pediat rics (0 to 5 Years) and At-Risk Patients (6 to 49) Years (1 of 2 - PCV) 1999 DTaP/Tdap/Td Vaccines (1 - Tdap) 01/31/2020 01/30/20 20 COVID-19 Vaccine (1 - 2023-2 5 season) 2024 Influenza Vaccine (#1) 2025 Zoster Vaccines (1 of 2) 2030 RSV Patients and Pa tients Aged 60 years or older (1 - 1-dose 75+ series) 2055 HIB Vaccines Aged Out No longer eligi ble based on patient's age to complete this topic Hepatitis A Vaccines Aged Out No long er eligible based on patient's age to complete this topic IPV Vaccines Aged Out No longer eligi ble based on patient's age to complete this topic Meningococcal B Vaccine Aged Out No l onger eligible based on patient's age to complete this topic Meningococcal Vaccine Aged Out No melanie nimisha eligible based on patient's age to complete this topic RSV under 20 months Aged Out No longe r eligible based on patient's age to complete this topic Rotavirus Vaccines Aged Out No longer eligible based on patient's age to complete this topic Insurance STANDARD
--- OUTSIDE RECORDS SUMMARY | 2025-01-07 09:44 | XMS_ITS | Patient Health Record ---
Author Organization [facility] Address [address], [place] [id number] Care Team Providers Care [place] Name Role Phone Michelle Evangelista Primary Care Provider [phone] Reason For Referral No Information Plan Of Treatment No Information Insurance Providers Payer Name Payer Address Payer Phone Subscriber Number Group Number Insured Name Patient Relationship to Insured Coverage Start Date Coverage End Date [place] Medicaid C3 [address] [place], [place] [id number] Riccardo Ward Self - patient is the insured 2
[2025-01-07] MEDS: Thiamine HCL 200 MG in 0.9 % Sodium Chloride 100 ML 204 MG IV (10:16)
--- NOTE | 2025-01-07 11:25 | PC.NURSE ---
Pt remains sleeping soundly; wakes to physical stimuli; vss; 2nd phenobarb. inj. held at this time secondary to sedation per Dr Winston; sitter remains in place; awaiting bed for admission
--- NOTE | 2025-01-07 12:04 | PHA.MEDREC ---
Pharmacy Consult ? Medication Reconciliation Pharmacy has completed the medication reconciliation. Spoke to Will RN at [facility] ([phone]) via phone and he gave me patient's current list of medications.
[2025-01-07] MEDS: PHENobarbitaL sodium 130 MG/ML VIAL IM Q3Hx2 230 MG IM (12:54)
--- NOTE | 2025-01-07 12:58 | PC.NURSE ---
Pt awake, confused to date/location/situation; pt tearful/apologetic; vss; 2nd dose of phenobarb. IM gv; pt tolerated well; sitter in place; awaiting bed for admisson
--- NOTE | 2025-01-07 15:02 | PC.NURSE ---
Dr Ladd made aware of pt's BP 91/53 with MAP 65 at rest after 2nd phenobarb. dose; pt wakes to voice; vss otherwise
--- NOTE | 2025-01-07 15:41 | PC.NURSE ---
Pt remains sedate from 2nd phenobarb. IM; 3rd dose held as well as PO meds per Dr Ladd at this time
[2025-01-07] MEDS: 0.9 % Sodium Chloride Flush 3 ML SYRINGE IVFLUSH ×2 (16:30→20:13)
[2025-01-07] MEDS: Nicotine 21 MG PATCH.TD24 TRANSDERMA (18:25)
--- NOTE | 2025-01-08 | ECG_ITS ---
Test Reason : rhythm Blood Pressure : */* mmHG Vent. Rate : 67 BPM Atrial Rate : 67 BPM P-R Int : 132 ms QRS Dur : 80 ms QT Int : 434 ms P-R-T Axes : 51 70 38 degrees QTcB Int : 458 ms Normal sinus rhythm Normal ECG When compared with ECG of 07-Jan-2025 05:27, No significant change was found Referred By: Genet Stewart Electronically Signed By: YVES VELASQUEZ
[2025-01-08 03:24] VITALS: BP 116/65; PULSE 50; RESP 16; TEMP 36.6; O2SAT 95
[2025-01-08 07:09] VITALS: BP 136/86; PULSE 84; RESP 17; TEMP 36.1; O2SAT 99
[2025-01-08 07:40] LABS: Hematocrit 37.5 % (42.0-52.0); Hemoglobin 12.2 g/dl (14.0-18.0); Mean Corpuscular HGB Conc 32.5 g/dl (31.0-36.0); Mean Corpuscular Hemoglobin 27.9 pg (27.0-33.0); Mean Corpuscular Volume 85.6 fL (80.0-98.0); NRBC Abs Auto 0.000 X10*3/uL (0.0-0.012); NRBC Pct Auto 0.0 /100WBC (0.0-0.2); Platelet Count 142 X10*3/uL (160-400); Red Blood Count 4.38 X10*6/uL (4.60-5.80); White Blood Count 3.5 X10*3/uL (4.8-10.8)
[2025-01-08 07:57] LABS: Anion Gap 12 (12-20); Blood Urea Nitrogen 14 mg/dL (9-16); Calcium 8.9 mg/dL (8.4-10.2); Carbon Dioxide 29 mmol/L (22-29); Chloride 105 mmol/L (96-108); Creatinine Clr Calc Pharmacy 77.3; Estimated Glomerular Filt Rate > 60; Magnesium 2.0 mg/dL (1.6-2.6); Potassium 3.6 mmol/L (3.3-5.1); Sodium 142 mmol/L (135-145)
[2025-01-08] MEDS: 0.9 % Sodium Chloride Flush 3 ML SYRINGE IVFLUSH ×2 (08:24→16:09)
--- NOTE | 2025-01-08 09:28 | HE.PHANOTE ---
Re Methadone Received verification from nursing. Pt gets 180mg from [facility] [place], last got a dose on 01/06/25.
--- NOTE | 2025-01-08 09:30 | HO.PM.IMPN ---
Subjective Subjective Date of Service: 01/08/25 Interval History: anxious, agitated, nausea Physical Exam Vital Signs: Vital Signs: Last Vital Signs Temp 96.9 F 01/08/25 07:09 Pulse 84 01/08/25 07:09 Resp 17 01/08/25 07:09 BP 136/86 01/08/25 07:09 Pulse Ox 99 01/08/25 07:09 O2 Del Method Room Air 01/08/25 07:09 BMI result Body Mass Index 26.4 General: AO X 1,in distress Resp: CTA bilateral, no accessory muscles used CVS: S1,S2,RRR GI: soft, non tender, non distended Neuro: motor grossly intact, alert, tremor Psych: poor insight, confused Objective Data Active Medications Acetaminophen (Acetaminophen 325 Mg Tablet) 650 mg PO Q6H PRN PRN Reason: Pain, Mild 1-3,fever,headache Last Admin: 01/08/25 03:58 Dose: 650 mg Documented By: CJ Albuterol Sulfate (Albuterol Sulfate 90 Mcg 8 Gm Inhaler) 2 puff INHALE Q4H PRN PRN Reason: Wheezing Benztropine Mesylate (Benztropine Mesylate 0.5 Mg Tablet) 0.5 mg PO Q12H [facility] Last Admin: 01/07/25 23:31 Dose: 0.5 mg Documented By: CJ Calcium Carbonate (Calcium Carbonate 750 Mg Tab.Chew) 750 mg PO Q4H PRN PRN Reason: Heartburn Docusate Sodium (Docusate Sodium 100 Mg Capsule) 100 mg PO BID PRN PRN Reason: Constipation Folic Acid (Folic Acid 1 Mg Tablet) 1 mg PO DAILY [facility] Last Admin: 01/08/25 08:24 Dose: 1 mg Documented By: DARIAN Gabapentin (Gabapentin 300 Mg Capsule) 300 mg PO TID [facility] Last Admin: 01/08/25 08:24 Dose: 300 mg Documented By: DARIAN Hydroxyzine HCl (Hydroxyzine Hcl 50 Mg Tablet) 50 mg PO Q4H PRN PRN Reason: Anxiety/Itching Last Admin: 01/08/25 08:23 Dose: 50 mg Documented By: DARIAN Magnesium Hydroxide (Milk Of Magnesia 30 Ml Oral.Susp) 30 ml PO DAILY PRN PRN Reason: Constipation Melatonin (Melatonin 3 Mg Tablet) 6 mg PO BEDTIME PRN PRN Reason: Insomnia Mirtazapine (Mirtazapine 15 Mg Tablet) 15 mg PO BEDTIME [facility] Last Admin: 01/07/25 20:13 Dose: 15 mg Documented By: CJ Multivitamins/Vitamin C (Multivitamin Tablet) 1 tab PO DAILY [facility] Last Admin: 01/08/25 08:24 Dose: 1 tab Documented By: DARIAN Nicotine (Nicotine 21 Mg Patch.Td24) 21 mg TRANSDERMA DAILY PRN PRN Reason: Smoking Cessation Last Admin: 01/07/25 18:25 Dose: 21 mg Documented By: AMBER Nicotine Polacrilex (Nicotine Polacrilex 2 Mg Gum) 2 mg BUCCAL Q2H PRN PRN Reason: Nicotine Cravings Ondansetron HCl (Ondansetron Hcl 4 Mg/2 Ml Vial) 4 mg IVPUSH Q6H PRN PRN Reason: Nausea Pharmacy Consult (Consult Rx Etoh Phenob Im/Po) 1 each MISCELLANE ONCE PRN; Protocol PRN Reason: Consult order Phenobarbital (Phenobarbital 15 Mg Tablet) 45 mg PO BID [facility] Stop: 01/09/25 09:01 Last Admin: 01/08/25 08:24 Dose: 45 mg Documented By: DARIAN Phenobarbital (Phenobarbital 30 Mg Tablet) 30 mg PO BID [facility] Stop: 01/11/25 09:01 Phenobarbital (Phenobarbital 30 Mg Tablet) 30 mg PO BEDTIME [facility] Stop: 01/12/25 21:01 Prazosin HCl (Prazosin Hcl 1 Mg Capsule) 2 mg PO BEDTIME [facility]; Protocol Last Admin: 01/07/25 20:13 Dose: 2 mg Documented By: CJ Risperidone (Risperidone 2 Mg Tablet) 2 mg PO Q12H [facility] Last Admin: 01/07/25 23:31 Dose: 2 mg Documented By: CJ Senna (Sennosides 8.6 Mg Tablet) 17.2 mg PO DAILY PRN PRN Reason: Constipation Sodium Chloride (0.9 % Sodium Chloride Flush 3 Ml Syringe) 3 ml IVFLUSH QSHIFT [facility] Last Admin: 01/08/25 08:24 Dose: 3 ml Documented By: DARIAN Thiamine HCl (Thiamine Hcl 100 Mg Tablet) 100 mg PO DAILY [facility] Last Admin: 01/08/25 08:24 Dose: 100 mg Documented By: DARIAN Labs 01/08/25 07:18 01/08/25 07:18 Labs: Laboratory Results - last 24 hr 01/08/25 07:18 MCV 85.6 MCH 27.9 MCHC 32.5 RDW 12.6 Plt Count 142 L MPV 10.7 Absolute Nucleated RBC 0.000 Nucleated RBC % (auto) 0.0 Anion Gap 12 Estim Creat Clear Calc 77.3 Estimated GFR > 60 Random Glucose 105 Calcium 8.9 Magnesium 2.0 Microbiology Microbiology Results: Microbiology 01/07/25 05:18 Urine Culture - Final Urine clean catch - Clean Catch Midstream No growth. Assessment and Plan (1) Alcohol withdrawal delirium: Status: Acute Plan 44M PMH bipolar disorder with psychosis, polysubstance dependence (opiate, cocaine, etoh) presented from [facility] inpatient psychiatry with AMS Acute metabolic encephalopathy due to alcohol dependence with withdrawal and withdrawal delirium Phenobarb, CIWA, addiction eval, Bipolar disorder with acute psychosis Restart antipsychotics psych eval to treat psychosis component Polysubstance dependence Uses opiates-has been on methadone Cocaine Alcohol Addiction eval DVT prophylaxis Lovenox Full Code reason for continued hospitalization:withdrawal Quality Stroke Does the patient have a stroke diagnosis?: No VTE Prior VTE?: No VTE Risk Level:: Medical - moderate - high VTE Device Contraindication: Treatment Not Indicated VTE Drug Contraindication: N/A - Med Ordered
--- NOTE | 2025-01-08 09:48 | MHC.RECOVRN ---
Spoke to Sanjeev in the pharmacy to inquire about methadone verification/order. Sanjeev reports the methadone has just been verified. Last pearson reported is 180mg 01/06/25 at [facility]. Pharmacy reports they awaiting the MD to enter order for Methadone,
--- NOTE | 2025-01-08 11:02 | MHC.CLN ---
CONSULT HT 5' 6 WT 74.3KG (01/07/25) PREVIOUS WT 88KG (12/20/23) PT WITH 16% NONSIGNIFICANT WT LOSS X 1 YEAR, HOWEVER PT WITH HX COCAINE AND OPIOD ABUSE WHICH MAY BE CONTRIBUTOR TO WT LOSS PT REMAINS OVER WT FOR HT REGULAR DIET IN PLACE MONITOR PO INTAKE CLOSELY IF PO INTAKE <25% X3 DAYS, RECOMMEND ADDING NUTRITION SUPPLEMENTS
[2025-01-08 11:06] VITALS: BP 145/84; PULSE 81; RESP 18; TEMP 36.5; O2SAT 98
[2025-01-08] MEDS: methADONE HCl 20 MG/2 ML ORAL.CONC 180 MG PO (11:48)
--- NOTE | 2025-01-08 13:30 | MHC.CM.PN ---
Addendum entered by Jackie Gusman RN 01/08/25 13:37: MMTP AT [facility] Original Note: EMR REVIEWED, PT W/AMS/ETOH/ACUTE PSYCHOSIS FROM [facility] WHERE HE WAS SENT FROM [facility] W/SI AND OD ON MEDS, CM MET W/PT WHO IS A&O TO PERSON AND PLACE, PT DOES NOT KNOW WHY HE IS HERE OR WHAT HAPPENED PRIOR TO ADMIT, PER HOSPITALIST PT WILL NEED PSYCH/CARE TEAM, PT IS OPEN TO RETURN TO [facility]. PT VERIFIES HE LIVES W/HIS SISTER MEY ARAGON [phone] [place] [address], TASK SENT TO REGISTRATION. CM WILL READRESS HCP PRIOR TO DC WHEN PT IS MENTAL STATUS IS IMPROVED.
--- NOTE | 2025-01-08 15:01 | P.CNPS_ITS ---
History of Present Illness Date of Service: 01/08/25 Chief Complaint: ETOH Withdrawal Reason for Consult: Bipolar with acute psychosis and recent suicide attempt Requesting physician: Aamir Ladd Discussed with referring provider: Yes Sources of Information: patient interviewed and chart reviewed HPI Narrative: Patient is a 44 year old male with hx of bipolar disorder with psychosis, polysubstance dependence (opiate, cocaine, etoh) presented from [facility] inpatient psychiatry with AMS and admitted medically. Psychiatric consult placed for: Bipolar with acute psychosis and recent suicide attempt. During psychiatric assessment, pt present alert, oriented to person and place. Confused. Patient stated, I feel lost and confused . Patient reports he went to [facility] d/t feeling suicidal but did not go into detail. Pt reports he has not taken his psychiatric medications in over 5 months. He reports daily alcohol use; stating he drinks pints daily for the last 7 days. Patient reports he does not have outpatient psychiatric providers but goes to [facility] clinic for methadone. denies SI/HI/VH/AH at this time. Patient did not make any delusional statements during assessment. Patient reports his current regimen helps with his depression and voices . Past Psychiatric History: hx of multiple inpatient psychiatric hospitalizations. OP: [facility] Methadone clinic Medical Evaluation Reviewed: Yes [facility] Medical History Medical clearance for psychiatric admission Opioid use disorder, severe, on maintenance therapy Opioid use disorder, moderate, in sustained remission, dependence Cigarette smoker Opioid dependence Polysubstance abuse Cocaine use disorder in remission PTSD (post-traumatic stress disorder) MDD (major depressive disorder), recurrent episode, moderate Family History: deferred Social History: Currently homeless; was living with sister Substance History: hx of opioid and alcohol use. Trauma History: +hx for trauma; does not disclose Diagnostics Vital Signs (24Hr): Vital Signs - 24 hr 01/07/25 16:00 01/07/25 19:37 01/07/25 23:29 Temperature 98.2 F 98.3 F 97.5 F Pulse Rate 65 68 51 Respiratory Rate 16 16 16 Blood Pressure 121/82 133/84 118/64 Pulse Oximetry 95 96 98 Oxygen Delivery Method Room Air Room Air Room Air 01/08/25 03:24 01/08/25 07:09 01/08/25 11:06 Temperature 97.9 F 96.9 F 97.7 F Pulse Rate 50 84 81 Respiratory Rate 16 17 18 Blood Pressure 116/65 136/86 145/84 H Pulse Oximetry 95 99 98 Oxygen Delivery Method Room Air Room Air Room Air BMI result Body Mass Index 26.4 Labs 01/08/25 07:18 01/08/25 07:18 Labs: Laboratory Results - last 48 hr 01/07/25 01/07/25 01/08/25 05:18 05:20 07:18 WBC 3.9 L 3.5 L RBC 4.26 L 4.38 L Hgb 12.2 L D 12.2 L Hct 36.3 L 37.5 L MCV 85.2 85.6 MCH 28.6 27.9 MCHC 33.6 32.5 RDW 12.7 12.6 Plt Count 168 142 L MPV 9.4 10.7 Immature Gran % (Auto) 0.3 Neut % (Auto) 46.3 Lymph % (Auto) 43.6 H [place] % (Auto) 7.0 Eos % (Auto) 2.3 Baso % (Auto) 0.5 Lymph # (Auto) 1.7 [place] # (Auto) 0.3 Eos # (Auto) 0.1 Baso # (Auto) 0.0 Abs Immat Gran (auto) 0.01 Absolute Neuts (auto) 1.8 L Absolute Nucleated RBC 0.000 0.000 Nucleated RBC % (auto) 0.0 0.0 Sodium 143 142 Potassium 4.2 3.6 Chloride 106 105 Carbon Dioxide 28 29 Anion Gap 13 12 BUN 13 14 Creatinine 1.24 1.10 Estim Creat Clear Calc 74.5 77.3 Estimated GFR > 60 > 60 Random Glucose 113 105 Calcium 9.1 8.9 Magnesium 2.0 2.0 Total Bilirubin 0.4 AST 24 ALT 27 Alkaline Phosphatase 78 Total Protein 7.2 Albumin 4.3 Urine Color Yellow Urine Appearance Clear Urine pH 7.0 Ur Specific [place] 1.010 Urine Protein Negative Urine Glucose (UA) Negative Urine Ketones Negative Urine Blood Negative Urine Nitrite Negative Ur Leukocyte Esterase Small (1+) H Urine RBC 0-2 Urine WBC 6-10 H Ur Squamous Epith Cells 0-2 Urine Bacteria None Seen Hyaline Casts 0-2 Urine Opiates Screen Not Detected Ur Buprenorphine Scrn Not Detected Ur Oxycodone Screen Not Detected Urine Methadone Screen Positive H Urine Fentanyl Screen Not Detected Ur Barbiturates Screen Not Detected Ur Phencyclidine Scrn Not Detected Ur Amphetamines Screen Not Detected U Benzodiazepines Scrn Not Detected Urine Cocaine Screen Not Detected U Marijuana (THC) Screen Not Detected Ethyl Alcohol < 10 Imaging Radiology Impressions: ITS Impressions Head CT 01/07/25 07:14 IMPRESSION: No acute intracranial abnormality. Electronically signed by: Tab Berry MD 01/07/2025 09:00 AM EDT RP Mental Status Exam Mental Status Exam Patient Appearance: Appropriate Patient Orientation: Person and Place Level of Consciousness: Awake Patient Behavior: Cooperative Mood Description: Calm Affect Description: Calm Ability to Follow Directions: Good Speech Pattern: Mumbled Hallucinations: None Delusions: Not Present Thought Process: Confusion Thought Content: positive for Slowed Thinking Medications Medications Current Medications Acetaminophen (Acetaminophen 325 Mg Tablet) 650 mg PO Q6H PRN PRN Reason: Pain, Mild 1-3,fever,headache Last Admin: 01/08/25 03:58 Dose: 650 mg Albuterol Sulfate (Albuterol Sulfate 90 Mcg 8 Gm Inhaler) 2 puff INHALE Q4H PRN PRN Reason: Wheezing Benztropine Mesylate (Benztropine Mesylate 0.5 Mg Tablet) 0.5 mg PO Q12H [facility] Last Admin: 01/08/25 11:09 Dose: 0.5 mg Calcium Carbonate (Calcium Carbonate 750 Mg Tab.Chew) 750 mg PO Q4H PRN PRN Reason: Heartburn Docusate Sodium (Docusate Sodium 100 Mg Capsule) 100 mg PO BID PRN PRN Reason: Constipation Folic Acid (Folic Acid 1 Mg Tablet) 1 mg PO DAILY [facility] Last Admin: 01/08/25 08:24 Dose: 1 mg Gabapentin (Gabapentin 300 Mg Capsule) 300 mg PO TID [facility] Last Admin: 01/08/25 08:24 Dose: 300 mg Hydroxyzine HCl (Hydroxyzine Hcl 50 Mg Tablet) 50 mg PO Q4H PRN PRN Reason: Anxiety/Itching Last Admin: 01/08/25 08:23 Dose: 50 mg Magnesium Hydroxide (Milk Of Magnesia 30 Ml Oral.Susp) 30 ml PO DAILY PRN PRN Reason: Constipation Melatonin (Melatonin 3 Mg Tablet) 6 mg PO BEDTIME PRN PRN Reason: Insomnia Methadone HCl (Methadone Hcl 20 Mg/2 Ml Oral.Conc) 180 mg PO DAILY [facility] Last Admin: 01/08/25 11:48 Dose: 180 mg Mirtazapine (Mirtazapine 15 Mg Tablet) 15 mg PO BEDTIME [facility] Last Admin: 01/07/25 20:13 Dose: 15 mg Multivitamins/Vitamin C (Multivitamin Tablet) 1 tab PO DAILY [facility] Last Admin: 01/08/25 08:24 Dose: 1 tab Nicotine (Nicotine 21 Mg Patch.Td24) 21 mg TRANSDERMA DAILY PRN PRN Reason: Smoking Cessation Last Admin: 01/07/25 18:25 Dose: 21 mg Nicotine Polacrilex (Nicotine Polacrilex 2 Mg Gum) 2 mg BUCCAL Q2H PRN PRN Reason: Nicotine Cravings Ondansetron HCl (Ondansetron Hcl 4 Mg/2 Ml Vial) 4 mg IVPUSH Q6H PRN PRN Reason: Nausea Last Admin: 01/08/25 11:09 Dose: 4 mg Pharmacy Consult (Consult Rx Etoh Phenob Im/Po) 1 each MISCELLANE ONCE PRN; Protocol PRN Reason: Consult order Phenobarbital (Phenobarbital 15 Mg Tablet) 45 mg PO BID [facility] Stop: 01/09/25 09:01 Last Admin: 01/08/25 08:24 Dose: 45 mg Phenobarbital (Phenobarbital 30 Mg Tablet) 30 mg PO BID [facility] Stop: 01/11/25 09:01 Phenobarbital (Phenobarbital 30 Mg Tablet) 30 mg PO BEDTIME [facility] Stop: 01/12/25 21:01 Prazosin HCl (Prazosin Hcl 1 Mg Capsule) 2 mg PO BEDTIME [facility]; Protocol Last Admin: 01/07/25 20:13 Dose: 2 mg Risperidone (Risperidone 2 Mg Tablet) 2 mg PO Q12H [facility] Last Admin: 01/08/25 11:09 Dose: 2 mg Senna (Sennosides 8.6 Mg Tablet) 17.2 mg PO DAILY PRN PRN Reason: Constipation Sodium Chloride (0.9 % Sodium Chloride Flush 3 Ml Syringe) 3 ml IVFLUSH QSHIFT [facility] Last Admin: 01/08/25 08:24 Dose: 3 ml Thiamine HCl (Thiamine Hcl 100 Mg Tablet) 100 mg PO DAILY [facility] Last Admin: 01/08/25 08:24 Dose: 100 mg Allergies Allergies Allergy/AdvReac Type Severity Reaction Status Date / Time tramadol (TRAMADOL) Allergy Intermediate HIVES, Verified 01/07/25 04:57 ITCHY ibuprofen Allergy Unknown Verified 01/07/25 04:57 valium Allergy Severe pruritus Uncoded 01/07/25 04:57 Assessment & Plan Assessment & Plan (1) Bipolar disorder with psychotic features: Status: Acute Code(s): F31.9 - Bipolar disorder, unspecified Plan Recommendations: -Continue home psychiatric medications -Continue with alcohol detox -Add Zyprexa 5mg PO Q4HR PRN for agitation/psychosis -Reconsult if needed. Total time managing care of this patient today _30___ minutes. Patient educated on: medication risk/benefits
[2025-01-08 15:43] VITALS: BP 133/71; PULSE 79; RESP 16; TEMP 36.6; O2SAT 96
--- NOTE | 2025-01-08 16:44 | HO.ADDICT_ITS ---
History of Present Illness Date of Service: 01/08/25 Chief Complaint: ETOH Withdrawal Reason for Consult: AUD--withdrawal delirium Sources of Information: patient interviewed and chart reviewed HPI Narrative: Patient is a 44 year old male with history of Bipolar disorder, OUD, and AUD. Presented to [facility] ED via ambulance from [facility] for concerns of DTs. Chart reviewed. Admission H&P from reviewed and ED notes from [facility] ED. In ED patient was reportedly euphoric, somewhat irritable, believing that he was traveling back in time. Also reporting AH and VH of the devil. Oriented to person only at that time. Admitted to on 01/04. Transferred to [facility] ED on 01/07. Unclear what occured in terms of withdrawal sx and management from 01/04 to 01/07 as those notes were not available to review. Note from RN on 01/07 states that patient was administered total of 5mg lorazepam btwn 0000 and 0300 with no response and experiencing AH and VH. In ED he was noted to be quite agitated, confused, and not redirectable . Required IM medications and brief restraints due to aggression towards staff members. Patient seen in room 459. He is awake, alert and engaged in interview. He is oriented to self only. He reports that he does not recall what occurred or how he got to [facility]. Poor historian--one time reporting he had been at for 5 days and later stating his last use of alcohol was last evening. He did not appear to be experiencing any distress overall. No diaphoresis or restlessness noted. Mild tremor. Denies loose stools, some nausea (believes it is because he has not had methadone), and tingling in his fingers. He reports history of alcohol withdrawal seizures. Use history reviewed--reporting 6 sleeves and 4 natty daddies daily. Drinking at this rate for about 18months Denies opiate use for the last year (despite +UDS) Engaged in treatment for OUD, with [facility], reporting he is tired and does want to live anymore . Labs reviewed. History of Hepatitis C, untreated. Past Psychiatric History: hx of multiple inpatient psychiatric hospitalizations. OP: [facility] Methadone clinic Medical Evaluation Reviewed: Yes Review of Systems Constitutional: Reports as per HPI and Reports no additional constitutional complaints Diagnostics Vital Signs (24Hr): Vital Signs - 24 hr 01/07/25 19:37 01/07/25 23:29 01/08/25 03:24 Temperature 98.3 F 97.5 F 97.9 F Pulse Rate 68 51 50 Respiratory Rate 16 16 16 Blood Pressure 133/84 118/64 116/65 Pulse Oximetry 96 98 95 Oxygen Delivery Method Room Air Room Air Room Air 01/08/25 07:09 01/08/25 11:06 01/08/25 15:43 Temperature 96.9 F 97.7 F 97.9 F Pulse Rate 84 81 79 Respiratory Rate 17 18 16 Blood Pressure 136/86 145/84 H 133/71 Pulse Oximetry 99 98 96 Oxygen Delivery Method Room Air Room Air Room Air BMI result Body Mass Index 26.4 Labs 01/08/25 07:18 01/08/25 07:18 Labs: Laboratory Results - last 48 hr 01/07/25 01/07/25 01/08/25 05:18 05:20 07:18 WBC 3.9 L 3.5 L RBC 4.26 L 4.38 L Hgb 12.2 L D 12.2 L Hct 36.3 L 37.5 L MCV 85.2 85.6 MCH 28.6 27.9 MCHC 33.6 32.5 RDW 12.7 12.6 Plt Count 168 142 L MPV 9.4 10.7 Immature Gran % (Auto) 0.3 Neut % (Auto) 46.3 Lymph % (Auto) 43.6 H [place] % (Auto) 7.0 Eos % (Auto) 2.3 Baso % (Auto) 0.5 Lymph # (Auto) 1.7 [place] # (Auto) 0.3 Eos # (Auto) 0.1 Baso # (Auto) 0.0 Abs Immat Gran (auto) 0.01 Absolute Neuts (auto) 1.8 L Absolute Nucleated RBC 0.000 0.000 Nucleated RBC % (auto) 0.0 0.0 Sodium 143 142 Potassium 4.2 3.6 Chloride 106 105 Carbon Dioxide 28 29 Anion Gap 13 12 BUN 13 14 Creatinine 1.24 1.10 Estim Creat Clear Calc 74.5 77.3 Estimated GFR > 60 > 60 Random Glucose 113 105 Calcium 9.1 8.9 Magnesium 2.0 2.0 Total Bilirubin 0.4 AST 24 ALT 27 Alkaline Phosphatase 78 Total Protein 7.2 Albumin 4.3 Urine Color Yellow Urine Appearance Clear Urine pH 7.0 Ur Specific Lavina 1.010 Urine Protein Negative Urine Glucose (UA) Negative Urine Ketones Negative Urine Blood Negative Urine Nitrite Negative Ur Leukocyte Esterase Small (1+) H Urine RBC 0-2 Urine WBC 6-10 H Ur Squamous Epith Cells 0-2 Urine Bacteria None Seen Hyaline Casts 0-2 Urine Opiates Screen Not Detected Ur Buprenorphine Scrn Not Detected Ur Oxycodone Screen Not Detected Urine Methadone Screen Positive H Urine Fentanyl Screen Not Detected Ur Barbiturates Screen Not Detected Ur Phencyclidine Scrn Not Detected Ur Amphetamines Screen Not Detected U Benzodiazepines Scrn Not Detected Urine Cocaine Screen Not Detected U Marijuana (THC) Screen Not Detected Ethyl Alcohol < 10 Imaging Radiology Impressions: ITS Impressions Head CT 01/07/25 07:14 IMPRESSION: No acute intracranial abnormality. Electronically signed by: Tab Berry MD 01/07/2025 09:00 AM EDT RP Mental Status Exam Mental Status Exam Patient Orientation: Person Level of Consciousness: Awake and Alert Patient Behavior: Talkative and Cooperative Affect Description: Blunted Speech Pattern: Clear Thought Content: positive for Lerna Judgement: Poor Medications Medications Current Medications Acetaminophen (Acetaminophen 325 Mg Tablet) 650 mg PO Q6H PRN PRN Reason: Pain, Mild 1-3,fever,headache Last Admin: 01/08/25 03:58 Dose: 650 mg Albuterol Sulfate (Albuterol Sulfate 90 Mcg 8 Gm Inhaler) 2 puff INHALE Q4H PRN PRN Reason: Wheezing Benztropine Mesylate (Benztropine Mesylate 0.5 Mg Tablet) 0.5 mg PO Q12H [facility] Last Admin: 01/08/25 11:09 Dose: 0.5 mg Calcium Carbonate (Calcium Carbonate 750 Mg Tab.Chew) 750 mg PO Q4H PRN PRN Reason: Heartburn Docusate Sodium (Docusate Sodium 100 Mg Capsule) 100 mg PO BID PRN PRN Reason: Constipation Folic Acid (Folic Acid 1 Mg Tablet) 1 mg PO DAILY [facility] Last Admin: 01/08/25 08:24 Dose: 1 mg Gabapentin (Gabapentin 300 Mg Capsule) 300 mg PO TID [facility] Last Admin: 01/08/25 16:08 Dose: 300 mg Hydroxyzine HCl (Hydroxyzine Hcl 50 Mg Tablet) 50 mg PO Q4H PRN PRN Reason: Anxiety/Itching Last Admin: 01/08/25 16:08 Dose: 50 mg Magnesium Hydroxide (Milk Of Magnesia 30 Ml Oral.Susp) 30 ml PO DAILY PRN PRN Reason: Constipation Melatonin (Melatonin 3 Mg Tablet) 6 mg PO BEDTIME PRN PRN Reason: Insomnia Methadone HCl (Methadone Hcl 20 Mg/2 Ml Oral.Conc) 180 mg PO DAILY [facility] Last Admin: 01/08/25 11:48 Dose: 180 mg Mirtazapine (Mirtazapine 15 Mg Tablet) 15 mg PO BEDTIME [facility] Last Admin: 01/07/25 20:13 Dose: 15 mg Multivitamins/Vitamin C (Multivitamin Tablet) 1 tab PO DAILY [facility] Last Admin: 01/08/25 08:24 Dose: 1 tab Nicotine (Nicotine 21 Mg Patch.Td24) 21 mg TRANSDERMA DAILY PRN PRN Reason: Smoking Cessation Last Admin: 01/07/25 18:25 Dose: 21 mg Nicotine Polacrilex (Nicotine Polacrilex 2 Mg Gum) 2 mg BUCCAL Q2H PRN PRN Reason: Nicotine Cravings Ondansetron HCl (Ondansetron Hcl 4 Mg/2 Ml Vial) 4 mg IVPUSH Q6H PRN PRN Reason: Nausea Last Admin: 01/08/25 11:09 Dose: 4 mg Pharmacy Consult (Consult Rx Etoh Phenob Im/Po) 1 each MISCELLANE ONCE PRN; Protocol PRN Reason: Consult order Phenobarbital (Phenobarbital 15 Mg Tablet) 45 mg PO BID [facility] Stop: 01/09/25 09:01 Last Admin: 01/08/25 08:24 Dose: 45 mg Phenobarbital (Phenobarbital 30 Mg Tablet) 30 mg PO BID [facility] Stop: 01/11/25 09:01 Phenobarbital (Phenobarbital 30 Mg Tablet) 30 mg PO BEDTIME [facility] Stop: 01/12/25 21:01 Prazosin HCl (Prazosin Hcl 1 Mg Capsule) 2 mg PO BEDTIME [facility]; Protocol Last Admin: 01/07/25 20:13 Dose: 2 mg Risperidone (Risperidone 2 Mg Tablet) 2 mg PO Q12H [facility] Last Admin: 01/08/25 11:09 Dose: 2 mg Senna (Sennosides 8.6 Mg Tablet) 17.2 mg PO DAILY PRN PRN Reason: Constipation Sodium Chloride (0.9 % Sodium Chloride Flush 3 Ml Syringe) 3 ml IVFLUSH QSHIFT [facility] Last Admin: 01/08/25 16:09 Dose: 3 ml Thiamine HCl (Thiamine Hcl 100 Mg Tablet) 100 mg PO DAILY [facility] Last Admin: 01/08/25 08:24 Dose: 100 mg Allergies Allergies Allergy/AdvReac Type Severity Reaction Status Date / Time tramadol (TRAMADOL) Allergy Intermediate HIVES, Verified 01/07/25 04:57 ITCHY ibuprofen Allergy Unknown Verified 01/07/25 04:57 valium Allergy Severe pruritus Uncoded 01/07/25 04:57 Assessment & Plan Assessment & Plan (1) Opioid use disorder, severe, on maintenance therapy: Status: Acute Code(s): F11.20 - Opioid dependence, uncomplicated Assessment and Plan: * denies ongoing opioid use * methadone verified and ordered. (2) Alcohol use disorder, severe, dependence: Status: Acute Code(s): F10.20 - Alcohol dependence, uncomplicated Assessment and Plan: * withdrawal resolving with phenobarbitol. * dispo pending, still reporting suicidal ideation. PSA in place. * no additional recs at this time Total time managing care of this patient today __40__ minutes. [facility] Past Medical History Medical History Medical clearance for psychiatric admission Opioid use disorder, severe, on maintenance therapy Opioid use disorder, moderate, in sustained remission, dependence Cigarette smoker Opioid dependence Polysubstance abuse Cocaine use disorder in remission PTSD (post-traumatic stress disorder) MDD (major depressive disorder), recurrent episode, moderate Social History Social History Household Members: Family Household Members Other:: [facility] Housing: House Do you presently have visiting nurse or other home services: No Alcohol intake: former Comment: 1:1 sitter Patient Tobacco Use Status: Current everyday Tobacco user Tobacco use type: Cigarette Cigarette Packs Per Day: 1 Cigarettes Per Day: 2 Years Smoked: Many Smoked in Last 30 Days: Yes e-Cigarette/Vaping Use: Currently Using Patient Interested in Nicotine Replacement: Yes Patient Given Instructions on How to Stop Smoking: Yes Date Education Initiated: 01/07/25 Second Hand Smoke Exposure: Yes Use of substances other than those prescribed or required for medical reasons: Unknown Substance Use Type: Crack/Cocaine and Heroin Currently Displaying Signs/Symptoms of Drug Intoxication Withdrawal: No Have you been hit, kicked, punched, or otherwise hurt by someone within the past year? If so, by whom?: No Do you feel safe in your current relationship?: No Current Relationship Is there a partner from a previous relationship who is making you feel unsafe now?: No Are you made to feel afraid or neglected: No Advance Directives: Yes Advance Directives on File: Yes Advance Directives Date on File: 12/28/23 Suicidal Behavior: History of suicide attemps Current/Past Psychiatric Disorders: Alcohol abuse, Chronic mental illess, Mood disorder, Psychotic disorder, PTSD and Substance abuse Patino Symptoms: Anxiety, Hopelessness and Worthlessness Family History: Attempts Access to Firearms: No Do you have a plan to hurt others: No Plan Recently lost weight without trying: Yes How much weight loss: 14-23 pounds Eating poorly because of decreased appetite: No Nutrition screen score: 4 Nutrition Risks: Dental problems and Difficulty chewing service: No Sexual orientation: Straight/Heterosexual
[2025-01-08] MEDS: Milk of Magnesia 30 ML ORAL.SUSP PO (19:45)
[2025-01-08 19:46] VITALS: BP 131/64; PULSE 66; RESP 16; TEMP 36.8; O2SAT 94
[2025-01-08 23:09] VITALS: BP 97/53; PULSE 53; RESP 16; TEMP 36.3; O2SAT 96
[2025-01-09 03:33] VITALS: BP 100/59; PULSE 57; RESP 16; TEMP 36.4; O2SAT 93
[2025-01-09 07:10] VITALS: BP 135/63; PULSE 66; RESP 18; TEMP 36.2; O2SAT 98
[2025-01-09] MEDS: methADONE HCl 20 MG/2 ML ORAL.CONC 180 MG PO (07:54)
[2025-01-09] MEDS: 0.9 % Sodium Chloride Flush 3 ML SYRINGE IVFLUSH ×3 (07:55→20:08)
--- NOTE | 2025-01-09 09:56 | HO.PM.IMPN ---
Subjective Subjective Date of Service: 01/09/25 Interval History: feeling better Physical Exam Vital Signs: Vital Signs: Last Vital Signs Temp 97.2 F 01/09/25 07:10 Pulse 66 01/09/25 07:10 Resp 18 01/09/25 07:10 BP 135/63 01/09/25 07:10 Pulse Ox 98 01/09/25 07:10 O2 Del Method Room Air 01/09/25 07:10 BMI result Body Mass Index 26.4 alert, oriented to person and place, poor insight, no acute distress, denyine hallucinations now Objective Data Active Medications Acetaminophen (Acetaminophen 325 Mg Tablet) 650 mg PO Q6H PRN PRN Reason: Pain, Mild 1-3,fever,headache Last Admin: 01/08/25 17:20 Dose: 650 mg Documented By: AMBER Albuterol Sulfate (Albuterol Sulfate 90 Mcg 8 Gm Inhaler) 2 puff INHALE Q4H PRN PRN Reason: Wheezing Benztropine Mesylate (Benztropine Mesylate 0.5 Mg Tablet) 0.5 mg PO Q12H [facility] Last Admin: 01/09/25 00:51 Dose: 0.5 mg Documented By: CJ Calcium Carbonate (Calcium Carbonate 750 Mg Tab.Chew) 750 mg PO Q4H PRN PRN Reason: Heartburn Docusate Sodium (Docusate Sodium 100 Mg Capsule) 100 mg PO BID PRN PRN Reason: Constipation Folic Acid (Folic Acid 1 Mg Tablet) 1 mg PO DAILY [facility] Last Admin: 01/09/25 07:55 Dose: 1 mg Documented By: CARRI Gabapentin (Gabapentin 300 Mg Capsule) 300 mg PO TID [facility] Last Admin: 01/09/25 07:55 Dose: 300 mg Documented By: CARRI Hydroxyzine HCl (Hydroxyzine Hcl 50 Mg Tablet) 50 mg PO Q4H PRN PRN Reason: Anxiety/Itching Last Admin: 01/09/25 01:06 Dose: 50 mg Documented By: CJ Magnesium Hydroxide (Milk Of Magnesia 30 Ml Oral.Susp) 30 ml PO DAILY PRN PRN Reason: Constipation Last Admin: 01/08/25 19:45 Dose: 30 ml Documented By: CJ Melatonin (Melatonin 3 Mg Tablet) 6 mg PO BEDTIME PRN PRN Reason: Insomnia Methadone HCl (Methadone Hcl 20 Mg/2 Ml Oral.Conc) 180 mg PO DAILY [facility] Last Admin: 01/09/25 07:54 Dose: 180 mg Documented By: CARRI Co-signed By: MAXIMILIAN Mirtazapine (Mirtazapine 15 Mg Tablet) 15 mg PO BEDTIME [facility] Last Admin: 01/08/25 19:34 Dose: 15 mg Documented By: CJ Multivitamins/Vitamin C (Multivitamin Tablet) 1 tab PO DAILY [facility] Last Admin: 01/09/25 07:55 Dose: 1 tab Documented By: CARRI Nicotine (Nicotine 21 Mg Patch.Td24) 21 mg TRANSDERMA DAILY PRN PRN Reason: Smoking Cessation Last Admin: 01/07/25 18:25 Dose: 21 mg Documented By: AMBER Nicotine Polacrilex (Nicotine Polacrilex 2 Mg Gum) 2 mg BUCCAL Q2H PRN PRN Reason: Nicotine Cravings Ondansetron HCl (Ondansetron Hcl 4 Mg/2 Ml Vial) 4 mg IVPUSH Q6H PRN PRN Reason: Nausea Last Admin: 01/08/25 19:46 Dose: 4 mg Documented By: CJ Pharmacy Consult (Consult Rx Etoh Phenob Im/Po) 1 each MISCELLANE ONCE PRN; Protocol PRN Reason: Consult order Phenobarbital (Phenobarbital 30 Mg Tablet) 30 mg PO BID [facility] Stop: 01/11/25 09:01 Phenobarbital (Phenobarbital 30 Mg Tablet) 30 mg PO BEDTIME [facility] Stop: 01/12/25 21:01 Prazosin HCl (Prazosin Hcl 1 Mg Capsule) 2 mg PO BEDTIME [facility]; Protocol Last Admin: 01/08/25 19:35 Dose: 2 mg Documented By: CJ Risperidone (Risperidone 2 Mg Tablet) 2 mg PO Q12H [facility] Last Admin: 01/09/25 00:51 Dose: 2 mg Documented By: CJ Senna (Sennosides 8.6 Mg Tablet) 17.2 mg PO DAILY PRN PRN Reason: Constipation Sodium Chloride (0.9 % Sodium Chloride Flush 3 Ml Syringe) 3 ml IVFLUSH QSHIFT [facility] Last Admin: 01/09/25 07:55 Dose: 3 ml Documented By: CARRI Thiamine HCl (Thiamine Hcl 100 Mg Tablet) 100 mg PO DAILY [facility] Last Admin: 01/09/25 07:55 Dose: 100 mg Documented By: CARRI Labs 01/08/25 07:18 01/08/25 07:18 Microbiology Microbiology Results: Microbiology 01/07/25 05:18 Urine Culture - Final Urine clean catch - Clean Catch Midstream No growth. Assessment and Plan (1) Alcohol withdrawal delirium: Status: Acute Plan 44M PMH bipolar disorder with psychosis, polysubstance dependence (opiate, cocaine, etoh) presented from [facility] inpatient psychiatry with AMS Acute metabolic encephalopathy due to alcohol dependence with withdrawal and withdrawal delirium Phenobarb, CIWA, addiction appreciated improved, but still had hallucinations on 01/08/25 Bipolar disorder with acute psychosis Restart antipsychotics psych appreciated Polysubstance dependence Uses opiates-has been on methadone Cocaine Alcohol Addiction follwoing DVT prophylaxis Lovenox Full Code reason for continued hospitalization:monitroing withdrawal symptoms Quality Stroke Does the patient have a stroke diagnosis?: No VTE Prior VTE?: No VTE Risk Level:: Medical - moderate - high VTE Device Contraindication: Treatment Not Indicated VTE Drug Contraindication: N/A - Med Ordered
--- NOTE | 2025-01-09 10:28 | MHC.CM.PN ---
Per ROUNDS discussion, Patient is not yet medically cleared for dc (Withdrawing); Patient will require Care Team Consult to assist with disposition.
[2025-01-09 11:00] VITALS: BP 112/63; PULSE 57; RESP 16; TEMP 36.2; O2SAT 93
[2025-01-09 14:49] VITALS: BP 124/69; PULSE 72; RESP 17; TEMP 36.3; O2SAT 92
[2025-01-09] MEDS: Butalb/Acetamin/Caff 50/325/40 TABLET 1 TAB PO ×2 (15:49→20:08)
[2025-01-09 19:41] VITALS: BP 120/68; PULSE 87; RESP 18; TEMP 36.7; O2SAT 98
[2025-01-09 23:16] VITALS: BP 127/78; PULSE 78; RESP 18; TEMP 36.7; O2SAT 98
[2025-01-10 04:00] VITALS: BP 105/56; PULSE 78; RESP 18; TEMP 36.7; O2SAT 96
[2025-01-10 07:12] LABS: Hematocrit 38.6 % (42.0-52.0); Hemoglobin 12.5 g/dl (14.0-18.0); Mean Corpuscular HGB Conc 32.4 g/dl (31.0-36.0); Mean Corpuscular Hemoglobin 28.0 pg (27.0-33.0); Mean Corpuscular Volume 86.5 fL (80.0-98.0); NRBC Abs Auto 0.000 X10*3/uL (0.0-0.012); NRBC Pct Auto 0.0 /100WBC (0.0-0.2); Platelet Count 133 X10*3/uL (160-400); Red Blood Count 4.46 X10*6/uL (4.60-5.80); White Blood Count 3.4 X10*3/uL (4.8-10.8)
[2025-01-10 07:33] LABS: Alanine Aminotransferase 28 U/L (0-40); Albumin Level 3.7 g/dL (3.5-5.0); Alkaline Phosphatase 80 U/L (39-117); Anion Gap 10 (12-20); Aspartate Amino Transferase 37 U/L (5-37); Blood Urea Nitrogen 13 mg/dL (9-16); Calcium 8.6 mg/dL (8.4-10.2); Carbon Dioxide 29 mmol/L (22-29); Chloride 106 mmol/L (96-108); Creatinine Clr Calc Pharmacy 73.9; Estimated Glomerular Filt Rate > 60; Magnesium 1.8 mg/dL (1.6-2.6); Potassium 4.0 mmol/L (3.3-5.1); Sodium 141 mmol/L (135-145); Total Protein 6.2 g/dL (6.5-8.0)
[2025-01-10 07:36] VITALS: BP 128/73; PULSE 58; RESP 18; TEMP 36.9; O2SAT 97
[2025-01-10] MEDS: methADONE HCl 20 MG/2 ML ORAL.CONC 180 MG PO (07:39)
[2025-01-10] MEDS: 0.9 % Sodium Chloride Flush 3 ML SYRINGE IVFLUSH ×2 (10:23→14:40)
--- NOTE | 2025-01-10 10:30 | P.PNIM_ITS ---
Subjective Subjective Date of Service: 01/10/25 Interval History: sleepy Physical Exam 2 Vital Signs: Vital Signs: Last Vital Signs Temp 98.5 F 01/10/25 07:36 Pulse 58 01/10/25 07:36 Resp 18 01/10/25 07:36 BP 128/73 01/10/25 07:36 Pulse Ox 97 01/10/25 07:36 O2 Del Method Room Air 01/10/25 07:36 BMI result Body Mass Index 26.4 lethargic oriented times 2, no acute distress Objective Data Active Medications Acetaminophen (Acetaminophen 325 Mg Tablet) 650 mg PO Q6H PRN PRN Reason: Pain, Mild 1-3,fever,headache Last Admin: 01/09/25 11:54 Dose: 650 mg Documented By: CARRI Acetaminophen/Butalbital/Caffeine (Butalb/Acetamin/Caff 50/325/40 Tablet) 1 tab PO Q4H PRN PRN Reason: Headache Last Admin: 01/09/25 20:08 Dose: 1 tab Documented By: JAMES Albuterol Sulfate (Albuterol Sulfate 90 Mcg 8 Gm Inhaler) 2 puff INHALE Q4H PRN PRN Reason: Wheezing Benztropine Mesylate (Benztropine Mesylate 0.5 Mg Tablet) 0.5 mg PO Q12H [facility] Last Admin: 01/10/25 00:09 Dose: 0.5 mg Documented By: JAMES Calcium Carbonate (Calcium Carbonate 750 Mg Tab.Chew) 750 mg PO Q4H PRN PRN Reason: Heartburn Docusate Sodium (Docusate Sodium 100 Mg Capsule) 100 mg PO BID PRN PRN Reason: Constipation Folic Acid (Folic Acid 1 Mg Tablet) 1 mg PO DAILY [facility] Last Admin: 01/10/25 10:23 Dose: Not Given Documented By: CARRI Non-Admin Reason: pt too drowsy to take meds Gabapentin (Gabapentin 300 Mg Capsule) 300 mg PO TID [facility] Last Admin: 01/10/25 10:23 Dose: Not Given Documented By: CARRI Non-Admin Reason: pt too drowsy to take meds Hydroxyzine HCl (Hydroxyzine Hcl 50 Mg Tablet) 50 mg PO Q4H PRN PRN Reason: Anxiety/Itching Last Admin: 01/10/25 05:27 Dose: 50 mg Documented By: ANTOIC Magnesium Hydroxide (Milk Of Magnesia 30 Ml Oral.Susp) 30 ml PO DAILY PRN PRN Reason: Constipation Last Admin: 01/08/25 19:45 Dose: 30 ml Documented By: CJ Melatonin (Melatonin 3 Mg Tablet) 6 mg PO BEDTIME PRN PRN Reason: Insomnia Last Admin: 01/10/25 00:09 Dose: 6 mg Documented By: JAMES Methadone HCl (Methadone Hcl 20 Mg/2 Ml Oral.Conc) 180 mg PO DAILY [facility] Last Admin: 01/10/25 07:39 Dose: 180 mg Documented By: CARRI Co-signed By: MAXIMILIAN Mirtazapine (Mirtazapine 15 Mg Tablet) 15 mg PO BEDTIME [facility] Last Admin: 01/09/25 20:08 Dose: 15 mg Documented By: JAMES Multivitamins/Vitamin C (Multivitamin Tablet) 1 tab PO DAILY [facility] Last Admin: 01/10/25 10:23 Dose: Not Given Documented By: CARRI Non-Admin Reason: pt too drowsy to take meds Nicotine (Nicotine 21 Mg Patch.Td24) 21 mg TRANSDERMA DAILY PRN PRN Reason: Smoking Cessation Last Admin: 01/07/25 18:25 Dose: 21 mg Documented By: AMBER Nicotine Polacrilex (Nicotine Polacrilex 2 Mg Gum) 2 mg BUCCAL Q2H PRN PRN Reason: Nicotine Cravings Ondansetron HCl (Ondansetron Hcl 4 Mg/2 Ml Vial) 4 mg IVPUSH Q6H PRN PRN Reason: Nausea Last Admin: 01/10/25 00:09 Dose: 4 mg Documented By: JAMES Pharmacy Consult (Consult Rx Etoh Phenob Im/Po) 1 each MISCELLANE ONCE PRN; Protocol PRN Reason: Consult order Phenobarbital (Phenobarbital 30 Mg Tablet) 30 mg PO BID [facility] Stop: 01/11/25 09:01 Last Admin: 01/10/25 10:24 Dose: Not Given Documented By: CARRI Non-Admin Reason: pt too drowsy to take meds Phenobarbital (Phenobarbital 30 Mg Tablet) 30 mg PO BEDTIME [facility] Stop: 01/12/25 21:01 Prazosin HCl (Prazosin Hcl 1 Mg Capsule) 2 mg PO BEDTIME [facility]; Protocol Last Admin: 01/09/25 20:08 Dose: 2 mg Documented By: JAMES Risperidone (Risperidone 2 Mg Tablet) 2 mg PO Q12H [facility] Last Admin: 01/10/25 00:09 Dose: 2 mg Documented By: JAMES Senna (Sennosides 8.6 Mg Tablet) 17.2 mg PO DAILY PRN PRN Reason: Constipation Sodium Chloride (0.9 % Sodium Chloride Flush 3 Ml Syringe) 3 ml IVFLUSH QSHIFT [facility] Last Admin: 01/10/25 10:23 Dose: 3 ml Documented By: CARRI Thiamine HCl (Thiamine Hcl 100 Mg Tablet) 100 mg PO DAILY [facility] Last Admin: 01/10/25 10:24 Dose: Not Given Documented By: CARRI Non-Admin Reason: pt too drowsy to take meds Labs 01/10/25 06:39 01/10/25 06:39 Labs: Laboratory Results - last 24 hr 01/10/25 06:39 MCV 86.5 MCH 28.0 MCHC 32.4 RDW 12.6 Plt Count 133 L MPV 10.5 Absolute Nucleated RBC 0.000 Nucleated RBC % (auto) 0.0 Anion Gap 10 L Estim Creat Clear Calc 73.9 Estimated GFR > 60 Random Glucose 104 Calcium 8.6 Magnesium 1.8 Total Bilirubin 0.2 Direct Bilirubin < 0.2 AST 37 ALT 28 Alkaline Phosphatase 80 Total Protein 6.2 L Albumin 3.7 Assessment and Plan (1) Alcohol withdrawal delirium: Status: Acute Plan 44M PMH bipolar disorder with psychosis, polysubstance dependence (opiate, cocaine, etoh) presented from [facility] inpatient psychiatry with AMS Acute metabolic encephalopathy due to alcohol dependence with withdrawal and withdrawal delirium Phenobarb, CIWA, addiction appreciated improved, but very lethargic today Bipolar disorder with acute psychosis Restarted antipsychotics psych appreciated Polysubstance dependence Uses opiates-has been on methadone Cocaine Alcohol Addiction follwoing DVT prophylaxis Lovenox Full Code reason for continued hospitalization:monitroing withdrawal symptoms, mental status Quality Stroke Does the patient have a stroke diagnosis?: No VTE Prior VTE?: No VTE Risk Level:: Medical - moderate - high VTE Device Contraindication: Treatment Not Indicated VTE Drug Contraindication: N/A - Med Ordered
[2025-01-10 10:59] VITALS: BP 102/69; PULSE 53; RESP 14; TEMP 36.3; O2SAT 95
[2025-01-10] MEDS: Butalb/Acetamin/Caff 50/325/40 TABLET 1 TAB PO (11:29)
--- NOTE | 2025-01-10 12:33 | MHC.CM.PN ---
Per Patient's request, CM reached out to Recovery Team/Zamzam Jones and informed her that Patient is requesting to see her.
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
--- NOTE | 2025-01-10 14:25 | P.DS_ITS ---
DS: Providers Provider Date of Service: 01/10/25 Date of admission: 01/07/25 10:18 Date of discharge: 01/10/25 Primary care physician: None Physician Consults: 01/07/25 09:27 Addiction Medicine Provider Routine Consulting Provider: Addiction Covering Reason for consultation: polysubstance 01/08/25 08:29 Consult to Psychiatry Routine Consulting Provider: [facility] Psych Covering Reason for consultation: bipolar with acute psychosis and recent suicide attempt 01/10/25 11:49 In CARE Team Crisis Consult Routine Comment: Reason for consultation: auditory hallucinations with SI, mediclaly cleared DS: Diagnosis Discharge Diagnosis (1) Alcohol withdrawal delirium: Status: Acute DS: Summary Hospital Course Hospital Course: from initial hpi: 44M PMH bipolar disorder with psychosis, polysubstance dependence (opiate, cocaine, etoh) presented from [facility] inpatient psychiatry with AMS. patient was admitted to [facility] 01/04/25 for suicide attempt on gabapentin followed by manic behaviour/psychosis. on 01/07/25 behvious and mental status worsened, felt to be component of etoh withdrawal as patient reported to drink 6 sleeves of nips daily and had some response to benzodiazepenes. in ED CIWA 22, patient is aware of the agitated confused, eventually responded well to phenobarbital, Ativan, Versed, Haldol. CT head negative, no significant lab abnormalities, EKG unremarkable. hospital course: Patient was admitted for acute metabolic encephalopathy due to alcohol dependence with withdrawal and withdrawal delirium. He was treated phenobarbital and symptoms resolved. Patient has remaining diagnosed with bipolar disorder with acute psychosis with auditory hallucinations telling him to commit self-harm. Was seen by crisis team who recommended inpatient [facility] admission to which patient will be discharged. For polysubstance dependence patient was continued on methadone. Time Attestation Discharge Coordination Time (in mins): 33 Quality: Safe Use of Opioids Does Pt have an Active Cancer Diagnosis on the Problem List?: No Quality: Stroke Does the patient have a stroke diagnosis?: No Physical Exam Vital Signs: Vital Signs: Last Vital Signs Temp 97.4 F 01/10/25 10:59 Pulse 53 01/10/25 10:59 Resp 14 01/10/25 10:59 BP 102/69 01/10/25 10:59 Pulse Ox 95 01/10/25 10:59 O2 Del Method Room Air 01/10/25 10:59 BMI result Body Mass Index 26.4 General: AO X 3, no acute distress Resp: CTA bilateral, no accessory muscles used CVS: S1,S2,RRR GI: soft, non tender, non distended Neuro: motor grossly intact, alert Psych: appropriate affect, appropriate insight DS: Data Data Completed and Pending Completed studies during hospitalization [Text1]: Procedures Drainage of Left Ear Skin, External Approach (12/20/23) Labs on day of discharge: Laboratory Results - last 24 hr 01/10/25 06:39 WBC 3.4 L RBC 4.46 L Hgb 12.5 L Hct 38.6 L MCV 86.5 MCH 28.0 MCHC 32.4 RDW 12.6 Plt Count 133 L MPV 10.5 Absolute Nucleated RBC 0.000 Nucleated RBC % (auto) 0.0 Sodium 141 Potassium 4.0 Chloride 106 Carbon Dioxide 29 Anion Gap 10 L BUN 13 Creatinine 1.15 Estim Creat Clear Calc 73.9 Estimated GFR > 60 Random Glucose 104 Calcium 8.6 Magnesium 1.8 Total Bilirubin 0.2 Direct Bilirubin < 0.2 AST 37 ALT 28 Alkaline Phosphatase 80 Total Protein 6.2 L Albumin 3.7 Discharge Plan Discharge Anticipated Discharge Date/Time: 01/10/25 14:21 Patient Disposition: Xfer Psychiatric Hosp Discharge Diagnosis: etoh withdrawal Referrals: Physician,None [Primary Care Provider, Medical] - 1 Week Discharge Medications: New multivitamin [Daily-Doug] Tablet 1 tab PO DAILY Qty: 0 0RF folic acid 1 mg Tablet 1 mg PO DAILY Qty: 0 0RF thiamine mononitrate (vit B1) 100 mg Tablet 100 mg PO DAILY Qty: 0 0RF Continued acetaminophen 325 mg Tablet 650 mg PO Q6H PRN (Reason: Headache/Pain Mild Scale (1-3)) Qty: 120 0RF gabapentin 400 mg Capsule 800 mg PO TID Qty: 90 1RF benztropine 0.5 mg tablet 0.5 mg PO Q12H hydroxyzine pamoate 50 mg capsule 50 mg PO Q4H PRN (Reason: Anxiety/Itching) mirtazapine 15 mg tablet 15 mg PO BEDTIME nicotine (polacrilex) 2 mg gum 2 mg buccal Q2H PRN (Reason: Nicotine Cravings) nicotine 21 mg/24 hr patch 24 hour 21 mg transdermal DAILY PRN (Reason: Smoking Cessation) risperidone 2 mg tablet 2 mg PO Q12H prazosin 2 mg capsule 2 mg PO BEDTIME sennosides [senna] 8.6 mg Tablet 17.2 mg PO DAILY PRN (Reason: Constipation) docusate sodium [Colace] 100 mg Capsule 100 mg PO BID PRN (Reason: Constipation) calcium carbonate 500 mg calcium (1,250 mg) Tablet,Chewable 500 mg PO Q4H PRN (Reason: Heartburn) lorazepam 1 mg Tablet 1 mg PO Q2H PRN (Reason: Anxiety) Rx Instructions: CIWA SCORE 10-14 lorazepam 1 mg Tablet 2 mg PO Q1H PRN (Reason: Anxiety) Rx Instructions: CIWA SCORE 15 OR GREATER albuterol sulfate [Ventolin HFA] 90 mcg/actuation HFA aerosol inhaler 2 puff inhalation Q4H PRN (Reason: Wheezing) ondansetron 4 mg Tablet,Disintegrating 4 mg PO Q6H PRN (Reason: Nausea And Vomiting) methadone [Methadone Intensol] 10 mg/mL Concentrate 180 mg PO DAILY Diet: Advance to usual diet Activity on Discharge: As tolerated Stand Alone Forms: Patient Portal Discharge page Print Language: Unable To Collect Care Plan Goals: recovery Health Concerns: etoh, psychosis Plan of Treatment: transfer to inpatient psychiatry Assessment: see above
[2025-01-10 14:56] VITALS: BP 129/74; PULSE 63; RESP 16; TEMP 36.3; O2SAT 98
== END 2025-01-10 18:29 | DRG 773 ==
LOC: HO.ED 09:49 → HO.EDOVER 10:18 → HO.IMC 15:24
PROVIDERS: Emergency Medicine; Admitting Provider Internal Medicine; Emergency Provider Emergency Medicine; Visit Provider Internal Medicine
DX: F10.231 Alcohol dependence with withdrawal delirium (principal); F11.20 Opioid dependence, uncomplicated; F31.9 Bipolar disorder, unspecified; F17.210 Nicotine dependence, cigarettes, uncomplicated; F19.20 Other psychoactive substance dependence, uncomplicated; Z71.6 Tobacco abuse counseling; Z79.899 Other long term (current) drug therapy
CPT/HCPCS: 36415; 70450; 80048; 80053; 80076; 80307; 81001; 83735; 85025; 85027; 87086; 93005; 99285; J1630; J2250; J2405; J2560; J3411; S9485

== ENCOUNTER → 2025-01-07 05:06 | Outpatient (BNV) | payer OTHER, SELFPAY | PROVIDERS: Admitting Provider Internal Medicine; Emergency Provider Emergency Medicine; Visit Provider Internal Medicine | DX: F10.239 Alcohol dependence with withdrawal, unspecified (principal) | CPT/HCPCS: 93010 ==

== ENCOUNTER → 2025-01-07 07:07 | Outpatient (BNV) | payer OTHER, SELFPAY | PROVIDERS: Emergency Provider Emergency Medicine; Visit Provider Radiology Diagnostic Radiology | DX: R41.82 Altered mental status, unspecified (principal) | CPT/HCPCS: 70450 ==

== ENCOUNTER → 2025-01-07 09:19 | Outpatient (BNV) | payer OTHER, SELFPAY | PROVIDERS: Emergency Provider Emergency Medicine; Visit Provider Internal Medicine | DX: F10.231 Alcohol dependence with withdrawal delirium (principal) | CPT/HCPCS: 99223 ==

== ENCOUNTER 2025-01-07 10:18 | Outpatient (BNV) | payer OTHER, SELFPAY | END 2025-01-08 03:39 | PROVIDERS: Admitting Provider Internal Medicine; Emergency Provider Emergency Medicine; Visit Provider Internal Medicine | DX: Z13.6 Encounter for screening for cardiovascular disorders (principal) | CPT/HCPCS: 93010 ==

== ENCOUNTER → 2025-01-07 10:18 | Outpatient (BNV) | payer OTHER, SELFPAY | PROVIDERS: Admitting Provider Internal Medicine; Emergency Provider Emergency Medicine; Visit Provider Nurse Practitioner Psychiatric/Mental Health | DX: F11.20 Opioid dependence, uncomplicated (principal); F10.20 Alcohol dependence, uncomplicated | CPT/HCPCS: 99222 ==

== ENCOUNTER 2025-01-10 19:20 | Inpatient (IN) | payer OTHER, SELFPAY ==
--- NOTE | 2025-01-10 19:44 | PC.NURSE ---
Riccardo arrived via wheelchair after being discharged [place] [facility]. He is alert and oriented x4. Skin and safety check done, skin is unremarkable. He is happy to be here, cooperative. He denies urges to harm self or others and any visual or perceptual disturbances. He was oriented to unit and routine. Dominique Ly [employer] notified of patients arrival.
[2025-01-10 19:49] VITALS: BP 160/95; PULSE 100; RESP 16; TEMP 36.6
[2025-01-10 20:00] VITALS: BP 131/77; PULSE 83; RESP 16; TEMP 36.9; O2SAT 97
--- NOTE | 2025-01-10 20:41 | PHA.MEDREC ---
Pharmacy Consult ? Medication Reconciliation Pharmacy has reviewed the medication reconciliation done by nursing. Utilized discharge packet from 01/10/25
--- NOTE | 2025-01-10 20:45 | PHA.MEDREC ---
Addendum entered by Madison Roa RPh 01/10/25 21:06: Reviewed by [facility] Original Note: Pharmacy Consult ? Medication Reconciliation Pharmacy has completed the medication reconciliation. Patient was discharged today and then came back. Utilized discharge packet from 01/07/25
--- NOTE | 2025-01-10 20:57 | HE.PHANOTE ---
METHADONE Dose: 180mg, pt last dosed here at [facility], 01/10 @0139, previously noted to have gotten at [facility].
--- NOTE | 2025-01-11 01:29 | PC.ADMIT ---
Riccardo arrived via wheelchair after being discharged from [facility]. He is alert and oriented x4. Skin and safety check done, skin is unremarkable. He is happy to be here, cooperative. He denies urges to harm self or others and any visual or perceptual disturbances. He was oriented to unit and routine. [place] [facility] he was being treated at [facility] for severe depression, decompensated Bipolar disorder with psychotic features. PMH of Bipolar disorder with acute psychosis, Poly-substance dependance ( Cocaine, Alcohol, Opiates). Per paperwork from [facility], most recent ETOH intoxication was 01/03/25. Pt is being admitted for treatment of withdrawal from ETOH, Bipolar disorder. At intake pt denies signs of DTs, remains on CIWA assessment and medication titration.
[2025-01-11] MEDS: methADONE HCl 20 MG/2 ML ORAL.CONC 180 MG PO (07:52)
[2025-01-11 08:00] VITALS: BP 124/75; PULSE 82; RESP 16; O2SAT 98
[2025-01-11 08:28] LABS: Hemoglobin A1C 122.5617 umol/L; Total Hemoglobin (HGBA1C) 3282.6829 umol/L
[2025-01-11 08:43] LABS: Alanine Aminotransferase 34 U/L (0-40); Albumin Level 4.1 g/dL (3.5-5.0); Alkaline Phosphatase 75 U/L (39-117); Anion Gap 10 (12-20); Aspartate Amino Transferase 45 U/L (5-37); Blood Urea Nitrogen 13 mg/dL (9-16); Calcium 9.0 mg/dL (8.4-10.2); Carbon Dioxide 32 mmol/L (22-29); Chloride 103 mmol/L (96-108); Cholesterol 145 mg/dL (<200); Estimated Glomerular Filt Rate > 60; HDL Cholesterol 50 mg/dL (>40); Potassium 4.1 mmol/L (3.3-5.1); Sodium 141 mmol/L (135-145); Total Protein 6.6 g/dL (6.5-8.0); Triglycerides 229 mg/dL (<150)
[2025-01-11 08:59] LABS: Free T4 (Free Thyroxine) 0.82 ng/dL (0.71-1.85); Thyroid Stimulating Hormone 5.51 uIU/mL (0.32-4.0)
[2025-01-11 09:13] LABS: Folate 10.4 ng/mL (> or = 4.0)
--- NOTE | 2025-01-11 17:15 | HO.PSYADMNOT ---
HPI Date of Service: 01/11/25 Chief Complaint: Si and Substance use Sources of Information: patient interviewed, chart reviewed and crisis/core team assessment reviewed Additional Sources of Information: Seen 1245pm HPI Subjective Notes: Chávez Warning and Conditional Voluntary Healthcare Proxy: No Guardianship: No Medical Problems Affecting Mental Status: No Narrative: 44 yo male, transfer from medicine after being brought in with EMS from [facility] for AMS, DT question. Admitted to [facility] 01/04/25 for SI, transfer to [facility] 01/07. Pt on arrival with confusion, escalative agitation requiring restraint. Reported daily drinking of 6 sleeves and four Natty Daddies for ~18 months. Reported hx withdrawal sz. Tells crisis he would be better off and believes he will drink himself to . Much shame reqarding his illness. Past Psychiatric History: hx of multiple inpatient psychiatric hospitalizations. OP: [facility] Methadone clinic Denies other alliances Hx of SI Hx of detox and CSS admits, recently [place] ~3 months ago, [place] before this Hx of [place] [address] several times (Hx of [place]) Medical Evaluation Reviewed: Yes [facility] Medical History Medical clearance for psychiatric admission Opioid use disorder, severe, on maintenance therapy Opioid use disorder, moderate, in sustained remission, dependence Cigarette smoker Opioid dependence Polysubstance abuse Cocaine use disorder in remission PTSD (post-traumatic stress disorder) MDD (major depressive disorder), recurrent episode, moderate Family History: deferred Social History: Currently homeless; was living with sister. Mother and sister are supportive. Born in [place]. To [facility] in 82 or 83 . GED. Work in construction. Seven children-in [place]- estranged currently SSI Hx incarceration Substance History: alcohol- 18 months- six sleeves/4 Natty Daddies daily Cocaine- sniff Methadone pt Off heroin>1 year Trauma History: +hx for trauma; does not disclose Diagnostics Vital Signs (24Hr): Vital Signs - 24 hr 01/10/25 19:49 01/10/25 20:00 01/11/25 08:00 Temperature 98 F 98.4 F Pulse Rate 100 83 82 Respiratory Rate 16 16 16 Blood Pressure 160/95 H 131/77 124/75 Pulse Oximetry 97 98 Oxygen Delivery Method Room Air Labs 01/11/25 08:11 Labs: Laboratory Results - last 48 hr 01/11/25 01/11/25 08:10 08:11 Sodium 141 Potassium 4.1 Chloride 103 Carbon Dioxide 32 H Anion Gap 10 L BUN 13 Creatinine 1.18 Estim Creat Clear Calc TNP Estimated GFR > 60 Random Glucose 108 Estimat Average Glucose 114 Hemoglobin A1c % 5.6 Calcium 9.0 Total Bilirubin 0.4 AST 45 H ALT 34 Alkaline Phosphatase 75 Total Protein 6.6 Albumin 4.1 Triglycerides 229 H Cholesterol 145 LDL Cholesterol, Calc 50 HDL Cholesterol 50 Folate 10.4 TSH 5.51 H Free T4 0.82 Meds/Allergies Meds Home Medications ?Medication ?Instructions ?Recorded ?Confirmed ?Type albuterol sulfate 90 mcg/actuation 2 puff inhalation Q4H PRN Wheezing 01/07/25 01/10/25 History aerosol inhaler (Ventolin HFA) benztropine 0.5 mg tablet 0.5 mg PO Q12H 01/07/25 01/10/25 History calcium carbonate 500 mg PO Q4H PRN Heartburn 01/07/25 01/10/25 History docusate sodium 100 mg capsule 100 mg PO BID PRN Constipation 01/07/25 01/10/25 History (Colace) hydroxyzine pamoate 50 mg capsule 50 mg PO Q4H PRN Anxiety/Itching 01/07/25 01/10/25 History lorazepam 1 mg tablet 1 mg PO Q2H PRN Anxiety 01/07/25 01/10/25 History lorazepam 1 mg tablet 2 mg PO Q1H PRN Anxiety 01/07/25 01/10/25 History mirtazapine 15 mg tablet 15 mg PO BEDTIME 01/07/25 01/10/25 History nicotine (polacrilex) 2 mg gum 2 mg buccal Q2H PRN Nicotine 01/07/25 01/10/25 History Cravings nicotine 21 mg/24 hr daily 21 mg transdermal DAILY PRN 01/07/25 01/10/25 History transdermal patch Smoking Cessation ondansetron 4 mg disintegrating 4 mg PO Q6H PRN Nausea And Vomiting 01/07/25 01/10/25 History tablet prazosin 2 mg capsule 2 mg PO BEDTIME 01/07/25 01/10/25 History risperidone 2 mg tablet 2 mg PO Q12H 01/07/25 01/10/25 History sennosides 8.6 mg tablet (senna) 17.2 mg PO DAILY PRN Constipation 01/07/25 01/10/25 History methadone 10 mg/mL oral 180 mg PO DAILY 01/08/25 01/10/25 History concentrate (Methadone Intensol) Allergies Allergies Allergy/AdvReac Type Severity Reaction Status Date / Time tramadol (TRAMADOL) Allergy Intermediate HIVES, Verified 01/07/25 04:57 ITCHY ibuprofen Allergy Unknown Verified 01/07/25 04:57 valium Allergy Severe pruritus Uncoded 01/07/25 04:57 Mental Status Exam Mental Status Exam Patient Appearance: Fatigued Patient Orientation: Person, Place, Time and Situation Level of Consciousness: Sedated and Alert Patient Behavior: Talkative and Good Eye Contact Mood Description: Depressed Affect Description: Flat Patient Cognition Impaired: No Ability to Follow Directions: Good Speech Pattern: Spontaneous Speech Memory Description: Episodic Impaired Hallucinations: None Delusions: Not Present Thought Process: Distracted and Rumination Thought Content: positive for Circumstantial, positive for Perseveration and positive for Suicidal Ideation Depressive Symptoms: Thoughts of /Suicide Judgement: Fair Assessment & Plan Assessment & Plan (1) PTSD (post-traumatic stress disorder): Status: Acute Code(s): F43.10 - Post-traumatic stress disorder, unspecified (2) Bipolar disorder with psychotic features: Status: Acute Code(s): F31.9 - Bipolar disorder, unspecified (3) Opioid use disorder, moderate, in sustained remission, dependence: Status: Acute Code(s): F11.21 - Opioid dependence, in remission (4) Alcohol use disorder, severe, dependence: Status: Acute Code(s): F10.20 - Alcohol dependence, uncomplicated Plan Admit, CV, 15 minute checks Complete detox Collateral contact Diagnostics as needed Encourage milieu engagement Continue regime Aftercare planning- today, pt is considering CSS Patient educated on: medication risk/benefits and therapeutic strategies Informed Consent: understands Reason for continued inpatient stay Substantial Risk for: rapid decompensation Statement Statement: I have reviewed the history and physical and performed a pertinent examination on my patient. No changes have occurred unless specified. If the History and Physical was not performed prior to admission, the Hospitalist's service will be consulted for completing the admission physical. Time Spent With Patient Time: Total time managing care of this patient today ____ minutes.
[2025-01-11 20:00] VITALS: BP 135/77; PULSE 100; RESP 17; TEMP 36.6; O2SAT 97
--- NOTE | 2025-01-12 | ECG_ITS ---
Test Reason : MSE changes, detox Blood Pressure : */* mmHG Vent. Rate : 66 BPM Atrial Rate : 66 BPM P-R Int : 130 ms QRS Dur : 76 ms QT Int : 414 ms P-R-T Axes : 44 54 32 degrees QTcB Int : 434 ms Normal sinus rhythm Normal ECG When compared with ECG of 08-Jan-2025 03:39, No significant change was found Referred By: Fang Arnold Electronically Signed By: YVES VELASQUEZ
[2025-01-12] MEDS: methADONE HCl 20 MG/2 ML ORAL.CONC 180 MG PO (07:49)
[2025-01-12 08:00] VITALS: BP 136/80; PULSE 69; RESP 18; O2SAT 98
[2025-01-12] MEDS: Nicotine 21 MG PATCH.TD24 TRANSDERMA (09:03)
--- NOTE | 2025-01-12 09:44 | HO.PSYCHPN ---
Subjective Subjective Date of Service: 01/12/25 Reason For Visit: Si and Substance use Subjective Notes: Conditional Voluntary Interim History: Continues sedate, confused. Gabapentin, risperdal decreased. Last dose of phenobarbital held. Lorazepam decreased, trazodone to be held. Team reports needing to do sternal rubs to awaken pt at times, however, he is up, active and engaged at meal times, scoring 13 on ciwa, yet is unsteady at times, tangential. Medication Compliance: Yes Side effects from medications: Yes (sedation) Attending Groups: No Review of Systems Acute medical concerns: No Review of Systems Review of Systems medication side effect of sedation Mental Status Exam Mental Status Exam Patient Appearance: Fatigued Patient Orientation: Person, Place, Time and Situation Level of Consciousness: Sedated and Alert Patient Behavior: Talkative and Good Eye Contact Mood Description: Depressed Affect Description: Flat Patient Cognition Impaired: No Ability to Follow Directions: Good Speech Pattern: Spontaneous Speech Memory Description: Episodic Impaired Hallucinations: None Delusions: Not Present Thought Process: Distracted and Rumination Thought Content: positive for Circumstantial, positive for Perseveration and positive for Suicidal Ideation Depressive Symptoms: Thoughts of /Suicide Judgement: Fair Diagnostics Vital Signs (24Hr): Vital Signs - 24 hr 01/11/25 20:00 01/12/25 08:00 Temperature 97.8 F Pulse Rate 100 69 Respiratory Rate 17 18 Blood Pressure 135/77 136/80 Pulse Oximetry 97 98 Oxygen Delivery Method Room Air Room Air Labs 01/12/25 12:15 01/12/25 12:15 Labs: Laboratory Results - last 48 hr 01/11/25 01/11/25 08:10 08:11 Sodium 141 Potassium 4.1 Chloride 103 Carbon Dioxide 32 H Anion Gap 10 L BUN 13 Creatinine 1.18 Estim Creat Clear Calc TNP Estimated GFR > 60 Random Glucose 108 Estimat Average Glucose 114 Hemoglobin A1c % 5.6 Calcium 9.0 Total Bilirubin 0.4 AST 45 H ALT 34 Alkaline Phosphatase 75 Total Protein 6.6 Albumin 4.1 Triglycerides 229 H Cholesterol 145 LDL Cholesterol, Calc 50 HDL Cholesterol 50 Folate 10.4 TSH 5.51 H Free T4 0.82 Medications Medications Current Medications Acetaminophen (Acetaminophen 325 Mg Tablet) 650 mg PO Q6H PRN PRN Reason: Headache/Pain, Scale 1-10 Last Admin: 01/12/25 03:14 Dose: 650 mg Al Hydroxide/Mg Hydroxide (Magnesium Hydrox/Alum Hydrox 30 Ml Oral.Susp) 30 ml PO Q6H PRN PRN Reason: Heartburn/Nausea Albuterol Sulfate (Albuterol Sulfate 90 Mcg 8 Gm Inhaler) 2 puff INHALE Q4H PRN PRN Reason: Wheezing Benztropine Mesylate (Benztropine Mesylate 0.5 Mg Tablet) 0.5 mg PO Q12H [facility] Last Admin: 01/12/25 08:57 Dose: 0.5 mg Docusate Sodium (Docusate Sodium 100 Mg Capsule) 100 mg PO BID PRN PRN Reason: Constipation Last Admin: 01/11/25 08:30 Dose: 100 mg Folic Acid (Folic Acid 1 Mg Tablet) 1 mg PO DAILY [facility] Last Admin: 01/12/25 08:57 Dose: 1 mg Gabapentin (Gabapentin 400 Mg Capsule) 800 mg PO TID [facility] Last Admin: 01/12/25 08:57 Dose: 800 mg Hydroxyzine HCl (Hydroxyzine Hcl 50 Mg Tablet) 50 mg PO Q4H PRN PRN Reason: Anxiety/Itching Lorazepam (Lorazepam 1 Mg Tablet) 1 mg PO Q2H PRN PRN Reason: CIWA 8-11 Last Admin: 01/12/25 04:38 Dose: 1 mg Lorazepam (Lorazepam 1 Mg Tablet) 2 mg PO Q2H PRN PRN Reason: CIWA 12-15 Last Admin: 01/12/25 09:06 Dose: 2 mg Lorazepam (Lorazepam 1 Mg Tablet) 3 mg PO Q2H PRN PRN Reason: CIWA > 15, and call Magnesium Hydroxide (Milk Of Magnesia 30 Ml Oral.Susp) 30 ml PO DAILY PRN PRN Reason: Constipation Methadone HCl (Methadone Hcl 20 Mg/2 Ml Oral.Conc) 180 mg PO DAILY [facility] Last Admin: 01/12/25 07:49 Dose: 180 mg Mirtazapine (Mirtazapine 15 Mg Tablet) 15 mg PO BEDTIME [facility] Last Admin: 01/11/25 19:57 Dose: 15 mg Multivitamins/Vitamin C (Multivitamin Tablet) 1 tab PO DAILY [facility] Last Admin: 01/12/25 08:57 Dose: 1 tab Nicotine (Nicotine 21 Mg Patch.Td24) 21 mg TRANSDERMA DAILY PRN PRN Reason: Smoking Cessation Last Admin: 01/12/25 09:03 Dose: 21 mg Nicotine Polacrilex (Nicotine Polacrilex 2 Mg Gum) 2 mg BUCCAL Q2H PRN PRN Reason: Nicotine Cravings Last Admin: 01/12/25 09:01 Dose: 2 mg Nicotine Polacrilex (Nicotine Polacrilex 2 Mg Gum) 2 mg BUCCAL Q2H PRN PRN Reason: Nicotine Cravings Olanzapine (Olanzapine 5 Mg Tablet) 5 mg PO BID PRN PRN Reason: agitation Last Admin: 01/11/25 19:29 Dose: 5 mg Ondansetron HCl (Ondansetron Odt 4 Mg Tab.Rapdis) 4 mg TRANSLINGU Q6H PRN PRN Reason: Nausea and Vomiting Phenobarbital (Phenobarbital 30 Mg Tablet) 30 mg PO BEDTIME JOANA Stop: 01/12/25 21:01 Risperidone (Risperidone 2 Mg Tablet) 2 mg PO Q12H JOANA Last Admin: 01/12/25 08:57 Dose: 2 mg Senna (Sennosides 8.6 Mg Tablet) 17.2 mg PO DAILY PRN PRN Reason: Constipation Thiamine HCl (Thiamine Hcl 100 Mg Tablet) 100 mg PO DAILY JOANA Last Admin: 01/12/25 08:57 Dose: 100 mg Trazodone HCl (Trazodone Hcl 50 Mg Tablet) 50 mg PO BEDTIME MRX1 PRN PRN Reason: Insomnia Last Admin: 01/12/25 03:14 Dose: 50 mg Allergies Allergies Allergy/AdvReac Type Severity Reaction Status Date / Time tramadol (TRAMADOL) Allergy Intermediate HIVES, Verified 01/07/25 04:57 ITCHY ibuprofen Allergy Unknown Verified 01/07/25 04:57 valium Allergy Severe pruritus Uncoded 01/07/25 04:57 Assessment & Plan Assessment & Plan (1) PTSD (post-traumatic stress disorder): Status: Acute Code(s): F43.10 - Post-traumatic stress disorder, unspecified (2) Bipolar disorder with psychotic features: Status: Acute Code(s): F31.9 - Bipolar disorder, unspecified (3) Opioid use disorder, moderate, in sustained remission, dependence: Status: Acute Code(s): F11.21 - Opioid dependence, in remission (4) Alcohol use disorder, severe, dependence: Status: Acute Code(s): F10.20 - Alcohol dependence, uncomplicated Plan Admit, CV, 15 minute checks Complete detox Collateral contact Diagnostics as needed Encourage milieu engagement Continue regime Aftercare planning- today, pt is considering CSS 01/12: Medication decreases: Gabapentin, Risperdal, Lorazepam Hold Trazodone, last phenobarbital dose Reason for continued inpatient stay Substantial Risk for: rapid decompensation Time Spent With Patient Time: Total time managing care of this patient today ____ minutes.
[2025-01-12 12:21] LABS: MANUAL DIFF FLAG NO
[2025-01-12 12:24] LABS: Hematocrit 34.9 % (42.0-52.0); Hemoglobin 11.7 g/dl (14.0-18.0); Imm Gran Abs Auto 0.01 X10*3/uL (0.00-0.03); Imm Gran Pct Auto 0.3 % (0.0-0.4); Lymphocytes Absolute Auto 1.4 X10*3/uL (1.2-4.9); Mean Corpuscular HGB Conc 33.5 g/dl (31.0-36.0); Mean Corpuscular Hemoglobin 28.1 pg (27.0-33.0); Mean Corpuscular Volume 83.9 fL (80.0-98.0); NRBC Abs Auto 0.000 X10*3/uL (0.0-0.012); NRBC Pct Auto 0.0 /100WBC (0.0-0.2); Platelet Count 141 X10*3/uL (160-400); Red Blood Count 4.16 X10*6/uL (4.60-5.80); White Blood Count 3.5 X10*3/uL (4.8-10.8)
[2025-01-12 12:29] LABS: Ammonia 39 umol/L (13-55)
[2025-01-12 12:41] LABS: Alanine Aminotransferase 38 U/L (0-40); Albumin Level 4.0 g/dL (3.5-5.0); Alkaline Phosphatase 81 U/L (39-117); Anion Gap 13 (12-20); Aspartate Amino Transferase 38 U/L (5-37); Blood Urea Nitrogen 11 mg/dL (9-16); Calcium 8.8 mg/dL (8.4-10.2); Carbon Dioxide 28 mmol/L (22-29); Chloride 104 mmol/L (96-108); Estimated Glomerular Filt Rate > 60; Potassium 4.4 mmol/L (3.3-5.1); Sodium 141 mmol/L (135-145); Total Protein 6.5 g/dL (6.5-8.0)
--- NOTE | 2025-01-12 15:46 | PC.NURSE ---
15:45 Gabapentin 600mg not given related to increased daytime drowsiness. Provider Fang LOPEZ aware and approved. Next dose will be 21:00.
--- NOTE | 2025-01-12 19:10 | PC.NURSE ---
VSS. CIWA scale discontinued. Last dose of ativan given per CIWA protocol. Denies nausea, sweat, tremor.
[2025-01-12 19:52] VITALS: BP 136/80; PULSE 82; RESP 15; TEMP 36.4; O2SAT 97
[2025-01-13] MEDS: methADONE HCl 20 MG/2 ML ORAL.CONC 180 MG PO (07:36)
[2025-01-13 08:00] VITALS: BP 129/74; PULSE 77; RESP 18; TEMP 37.1; O2SAT 99
[2025-01-13] MEDS: Nicotine 21 MG PATCH.TD24 TRANSDERMA (08:08)
[2025-01-13 12:30] VITALS: BP 163/93; PULSE 85; RESP 16
--- NOTE | 2025-01-13 16:49 | HO.PSYCHPN ---
Subjective Subjective Date of Service: 01/13/25 Reason For Visit: Si and Substance use Subjective Notes: Conditional Voluntary Healthcare Proxy: No Guardianship: No Medical Problems Affecting Mental Status: No Interim History: Improved, slept well he reports, increased alertness. Continues sleeping during the day. Later in the day increase in agitation-threats to kill himself on the unit if we do not put him to sleep-threats to jump off the bureau head first to . One to one placed. Zyprexa trialed. Pt able to calm on one to one. Medication Compliance: Yes Side effects from medications: Yes (alternating sedation vs agitation) Attending Groups: No Review of Systems Acute medical concerns: No Medical Review of Systems: unchanged Review of Systems Review of Systems Alternating sedation/agitation Mental Status Exam Mental Status Exam Patient Appearance: Fatigued Patient Orientation: Person, Place, Time and Situation Level of Consciousness: Sedated and Alert Patient Behavior: Talkative, Aggressive, Verbal Threats, Distractible and Good Eye Contact Mood Description: Hostile and Labile Affect Description: Labile Patient Cognition Impaired: No Ability to Follow Directions: Good Speech Pattern: Spontaneous Speech Memory Description: Episodic Impaired Hallucinations: None Delusions: Not Present Thought Process: Distracted and Rumination Thought Content: positive for Circumstantial, positive for Perseveration and positive for Suicidal Ideation Depressive Symptoms: Thoughts of /Suicide Abnormal Motor Activity Signs and Symptoms: Agitation and Restlessness Judgement: Poor Diagnostics Vital Signs (24Hr): Vital Signs - 24 hr 01/12/25 19:52 01/13/25 08:00 01/13/25 12:30 Temperature 97.6 F 98.7 F Pulse Rate 82 77 85 Respiratory Rate 15 18 16 Blood Pressure 136/80 129/74 163/93 H Pulse Oximetry 97 99 Oxygen Delivery Method Room Air Labs 01/12/25 12:15 01/12/25 12:15 Labs: Laboratory Results - last 48 hr 01/12/25 12:15 WBC 3.5 L RBC 4.16 L Hgb 11.7 L Hct 34.9 L MCV 83.9 MCH 28.1 MCHC 33.5 RDW 12.5 Plt Count 141 L MPV 10.1 Immature Gran % (Auto) 0.3 Neut % (Auto) 46.5 Lymph % (Auto) 41.1 H [place] % (Auto) 8.6 Eos % (Auto) 2.9 Baso % (Auto) 0.6 Lymph # (Auto) 1.4 [place] # (Auto) 0.3 Eos # (Auto) 0.1 Baso # (Auto) 0.0 Abs Immat Gran (auto) 0.01 Absolute Neuts (auto) 1.6 L Absolute Nucleated RBC 0.000 Nucleated RBC % (auto) 0.0 Sodium 141 Potassium 4.4 Chloride 104 Carbon Dioxide 28 Anion Gap 13 BUN 11 Creatinine 1.01 Estim Creat Clear Calc TNP Estimated GFR > 60 Random Glucose 111 Calcium 8.8 Total Bilirubin 0.2 AST 38 H ALT 38 Alkaline Phosphatase 81 Ammonia 39 Total Protein 6.5 Albumin 4.0 Medications Medications Current Medications Acetaminophen (Acetaminophen 325 Mg Tablet) 650 mg PO Q6H PRN PRN Reason: Headache/Pain, Scale 1-10 Last Admin: 01/13/25 12:04 Dose: 650 mg Al Hydroxide/Mg Hydroxide (Magnesium Hydrox/Alum Hydrox 30 Ml Oral.Susp) 30 ml PO Q6H PRN PRN Reason: Heartburn/Nausea Albuterol Sulfate (Albuterol Sulfate 90 Mcg 8 Gm Inhaler) 2 puff INHALE Q4H PRN PRN Reason: Wheezing Benztropine Mesylate (Benztropine Mesylate 0.5 Mg Tablet) 0.5 mg PO Q12H [facility] Last Admin: 01/13/25 08:07 Dose: 0.5 mg Docusate Sodium (Docusate Sodium 100 Mg Capsule) 100 mg PO BID PRN PRN Reason: Constipation Last Admin: 01/13/25 08:08 Dose: 100 mg Folic Acid (Folic Acid 1 Mg Tablet) 1 mg PO DAILY [facility] Last Admin: 01/13/25 08:08 Dose: 1 mg Gabapentin (Gabapentin 300 Mg Capsule) 600 mg PO TID [facility] Last Admin: 01/13/25 14:21 Dose: 600 mg Lorazepam (Lorazepam 1 Mg Tablet) 1 mg PO ONCE PRN PRN Reason: withdrawal sx Last Admin: 01/13/25 12:21 Dose: 1 mg Magnesium Hydroxide (Milk Of Magnesia 30 Ml Oral.Susp) 30 ml PO DAILY PRN PRN Reason: Constipation Methadone HCl (Methadone Hcl 20 Mg/2 Ml Oral.Conc) 180 mg PO DAILY [facility] Last Admin: 01/13/25 07:36 Dose: 180 mg Mirtazapine (Mirtazapine 15 Mg Tablet) 15 mg PO BEDTIME [facility] On Hold: 01/12/25 21:00 Last Admin: 01/11/25 19:57 Dose: 15 mg Multivitamins/Vitamin C (Multivitamin Tablet) 1 tab PO DAILY [facility] Last Admin: 01/13/25 08:07 Dose: 1 tab Nicotine (Nicotine 21 Mg Patch.Td24) 21 mg TRANSDERMA DAILY PRN PRN Reason: Smoking Cessation Last Admin: 01/13/25 08:08 Dose: 21 mg Nicotine Polacrilex (Nicotine Polacrilex 2 Mg Gum) 2 mg BUCCAL Q2H PRN PRN Reason: Nicotine Cravings Last Admin: 01/13/25 15:36 Dose: 2 mg Nicotine Polacrilex (Nicotine Polacrilex 2 Mg Gum) 2 mg BUCCAL Q2H PRN PRN Reason: Nicotine Cravings Olanzapine (Olanzapine 5 Mg Tablet) 5 mg PO BID PRN PRN Reason: agitation Last Admin: 01/13/25 16:09 Dose: 5 mg Ondansetron HCl (Ondansetron Odt 4 Mg Tab.Rapdis) 4 mg TRANSLINGU Q6H PRN PRN Reason: Nausea and Vomiting Last Admin: 01/13/25 12:04 Dose: 4 mg Risperidone (Risperidone 1 Mg Tablet) 1 mg PO Q12H [facility] Last Admin: 01/13/25 08:07 Dose: 1 mg Senna (Sennosides 8.6 Mg Tablet) 17.2 mg PO DAILY PRN PRN Reason: Constipation Thiamine HCl (Thiamine Hcl 100 Mg Tablet) 100 mg PO DAILY [facility] Last Admin: 01/13/25 08:08 Dose: 100 mg Trazodone HCl (Trazodone Hcl 50 Mg Tablet) 50 mg PO BEDTIME MRX1 PRN On Hold: 01/12/25 12:27 PRN Reason: Insomnia Last Admin: 01/12/25 03:14 Dose: 50 mg Allergies Allergies Allergy/AdvReac Type Severity Reaction Status Date / Time tramadol (TRAMADOL) Allergy Intermediate HIVES, Verified 01/07/25 04:57 ITCHY ibuprofen Allergy Unknown Verified 01/07/25 04:57 valium Allergy Severe pruritus Uncoded 01/07/25 04:57 Assessment & Plan Assessment & Plan (1) PTSD (post-traumatic stress disorder): Status: Acute Code(s): F43.10 - Post-traumatic stress disorder, unspecified (2) Bipolar disorder with psychotic features: Status: Acute Code(s): F31.9 - Bipolar disorder, unspecified (3) Opioid use disorder, moderate, in sustained remission, dependence: Status: Acute Code(s): F11.21 - Opioid dependence, in remission (4) Alcohol use disorder, severe, dependence: Status: Acute Code(s): F10.20 - Alcohol dependence, uncomplicated Plan Admit, CV, 15 minute checks Complete detox Collateral contact Diagnostics as needed Encourage milieu engagement Continue regime Aftercare planning- today, pt is considering CSS 01/13: Olanzapine trial-if helpful and not too sedating, with give a standard dose Sx mgt. Continue one to one Reason for continued inpatient stay Substantial Risk for: rapid decompensation Time Spent With Patient Time: Total time managing care of this patient today ____ minutes.
[2025-01-13] MEDS: Milk of Magnesia 30 ML ORAL.SUSP PO (18:10)
--- NOTE | 2025-01-13 18:43 | PC.NURSE ---
Patient came up to this RN despondent and subdued, reports that he is feeling very depressed and is having some thoughts of hurting himself. Patient stated that he has been thinking to himself and feeling depressed about where his life is. While assessing the patient they reported a current plan with intent to act in which they were going to climb up their dresser and jump off onto their head. Patient was placed on 1:1 for safety and provider notified.
[2025-01-13 20:00] VITALS: RESP 15
[2025-01-13] MEDS: OLANZapine ODT 10 MG TAB.RAPDIS TRANSLINGU (20:43)
[2025-01-14] MEDS: methADONE HCl 20 MG/2 ML ORAL.CONC 180 MG PO (07:42)
[2025-01-14 08:00] VITALS: BP 104/52; PULSE 53; RESP 16; TEMP 36.4; O2SAT 98
[2025-01-14] MEDS: Nicotine 21 MG PATCH.TD24 TRANSDERMA (08:17)
--- NOTE | 2025-01-14 12:09 | HO.PSYCHPN ---
Subjective Subjective Date of Service: 01/14/25 Reason For Visit: Si and Substance use Subjective Notes: Conditional Voluntary Healthcare Proxy: No Guardianship: No Medical Problems Affecting Mental Status: No Interim History: Continues to improve. Alert, engaged, able to discuss treatment planning and goals for care. Believes Olanzapine was significantly helpful. If pt remains alert today, will begin a standing dose on 01/15. He agrees Denies SI- will trial off one to one Pt asks for help in admission to [facility]- I am sick of doing this-I need to be with my kids, not spend time detoxing and in hospitals Medication Compliance: Yes Side effects from medications: No Attending Groups: No Review of Systems Acute medical concerns: No Review of Systems Review of Systems Denies Mental Status Exam Mental Status Exam Patient Appearance: Appropriate Patient Orientation: Person, Place, Time and Situation Level of Consciousness: Alert Patient Behavior: Appropriate, Talkative, Cooperative and Good Eye Contact Mood Description: Flat Affect Description: Flat Patient Cognition Impaired: No Ability to Follow Directions: Good Speech Pattern: Spontaneous Speech Memory Description: Episodic Impaired Hallucinations: None Delusions: Not Present Thought Process: Intact and Goal Oriented Thought Content: positive for Intact, positive for Circumstantial, positive for Goal Oriented and positive for Suicidal Ideation (denies) Depressive Symptoms: Thoughts of /Suicide (denies) Judgement: Good Diagnostics Vital Signs (24Hr): Vital Signs - 24 hr 01/13/25 12:30 01/13/25 20:00 01/14/25 08:00 Temperature 97.6 F Pulse Rate 85 53 Respiratory Rate 16 15 16 Blood Pressure 163/93 H 104/52 L Pulse Oximetry 98 Oxygen Delivery Method Room Air Labs 01/12/25 12:15 01/12/25 12:15 Labs: Laboratory Results - last 48 hr 01/12/25 12:15 WBC 3.5 L RBC 4.16 L Hgb 11.7 L Hct 34.9 L MCV 83.9 MCH 28.1 MCHC 33.5 RDW 12.5 Plt Count 141 L MPV 10.1 Immature Gran % (Auto) 0.3 Neut % (Auto) 46.5 Lymph % (Auto) 41.1 H [place] % (Auto) 8.6 Eos % (Auto) 2.9 Baso % (Auto) 0.6 Lymph # (Auto) 1.4 [place] # (Auto) 0.3 Eos # (Auto) 0.1 Baso # (Auto) 0.0 Abs Immat Gran (auto) 0.01 Absolute Neuts (auto) 1.6 L Absolute Nucleated RBC 0.000 Nucleated RBC % (auto) 0.0 Sodium 141 Potassium 4.4 Chloride 104 Carbon Dioxide 28 Anion Gap 13 BUN 11 Creatinine 1.01 Estim Creat Clear Calc TNP Estimated GFR > 60 Random Glucose 111 Calcium 8.8 Total Bilirubin 0.2 AST 38 H ALT 38 Alkaline Phosphatase 81 Ammonia 39 Total Protein 6.5 Albumin 4.0 Medications Medications Current Medications Acetaminophen (Acetaminophen 325 Mg Tablet) 650 mg PO Q6H PRN PRN Reason: Headache/Pain, Scale 1-10 Last Admin: 01/14/25 05:31 Dose: 650 mg Al Hydroxide/Mg Hydroxide (Magnesium Hydrox/Alum Hydrox 30 Ml Oral.Susp) 30 ml PO Q6H PRN PRN Reason: Heartburn/Nausea Albuterol Sulfate (Albuterol Sulfate 90 Mcg 8 Gm Inhaler) 2 puff INHALE Q4H PRN PRN Reason: Wheezing Benztropine Mesylate (Benztropine Mesylate 0.5 Mg Tablet) 0.5 mg PO Q12H [facility] Last Admin: 01/14/25 08:18 Dose: 0.5 mg Docusate Sodium (Docusate Sodium 100 Mg Capsule) 100 mg PO BID PRN PRN Reason: Constipation Last Admin: 01/13/25 08:08 Dose: 100 mg Folic Acid (Folic Acid 1 Mg Tablet) 1 mg PO DAILY [facility] Last Admin: 01/14/25 08:19 Dose: 1 mg Gabapentin (Gabapentin 300 Mg Capsule) 600 mg PO TID [facility] Last Admin: 01/14/25 08:18 Dose: 600 mg Lorazepam (Lorazepam 1 Mg Tablet) 1 mg PO ONCE PRN PRN Reason: withdrawal sx Last Admin: 01/13/25 12:21 Dose: 1 mg Magnesium Hydroxide (Milk Of Magnesia 30 Ml Oral.Susp) 30 ml PO DAILY PRN PRN Reason: Constipation Last Admin: 01/13/25 18:10 Dose: 30 ml Methadone HCl (Methadone Hcl 20 Mg/2 Ml Oral.Conc) 180 mg PO DAILY [facility] Last Admin: 01/14/25 07:42 Dose: 180 mg Mirtazapine (Mirtazapine 15 Mg Tablet) 15 mg PO BEDTIME [facility] On Hold: 01/12/25 21:00 Last Admin: 01/11/25 19:57 Dose: 15 mg Multivitamins/Vitamin C (Multivitamin Tablet) 1 tab PO DAILY [facility] Last Admin: 01/14/25 08:19 Dose: 1 tab Nicotine (Nicotine 21 Mg Patch.Td24) 21 mg TRANSDERMA DAILY PRN PRN Reason: Smoking Cessation Last Admin: 01/14/25 08:17 Dose: 21 mg Nicotine Polacrilex (Nicotine Polacrilex 2 Mg Gum) 2 mg BUCCAL Q2H PRN PRN Reason: Nicotine Cravings Last Admin: 01/13/25 15:36 Dose: 2 mg Nicotine Polacrilex (Nicotine Polacrilex 2 Mg Gum) 2 mg BUCCAL Q2H PRN PRN Reason: Nicotine Cravings Olanzapine (Olanzapine 5 Mg Tablet) 5 mg PO BID PRN PRN Reason: agitation Last Admin: 01/14/25 00:29 Dose: 5 mg Ondansetron HCl (Ondansetron Odt 4 Mg Tab.Rapdis) 4 mg TRANSLINGU Q6H PRN PRN Reason: Nausea and Vomiting Last Admin: 01/14/25 05:31 Dose: 4 mg Risperidone (Risperidone 2 Mg Tablet) 2 mg PO Q12H [facility] Last Admin: 01/14/25 08:18 Dose: 2 mg Senna (Sennosides 8.6 Mg Tablet) 17.2 mg PO DAILY PRN PRN Reason: Constipation Last Admin: 01/13/25 18:12 Dose: 17.2 mg Thiamine HCl (Thiamine Hcl 100 Mg Tablet) 100 mg PO DAILY [facility] Last Admin: 01/14/25 08:18 Dose: 100 mg Trazodone HCl (Trazodone Hcl 50 Mg Tablet) 50 mg PO BEDTIME MRX1 PRN On Hold: 01/12/25 12:27 PRN Reason: Insomnia Last Admin: 01/12/25 03:14 Dose: 50 mg Allergies Allergies Allergy/AdvReac Type Severity Reaction Status Date / Time tramadol (TRAMADOL) Allergy Intermediate HIVES, Verified 01/07/25 04:57 ITCHY ibuprofen Allergy Unknown Verified 01/07/25 04:57 valium Allergy Severe pruritus Uncoded 01/07/25 04:57 Assessment & Plan Assessment & Plan (1) PTSD (post-traumatic stress disorder): Status: Acute Code(s): F43.10 - Post-traumatic stress disorder, unspecified (2) Bipolar disorder with psychotic features: Status: Acute Code(s): F31.9 - Bipolar disorder, unspecified (3) Opioid use disorder, moderate, in sustained remission, dependence: Status: Acute Code(s): F11.21 - Opioid dependence, in remission (4) Alcohol use disorder, severe, dependence: Status: Acute Code(s): F10.20 - Alcohol dependence, uncomplicated Plan Admit, CV, 15 minute checks Complete detox Collateral contact Diagnostics as needed Encourage milieu engagement Continue regime Aftercare planning- today, pt is considering CSS 01/14- Continue tx If sedation continues to decrease, trial of standing Olanzapine dose on 01/15 per pt request. Reason for continued inpatient stay Substantial Risk for: rapid decompensation Time Spent With Patient Time: Total time managing care of this patient today ____ minutes.
[2025-01-14 20:00] VITALS: BP 140/71; PULSE 80; TEMP 36.7; O2SAT 98
[2025-01-15] MEDS: methADONE HCl 20 MG/2 ML ORAL.CONC 180 MG PO (07:42)
[2025-01-15 07:52] VITALS: BP 140/82; PULSE 67; RESP 16; TEMP 36.8; O2SAT 94
--- NOTE | 2025-01-15 10:03 | HO.PSYCHPN ---
Subjective Subjective Date of Service: 01/15/25 Reason For Visit: Si and Substance use Subjective Notes: Conditional Voluntary Healthcare Proxy: No Guardianship: No Medical Problems Affecting Mental Status: No Interim History: Pt less sedated, up, visable in milieu, social with peers, napping at times. Reports Olanzapine is helpful and still has interest in scheduling this med. Team reports pt not to be oversedated, so we will trial this today. Medication Compliance: Yes Side effects from medications: Yes (resolving sedation) Attending Groups: No Review of Systems completing detox Medical Review of Systems: unchanged Review of Systems Review of Systems Denies today Mental Status Exam Mental Status Exam Patient Appearance: Appropriate Patient Orientation: Person, Place, Time and Situation Level of Consciousness: Alert Patient Behavior: Appropriate, Talkative, Cooperative and Good Eye Contact Mood Description: Flat Affect Description: Flat Patient Cognition Impaired: No Ability to Follow Directions: Good Speech Pattern: Spontaneous Speech Memory Description: Episodic Impaired Hallucinations: None Delusions: Not Present Thought Process: Intact and Goal Oriented Thought Content: positive for Intact, positive for Circumstantial, positive for Goal Oriented and positive for Suicidal Ideation (denies) Depressive Symptoms: Thoughts of /Suicide (denies) Judgement: Good Diagnostics Vital Signs (24Hr): Vital Signs - 24 hr 01/14/25 20:00 01/15/25 07:52 Temperature 98.0 F 98.2 F Pulse Rate 80 67 Respiratory Rate 16 Blood Pressure 140/71 H 140/82 H Pulse Oximetry 98 94 Oxygen Delivery Method Room Air Room Air Labs 01/12/25 12:15 01/12/25 12:15 Medications Medications Current Medications Acetaminophen (Acetaminophen 325 Mg Tablet) 650 mg PO Q6H PRN PRN Reason: Headache/Pain, Scale 1-10 Last Admin: 01/14/25 20:40 Dose: 650 mg Al Hydroxide/Mg Hydroxide (Magnesium Hydrox/Alum Hydrox 30 Ml Oral.Susp) 30 ml PO Q6H PRN PRN Reason: Heartburn/Nausea Albuterol Sulfate (Albuterol Sulfate 90 Mcg 8 Gm Inhaler) 2 puff INHALE Q4H PRN PRN Reason: Wheezing Benztropine Mesylate (Benztropine Mesylate 0.5 Mg Tablet) 0.5 mg PO Q12H [facility] Last Admin: 01/15/25 08:27 Dose: 0.5 mg Docusate Sodium (Docusate Sodium 100 Mg Capsule) 100 mg PO BID PRN PRN Reason: Constipation Last Admin: 01/13/25 08:08 Dose: 100 mg Folic Acid (Folic Acid 1 Mg Tablet) 1 mg PO DAILY [facility] Last Admin: 01/15/25 08:27 Dose: 1 mg Gabapentin (Gabapentin 300 Mg Capsule) 600 mg PO TID JOANA Last Admin: 01/15/25 08:27 Dose: 600 mg Lorazepam (Lorazepam 1 Mg Tablet) 1 mg PO ONCE PRN PRN Reason: withdrawal sx Last Admin: 01/13/25 12:21 Dose: 1 mg Magnesium Hydroxide (Milk Of Magnesia 30 Ml Oral.Susp) 30 ml PO DAILY PRN PRN Reason: Constipation Last Admin: 01/13/25 18:10 Dose: 30 ml Methadone HCl (Methadone Hcl 20 Mg/2 Ml Oral.Conc) 180 mg PO DAILY [facility] Last Admin: 01/15/25 07:42 Dose: 180 mg Mirtazapine (Mirtazapine 15 Mg Tablet) 15 mg PO BEDTIME [facility] On Hold: 01/12/25 21:00 Last Admin: 01/11/25 19:57 Dose: 15 mg Multivitamins/Vitamin C (Multivitamin Tablet) 1 tab PO DAILY [facility] Last Admin: 01/15/25 08:27 Dose: 1 tab Nicotine (Nicotine 21 Mg Patch.Td24) 21 mg TRANSDERMA DAILY PRN PRN Reason: Smoking Cessation Last Admin: 01/14/25 08:17 Dose: 21 mg Nicotine Polacrilex (Nicotine Polacrilex 2 Mg Gum) 2 mg BUCCAL Q2H PRN PRN Reason: Nicotine Cravings Last Admin: 01/13/25 15:36 Dose: 2 mg Nicotine Polacrilex (Nicotine Polacrilex 2 Mg Gum) 2 mg BUCCAL Q2H PRN PRN Reason: Nicotine Cravings Olanzapine (Olanzapine 5 Mg Tablet) 5 mg PO BID PRN PRN Reason: agitation Last Admin: 01/15/25 05:24 Dose: 5 mg Olanzapine (Olanzapine 10 Mg Tablet) 10 mg PO BID [facility] Ondansetron HCl (Ondansetron Odt 4 Mg Tab.Rapdis) 4 mg TRANSLINGU Q6H PRN PRN Reason: Nausea and Vomiting Last Admin: 01/14/25 17:36 Dose: 4 mg Risperidone (Risperidone 2 Mg Tablet) 2 mg PO Q12H [facility] Last Admin: 01/15/25 08:27 Dose: 2 mg Senna (Sennosides 8.6 Mg Tablet) 17.2 mg PO DAILY PRN PRN Reason: Constipation Last Admin: 01/13/25 18:12 Dose: 17.2 mg Thiamine HCl (Thiamine Hcl 100 Mg Tablet) 100 mg PO DAILY [facility] Last Admin: 01/15/25 08:27 Dose: 100 mg Trazodone HCl (Trazodone Hcl 50 Mg Tablet) 50 mg PO BEDTIME MRX1 PRN On Hold: 01/12/25 12:27 PRN Reason: Insomnia Last Admin: 01/12/25 03:14 Dose: 50 mg Allergies Allergies Allergy/AdvReac Type Severity Reaction Status Date / Time tramadol (TRAMADOL) Allergy Intermediate HIVES, Verified 01/07/25 04:57 ITCHY ibuprofen Allergy Unknown Verified 01/07/25 04:57 valium Allergy Severe pruritus Uncoded 01/07/25 04:57 Assessment & Plan Assessment & Plan (1) PTSD (post-traumatic stress disorder): Status: Acute Code(s): F43.10 - Post-traumatic stress disorder, unspecified (2) Bipolar disorder with psychotic features: Status: Acute Code(s): F31.9 - Bipolar disorder, unspecified (3) Opioid use disorder, moderate, in sustained remission, dependence: Status: Acute Code(s): F11.21 - Opioid dependence, in remission (4) Alcohol use disorder, severe, dependence: Status: Acute Code(s): F10.20 - Alcohol dependence, uncomplicated Plan Admit, CV, 15 minute checks Complete detox Collateral contact Diagnostics as needed Encourage milieu engagement Continue regime Aftercare planning- today, pt is considering CSS 01/15: Olanzapine 10 mg bid trial Reason for continued inpatient stay Substantial Risk for: rapid decompensation Time Spent With Patient Time: Total time managing care of this patient today ____ minutes.
[2025-01-15 20:00] VITALS: BP 130/82; PULSE 81; RESP 16; TEMP 36.4; O2SAT 97
[2025-01-16] MEDS: Milk of Magnesia 30 ML ORAL.SUSP PO (06:03)
[2025-01-16] MEDS: methADONE HCl 20 MG/2 ML ORAL.CONC 180 MG PO (08:03)
[2025-01-16 08:59] VITALS: BP 128/69; PULSE 66; TEMP 36.3; O2SAT 98
--- NOTE | 2025-01-16 09:27 | HO.PSYCHPN ---
Subjective Subjective Date of Service: 01/16/25 Reason For Visit: Si and Substance use Subjective Notes: Conditional Voluntary Interim History: Patient is found sleeping in his bed. He reports mild anxiety and depression. He notes that he saw a black spirit last night. He denies. visual hallucinations at this time. He denies auditory hallucinations. He denies suicide or homicidal ideations. He states that he is feeling good. Medication Compliance: Yes Side effects from medications: No Attending Groups: No Review of Systems Acute medical concerns: No Mental Status Exam Mental Status Exam Narrative: Appearance: Casually dressed, adequate hygiene Behavior: Calm and cooperative throughout the interview. Eye contact is appropriate, and there are no signs of psychomotor agitation or retardation Speech: Normal, low volume Thought process: Logical and goal-directed Thought content: Future oriented no self-harming thoughts Mood: Euthymic Affect: Constricted SI:denies HI:denies VH/AH: Reports visual hallucinations Delusions: None Insight/judgment: Fair insight and judgment Memory/cog: Alert, oriented x 4. grossly intact to conversational testing Diagnostics Vital Signs (24Hr): Vital Signs - 24 hr 01/15/25 20:00 01/16/25 08:59 Temperature 97.6 F 97.3 F Pulse Rate 81 66 Respiratory Rate 16 Blood Pressure 130/82 128/69 Pulse Oximetry 97 98 Oxygen Delivery Method Room Air Room Air Labs 01/12/25 12:15 01/12/25 12:15 Medications Medications Current Medications Acetaminophen (Acetaminophen 325 Mg Tablet) 650 mg PO Q6H PRN PRN Reason: Headache/Pain, Scale 1-10 Last Admin: 01/15/25 10:22 Dose: 650 mg Al Hydroxide/Mg Hydroxide (Magnesium Hydrox/Alum Hydrox 30 Ml Oral.Susp) 30 ml PO Q6H PRN PRN Reason: Heartburn/Nausea Albuterol Sulfate (Albuterol Sulfate 90 Mcg 8 Gm Inhaler) 2 puff INHALE Q4H PRN PRN Reason: Wheezing Benztropine Mesylate (Benztropine Mesylate 0.5 Mg Tablet) 0.5 mg PO Q12H [facility] Last Admin: 01/16/25 08:49 Dose: 0.5 mg Docusate Sodium (Docusate Sodium 100 Mg Capsule) 100 mg PO BID PRN PRN Reason: Constipation Last Admin: 01/13/25 08:08 Dose: 100 mg Folic Acid (Folic Acid 1 Mg Tablet) 1 mg PO DAILY [facility] Last Admin: 01/16/25 08:49 Dose: 1 mg Gabapentin (Gabapentin 300 Mg Capsule) 600 mg PO TID [facility] Last Admin: 01/16/25 08:48 Dose: 600 mg Magnesium Hydroxide (Milk Of Magnesia 30 Ml Oral.Susp) 30 ml PO DAILY PRN PRN Reason: Constipation Last Admin: 01/16/25 06:03 Dose: 30 ml Methadone HCl (Methadone Hcl 20 Mg/2 Ml Oral.Conc) 180 mg PO DAILY [facility] Last Admin: 01/16/25 08:03 Dose: 180 mg Mirtazapine (Mirtazapine 15 Mg Tablet) 15 mg PO BEDTIME [facility] On Hold: 01/12/25 21:00 Last Admin: 01/11/25 19:57 Dose: 15 mg Multivitamins/Vitamin C (Multivitamin Tablet) 1 tab PO DAILY [facility] Last Admin: 01/16/25 08:49 Dose: 1 tab Nicotine (Nicotine 21 Mg Patch.Td24) 21 mg TRANSDERMA DAILY PRN PRN Reason: Smoking Cessation Last Admin: 01/14/25 08:17 Dose: 21 mg Nicotine Polacrilex (Nicotine Polacrilex 2 Mg Gum) 2 mg BUCCAL Q2H PRN PRN Reason: Nicotine Cravings Last Admin: 01/13/25 15:36 Dose: 2 mg Nicotine Polacrilex (Nicotine Polacrilex 2 Mg Gum) 2 mg BUCCAL Q2H PRN PRN Reason: Nicotine Cravings Olanzapine (Olanzapine 5 Mg Tablet) 5 mg PO BID PRN PRN Reason: agitation Last Admin: 01/16/25 06:19 Dose: 5 mg Olanzapine (Olanzapine 10 Mg Tablet) 10 mg PO BID [facility] Last Admin: 01/16/25 08:49 Dose: 10 mg Ondansetron HCl (Ondansetron Odt 4 Mg Tab.Rapdis) 4 mg TRANSLINGU Q6H PRN PRN Reason: Nausea and Vomiting Last Admin: 01/14/25 17:36 Dose: 4 mg Risperidone (Risperidone 2 Mg Tablet) 2 mg PO Q12H [facility] Last Admin: 01/16/25 08:49 Dose: 2 mg Senna (Sennosides 8.6 Mg Tablet) 17.2 mg PO DAILY PRN PRN Reason: Constipation Last Admin: 01/13/25 18:12 Dose: 17.2 mg Thiamine HCl (Thiamine Hcl 100 Mg Tablet) 100 mg PO DAILY [facility] Last Admin: 01/16/25 08:49 Dose: 100 mg Trazodone HCl (Trazodone Hcl 50 Mg Tablet) 50 mg PO BEDTIME MRX1 PRN On Hold: 01/12/25 12:27 PRN Reason: Insomnia Last Admin: 01/12/25 03:14 Dose: 50 mg Allergies Allergies Allergy/AdvReac Type Severity Reaction Status Date / Time tramadol (TRAMADOL) Allergy Intermediate HIVES, Verified 01/07/25 04:57 ITCHY ibuprofen Allergy Unknown Verified 01/07/25 04:57 valium Allergy Severe pruritus Uncoded 01/07/25 04:57 Assessment & Plan Assessment & Plan (1) PTSD (post-traumatic stress disorder): Status: Acute Code(s): F43.10 - Post-traumatic stress disorder, unspecified (2) Bipolar disorder with psychotic features: Status: Acute Code(s): F31.9 - Bipolar disorder, unspecified (3) Opioid use disorder, moderate, in sustained remission, dependence: Status: Acute Code(s): F11.21 - Opioid dependence, in remission (4) Alcohol use disorder, severe, dependence: Status: Acute Code(s): F10.20 - Alcohol dependence, uncomplicated Plan Admit, CV, 15 minute checks Complete detox Collateral contact Diagnostics as needed Encourage milieu engagement Continue regime Aftercare planning- today, pt is considering CSS 01/14- Continue tx If sedation continues to decrease, trial of standing Olanzapine dose on 01/15 per pt request. 01/16: Continue current treatment regimen. Patient educated on: therapeutic strategies Reason for continued inpatient stay Substantial Risk for: rapid decompensation Time Spent With Patient Time: Total time managing care of this patient today ____ minutes.
[2025-01-16 20:00] VITALS: BP 115/90; PULSE 96; RESP 18; O2SAT 97
[2025-01-17] MEDS: methADONE HCl 20 MG/2 ML ORAL.CONC 180 MG PO (07:49)
[2025-01-17 08:01] VITALS: BP 158/93; PULSE 76; TEMP 36.4; O2SAT 98
--- NOTE | 2025-01-17 09:46 | P.PNPSI_ITS ---
Subjective Subjective Date of Service: 01/17/25 Reason For Visit: Si and Substance use Subjective Notes: Conditional Voluntary Interim History: Patient states that he has a little anxious when he thinks about his family and 6 children whom he speak to but have not seen in several years. He endorses mild depression. He reports command auditory hallucinations every night; denies plan. He currently denies SI/HI/AH/VH. Medication Compliance: Yes Side effects from medications: No Attending Groups: No Review of Systems Acute medical concerns: No Mental Status Exam Mental Status Exam Narrative: Appearance: Casually dressed, adequate hygiene Behavior: Calm and cooperative throughout the interview. Eye contact is appropriate, and there are no signs of psychomotor agitation or retardation Speech: Normal, low volume Thought process: Logical and goal-directed Thought content: Future oriented no self-harming thoughts Mood: Calm Affect: Constricted SI:denies HI:denies VH/AH: denies Delusions: None Insight/judgment: Fair insight and judgment Memory/cog: Alert, oriented x 4. grossly intact to conversational testing Diagnostics Vital Signs (24Hr): Vital Signs - 24 hr 01/16/25 20:00 01/17/25 08:01 Temperature 97.6 F Pulse Rate 96 76 Respiratory Rate 18 Blood Pressure 115/90 H 158/93 H Pulse Oximetry 97 98 Oxygen Delivery Method Room Air Room Air Labs 01/12/25 12:15 01/12/25 12:15 Medications Medications Current Medications Acetaminophen (Acetaminophen 325 Mg Tablet) 650 mg PO Q6H PRN PRN Reason: Headache/Pain, Scale 1-10 Last Admin: 01/15/25 10:22 Dose: 650 mg Al Hydroxide/Mg Hydroxide (Magnesium Hydrox/Alum Hydrox 30 Ml Oral.Susp) 30 ml PO Q6H PRN PRN Reason: Heartburn/Nausea Albuterol Sulfate (Albuterol Sulfate 90 Mcg 8 Gm Inhaler) 2 puff INHALE Q4H PRN PRN Reason: Wheezing Benztropine Mesylate (Benztropine Mesylate 0.5 Mg Tablet) 0.5 mg PO Q12H [facility] Last Admin: 01/17/25 08:35 Dose: 0.5 mg Docusate Sodium (Docusate Sodium 100 Mg Capsule) 100 mg PO BID PRN PRN Reason: Constipation Last Admin: 01/13/25 08:08 Dose: 100 mg Folic Acid (Folic Acid 1 Mg Tablet) 1 mg PO DAILY [facility] Last Admin: 01/17/25 08:36 Dose: 1 mg Gabapentin (Gabapentin 300 Mg Capsule) 600 mg PO TID [facility] Last Admin: 01/17/25 08:36 Dose: 600 mg Magnesium Hydroxide (Milk Of Magnesia 30 Ml Oral.Susp) 30 ml PO DAILY PRN PRN Reason: Constipation Last Admin: 01/16/25 06:03 Dose: 30 ml Methadone HCl (Methadone Hcl 20 Mg/2 Ml Oral.Conc) 180 mg PO DAILY [facility] Last Admin: 01/17/25 07:49 Dose: 180 mg Mirtazapine (Mirtazapine 15 Mg Tablet) 15 mg PO BEDTIME [facility] On Hold: 01/12/25 21:00 Last Admin: 01/11/25 19:57 Dose: 15 mg Multivitamins/Vitamin C (Multivitamin Tablet) 1 tab PO DAILY [facility] Last Admin: 01/17/25 08:36 Dose: 1 tab Nicotine (Nicotine 21 Mg Patch.Td24) 21 mg TRANSDERMA DAILY PRN PRN Reason: Smoking Cessation Last Admin: 01/14/25 08:17 Dose: 21 mg Nicotine Polacrilex (Nicotine Polacrilex 2 Mg Gum) 2 mg BUCCAL Q2H PRN PRN Reason: Nicotine Cravings Last Admin: 01/16/25 21:02 Dose: 2 mg Nicotine Polacrilex (Nicotine Polacrilex 2 Mg Gum) 2 mg BUCCAL Q2H PRN PRN Reason: Nicotine Cravings Olanzapine (Olanzapine 5 Mg Tablet) 5 mg PO BID PRN PRN Reason: agitation Last Admin: 01/17/25 08:36 Dose: 5 mg Olanzapine (Olanzapine 10 Mg Tablet) 10 mg PO BID [facility] Last Admin: 01/17/25 08:35 Dose: 10 mg Ondansetron HCl (Ondansetron Odt 4 Mg Tab.Rapdis) 4 mg TRANSLINGU Q6H PRN PRN Reason: Nausea and Vomiting Last Admin: 01/14/25 17:36 Dose: 4 mg Risperidone (Risperidone 2 Mg Tablet) 2 mg PO Q12H [facility] Last Admin: 01/17/25 08:36 Dose: 2 mg Senna (Sennosides 8.6 Mg Tablet) 17.2 mg PO DAILY PRN PRN Reason: Constipation Last Admin: 01/16/25 21:02 Dose: 17.2 mg Thiamine HCl (Thiamine Hcl 100 Mg Tablet) 100 mg PO DAILY [facility] Last Admin: 01/17/25 08:36 Dose: 100 mg Trazodone HCl (Trazodone Hcl 50 Mg Tablet) 50 mg PO BEDTIME MRX1 PRN On Hold: 01/12/25 12:27 PRN Reason: Insomnia Last Admin: 01/12/25 03:14 Dose: 50 mg Allergies Allergies Allergy/AdvReac Type Severity Reaction Status Date / Time tramadol (TRAMADOL) Allergy Intermediate HIVES, Verified 01/07/25 04:57 ITCHY ibuprofen Allergy Unknown Verified 01/07/25 04:57 valium Allergy Severe pruritus Uncoded 01/07/25 04:57 Assessment & Plan Assessment & Plan (1) PTSD (post-traumatic stress disorder): Status: Acute Code(s): F43.10 - Post-traumatic stress disorder, unspecified (2) Bipolar disorder with psychotic features: Status: Acute Code(s): F31.9 - Bipolar disorder, unspecified (3) Opioid use disorder, moderate, in sustained remission, dependence: Status: Acute Code(s): F11.21 - Opioid dependence, in remission (4) Alcohol use disorder, severe, dependence: Status: Acute Code(s): F10.20 - Alcohol dependence, uncomplicated Plan Admit, CV, 15 minute checks Complete detox Collateral contact Diagnostics as needed Encourage milieu engagement Continue regime Aftercare planning- today, pt is considering CSS 01/14- Continue tx If sedation continues to decrease, trial of standing Olanzapine dose on 01/15 per pt request. 01/16: Continue current treatment regimen. 01/17: Mild anxiety due to thoughts about his family and children he has not seen in several years. Also has mild depression. Clonidine 0.1 mg twice daily as needed ordered for anxiety. Continue current treatment regimen. Patient educated on: medication risk/benefits and therapeutic strategies Reason for continued inpatient stay Substantial Risk for: rapid decompensation Time Spent With Patient Time: Total time managing care of this patient today ____ minutes.
[2025-01-17 13:18] VITALS: BP 139/84
[2025-01-17 20:00] VITALS: BP 131/84; PULSE 101; TEMP 36.9; O2SAT 98
[2025-01-17] MEDS: Milk of Magnesia 30 ML ORAL.SUSP PO (20:20)
[2025-01-18 05:11] VITALS: BP 127/79
[2025-01-18] MEDS: methADONE HCl 20 MG/2 ML ORAL.CONC 180 MG PO (07:49)
[2025-01-18 08:00] VITALS: BP 126/75; PULSE 80; RESP 16; TEMP 36.8; O2SAT 98
--- NOTE | 2025-01-18 16:00 | HO.PSYCHPN ---
Subjective Subjective Date of Service: 01/18/25 Reason For Visit: Si and Substance use Subjective Notes: Conditional Voluntary Healthcare Proxy: No Guardianship: No Medical Problems Affecting Mental Status: No Interim History: Presents with irritability today. Not attending groups Social with some peers intermittently Discharge plan is for 01/22 to [facility] Medication Compliance: Yes Side effects from medications: No Attending Groups: Yes Review of Systems Acute medical concerns: No Medical Review of Systems: unchanged Review of Systems Review of Systems No sx reported today Mental Status Exam Mental Status Exam Patient Appearance: Appropriate Patient Orientation: Person, Place, Time and Situation Level of Consciousness: Sedated Patient Behavior: Talkative and Asleep Mood Description: Labile Affect Description: Labile Patient Cognition Impaired: No Ability to Follow Directions: Good Speech Pattern: Spontaneous Speech Memory Description: Episodic Impaired Hallucinations: None Delusions: Not Present Thought Process: Rumination Judgement: Good Diagnostics Vital Signs (24Hr): Vital Signs - 24 hr 01/17/25 20:00 01/18/25 05:11 01/18/25 08:00 Temperature 98.4 F 98.2 F Pulse Rate 101 H 80 Respiratory Rate 16 Blood Pressure 131/84 127/79 126/75 Pulse Oximetry 98 98 Oxygen Delivery Method Room Air Room Air Labs 01/12/25 12:15 01/12/25 12:15 Medications Medications Current Medications Acetaminophen (Acetaminophen 325 Mg Tablet) 650 mg PO Q6H PRN PRN Reason: Headache/Pain, Scale 1-10 Last Admin: 01/15/25 10:22 Dose: 650 mg Al Hydroxide/Mg Hydroxide (Magnesium Hydrox/Alum Hydrox 30 Ml Oral.Susp) 30 ml PO Q6H PRN PRN Reason: Heartburn/Nausea Albuterol Sulfate (Albuterol Sulfate 90 Mcg 8 Gm Inhaler) 2 puff INHALE Q4H PRN PRN Reason: Wheezing Benztropine Mesylate (Benztropine Mesylate 0.5 Mg Tablet) 0.5 mg PO Q12H [facility] Last Admin: 01/18/25 08:44 Dose: 0.5 mg Clonidine HCl (Clonidine Hcl 0.1 Mg Tablet) 0.1 mg PO BID PRN; Protocol PRN Reason: Anxiety Last Admin: 01/18/25 05:11 Dose: 0.1 mg Docusate Sodium (Docusate Sodium 100 Mg Capsule) 100 mg PO BID PRN PRN Reason: Constipation Last Admin: 01/13/25 08:08 Dose: 100 mg Folic Acid (Folic Acid 1 Mg Tablet) 1 mg PO DAILY [facility] Last Admin: 01/18/25 08:44 Dose: 1 mg Gabapentin (Gabapentin 300 Mg Capsule) 600 mg PO TID [facility] Last Admin: 01/18/25 14:36 Dose: 600 mg Magnesium Hydroxide (Milk Of Magnesia 30 Ml Oral.Susp) 30 ml PO DAILY PRN PRN Reason: Constipation Last Admin: 01/17/25 20:20 Dose: 30 ml Methadone HCl (Methadone Hcl 20 Mg/2 Ml Oral.Conc) 180 mg PO DAILY [facility] Last Admin: 01/18/25 07:49 Dose: 180 mg Mirtazapine (Mirtazapine 15 Mg Tablet) 15 mg PO BEDTIME [facility] On Hold: 01/12/25 21:00 Last Admin: 01/11/25 19:57 Dose: 15 mg Multivitamins/Vitamin C (Multivitamin Tablet) 1 tab PO DAILY [facility] Last Admin: 01/18/25 08:44 Dose: 1 tab Nicotine (Nicotine 21 Mg Patch.Td24) 21 mg TRANSDERMA DAILY PRN PRN Reason: Smoking Cessation Last Admin: 01/14/25 08:17 Dose: 21 mg Nicotine Polacrilex (Nicotine Polacrilex 2 Mg Gum) 2 mg BUCCAL Q2H PRN PRN Reason: Nicotine Cravings Last Admin: 01/16/25 21:02 Dose: 2 mg Nicotine Polacrilex (Nicotine Polacrilex 2 Mg Gum) 2 mg BUCCAL Q2H PRN PRN Reason: Nicotine Cravings Olanzapine (Olanzapine 5 Mg Tablet) 5 mg PO BID PRN PRN Reason: agitation Last Admin: 01/18/25 13:22 Dose: 5 mg Olanzapine (Olanzapine 10 Mg Tablet) 10 mg PO BID [facility] Last Admin: 01/18/25 08:44 Dose: 10 mg Ondansetron HCl (Ondansetron Odt 4 Mg Tab.Rapdis) 4 mg TRANSLINGU Q6H PRN PRN Reason: Nausea and Vomiting Last Admin: 01/14/25 17:36 Dose: 4 mg Risperidone (Risperidone 2 Mg Tablet) 2 mg PO Q12H [facility] Last Admin: 01/18/25 08:44 Dose: 2 mg Senna (Sennosides 8.6 Mg Tablet) 17.2 mg PO DAILY PRN PRN Reason: Constipation Last Admin: 01/16/25 21:02 Dose: 17.2 mg Thiamine HCl (Thiamine Hcl 100 Mg Tablet) 100 mg PO DAILY [facility] Last Admin: 01/18/25 08:44 Dose: 100 mg Trazodone HCl (Trazodone Hcl 50 Mg Tablet) 50 mg PO BEDTIME MRX1 PRN On Hold: 01/12/25 12:27 PRN Reason: Insomnia Last Admin: 01/12/25 03:14 Dose: 50 mg Allergies Allergies Allergy/AdvReac Type Severity Reaction Status Date / Time tramadol (TRAMADOL) Allergy Intermediate HIVES, Verified 01/07/25 04:57 ITCHY ibuprofen Allergy Unknown Verified 01/07/25 04:57 valium Allergy Severe pruritus Uncoded 01/07/25 04:57 Assessment & Plan Assessment & Plan (1) PTSD (post-traumatic stress disorder): Status: Acute Code(s): F43.10 - Post-traumatic stress disorder, unspecified (2) Bipolar disorder with psychotic features: Status: Acute Code(s): F31.9 - Bipolar disorder, unspecified (3) Opioid use disorder, moderate, in sustained remission, dependence: Status: Acute Code(s): F11.21 - Opioid dependence, in remission (4) Alcohol use disorder, severe, dependence: Status: Acute Code(s): F10.20 - Alcohol dependence, uncomplicated Plan Admit, CV, 15 minute checks Complete detox Collateral contact Diagnostics as needed Encourage milieu engagement Continue regime Aftercare planning- today, pt is considering CSS 01/14- Continue tx If sedation continues to decrease, trial of standing Olanzapine dose on 01/15 per pt request. 01/16: Continue current treatment regimen. 01/17: Mild anxiety due to thoughts about his family and children he has not seen in several years. Also has mild depression. Clonidine 0.1 mg twice daily as needed ordered for anxiety. Continue current treatment regimen. 01/18: Irritability, lability. Increase Olanzapine to 15 mg bid Reason for continued inpatient stay Substantial Risk for: rapid decompensation Time Spent With Patient Time: Total time managing care of this patient today ____ minutes.
[2025-01-18 17:34] VITALS: BP 125/96
[2025-01-18 20:00] VITALS: BP 118/66; PULSE 62; TEMP 36.8; O2SAT 97
[2025-01-18] MEDS: OLANZapine 7.5 MG TABLET 15 MG PO (20:37)
[2025-01-19 04:28] VITALS: BP 124/72
[2025-01-19] MEDS: methADONE HCl 20 MG/2 ML ORAL.CONC 180 MG PO (08:09)
[2025-01-19 08:16] VITALS: BP 127/79; PULSE 58; TEMP 36.8; O2SAT 97
[2025-01-19] MEDS: OLANZapine 7.5 MG TABLET 15 MG PO ×2 (09:02→20:17)
[2025-01-19 11:19] VITALS: BP 130/72; PULSE 78; TEMP 36.9; O2SAT 95
[2025-01-19 15:20] VITALS: BP 130/84
--- NOTE | 2025-01-19 16:53 | HO.PSYCHPN ---
Subjective Subjective Date of Service: 01/19/25 Reason For Visit: Si and Substance use Interim History: Patient seen and discussed with RN He has been doing better. No complaints. Tolerating medications well. Describes his mood as good . Denies SI/HI/AVH. Review of Systems Review of Systems No sx reported today Mental Status Exam Mental Status Exam Narrative: Appearance: Casually dressed, adequate hygiene Behavior: Calm and cooperative throughout the interview. Eye contact is appropriate, and there are no signs of psychomotor agitation or retardation Speech: Normal, low volume Thought process: Logical and goal-directed Thought content: Future oriented no self-harming thoughts Mood: Calm Affect: Constricted SI:denies HI:denies VH/AH: denies Delusions: None Insight/judgment: Fair insight and judgment Memory/cog: Alert, oriented x 4. grossly intact to conversational testing Patient Appearance: Appropriate Patient Orientation: Person, Place, Time and Situation Level of Consciousness: Sedated Patient Behavior: Talkative and Asleep Mood Description: Labile Affect Description: Labile Patient Cognition Impaired: No Ability to Follow Directions: Good Speech Pattern: Spontaneous Speech Memory Description: Episodic Impaired Diagnostics Vital Signs (24Hr): Vital Signs - 24 hr 01/18/25 17:34 01/18/25 20:00 01/19/25 04:28 Temperature 98.2 F Pulse Rate 62 Blood Pressure 125/96 H 118/66 124/72 Pulse Oximetry 97 Oxygen Delivery Method Room Air 01/19/25 08:16 01/19/25 11:19 01/19/25 15:20 Temperature 98.2 F 98.4 F Pulse Rate 58 78 Blood Pressure 127/79 130/72 130/84 Pulse Oximetry 97 95 Oxygen Delivery Method Room Air Room Air Labs 01/12/25 12:15 01/12/25 12:15 Medications Medications Current Medications Acetaminophen (Acetaminophen 325 Mg Tablet) 650 mg PO Q6H PRN PRN Reason: Headache/Pain, Scale 1-10 Last Admin: 01/15/25 10:22 Dose: 650 mg Al Hydroxide/Mg Hydroxide (Magnesium Hydrox/Alum Hydrox 30 Ml Oral.Susp) 30 ml PO Q6H PRN PRN Reason: Heartburn/Nausea Albuterol Sulfate (Albuterol Sulfate 90 Mcg 8 Gm Inhaler) 2 puff INHALE Q4H PRN PRN Reason: Wheezing Benztropine Mesylate (Benztropine Mesylate 0.5 Mg Tablet) 0.5 mg PO Q12H [facility] Last Admin: 01/19/25 09:02 Dose: 0.5 mg Clonidine HCl (Clonidine Hcl 0.1 Mg Tablet) 0.1 mg PO BID PRN; Protocol PRN Reason: Anxiety Last Admin: 01/19/25 15:20 Dose: 0.1 mg Docusate Sodium (Docusate Sodium 100 Mg Capsule) 100 mg PO BID PRN PRN Reason: Constipation Last Admin: 01/13/25 08:08 Dose: 100 mg Folic Acid (Folic Acid 1 Mg Tablet) 1 mg PO DAILY [facility] Last Admin: 01/19/25 09:01 Dose: 1 mg Gabapentin (Gabapentin 300 Mg Capsule) 600 mg PO TID [facility] Last Admin: 01/19/25 15:09 Dose: 600 mg Magnesium Hydroxide (Milk Of Magnesia 30 Ml Oral.Susp) 30 ml PO DAILY PRN PRN Reason: Constipation Last Admin: 01/17/25 20:20 Dose: 30 ml Methadone HCl (Methadone Hcl 20 Mg/2 Ml Oral.Conc) 180 mg PO DAILY [facility] Last Admin: 01/19/25 08:09 Dose: 180 mg Mirtazapine (Mirtazapine 15 Mg Tablet) 15 mg PO BEDTIME [facility] On Hold: 01/12/25 21:00 Last Admin: 01/11/25 19:57 Dose: 15 mg Multivitamins/Vitamin C (Multivitamin Tablet) 1 tab PO DAILY [facility] Last Admin: 01/19/25 09:01 Dose: 1 tab Nicotine (Nicotine 21 Mg Patch.Td24) 21 mg TRANSDERMA DAILY PRN PRN Reason: Smoking Cessation Last Admin: 01/14/25 08:17 Dose: 21 mg Nicotine Polacrilex (Nicotine Polacrilex 2 Mg Gum) 2 mg BUCCAL Q2H PRN PRN Reason: Nicotine Cravings Last Admin: 01/16/25 21:02 Dose: 2 mg Nicotine Polacrilex (Nicotine Polacrilex 2 Mg Gum) 2 mg BUCCAL Q2H PRN PRN Reason: Nicotine Cravings Olanzapine (Olanzapine 5 Mg Tablet) 5 mg PO BID PRN PRN Reason: agitation Last Admin: 01/18/25 13:22 Dose: 5 mg Olanzapine (Olanzapine 7.5 Mg Tablet) 15 mg PO BID [facility] Last Admin: 01/19/25 09:02 Dose: 15 mg Ondansetron HCl (Ondansetron Odt 4 Mg Tab.Rapdis) 4 mg TRANSLINGU Q6H PRN PRN Reason: Nausea and Vomiting Last Admin: 01/19/25 08:09 Dose: 4 mg Risperidone (Risperidone 2 Mg Tablet) 2 mg PO Q12H [facility] Last Admin: 01/19/25 09:02 Dose: 2 mg Senna (Sennosides 8.6 Mg Tablet) 17.2 mg PO DAILY PRN PRN Reason: Constipation Last Admin: 01/16/25 21:02 Dose: 17.2 mg Thiamine HCl (Thiamine Hcl 100 Mg Tablet) 100 mg PO DAILY [facility] Last Admin: 01/19/25 09:01 Dose: 100 mg Trazodone HCl (Trazodone Hcl 50 Mg Tablet) 50 mg PO BEDTIME MRX1 PRN On Hold: 01/12/25 12:27 PRN Reason: Insomnia Last Admin: 01/12/25 03:14 Dose: 50 mg Allergies Allergies Allergy/AdvReac Type Severity Reaction Status Date / Time tramadol (TRAMADOL) Allergy Intermediate HIVES, Verified 01/07/25 04:57 ITCHY ibuprofen Allergy Unknown Verified 01/07/25 04:57 valium Allergy Severe pruritus Uncoded 01/07/25 04:57 Assessment & Plan Assessment & Plan (1) PTSD (post-traumatic stress disorder): Status: Acute Code(s): F43.10 - Post-traumatic stress disorder, unspecified (2) Bipolar disorder with psychotic features: Status: Acute Code(s): F31.9 - Bipolar disorder, unspecified (3) Opioid use disorder, moderate, in sustained remission, dependence: Status: Acute Code(s): F11.21 - Opioid dependence, in remission (4) Alcohol use disorder, severe, dependence: Status: Acute Code(s): F10.20 - Alcohol dependence, uncomplicated Plan Admit, CV, 15 minute checks Complete detox Collateral contact Diagnostics as needed Encourage milieu engagement Continue regime Aftercare planning- today, pt is considering CSS 01/14- Continue tx If sedation continues to decrease, trial of standing Olanzapine dose on 01/15 per pt request. 01/16: Continue current treatment regimen. 01/17: Mild anxiety due to thoughts about his family and children he has not seen in several years. Also has mild depression. Clonidine 0.1 mg twice daily as needed ordered for anxiety. Continue current treatment regimen. 01/18: Irritability, lability. Increase Olanzapine to 15 mg bid 01/19: Continue current management and treatment plan. Reason for continued inpatient stay Substantial Risk for: harm to others, inability to function and rapid decompensation Time Spent With Patient Time: Total time managing care of this patient today ____ minutes.
[2025-01-19 19:32] VITALS: BP 107/59; PULSE 68; TEMP 36.6; O2SAT 95
[2025-01-20] MEDS: methADONE HCl 20 MG/2 ML ORAL.CONC 180 MG PO (07:31)
[2025-01-20 08:00] VITALS: BP 118/61; PULSE 50; TEMP 36.2; O2SAT 97
[2025-01-20] MEDS: OLANZapine 7.5 MG TABLET 15 MG PO (08:27)
[2025-01-20 13:28] VITALS: BP 142/86
--- NOTE | 2025-01-20 16:22 | P.PNPSI_ITS ---
Subjective Subjective Date of Service: 01/20/25 Reason For Visit: Si and Substance use Interim History: Patient seen and discussed with RN Patient sedated today. He also had a fall yesterday. No injuries. He told RN he doesn't recall the fall. Today RN reports she had to hold on to him to prevent him from falling earlier in the day. He has been doing better overall. Describes his mood as good . Denies SI/HI/AVH. Review of Systems Review of Systems No sx reported today Mental Status Exam Mental Status Exam Narrative: Appearance: Casually dressed, adequate hygiene Behavior: Calm and cooperative throughout the interview. Eye contact is appropriate, and there are no signs of psychomotor agitation or retardation Speech: Normal, low volume Thought process: Logical and goal-directed Thought content: Future oriented no self-harming thoughts Mood: Calm Affect: Constricted SI:denies HI:denies VH/AH: denies Delusions: None Insight/judgment: Fair insight and judgment Memory/cog: Alert, oriented x 4. grossly intact to conversational testing Patient Appearance: Appropriate Patient Orientation: Person, Place, Time and Situation Level of Consciousness: Sedated Patient Behavior: Talkative and Asleep Mood Description: Labile Affect Description: Labile Patient Cognition Impaired: No Ability to Follow Directions: Good Speech Pattern: Spontaneous Speech Memory Description: Episodic Impaired Diagnostics Vital Signs (24Hr): Vital Signs - 24 hr 01/19/25 19:32 01/20/25 08:00 01/20/25 13:28 Temperature 97.9 F 97.2 F Pulse Rate 68 50 Blood Pressure 107/59 L 118/61 142/86 H Pulse Oximetry 95 97 Oxygen Delivery Method Room Air Room Air Labs 01/12/25 12:15 01/12/25 12:15 Medications Medications Current Medications Acetaminophen (Acetaminophen 325 Mg Tablet) 650 mg PO Q6H PRN PRN Reason: Headache/Pain, Scale 1-10 Last Admin: 01/15/25 10:22 Dose: 650 mg Al Hydroxide/Mg Hydroxide (Magnesium Hydrox/Alum Hydrox 30 Ml Oral.Susp) 30 ml PO Q6H PRN PRN Reason: Heartburn/Nausea Albuterol Sulfate (Albuterol Sulfate 90 Mcg 8 Gm Inhaler) 2 puff INHALE Q4H PRN PRN Reason: Wheezing Benztropine Mesylate (Benztropine Mesylate 0.5 Mg Tablet) 0.5 mg PO Q12H [facility] Last Admin: 01/20/25 08:27 Dose: 0.5 mg Clonidine HCl (Clonidine Hcl 0.1 Mg Tablet) 0.1 mg PO BID PRN; Protocol PRN Reason: Anxiety Last Admin: 01/20/25 13:28 Dose: 0.1 mg Docusate Sodium (Docusate Sodium 100 Mg Capsule) 100 mg PO BID PRN PRN Reason: Constipation Last Admin: 01/13/25 08:08 Dose: 100 mg Folic Acid (Folic Acid 1 Mg Tablet) 1 mg PO DAILY [facility] Last Admin: 01/20/25 08:27 Dose: 1 mg Gabapentin (Gabapentin 300 Mg Capsule) 600 mg PO TID [facility] Last Admin: 01/20/25 08:27 Dose: 600 mg Magnesium Hydroxide (Milk Of Magnesia 30 Ml Oral.Susp) 30 ml PO DAILY PRN PRN Reason: Constipation Last Admin: 01/17/25 20:20 Dose: 30 ml Methadone HCl (Methadone Hcl 20 Mg/2 Ml Oral.Conc) 180 mg PO DAILY [facility] Last Admin: 01/20/25 07:31 Dose: 180 mg Mirtazapine (Mirtazapine 15 Mg Tablet) 15 mg PO BEDTIME [facility] On Hold: 01/12/25 21:00 Last Admin: 01/11/25 19:57 Dose: 15 mg Multivitamins/Vitamin C (Multivitamin Tablet) 1 tab PO DAILY [facility] Last Admin: 01/20/25 08:27 Dose: 1 tab Nicotine (Nicotine 21 Mg Patch.Td24) 21 mg TRANSDERMA DAILY PRN PRN Reason: Smoking Cessation Last Admin: 01/14/25 08:17 Dose: 21 mg Nicotine Polacrilex (Nicotine Polacrilex 2 Mg Gum) 2 mg BUCCAL Q2H PRN PRN Reason: Nicotine Cravings Last Admin: 01/16/25 21:02 Dose: 2 mg Nicotine Polacrilex (Nicotine Polacrilex 2 Mg Gum) 2 mg BUCCAL Q2H PRN PRN Reason: Nicotine Cravings Olanzapine (Olanzapine 5 Mg Tablet) 5 mg PO BID PRN PRN Reason: agitation Last Admin: 01/20/25 13:28 Dose: 5 mg Olanzapine (Olanzapine 10 Mg Tablet) 10 mg PO BID [facility] Ondansetron HCl (Ondansetron Odt 4 Mg Tab.Rapdis) 4 mg TRANSLINGU Q6H PRN PRN Reason: Nausea and Vomiting Last Admin: 01/19/25 08:09 Dose: 4 mg Risperidone (Risperidone 2 Mg Tablet) 2 mg PO Q12H [facility] Last Admin: 01/20/25 08:27 Dose: 2 mg Senna (Sennosides 8.6 Mg Tablet) 17.2 mg PO DAILY PRN PRN Reason: Constipation Last Admin: 01/16/25 21:02 Dose: 17.2 mg Thiamine HCl (Thiamine Hcl 100 Mg Tablet) 100 mg PO DAILY [facility] Last Admin: 01/20/25 08:27 Dose: 100 mg Trazodone HCl (Trazodone Hcl 50 Mg Tablet) 50 mg PO BEDTIME MRX1 PRN On Hold: 01/12/25 12:27 PRN Reason: Insomnia Last Admin: 01/12/25 03:14 Dose: 50 mg Allergies Allergies Allergy/AdvReac Type Severity Reaction Status Date / Time tramadol (TRAMADOL) Allergy Intermediate HIVES, Verified 01/07/25 04:57 ITCHY ibuprofen Allergy Unknown Verified 01/07/25 04:57 valium Allergy Severe pruritus Uncoded 01/07/25 04:57 Assessment & Plan Assessment & Plan (1) PTSD (post-traumatic stress disorder): Status: Acute Code(s): F43.10 - Post-traumatic stress disorder, unspecified (2) Bipolar disorder with psychotic features: Status: Acute Code(s): F31.9 - Bipolar disorder, unspecified (3) Opioid use disorder, moderate, in sustained remission, dependence: Status: Acute Code(s): F11.21 - Opioid dependence, in remission (4) Alcohol use disorder, severe, dependence: Status: Acute Code(s): F10.20 - Alcohol dependence, uncomplicated Plan Admit, CV, 15 minute checks Complete detox Collateral contact Diagnostics as needed Encourage milieu engagement Continue regime Aftercare planning- today, pt is considering CSS 01/14- Continue tx If sedation continues to decrease, trial of standing Olanzapine dose on 01/15 per pt request. 01/16: Continue current treatment regimen. 01/17: Mild anxiety due to thoughts about his family and children he has not seen in several years. Also has mild depression. Clonidine 0.1 mg twice daily as needed ordered for anxiety. Continue current treatment regimen. 01/18: Irritability, lability. Increase Olanzapine to 15 mg bid 01/19: Continue current management and treatment plan. 01/20: Lower Zyprexa back to 10 mg BID. continue current management and treatment plan. Reason for continued inpatient stay Substantial Risk for: rapid decompensation Time Spent With Patient Time: Total time managing care of this patient today ____ minutes.
[2025-01-20 17:29] VITALS: BP 121/78
[2025-01-20 19:58] VITALS: BP 107/62; PULSE 75; RESP 18; TEMP 36.6; O2SAT 96
[2025-01-21] MEDS: methADONE HCl 20 MG/2 ML ORAL.CONC 180 MG PO (07:42)
[2025-01-21 07:52] VITALS: BP 112/74; PULSE 69; RESP 18; TEMP 36.2; O2SAT 98
--- NOTE | 2025-01-21 10:10 | P.PNPSI_ITS ---
Subjective Subjective Date of Service: 01/21/25 Reason For Visit: Si and Substance use Subjective Notes: Conditional Voluntary Healthcare Proxy: No Guardianship: No Medical Problems Affecting Mental Status: No Interim History: Angry, labile today. We continue to adjust dosing as pt appears sedated at times. This he reports makes him angry- I don't feel sedated or over-medicated Punched the window x 2 in anger. Met with pt, full review of meds, dosages with changes. Pt is apologetic- the meds work for me, especially the Olanzapine and Gabapentin . I don't want to change them-I feel like they are working. Planning discharge on 01/22 to [facility]-looking foreward to moving his treatment along. Medication Compliance: Yes Side effects from medications: Yes (intermittent sedation) Attending Groups: No Review of Systems Acute medical concerns: No Review of Systems Review of Systems Denies Mental Status Exam Mental Status Exam Patient Appearance: Appropriate Patient Orientation: Person, Place, Time and Situation Level of Consciousness: Awake, Sedated and Alert Patient Behavior: Talkative Mood Description: Labile Affect Description: Labile Patient Cognition Impaired: No Ability to Follow Directions: Good Speech Pattern: Spontaneous Speech Memory Description: Intact Hallucinations: None Delusions: Not Present Thought Process: Distracted Thought Content: positive for Circumstantial, positive for Perseveration and positive for Suicidal Ideation (denies) Abnormal Motor Activity Signs and Symptoms: Agitation (intermittent around med doses) Judgement: Good Diagnostics Vital Signs (24Hr): Vital Signs - 24 hr 01/20/25 13:28 01/20/25 17:29 01/20/25 19:58 Temperature 97.9 F Pulse Rate 75 Respiratory Rate 18 Blood Pressure 142/86 H 121/78 107/62 Pulse Oximetry 96 Oxygen Delivery Method Room Air 01/21/25 07:52 Temperature 97.2 F Pulse Rate 69 Respiratory Rate 18 Blood Pressure 112/74 Pulse Oximetry 98 Oxygen Delivery Method Room Air Labs 01/12/25 12:15 01/12/25 12:15 Medications Medications Current Medications Acetaminophen (Acetaminophen 325 Mg Tablet) 650 mg PO Q6H PRN PRN Reason: Headache/Pain, Scale 1-10 Last Admin: 01/15/25 10:22 Dose: 650 mg Al Hydroxide/Mg Hydroxide (Magnesium Hydrox/Alum Hydrox 30 Ml Oral.Susp) 30 ml PO Q6H PRN PRN Reason: Heartburn/Nausea Albuterol Sulfate (Albuterol Sulfate 90 Mcg 8 Gm Inhaler) 2 puff INHALE Q4H PRN PRN Reason: Wheezing Benztropine Mesylate (Benztropine Mesylate 0.5 Mg Tablet) 0.5 mg PO Q12H [facility] Last Admin: 01/21/25 08:20 Dose: 0.5 mg Clonidine HCl (Clonidine Hcl 0.1 Mg Tablet) 0.1 mg PO BID PRN; Protocol PRN Reason: Anxiety Last Admin: 01/21/25 04:56 Dose: 0.1 mg Docusate Sodium (Docusate Sodium 100 Mg Capsule) 100 mg PO BID PRN PRN Reason: Constipation Last Admin: 01/13/25 08:08 Dose: 100 mg Folic Acid (Folic Acid 1 Mg Tablet) 1 mg PO DAILY [facility] Last Admin: 01/21/25 08:20 Dose: 1 mg Gabapentin (Gabapentin 400 Mg Capsule) 400 mg PO TID [facility] Magnesium Hydroxide (Milk Of Magnesia 30 Ml Oral.Susp) 30 ml PO DAILY PRN PRN Reason: Constipation Last Admin: 01/17/25 20:20 Dose: 30 ml Methadone HCl (Methadone Hcl 20 Mg/2 Ml Oral.Conc) 180 mg PO DAILY [facility] Last Admin: 01/21/25 07:42 Dose: 180 mg Mirtazapine (Mirtazapine 7.5 Mg Tablet) 7.5 mg PO BEDTIME [facility] Multivitamins/Vitamin C (Multivitamin Tablet) 1 tab PO DAILY [facility] Last Admin: 01/21/25 08:21 Dose: 1 tab Nicotine (Nicotine 21 Mg Patch.Td24) 21 mg TRANSDERMA DAILY PRN PRN Reason: Smoking Cessation Last Admin: 01/14/25 08:17 Dose: 21 mg Nicotine Polacrilex (Nicotine Polacrilex 2 Mg Gum) 2 mg BUCCAL Q2H PRN PRN Reason: Nicotine Cravings Last Admin: 01/20/25 20:44 Dose: 2 mg Nicotine Polacrilex (Nicotine Polacrilex 2 Mg Gum) 2 mg BUCCAL Q2H PRN PRN Reason: Nicotine Cravings Olanzapine (Olanzapine 5 Mg Tablet) 5 mg PO BID PRN PRN Reason: agitation Last Admin: 01/21/25 04:57 Dose: 5 mg Olanzapine (Olanzapine 5 Mg Tablet) 5 mg PO BID [facility] Ondansetron HCl (Ondansetron Odt 4 Mg Tab.Rapdis) 4 mg TRANSLINGU Q6H PRN PRN Reason: Nausea and Vomiting Last Admin: 01/20/25 20:43 Dose: 4 mg Risperidone (Risperidone 0.5 Mg Tablet) 1.5 mg PO Q12H [facility] Senna (Sennosides 8.6 Mg Tablet) 17.2 mg PO DAILY PRN PRN Reason: Constipation Last Admin: 01/21/25 08:30 Dose: 17.2 mg Thiamine HCl (Thiamine Hcl 100 Mg Tablet) 100 mg PO DAILY [facility] Last Admin: 01/21/25 08:20 Dose: 100 mg Trazodone HCl (Trazodone Hcl 50 Mg Tablet) 50 mg PO BEDTIME MRX1 PRN On Hold: 01/12/25 12:27 PRN Reason: Insomnia Last Admin: 01/12/25 03:14 Dose: 50 mg Allergies Allergies Allergy/AdvReac Type Severity Reaction Status Date / Time tramadol (TRAMADOL) Allergy Intermediate HIVES, Verified 01/07/25 04:57 ITCHY ibuprofen Allergy Unknown Verified 01/07/25 04:57 valium Allergy Severe pruritus Uncoded 01/07/25 04:57 Assessment & Plan Assessment & Plan (1) PTSD (post-traumatic stress disorder): Status: Acute Code(s): F43.10 - Post-traumatic stress disorder, unspecified (2) Bipolar disorder with psychotic features: Status: Acute Code(s): F31.9 - Bipolar disorder, unspecified (3) Opioid use disorder, moderate, in sustained remission, dependence: Status: Acute Code(s): F11.21 - Opioid dependence, in remission (4) Alcohol use disorder, severe, dependence: Status: Acute Code(s): F10.20 - Alcohol dependence, uncomplicated Plan Admit, CV, 15 minute checks Complete detox Collateral contact Diagnostics as needed Encourage milieu engagement Continue regime Aftercare planning- today, pt is considering CSS 01/14- Continue tx If sedation continues to decrease, trial of standing Olanzapine dose on 01/15 per pt request. 01/16: Continue current treatment regimen. 01/17: Mild anxiety due to thoughts about his family and children he has not seen in several years. Also has mild depression. Clonidine 0.1 mg twice daily as needed ordered for anxiety. Continue current treatment regimen. 01/18: Irritability, lability. Increase Olanzapine to 15 mg bid 01/19: Continue current management and treatment plan. 01/20: Lower Zyprexa back to 10 mg BID. continue current management and treatment plan. 01/21: DC 01/22 to [facility] Reason for continued inpatient stay Substantial Risk for: stable for discharge Time Spent With Patient Time: Total time managing care of this patient today ____ minutes.
[2025-01-21 13:38] VITALS: BP 145/86
[2025-01-21 18:10] VITALS: BP 134/70
[2025-01-21 20:01] VITALS: BP 131/89; PULSE 65; RESP 16; TEMP 37.4; O2SAT 97
[2025-01-22 08:00] VITALS: BP 133/71; PULSE 74; TEMP 36.2; O2SAT 95
[2025-01-22] MEDS: methADONE HCl 20 MG/2 ML ORAL.CONC 180 MG PO (08:01)
--- NOTE | 2025-01-22 17:32 | PM.PSYDC ---
DS: Providers Provider Date of Service: 01/22/25 Date of admission: 01/10/25 19:20 Date of discharge: 01/22/25 Primary care physician: Unknown Physician Admitting clinician: Fang Arnold Attending physician on admission: Grey Medina Attending physician on discharge: Grey Medina Discharging clinician: Fang Arnold DS: Diagnosis Discharge Diagnosis (1) PTSD (post-traumatic stress disorder): Status: Acute (2) Bipolar disorder with psychotic features: Status: Acute (3) Opioid use disorder, moderate, in sustained remission, dependence: Status: Acute (4) Alcohol use disorder, severe, dependence: Status: Acute DS: Medications Discharge Medications Home Medications: Home Medications ?Medication ?Instructions ?Recorded ?Confirmed methadone 10 mg/mL oral 180 mg PO DAILY 01/08/25 01/10/25 concentrate (Methadone Intensol) Previous Rx's ?Medication ?Instructions ?Recorded acetaminophen 325 mg tablet 650 mg (2 x 325 mg) PO Q6H PRN 12/27/23 Headache/Pain Mild Scale (1-3) #120 tabs albuterol sulfate 90 mcg/actuation 2 puff inhalation Q4H PRN Wheezing 01/21/25 aerosol inhaler (Ventolin HFA) 4 weeks #1 inhaler benztropine 0.5 mg tablet 0.5 mg PO Q12H #60 tabs 01/21/25 calcium carbonate 500 mg PO Q4H PRN Heartburn #60 01/21/25 tabs clonidine HCl 0.1 mg tablet 0.1 mg PO BID PRN Anxiety #60 tabs 01/21/25 docusate sodium 100 mg capsule 100 mg PO BID PRN Constipation #60 01/21/25 (Colace) caps folic acid 1 mg tablet 1 mg PO DAILY #30 tabs 01/21/25 gabapentin 300 mg capsule 600 mg (2 x 300 mg) PO TID #90 caps 01/21/25 hydroxyzine pamoate 50 mg capsule 50 mg PO Q4H PRN Anxiety/Itching 01/21/25 #30 caps mirtazapine 7.5 mg tablet 7.5 mg PO BEDTIME #30 tabs 01/21/25 multivitamin (Daily-Doug tablet) 1 tab PO DAILY #30 tabs 01/21/25 naloxone 4 mg/actuation nasal 4 mg intranasal Q2M PRN opioid 01/21/25 spray (Narcan) overdose #2 ea nicotine (polacrilex) 2 mg gum 2 mg buccal Q2H PRN Nicotine 01/21/25 Cravings #100 ea olanzapine 10 mg tablet 10 mg PO BID #60 tabs 01/21/25 olanzapine 5 mg tablet 5 mg PO BID PRN agitation #30 tabs 01/21/25 ondansetron 4 mg disintegrating 4 mg PO Q6H PRN Nausea And 01/21/25 tablet Vomiting #10 tabs risperidone 0.5 mg tablet 1.5 mg (3 x 0.5 mg) PO Q12H #90 01/21/25 tabs sennosides 8.6 mg tablet (senna) 17.2 mg (2 x 8.6 mg) PO DAILY PRN 01/21/25 Constipation #60 tabs thiamine mononitrate (vit B1) 100 100 mg PO DAILY #30 tabs 01/21/25 mg tablet trazodone 50 mg tablet 50 mg PO BEDTIME MRX1 PRN Insomnia 01/21/25 #60 tabs Mental Status Exam Mental Status Exam Patient Appearance: Appropriate Patient Orientation: Person, Place, Time and Situation Level of Consciousness: Awake, Sedated and Alert Patient Behavior: Talkative Mood Description: Labile Affect Description: Labile Patient Cognition Impaired: No Ability to Follow Directions: Good Speech Pattern: Spontaneous Speech Memory Description: Intact Hallucinations: None Delusions: Not Present Thought Process: Distracted Thought Content: positive for Circumstantial, positive for Perseveration and positive for Suicidal Ideation (denies) Abnormal Motor Activity Signs and Symptoms: Agitation (intermittent around med doses) Judgement: Good DS: Summary Hospital Course Hospital Course: Admission to adult psychiatry for exacerbation of PTSD, Bipolar Disorder, Alcohol Use Disorder, Opiate Use Disorder-currently on Methadone maintenance. Pt to ER on 01/07/25 from [facility] where he was admitted on 01/04/25. Pt was admitted medically with altered mental status and probable delirium tremens. He was transfered to psychiatry on 01/11. Medications were evaluated and adjusted. Pt was offered full milieu therapy to stabilize mental status and strengthen copin skills. Pt was accepted to the [facility] at [place] and will continue his recovery in this program. Status at Discharge Functional status at discharge: independent ambulation Overall status at discharge: patient is progressing back to baseline Time Spent with Patient Time attestation: Total time managing care of this patient today ____ minutes. Time spent: Less than 30 minutes Discharge Plan Discharge Anticipated Discharge Date/Time: 01/22/25 12:00 Patient Disposition: Xfer Inpatient Rehab Fac Discharge Diagnosis: PTSD Bipolar Disorder Alcohol Use Disorder Opiate Use Disorder-Methadone Maintenance Referrals: [facility] [Other] - 01/22/25 12:00 pm Referral Note: Patient accepted to Clinical group CSS program for 01/22/25 [facility] [Other] - 1 Week Referral Note: Referral to CSS program for substance use treatment [facility] [Other] - 1 Week Referral Note: Referral to CSS program for substance use treatment program [facility] [Other] - 1 Week Referral Note: Referral to Substance use treatment program [place]: [facility] [Other] - 01/23/25 Referral Note: Patient set up to guest dose at [facility] while attending [facility] program. Guest dosing will start on 01/23/25 Physician,Unknown J [Primary Care Provider, Medical] - 1 Week Discharge Medications: New clonidine HCl 0.1 mg Tablet 0.1 mg PO BID PRN (Reason: Anxiety) Qty: 60 0RF Protocol: Hold for SBP< HOLD for SBP < : 90 trazodone 50 mg Tablet 50 mg PO BEDTIME MRX1 PRN (Reason: Insomnia) Qty: 60 0RF nicotine (polacrilex) 2 mg Gum 2 mg buccal Q2H PRN (Reason: Nicotine Cravings) Qty: 100 0RF olanzapine 5 mg Tablet 5 mg PO BID PRN (Reason: agitation) Qty: 30 0RF olanzapine 10 mg Tablet 10 mg PO BID Qty: 60 0RF gabapentin 300 mg Capsule 600 mg PO TID Qty: 90 0RF risperidone 0.5 mg Tablet 1.5 mg PO Q12H Qty: 90 0RF mirtazapine 7.5 mg Tablet 7.5 mg PO BEDTIME Qty: 30 0RF naloxone [Narcan] 4 mg/actuation spray,non-aerosol 4 mg intranasal Q2M PRN (Reason: opioid overdose) Qty: 2 0RF Rx Instructions: spray 1 dose into ONE nostril; alternate nostrils w each dose until help arrives Continued acetaminophen 325 mg Tablet 650 mg PO Q6H PRN (Reason: Headache/Pain Mild Scale (1-3)) Qty: 120 0RF multivitamin [Daily-Doug] Tablet 1 tab PO DAILY Qty: 30 0RF sennosides [senna] 8.6 mg Tablet 17.2 mg PO DAILY PRN (Reason: Constipation) Qty: 60 0RF benztropine 0.5 mg tablet 0.5 mg PO Q12H Qty: 60 0RF hydroxyzine pamoate 50 mg capsule 50 mg PO Q4H PRN (Reason: Anxiety/Itching) Qty: 30 0RF docusate sodium [Colace] 100 mg Capsule 100 mg PO BID PRN (Reason: Constipation) Qty: 60 0RF folic acid 1 mg Tablet 1 mg PO DAILY Qty: 30 0RF calcium carbonate 500 mg calcium (1,250 mg) Tablet,Chewable 500 mg PO Q4H PRN (Reason: Heartburn) Qty: 60 0RF albuterol sulfate [Ventolin HFA] 90 mcg/actuation HFA aerosol inhaler 2 puff inhalation Q4H PRN (Reason: Wheezing) 28 Days Qty: 1 0RF ondansetron 4 mg Tablet,Disintegrating 4 mg PO Q6H PRN (Reason: Nausea And Vomiting) Qty: 10 0RF thiamine mononitrate (vit B1) 100 mg Tablet 100 mg PO DAILY Qty: 30 0RF methadone [Methadone Intensol] 10 mg/mL Concentrate 180 mg PO DAILY Discontinued gabapentin 400 mg Capsule 800 mg PO TID Qty: 90 1RF mirtazapine 15 mg tablet 15 mg PO BEDTIME nicotine (polacrilex) 2 mg gum 2 mg buccal Q2H PRN (Reason: Nicotine Cravings) nicotine 21 mg/24 hr patch 24 hour 21 mg transdermal DAILY PRN (Reason: Smoking Cessation) risperidone 2 mg tablet 2 mg PO Q12H prazosin 2 mg capsule 2 mg PO BEDTIME lorazepam 1 mg Tablet 1 mg PO Q2H PRN (Reason: Anxiety) Rx Instructions: CIWA SCORE 10-14 lorazepam 1 mg Tablet 2 mg PO Q1H PRN (Reason: Anxiety) Rx Instructions: CIWA SCORE 15 OR GREATER Discharge Orders: Discharge Order (Routine); Ordered 01/22/25 Ordered By: Fang Arnold Diet: Advance to usual diet Activity on Discharge: As tolerated Stand Alone Forms: Patient Portal Discharge page, Community Support Print Language: Unable To Collect Care Plan Goals: Abstinence from Substances Mood and Behavioral Stabilization Health Concerns: Abstinence from Substances Mood and Behavioral Stabilization Plan of Treatment: Attend scheduled appointments Take medications as directed Assessment: Serjio ROSE,HI,AH,VH No sx of acute psychosis, sheyla Transition to [facility] [place] Discharge Date/Time: 01/22/25 09:25
== END 2025-01-22 09:25 | DRG 753 ==
PROVIDERS: Clinical Nurse Specialist Psychiatric/Mental Health, Adult; Admitting Provider Nurse Practitioner Psychiatric/Mental Health; Visit Provider Nurse Practitioner Psychiatric/Mental Health
DX: F31.9 Bipolar disorder, unspecified (principal); F10.20 Alcohol dependence, uncomplicated; F11.20 Opioid dependence, uncomplicated; F43.10 Post-traumatic stress disorder, unspecified; F17.210 Nicotine dependence, cigarettes, uncomplicated; Z71.6 Tobacco abuse counseling; Z79.899 Other long term (current) drug therapy
CPT/HCPCS: 36415; 80053; 80061; 82140; 82746; 83036; 84439; 84443; 85025; 93005

== ENCOUNTER 2025-01-10 19:20 | Outpatient (BNV) | payer OTHER, SELFPAY | END 2025-01-12 12:04 | PROVIDERS: Admitting Provider Nurse Practitioner Psychiatric/Mental Health; Visit Provider Internal Medicine | DX: F19.939 Other psychoactive substance use, unspecified with withdrawal, unspecified (principal) | CPT/HCPCS: 93010 ==

== ENCOUNTER → 2025-01-10 19:20 | Outpatient (BNV) | payer OTHER, SELFPAY | PROVIDERS: Admitting Provider Nurse Practitioner Psychiatric/Mental Health; Visit Provider Clinical Nurse Specialist Psychiatric/Mental Health, Adult | DX: F31.5 Bipolar disorder, current episode depressed, severe, with psychotic features (principal); F10.20 Alcohol dependence, uncomplicated; F11.21 Opioid dependence, in remission; F43.11 Post-traumatic stress disorder, acute | CPT/HCPCS: 90792; 99231; 99232 ==